=== PATIENT | male | born 1955 | race Caucasian/White ===

== ENCOUNTER → 2016-05-21 | Outpatient (CLI) | payer BC ==
[2016-05-21 12:53] LABS: ESTIMATED AVERAGE GLUCOSE 126 mg/dl; HA1C FLAG Normal (Normal)
[2016-05-21 13:10] LABS: ALT/SGPT 35 U/L (12-78); AST/SGOT 25 U/L (15-37); BLOOD UREA NITROGEN 14 mg/dl (7-18); CALCIUM 9.1 mg/dl (8.5-10.1); CARBON DIOXIDE 24 mmol/L (21-32); CHLORIDE 105 mmol/L (98-107); CREATININE 0.85 mg/dl (0.60-1.40); GLUCOSE 124 mg/dl (70-99); POTASSIUM 4.2 mmol/L (3.5-5.1); SODIUM 140 mmol/L (136-145)
[2016-05-21 13:15] LABS: ALB/GLOB RATIO 1.2 (0.9-2); ALKALINE PHOSPHATASE 74 U/L (45-117); CHOLESTEROL 164 mg/dl (0-200); CHOLESTEROL/HDL RATIO 2.3; HDL CHOLESTEROL 72 mg/dl; LDL CHOLESTEROL CALCULATED 77 mg/dl; TRIGLYCERIDES 76 mg/dl (0-150); VERY LOW DENSITY LIPOPROT CALC 15 mg/dl
== END | disposition home or self-care (01) ==
LOC: C.LABBFT 09:10
PROVIDERS: ATTEND Internal Medicine
DX: E11.9 Type 2 diabetes mellitus without complications (principal); R97.20 Elevated prostate specific antigen [PSA]; Z00.00 Encounter for general adult medical examination without abnormal findings; I10 Essential (primary) hypertension

== ENCOUNTER → 2016-10-23 | Outpatient (CLI) | payer BC ==
[2016-10-23 12:19] LABS: BASO % 0.2 %; BASO ABS # 0.01 K/uL (0-0.2); COMPLETE YES; EOS % 2.2 %; HEMATOCRIT 42.1 % (42-52); IG% 0.6 %; LYMPH % 11.3 %; LYMPH ABS # 0.61 K/uL (1.2-3.4); MEAN CORPUSCULAR HEMOGLOBIN 31.5 pg (25-34); MEAN CORPUSCULAR HGB CONC 33.5 g/dl (32-36); MEAN PLATELET VOLUME 11.5 fL (7.4-10.4); MONO % 9.8 %; NEUT % 75.9 %; PLATELET COUNT 130 K/uL (130-400); RED BLOOD COUNT 4.48 M/uL (4.7-6.1)
[2016-10-23 12:40] LABS: ALT/SGPT 37 U/L (12-78); AST/SGOT 26 U/L (15-37); BLOOD UREA NITROGEN 19 mg/dl (7-18); BUN/CREATININE RATIO 17.1 (10-20); CALCIUM 9.3 mg/dl (8.5-10.1); CARBON DIOXIDE 27 mmol/L (21-32); CHLORIDE 108 mmol/L (98-107); GLUCOSE 216 mg/dl (70-99); POTASSIUM 4.6 mmol/L (3.5-5.1); SODIUM 140 mmol/L (136-145)
[2016-10-23 12:51] LABS: ALB/GLOB RATIO 1.3 (0.9-2); ALKALINE PHOSPHATASE 73 U/L (45-117)
[2016-10-23 13:26] LABS: ESTIMATED AVERAGE GLUCOSE 146 mg/dl; HA1C FLAG Normal (Normal)
[2016-10-23 14:29] LABS: LYME DISEASE AB IGG NEG (NEG); LYME DISEASE AB IGM NEG (NEG)
== END | disposition home or self-care (01) ==
LOC: C.LABBFT 10:38
PROVIDERS: ATTEND Urology
DX: Z00.00 Encounter for general adult medical examination without abnormal findings (principal); R97.20 Elevated prostate specific antigen [PSA]; E11.9 Type 2 diabetes mellitus without complications; I10 Essential (primary) hypertension; R06.02 Shortness of breath; M25.50 Pain in unspecified joint

== ENCOUNTER → 2016-10-24 | Outpatient (CLI) | payer BC | END | disposition home or self-care (01) | LOC: C.LABBFT 10:40 | PROVIDERS: ATTEND Internal Medicine | DX: Z00.00 Encounter for general adult medical examination without abnormal findings (principal); E11.9 Type 2 diabetes mellitus without complications; I10 Essential (primary) hypertension; R97.20 Elevated prostate specific antigen [PSA] ==

== ENCOUNTER → 2016-11-08 | Outpatient (CLI) | payer BC ==
[~2016-11-08] MED LIST: PERFLUTREN LIPID MICROSPHERE (DEFINITY) IV ONE
--- NOTE | 2016-11-08 15:16 | ECHOCARDIOGRAM REPORT ---
*NOTICE TO RECEIVING REPUBLICAN AGENCY This information is strictly Confidential and protected under [place] law. [place] law prohibits you from making any further disclosure of this information unless further disclosure is expressly permitted by the written consent of the person to whom it pertains or is authorized by law. A general authorization for the release of medical or other information is not sufficient for this purpose. Hospital accepts no responsibility if the information is made available to any other person, INCLUDING THE PATIENT. Interpretation Summary * Name: SHANELL PARKER Study Date: 11/08/2016 01:19 PM BP: 145/80 mmHg * Patient Location: [facility] HR: 84 * : 1955 (M/d/yyyy) Gender: Male Height: 72 in * Age: 61 yrs Ethnicity: [place] Weight: 255 lb * Ordering Physician: Sarahy Young * Referring Physician: Sarahy Young * Performed By: Haley Hou RDCS * * Reason For Study: SWELLING, SOB * BSA: 2.4 m2 * -- Conclusions -- * 1. Moderately dilated LV with normal LV wall thickness. * 2. Severe global LV dysfunction. LVEF 20-25%. Grade II diastolic dysfunction. * 3. Normal RV size with borderline RV function. * 4. No significant valvular pathology. * 5. Severe left atrial dilation. * 6. No prior studies for comparison. Procedure Details * A contrast injection of Definity was performed to improve assessment of LV function. * Contrast was injected into an intravenous site in the right arm. * One vial of Definity ultrasound contrast was diluted in normal saline to a total volume of 10 ml. A total of '2' ml of solution was administered during imaging. * Lot # [id number] of Definity utilized for procedure. * Expiration date NOV 22. * The attending nurse who injected the contrast agent was ELIZABETH BARNETT RN. Left Ventricle * The left ventricle is moderately dilated. * There is normal left ventricular wall thickness. * Ejection Fraction = 20-25%. * There is severe global hypokinesis of the left ventricle. Right Ventricle * The right ventricle is grossly normal size. * The right ventricular systolic function is normal as assessed by tricuspid annular plane systolic excursion (TAPSE) (normal >1.5 cm). Atria * The left atrium is severely dilated. * Right atrial size is normal. * No ASD detected; PFO is not assessed. Mitral Valve * The mitral valve is grossly normal. * There is no mitral valve stenosis. * There is trace mitral regurgitation. Tricuspid Valve * There is no tricuspid stenosis. * Significant tricuspid regurgitation is absent. Aortic Valve * The aortic valve opens well. * The aortic valve is trileaflet. * No hemodynamically significant valvular aortic stenosis. * There is no significant aortic regurgitation. Pulmonic Valve * The pulmonary valve is inadequately visualized, but the Doppler data is adequate for interpretation. * Pulmonic stenosis is absent. * There is no significant pulmonary regurgitation. Great Vessels * The aortic root and proximal ascending aorta are normal sized. Pericardium/Pleural * There is no pericardial effusion. Left Ventricular Diastolic Function * Diastolic dysfunction, Grade II (pseudonormalization pattern). MMode 2D Measurements and Calculations IVSd 1.1 cm IVSs 1.4 cm LVIDd 5.4 cm LVIDs 4.8 cm LVPWd 0.80 cm LVPWs 1.6 cm IVS/LVPW 1.4 FS 10.4 % EDV(Teich) 139.9 ml ESV(Teich) 108.5 ml EF(Teich) 22.5 % EDV(cubed) 155.5 ml ESV(cubed) 111.9 ml EF(cubed) 28.0 % % IVS thick 31.2 % % LVPW thick 96.3 % LV mass(C)d 190.5 grams LV mass(C)dI 80.7 grams/m\S\2 LV mass(C)s 305.3 grams LV mass(C)sI 129.2 grams/m\S\2 SV(Teich) 31.4 ml SI(Teich) 13.3 ml/m\S\2 SV(cubed) 43.6 ml SI(cubed) 18.4 ml/m\S\2 Ao root diam 3.1 cm Ao root area 7.6 cm\S\2 LA dimension 5.2 cm LA/Ao 1.7 LVAd ap4 53.9 cm\S\2 LVLd ap4 10.4 cm EDV(MOD-sp4) 231.0 ml EDV(sp4-el) 237.9 ml LVAs ap4 46.8 cm\S\2 LVLs ap4 10.2 cm ESV(MOD-sp4) 179.4 ml ESV(sp4-el) 181.9 ml EF(MOD-sp4) 22.3 % EF(sp4-el) 23.6 % LVAd ap2 43.0 cm\S\2 LVLd ap2 9.9 cm EDV(MOD-sp2) 154.2 ml EDV(sp2-el) 159.0 ml LVAs ap2 36.2 cm\S\2 LVLs ap2 9.2 cm ESV(MOD-sp2) 115.9 ml ESV(sp2-el) 120.9 ml EF(MOD-sp2) 24.8 % EF(sp2-el) 24.0 % LVLd %diff -5.28 % EDV(MOD-bp) 194.0 ml LVLs %diff -11.24 % ESV(MOD-bp) 151.6 ml EF(MOD-bp) 21.9 % SV(MOD-sp4) 51.6 ml SI(MOD-sp4) 21.8 ml/m\S\2 SV(MOD-sp2) 38.3 ml SI(MOD-sp2) 16.2 ml/m\S\2 SV(MOD-bp) 42.4 ml SI(MOD-bp) 17.9 ml/m\S\2 SV(sp4-el) 56.1 ml SI(sp4-el) 23.7 ml/m\S\2 SV(sp2-el) 38.2 ml SI(sp2-el) 16.2 ml/m\S\2 Doppler Measurements and Calculations MV E max kayleen 69.8 cm/sec MV A max kayleen 36.9 cm/sec MV E/A 1.9 MV dec time 0.17 sec Ao V2 max 100.4 cm/sec Ao max PG 4.0 mmHg Ao max PG (full) 2.5 mmHg LV V1 max PG 1.5 mmHg LV V1 max 61.6 cm/sec
== END | disposition home or self-care (01) ==
LOC: C.CPL 13:14
PROVIDERS: ATTEND Internal Medicine
DX: R60.9 Edema, unspecified (principal); R06.02 Shortness of breath; I51.7 Cardiomegaly

== ENCOUNTER → 2016-11-27 | Outpatient (CLI) | payer BC ==
[~2016-11-27] MED LIST changes: -PERFLUTREN LIPID MICROSPHERE (DEFINITY) IV ONE; +REGADENOSON 0.4 MG/5 ML SYR ONE
--- NOTE | 2016-11-28 09:56 | MYOCARDIAL PERFUSION SCAN ---
ONE-DAY NUCLEAR MEDICINE TECHNETIUM-99M CARDIOLITE MYOCARDIAL PERFUSION SCAN CLINICAL HISTORY: The patient has recently diagnosed systolic congestive heart failure and has been complaining of lower extremity edema. COMPARISON: None. TECHNIQUE: For the stress portion of the study, 32.3 mCi of Technetium 99 m Cardiolite IV was injected at 11:30 a.m. on 11/27/2016. Thirty minutes following the injection, imaging of the heart was performed in multiple projection. For the rest portion of the study, 10.7 mCi of Technetium 99 m Cardiolite was injected IV at 9:30 a.m. One hour following the injection, imaging of the heart was performed in the same projections. For the stress portion of the study, 0.4 mg of Lexiscan was injected intravenously as per protocol. The patient did note chest discomfort. There were no acute EKG changes. Baseline EKG noted sinus rhythm with left axis deviation, poor R-wave progression across the anterior precordium, and diffuse T-wave abnormality. Following the study, the patient was hemodynamically stable without complaints. FINDINGS: For the short axis, vertical long axis, horizontal long axis images were reviewed in detail. Tracer uptake is normal at both the stress and resting images. However, the proximal inferior wall notes decreased uptake at both stress and rest. This is either from a myopathic process, or a proximal inferior infarction. There is no myocardial ischemia. The left ventricle is hypokinetic and demonstrates reduced ejection fraction of 30%. The proximal inferior wall notes more severe hypokinesis. IMPRESSION: 1. No definite scintigraphic evidence of myocardial ischemia. 2. Proximal inferior wall defect consistent with either prior infarction or myopathic process. 3. Lexiscan induced chest discomfort. 4. No Lexiscan induced EKG changes over the baseline abnormality. 5. Globally hypokinetic left ventricle with an ejection fraction of 30%. More severe hypokinesis noted in the proximal inferior wall.
== END | disposition home or self-care (01) ==
LOC: C.NUCL 08:59
PROVIDERS: ATTEND Physician Assistant
DX: I42.9 Cardiomyopathy, unspecified (principal); I50.20 Unspecified systolic (congestive) heart failure

== ENCOUNTER → 2017-08-04 | Outpatient (CLI) | payer BC ==
[2017-08-04 17:05] LABS: ALBUMIN 3.9 gm/dl (3.4-5.0); ALT/SGPT 43 U/L (12-78); AST/SGOT 24 U/L (15-37); BLOOD UREA NITROGEN 28 mg/dl (7-18); CALCIUM 8.8 mg/dl (8.5-10.1); CARBON DIOXIDE 24 mmol/L (21-32); CREATININE 1.21 mg/dl (0.60-1.40); GLUCOSE 173 mg/dl (70-99); POTASSIUM 4.3 mmol/L (3.5-5.1); SODIUM 136 mmol/L (136-145); URIC ACID 7.6 mg/dl (2.6-7.2)
[2017-08-04 17:08] LABS: ALKALINE PHOSPHATASE 78 U/L (45-117); TOTAL PROTEIN 7.6 gm/dl (6.4-8.2)
[2017-08-05 07:19] LABS: HEMOGLOBIN A1C 7.4 % (4.5-5.6)
== END | disposition home or self-care (01) ==
LOC: C.LABBFT 13:38
PROVIDERS: ATTEND Internal Medicine
DX: Z00.00 Encounter for general adult medical examination without abnormal findings (principal); Z11.59 Encounter for screening for other viral diseases; E11.9 Type 2 diabetes mellitus without complications; H43.399 Other vitreous opacities, unspecified eye; R80.9 Proteinuria, unspecified; I10 Essential (primary) hypertension; M10.9 Gout, unspecified

== ENCOUNTER 2023-07-08 15:03 | Inpatient (IN) ==
--- NOTE | 2023-07-08 15:29 | Emergency Department Note ---
Impression & Plan Acute renal failure (ARF), Systolic congestive heart failure, Acute uremia, Encephalopathy, Hyperkalemia ED Provider Note Provider: Parminder Dior MD DATE OF SERVICE: 07/08/2023 CHIEF COMPLAINT: Weakness, shaking HISTORY OF PRESENT ILLNESS: Patient is a 68-year-old gentleman history of heart failure, hypertension, diabetes, and GERD by report presenting here today via ambulance from his home with no issue. Patient's brother called 911 as there was concerned about the patient. Several days ago for Easter. Patient noted to be quite shaky by EMS and seem to have and speech/confusion. Brought here for further evaluation. Was noted to be possibly hypoxic and bradycardic by EMS. Upon arrival here patient quite tremulous. Answering questions and following commands. Denies any trauma or pain. Is in a poorly kept bath robe with a bit of stool and/or blood on it as well. There is little bit of dried blood in the patient's appears well but he denies vomiting. Denies any recollection of this. Denies abdominal pain or nausea or vomiting. Denies chest pain or shortness of breath. States he been feeling much more weak recently. 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 Again denies falls. States he been trying to put off going to the doctor. EMS gave the patient a liter normal saline prior to arrival. PAST MEDICAL HISTORY: As noted above MEDICATIONS: Reviewed medication list presenting with the patient but he is unable to clearly tell me if you have been taking them or not. SOCIAL HISTORY: Lives by himself, history of alcohol use but states has been sober for 7 weeks PHYSICAL EXAM: GENERAL: alert and oriented in no acute distress on stretcher however very tremulous and appears fatigued. Not really able to give me a lot of clear details or history. Head: normocephalic and atraumatic EYES: No injection, discharge or icterus. PERRL, EOMI. NECK: Trachea midline. Supple. ENT: Mucous membranes pink and moist. There is little bit of what appears to be dried blood in the right mustache. LUNGS: Airway patent. No retractions. Breath sounds clear with good air entry bilaterally. HEART: Regular rate and rhythm. No chest wall tenderness ABDOMEN: Soft and non-tender, without guarding or rebound. SKIN: Acyanotic, warm, dry, without rashes EXTREMITIES: Without swelling, tenderness or deformity NEUROLOGICAL: No focal deficits but tremulous at rest. No aphasia. No facial droop or slurred speech. EK bpm sinus rhythm with a bit of baseline artifact but no acute ST segment elevation or depression with a left axis and nonspecific interventricular conduction delay. QTc 441. No PVC noted. CONTINUOUS CARDIAC MONITORING: was ordered and showed a heart rate of bpm in Patient's laboratory studies and imaging reviewed. Differential includes Infection, dehydration, metabolic abnormality, hypo/hyperglycemia, electrolyte disturbance, anemia, hypoxia, cardiac sources, intracerebral event, toxicologic, neurologic, as well as other pathologies. IMPRESSION/MEDICAL DECISION MAKING: Patient fatigued and appears a little bit drowsy and/or confused. No trauma noted. Possible little bit of blood around his mouth and his fitch as well as possibly in his bathroom. States he has been sober from alcohol for medical echo was checked. Will obtain a head CT. Denies any pain. No focal neurological deficits at this time lower suspicion for CVA. No fever here. Possible oxygen requirement but a bit hard with his tremulousness to be for sure waveform is accurate on pulse ox. Chest x-ray ordered and basic labs. CT of the head per radiology reassuring and chest x-ray without acute pathology noted by them. Blood work obtained here without leukocytosis. Mild anemia of 9.8. Again there is question if he did have a little bit of bloody vomit or stool but again it is hard to get a good history from him. Given a dose of PPI. Alcohol level not elevated. Normal INR. Chemistries finally returned after delay borderline hyponatremia but some hyperkalemia 5.9. Significant BUN elevation 175 with a creatinine of almost 8. Reviewed records and follows with cardiology there and has a history of an EF in April of this year of 25% (will need cautious rehydration). Received a liter of fluid prior to arrival and will cautiously start a bicarb drip as well as given IV bicarb, insulin, glucose, and some calcium for the hyperkalemia. Begin believe more dehydration related but will complete a CT of the abdomen pelvis to exclude obstruction component. He will need to be hospitalized and the patient was agreeable. Likely somewhat encephalopathic from his uremia. Discussed with the hospitalist. DIAGNOSIS: AMS/encephalopathy (uremic), weakness, acute renal failure, hyperkalemia DISPOSITION: Hospitalist will evaluate Patient was agreeable with this plan. Critical Care I have personally spent 32 minutes of critical care time in the direct management of this patient. This includes bedside care, interpretation of diagnostic studies, and testing, discussion with consultants, patient, and other required patient management activities. These 32 minutes is in excess of all separately billable procedures. Past Med/Surg History Medical History Elevated PSA GERD without esophagitis Gout Hypertension Nonischemic cardiomyopathy Rosacea Systolic congestive heart failure Surgical History No significant past surgical history Family History Mother Diabetes Myocardial infarction Brother Pacemaker Sister Pacemaker Denies family history of Ovarian cancer Prostate cancer Alzheimer disease Breast cancer Lung cancer Colorectal cancer Lung disease Colonic polyp Social History Smoking Status: Never smoker Age Started Using Tobacco: 8; Age Quit Using Tobacco: 45; packs per day: 1; Cigarettes Per Day: pt. 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 Safe at Home: Yes Childhood Exposure to Second-Hand Smoke: No Diet: regular caffeine: Yes Dental Care, Regularly: Yes Physical Activity Frequency: 3-4 Times per Week Seatbelt Use: always Sunscreen Use: Yes Allergies Allergies Allergy/AdvReac Type Severity Reaction Status Date / Time Penicillins Allergy Severe AIRWAY Verified 07/08/23 15:41 EDEMA pollen extracts Allergy Intermediate ITCHY Verified 07/08/23 15:41 EYES, SNEEZING, CONGESTION Home Meds Home Medications Medication Instructions Recorded Confirmed metoprolol succinate 50 mg 50 mg PO BID #30 tabs 11/24/18 07/08/23 tablet,extended release 24 hr aspirin 81 mg tablet,delayed 81 mg PO QPM 05/10/20 07/08/23 release melatonin 10 mg capsule 10 mg PO HS PRN Sleep 05/10/20 07/08/23 allopurinol 100 mg tablet 100 mg PO QAM 05/17/20 07/08/23 olmesartan 20 mg tablet 20 mg PO QAM 05/17/20 07/08/23 empagliflozin 10 mg tablet 10 mg PO QAM 07/08/23 07/08/23 (Jardiance) fexofenadine 180 mg tablet 180 mg PO QAM 07/08/23 07/08/23 hydroxyzine HCl 25 mg tablet 25 mg PO DAILY PRN Itching 07/08/23 07/08/23 metformin 500 mg tablet 500 mg PO BIDM 07/08/23 07/08/23 rosuvastatin 10 mg tablet 10 mg PO QAM 07/08/23 07/08/23 Results & Data (ED) Vital Signs Vital Signs - 24 hr 07/08/23 15:12 07/08/23 15:12 07/08/23 15:57 Temperature 36.4 C L Temperature Source Oral Pulse Rate 94 H 79 Pulse Rate [Apical] Respiratory Rate 18 Respiratory Effort / Characteristics Non-Labored Spontaneous Respiratory Depth Normal Blood Pressure 129/87 Blood Pressure [Right Arm] Blood Pressure Mean 101 Blood Pressure Mean [Right Arm] Blood Pressure Position Sitting Pulse Oximetry 97 94 Oxygen Delivery Method Nasal Cannula Room Air Oxygen Flow Rate 3 84 Sepsis Recent Fever Within 48 Hours No Sepsis New/Unexplained Change in Mental Status N/A Sepsis Action Taken by Nursing No Action Required Oxygen Flow Rate - Titration 3 07/08/23 18:00 07/08/23 18:30 07/08/23 18:32 Temperature Temperature Source Pulse Rate Pulse Rate [Apical] 82 88 Respiratory Rate 16 18 Respiratory Effort / Characteristics Respiratory Depth Blood Pressure Blood Pressure [Right Arm] 122/83 131/83 Blood Pressure Mean Blood Pressure Mean [Right Arm] 96 99 Blood Pressure Position Pulse Oximetry 95 95 95 Oxygen Delivery Method Room Air Room Air Room Air Oxygen Flow Rate Sepsis Recent Fever Within 48 Hours Sepsis New/Unexplained Change in Mental Status Sepsis Action Taken by Nursing Oxygen Flow Rate - Titration 07/08/23 19:00 Temperature Temperature Source Pulse Rate Pulse Rate [Apical] 88 Respiratory Rate 22 Respiratory Effort / Characteristics Respiratory Depth Blood Pressure Blood Pressure [Right Arm] 115/89 Blood Pressure Mean Blood Pressure Mean [Right Arm] 97 Blood Pressure Position Pulse Oximetry 99 Oxygen Delivery Method Oxygen Flow Rate Sepsis Recent Fever Within 48 Hours Sepsis New/Unexplained Change in Mental Status Sepsis Action Taken by Nursing Oxygen Flow Rate - Titration Laboratory Data 07/08/23 16:54 07/08/23 16:54 Lab Results 07/08/23 Range/Units 16:54 WBC 7.29 (4.8-10.8) K/ul RBC 3.15 L (4.70-6.10) M/uL Hgb 9.8 L (14.0-18.0) g/dl Hct 28.7 L (42.0-52.0) % MCV 91.1 (80.0-100.0) fL MCH 31.1 (25.0-34.0) pg MCHC 34.1 (32.0-36.0) g/dL RDW Std Deviation 49.5 H (36.4-46.3) fL RDW Coeff of Vu 14.8 H (11.5-14.5) % Plt Count 115 L (130-400) K/uL MPV 11.8 (9.4-12.4) fL Immature Gran % (Auto) 2.2 % Neut % (Auto) 75.1 % Lymph % (Auto) 9.2 % Chaves % (Auto) 12.5 % Eos % (Auto) 0.7 % Baso % (Auto) 0.3 % Neut # (Auto) 5.48 (1.40-6.50) K/uL Lymph # (Auto) 0.67 L (1.20-3.40) K/uL Chaves # (Auto) 0.91 H (0.11-0.59) K/uL Eos # (Auto) 0.05 (0.00-0.50) K/uL Baso # (Auto) 0.02 (0.00-0.20) K/uL Immature Gran # (Auto) 0.16 (0.01-0.20) K/uL Absolute Nucleated RBC 0.03 (0.00-0.12) K/uL Nucleated RBC % (auto) 0.4 % PT 12.2 H (9.0-12.0) Seconds INR 1.1 (0.9-1.1) Sodium 135 L (136-145) mmol/L Potassium 5.9 H (3.5-5.1) mmol/L Chloride 106 (98-107) mmol/L Carbon Dioxide 12 L (21-32) mmol/L Anion Gap 17 H (3-11) BUN 175 H (6-23) mg/dl Creatinine 7.93 H* (0.6-1.4) mg/dl Est Cr Clr Drug Dosing 10.9 ml/min Est GFR ( Amer) 7.2 ml/min Est GFR (Non-Af Amer) 6.2 ml/min BUN/Creatinine Ratio 22.1 H (10-20) Glucose 145 H (70-99(Fasting)) mg/dl Calcium 9.8 (8.6-10.3) mg/dl Magnesium 2.0 (1.7-2.4) mg/dl Total Bilirubin 0.9 (0.2-1.0) mg/dl AST 16 (13-39) U/L ALT 13 (7-52) U/L Alkaline Phosphatase 76 (34-104) U/L Total Creatine Kinase 86 (30-223) U/L Troponin I High Sens 37.5 H (0-20) pg/ml Total Protein 7.3 (6.0-8.3) gm/dl Albumin 3.9 (3.4-5.0) gm/dl Globulin 3.4 (2.5-4.0) gm/dl Albumin/Globulin Ratio 1.1 (0.9-2) TSH 1.339 (0.300-4.500) uIu/ml Ethyl Alcohol mg/dL < 10.0 (<10.0) mg/dl Administered Medications Discontinued Medications Dextrose (Dextrose 50% 50 Ml Syringe) 50 ml IV NOW STA Stop: 07/08/23 18:37 Last Admin: 07/08/23 18:53 Dose: 50 ml Documented By: JACINTA Pantoprazole Sodium 80 mg/ (Dextrose) 120 mls @ 480 mls/hr IV ONE STA Stop: 07/08/23 17:46 Last Admin: 07/08/23 19:02 Dose: 480 mls/hr Documented By: JACINTA Insulin Human Regular 10 units (/ Syringe) 9.9 mls @ 3 mls/sec IV ONE STA Stop: 07/08/23 18:37 Last Admin: 07/08/23 18:53 Dose: 3 mls/sec Documented By: JACINTA Co-signed By: SELENE Sodium Chloride (Nss) 1,000 mls @ 999 mls/hr IV .Q1H1M ONE Stop: 07/08/23 19:36 Last Admin: 07/08/23 19:02 Dose: 999 mls/hr Documented By: JACINTA Calcium Gluconate () 1,000 mg in 60 mls @ 240 mls/hr IV NOW STA Stop: 07/08/23 18:50 Last Infusion: 07/08/23 19:24 Dose: Infused Documented By: Admin: 07/08/23 18:53 Dose: 240 mls/hr Documented By: JACINTA Sodium Bicarbonate (Sodium Bicarb 8.4% Inj 50 Meq/50 Ml Syr) 50 meq IV NOW STA Stop: 07/08/23 18:37 Last Admin: 07/08/23 18:53 Dose: 50 meq Documented By: JACINTA Imaging Data Radiologist's Impression: Chest X-Ray 07/08/23 15:23 XR chest 1V portable CLINICAL HISTORY: weakness, ams, O2 req TECHNIQUE: Single frontal radiograph of the chest was obtained. Comparison: None available at the time of this dictation. FINDINGS: No lines and tubes are seen. The cardiomediastinal silhouette is normal. Lungs are underinflated but clear. No evidence of pleural effusion or pneumothorax. IMPRESSION: No acute chest disease. ACT 112: Negative or not required by law. Electronically signed by: Marbin Cervantes M.D. 07/08/2023 3:[address] 07/08/23 15:23 CT head/brain wo con CLINICAL HISTORY: 68 years-old Male with weak, shaky, ams. Acutely altered mental status with weakness TECHNIQUE: Multiple axial CT images of the head were obtained without contrast. A dose lowering technique was utilized adhering to the principles of ALARA. CT DOSE: 703.85 mGy.cm COMPARISON: None. FINDINGS: No acute intracranial hemorrhage, midline shift, intracranial mass, hydrocephalus, territorial ischemia or abnormal extra-axial collection. Involutional changes with probable chronic microvascular ischemic disease. The calvarium is intact. The paranasal sinuses, mastoid air cells, and middle ear cavities are clear. IMPRESSION: No acute intracranial abnormality. ACT 112: Negative or not required by law. The above report was generated using voice recognition software. It may contain grammatical, syntax or spelling errors. Electronically signed by: Ivan Modi M.D. 07/08/2023 4:31 PM Discharge Plan Visit Data Chief Complaint: Altered Mental Status ED Provider: Parminder Dior Discharge Problem: Acute renal failure (ARF), Systolic congestive heart failure, Acute uremia, Encephalopathy, Hyperkalemia Patient Disposition: Being Evaluated by Hospitalist Forms Stand Alone Forms: [facility] Prescriptions Prescriptions: No Action metoprolol succinate 50 mg tablet extended release 24 hr 50 mg PO BID Qty: 30 aspirin 81 mg tablet,delayed release (DR/EC) 81 mg PO QPM melatonin 10 mg capsule 10 mg PO HS PRN (Reason: Sleep) allopurinol 100 mg tablet 100 mg PO QAM olmesartan 20 mg tablet 20 mg PO QAM fexofenadine [Liv] 180 mg Tablet 180 mg PO QAM hydroxyzine HCl 25 mg tablet 25 mg PO DAILY PRN (Reason: Itching) Jardiance 10 mg tablet 10 mg PO QAM metformin 500 mg tablet 500 mg PO BIDM rosuvastatin 10 mg tablet 10 mg PO QAM Referrals Referrals: PCP,NO [Physician] -
--- NOTE | 2023-07-08 15:54 | XRay Report ---
XR chest 1V portable CLINICAL HISTORY: weakness, ams, O2 req TECHNIQUE: Single frontal radiograph of the chest was obtained. Comparison: None available at the time of this dictation. FINDINGS: No lines and tubes are seen. The cardiomediastinal silhouette is normal. Lungs are underinflated but clear. No evidence of pleural effusion or pneumothorax. IMPRESSION: No acute chest disease. ACT 112: Negative or not required by law. Electronically signed by: Marbin Cervantes M.D. 07/08/2023 3:52 PM
--- NOTE | 2023-07-08 16:32 | CT Scan Report ---
CT head/brain wo con CLINICAL HISTORY: 68 years-old Male with weak, shaky, ams. Acutely altered mental status with weakne ss TECHNIQUE: Multiple axial CT images of the head were obtained without contrast. A dose lowering tech nique was utilized adhering to the principles of ALARA. CT DOSE: 703.85 mGy.cm COMPARISON: None. FINDINGS: No acute intracranial hemorrhage, midline shift, intracranial mass, hydrocephalus, territorial ischem ia or abnormal extra-axial collection. Involutional changes with probable chronic microvascular ische alexandru disease. The calvarium is intact. The paranasal sinuses, mastoid air cells, and middle ear cavities are clear . IMPRESSION: No acute intracranial abnormality. ACT 112: Negative or not required by law. The above report was generated using voice recognition software. It may contain grammatical, syntax o r spelling errors. Electronically signed by: Ivan Modi M.D. 07/08/2023 4:31 PM
[2023-07-08 17:25] LABS: Basophils # (auto) 0.02 K/uL (0.00-0.20); Basophils % (auto) 0.3 %; Eosinophils # (auto) 0.05 K/uL (0.00-0.50); Eosinophils % (auto) 0.7 %; Hematocrit (blood only) 28.7 % (42.0-52.0); Hemoglobin 9.8 g/dl (14.0-18.0); Immature Granulocytes # (auto) 0.16 K/uL (0.01-0.20); Immature Granulocytes % (auto) 2.2 %; Lymphocytes # (auto) 0.67 K/uL (1.20-3.40); Lymphocytes % (auto) 9.2 %; Mean Corpuscular Hemoglobin 31.1 pg (25.0-34.0); Mean Corpuscular Hgb Conc 34.1 g/dL (32.0-36.0); Mean Corpuscular Volume 91.1 fL (80.0-100.0); Mean Platelet Volume 11.8 fL (9.4-12.4); Monocytes # (auto) 0.91 K/uL (0.11-0.59); Monocytes % (auto) 12.5 %; Neutrophils # (auto) 5.48 K/uL (1.40-6.50); Neutrophils % (auto) 75.1 %; Nucleated RBC # (auto) 0.03 K/uL (0.00-0.12); Nucleated RBC % (auto) 0.4 %; Platelet Count 115 K/uL (130-400); RDW Coefficient of Variation 14.8 % (11.5-14.5); RDW Standard Deviation 49.5 fL (36.4-46.3); Red Blood Count 3.15 M/uL (4.70-6.10); White Blood Count 7.29 K/ul (4.8-10.8)
[2023-07-08 17:33] LABS: INR 1.1 (0.9-1.1); Prothrombin Time 12.2 Seconds (9.0-12.0)
[2023-07-08 18:34] LABS: Albumin Globulin Ratio 1.1 (0.9-2); Albumin Level 3.9 gm/dl (3.4-5.0); BUN Creatinine Ratio 22.1 (10-20); Bilirubin,Total 0.9 mg/dl (0.2-1.0); Calcium 9.8 mg/dl (8.6-10.3); Creatinine Clr Calc Pharmacy 10.9 ml/min; Est GFR (African American) 7.2 ml/min; Est GFR (Non-African American) 6.2 ml/min; Globulin 3.4 gm/dl (2.5-4.0); Potassium 5.9 mmol/L (3.5-5.1); Thyroid Stimulating Hormone 1.339 uIu/ml (0.300-4.500); Total Protein 7.3 gm/dl (6.0-8.3); Troponin I High Sensitivity 37.5 pg/ml (0-20)
[2023-07-08] MEDS: SODIUM BICARB 8.4% INJ 50 MEQ/50 ML SYR IV STA (18:53)
[2023-07-08] MEDS: CALCIUM GLUCONATE 1,000 MG/60 ML BAG IV STA (18:53)
[2023-07-08] MEDS: INSULIN HUMAN REGULAR PER UNIT 10 UNITS in SYRINGE 9.9 ML IV STA (18:53)
[2023-07-08] MEDS: DEXTROSE 50% 50 ML SYRINGE IV STA (18:53)
[2023-07-08] MEDS: PANTOprazole 80 MG in DEXTROSE 5% 100 ML IV STA (19:02)
[2023-07-08] MEDS: SODIUM CHLORIDE 0.9% 1,000 ML IV ONE (19:02)
[2023-07-08 20:08] LABS: Appearance Urine Clear (Clear); Bacteria Urine Automated Negative (Negative); Bilirubin Urine Negative (Negative); Blood Urine 1+ (Negative); Color Urine Yellow; Glucose Urine UA 1+ (Negative); Ketones Urine Negative (Negative); Leukocyte Esterase Urine Negative (Negative); Nitrite Urine Negative (Negative); Protein Urine 1+ (Negative); Specific Gravity Urine 1.018 (1.000-1.030); Urobilinogen Urine Negative (Negative)
[2023-07-08 20:36] LABS: Amphetamines+Metham, Urine Neg (Neg); Barbiturates, Urine Neg (Neg); Benzodiazepine, Urine Neg (Neg); Cocaine, Urine Neg (Neg); MDMA (Ecstacy), Urine Neg (Neg); Marijuana, Urine Neg (Neg); Methadone, Urine Neg (Neg); Opiate, Urine Neg (Neg); Phencyclidine, Urine Neg (Neg)
[2023-07-08] MEDS: SODIUM BICARBONATE 8.4% 75 MEQ in SODIUM CHLORIDE 0.45 % 1,000 ML IV SCH (20:41)
[2023-07-08 22:24] LABS: Base Excess VBG -13.3 mEq/L; HCO3 VBG 14 mmol/L; Oxygen Saturation VBG < 60.0 %; PCO2 VBG 37 mmHg (38-50); PO2 VBG 28 mmHg; pH VBG 7.19 (7.36-7.41)
[2023-07-08] MEDS ORDERED: DEXTROSE 50% 50 ML SYRINGE IV PRN (22:41)
[2023-07-08] MEDS ORDERED: PANTOPRAZOLE BOLUS/DRIP IV STA (22:41)
[2023-07-08] MEDS ORDERED: NITROGLYCERIN SL 0.4 MG/TAB TAB SL PRN (22:41)
[2023-07-08] MEDS ORDERED: GLUCAGON FOR INJ 1 MG VIAL SQ PRN (22:41)
[2023-07-08] MEDS ORDERED: GLUCOSE 10 TAB/TUBE PO PRN (22:41)
[2023-07-08] MEDS ORDERED: GLUCOSE 40% GEL 15 GM TUBE PO PRN (22:41)
[2023-07-08] MEDS ORDERED: Ativan IV Alcohol Withdrawal--Active Protocol IV PRN (22:41)
[2023-07-08] MEDS ORDERED: CARBOHYDRATES FOR HYPOGLYCEMIA PO PRN (22:41)
[2023-07-08] MEDS: FOLIC ACID 1 MG in SYRINGE 9.8 ML IV STA (22:43)
[2023-07-08] MEDS: THIAMINE HCL 200 MG in SODIUM CHLORIDE 0.9% 50 ML IV STA (22:43)
[2023-07-08] MEDS: INSULIN ASPART PER UNIT CHARGE SC SCH (23:26)
--- NOTE | 2023-07-08 23:26 | CT Scan Report ---
Exam(s): CT ABDOMEN + PELVIS Without Contrast EXAM: CT Abdomen and Pelvis Without Intravenous Contrast CLINICAL HISTORY: Reason for exam: PETER Cr >7. TECHNIQUE: Axial computed tomography images of the abdomen and pelvis without intravenous contrast. CTDI is 28.1 mGy and DLP is 1575.28 mGy-cm. Automated exposure control was utilized for the study. A dose lowering technique was utilized adhering to the principles of ALARA. COMPARISON: No relevant prior studies available. FINDINGS: Lung bases: Unremarkable. No mass. No consolidation. ABDOMEN: Liver: Unremarkable. Gallbladder and bile ducts: Cholelithiasis. No ductal dilation. Pancreas: Unremarkable. No ductal dilation. Spleen: Unremarkable. No splenomegaly. Adrenals: Unremarkable. No mass. Kidneys and ureters: Unremarkable. No hydronephrosis or nephrolithiasis. Stomach and bowel: Diverticulosis, without acute diverticulitis. No small bowel obstruction. No free intraperitoneal air. PELVIS: Appendix: No findings to suggest acute appendicitis. Bladder: Bernal catheter terminates in the urinary bladder. No stones. Reproductive: Unremarkable as visualized. ABDOMEN and PELVIS: Intraperitoneal space: Unremarkable. No free air. No significant fluid collection. Bones/joints: Degenerative changes of the spine. No acute fracture. No dislocation. Soft tissues: Small fat-containing bilateral inguinal hernias. Fat- containing umbilical hernia measures 3.6 x 3.3 cm. Vasculature: Atherosclerotic changes of the aorta. No abdominal aortic aneurysm. Lymph nodes: Unremarkable. No enlarged lymph nodes. IMPRESSION: 1. Cholelithiasis. 2. Bernal catheter terminates in the urinary bladder. 3. Small fat-containing bilateral inguinal hernias. 4. Fat-containing umbilical hernia measures 3.6 x 3.3 cm. 5. Diverticulosis, without acute diverticulitis. No small bowel obstruction. No free intraperitoneal air. Electronically signed by: Branden Hay MD 07/08/23 23:25 PM
[2023-07-09] MEDS: PANTOprazole 80 MG in DEXTROSE 5% 100 ML IV ONE (01:26)
[2023-07-09 01:28] LABS: Hematocrit (blood only) 28.2 % (42.0-52.0); Hemoglobin 9.5 g/dl (14.0-18.0)
[2023-07-09] MEDS: STAT IV/IM STA (01:38)
[2023-07-09 01:43] LABS: Magnesium 1.9 mg/dl (1.7-2.4); Phosphorus 5.8 mg/dl (2.5-4.9)
[2023-07-09 01:50] LABS: Troponin I High Sensitivity 38.5 pg/ml (0-20)
[2023-07-09 01:59] LABS: Partial Thromboplastin Ratio 1.1; Partial Thromboplastin Time 31 Seconds (21-31)
[2023-07-09 02:02] LABS: Calcium 9.7 mg/dl (8.6-10.3); Creatinine Clr Calc Pharmacy 11.8 ml/min; Est GFR (Non-African American) 6.9 ml/min; Potassium 5.5 mmol/L (3.5-5.1)
[2023-07-09] MEDS: CLINDAMYCIN/D5W 600 MG/50 ML BAG IV SCH (03:21)
[2023-07-09] MEDS: LORazepam 2 MG in SYRINGE 1 ML IV PRN (03:31)
[2023-07-09] MEDS: PANTOprazole 40 MG in DEXTROSE 5% MINI-B 100 ML IV SCH (04:15)
[2023-07-09] MEDS: AZTREONAM 2,000 MG in DEXTROSE 5% MINI-B 100 ML IV SCH (04:51)
--- OUTSIDE RECORDS SUMMARY | 2023-07-09 04:51 | External Medical Summary | Summary of Care ---
Author Name Unknown Organization [facility] [address] [address] Phone [phone] Care Team Providers Care Peoplesoft Programmer Name Role Phone Tanner Johnson MD Primary Care Provider [phone] Reason for Visit * Reason Onset Date Comments Advice 05/09/2023 Dr Johnson Encounter Details Date Type Department Care Team (Late st Contact Info) Description 05/09/2023 Telephone Cardiology, [facility] [address] [place] [address] Omar Lundy O, [address] [place] [address] Advice (Dr Johnson) Allergies Active Allergy Reactions Criticality Noted Date Comments Pollen 10/25/2020 Penicillins Edema airway High 08/28/2015 Happened as a kid, age 10 documented as of this encounter (statuses as of 05/30/2023) Medications Medication Sig Dispensed Refills Start Date End Date Status Fexofenadine HCl 180 MG Oral Tablet Take 1 Tablet by mouth in the morning. 0 Active Melatonin 10 MG Tablet Take 1 Tablet by mouth as needed. 0 Active Acyclovir 5 % External Ointment (Zovirax) Apply to genital lesion 5 times per day for 4 days 15 g 3 10/26/2020 Active Additional Information Patient not taking.Reported on 12/31/2022 Tadalafil 5 MG Oral Tablet (Cialis) Take by mouth 1 Tablet in the morning. 30 Tablet 6 06/20/2021 Active Additional Information Patient not taking.Reported on 07/19/2022 Albuterol Sulfate 108 (90 Base) MCG/ACT Inhalation Aerosol Powder Breath ActivatedIndications: Bronchitis, complicated 2 puffs every 4 hrs as needed for wheeze 1 Each 3 06/12/2022 Active Additional Information Patient not taking.Reported on 12/31/2022 Olmesartan Medoxomil 20 MG Oral Tablet (Benicar)Indications: HTN, goal below 130/80 Take 1 Tablet by mouth in the morning. 90 Tablet 3 03/11/2023 Active Metoprolol Succinate ER 50 MG Oral Tablet Extended Release 24 Hour (toPROL XL)Indications:PVC (premature ventricular contraction) TAKE ONE TABLET BY MOUTH EVERY DAY IN THE MORNING AND ONE TABLET BEFORE BEDTIME 200 Tablet 0 03/11/2023 Active hydrOXYzine HCl 25 MG Oral TabletIndications:Pru ritic condition Take 1 Tablet by mouth daily as needed for Itching. 90 Tablet 3 05/07/2023 Active Aspirin 81 MG Oral Tablet Delayed ReleaseIndications:Ta emmy 2 times per week Take 1 Tablet by mouth every evening. 90 Tablet 3 05/09/2023 Active Empagliflozin 10 MG Oral Tablet (Jardiance)Indication s:Type 2 diabetes mellitus with hyperosmolarity without coma, without long-term current use of insulin (HCC),Type 2 diabetes mellitus with hemoglobin A1c goal of less than 7.0% (HCC) Take 1 Tablet by mouth in the morning. 90 Tablet 3 05/09/2023 Active Rosuvastatin Calcium 10 MG Oral Tablet (Crestor)Indications: Hyperlipidemia with target LDL less than 100 TAKE ONE TABLET BY MOUTH IN THE MORNING 100 Tablet 3 05/09/2023 Active documented as of this encounter (statuses as of 05/30/2023) Active Problems Problem Noted Date Diagnosed Date Dyslipidemia, goal LDL below 100 07/23/2022 Alcohol dependence with unsp ecified alcohol-induced disorder 01/01/2022 Closed fracture of distal en d of left fibula with routine healing 01/01/2022 Thrombocytopenia 01/01/2022 Hypertensive heart failure 01/01/2022 Elevated prostate specific antigen (PSA) 020 ED (erectile dysfunction) of organic origin 09/2019 PVC (premature ventricular contraction) 09/30/19 19 Type 2 diabetes mellitus, wi thout long-term current use of insulin 09/29/2018 Chronic systolic CHF (conges tive heart failure), NYHA class 2 09/29/2018 1st degree AV block 09/29/2018 IVCD (intraventricular conduction defect) 2018 Nonischemic cardiomyopathy 01/26/2018 HTN, goal below 130/80 11/10/2017 documented as of this encounter (statuses as of 05/30/2023) Resolved Problems Problem Noted Date Diagnosed Date Resolved Date Screening for prostate cancer 08/28/2015 01/26/2018 Uncontrolled type 2 diabetes mellitus with hyperglycemia 08/28/2015 01/01/2022 Overview: ICD-10 update of inactive term documented as of this encounter (statuses as of 05/30/2023) Immunizations Name Administration Dates Next Due COVID-19 mRNA, LNP-s, No Pre serve, 2-Dose Series (Moderna) 08/01/2020,06/30/2020 Pneumococcal Conjugate Vacc, 13 Valent (Prevnar) 01/26/2018 Pneumococcal Conjugate Vaccine, 20-valent (Prevn ar20) 09/27/2022 Pneumococcal Polysaccharide PPV23 (Pneumovax) ,12/04/2020 Seasonal Influenza, Quadrivalent Hd (Fluzone Hd) 12/31/2022 Seasonal Influenza, Quadrivalent Hd, 65+ Yrs 08/2019 Seasonal Influenza, Quadrivalent, No Preserve, I M 12/14/2021 Seasonal Influenza, Trivalen t, High Dose, No Preserve, IM 12/06/2020,02/03/2019 TDAP (age 10 and older)(Boostrix) 08/09/2016 documented as of this encounter Social History Tobacco Use Types Packs/Day Years Used Date Smoking Tobacco: Never Smokeless Tobacco: Former Quit: 01/27/2009 Alcohol Use Standard Drinks/Week Comments Yes 15 (1 standard drink = 0.6 oz pu re alcohol) drinks 3 beers a night PHQ-2 Answer Date Recorded PHQ-2 Score -1 02/11/2018 Sex and Gender Information Value Date Recorded Sex Assigned at Male 06/12/2022 12:04 PM EST Gender Identity Male 06/12/2022 12:04 PM EST Sexual Orientation Choose not to disclose 2022 12:04 PM EST Job Start Date Occupation Industry Not on file Not on file Not on file documented as of this encounter Miscellaneous Notes * Telephone Encounter - Michael Thornton RN - 05/30/2023 1:35 PM EST Xray results mailed to patient * Telephone Encounter - Kelli Dailey OSA - 05/29/2023 10:30 AM EST Patient is asking for a copy of his XRAY results be mailed out to him. He never really got the results. .Thank you, Kelli Loredo. Ashlie-Scheduling Services Specialist [facility] Cardio/Cardiothoracic/Thoracic Surgery services lines PH# [phone] * Telephone Encounter - Valentina Kebede RPh - 05/27/2023 11:17 AM EST Reviewed with patient Valentina Kebede Pharm D Clinical [facility] Pharmacist Cardiology 05/27/2023,11:18 AM * Telephone Encounter - Omar Lundy DO - 05/16/2023 4:31 PM EST See result note dated 05/08/2023. Most recent ECG stable and unchanged compared to previous study. * Telephone Encounter - Kelli Dailey OSA - 05/09/2023 2:44 PM EST Person calling: Nimesh Relationship to patient: self Number to return call: [phone] Reason for call: patient is asking for his chest xray results from 1.31.24 xray. Concerned about asbestos. Also would like his EKG results. Patient also has some concerns about possible medication changes. Please return patient's call Pharmacy: Provider Name:Elizabeth documented in this encounter Plan of Treatment Upcoming Encounters Date Type Department Care Team (Late st Contact Info) Description 06/06/2023 11:00 AM EST Office Visit [facility] [place] [address] [facility] [place] [phone] Tanner Johnson MD [address] [facility] [place] [address] 06/10/2023 10:00 AM EST Telemedicine Cardiology [place] [address] [place] [address] [place], [facility] Cardiology [address] [place] [address] 07/02/2023 10:40 AM EDT [facility] [address] [facility] [place] [address] Tanner Johnson MD [address] [facility] [place] [address] Health Maintenance Due Date Last Done Comments B-12 1971 Diabetic Eye Exam 1971 Cologuard 1998 Colonoscopy 1998 Colorectal Cancer Screening 1998 Fecal Occult Blood Test 1998 Sigmoidoscopy 1998 Zoster Vaccines (1 of 2) 2003 Depression Screening 11/10/2018 11/10/2017 COVID-19 Vaccine ( season) 2022 08/01/2020, 06/30/2020 HbA1c 03/29/2023 09/27/2022, 010 09/2021, 12/04/2020, Additional history exists Albumin/Creatinine Ratio 09/28/2023 09/27/2022, 07/ GFR 09/28/2023 09/27/2022, 01/0 09/2021, 08/02/2020, Additional history exists Diabetic Foot Exam 03/07/2024 03/07/2023, 0 12/04/2020, 01/26/2018 DTaP,Tdap,and Td Vaccines (2 - Td or Tdap) 08/09/2026 08/09/2016 Lipid Panel 09/28/2027 09/27/2022, 09/2021, 07/10/2018, Additional history exists Pneumococcal Vaccine: 65+ Years Completed 09/27/2022, 04/12/2021, 12/04/2020, Additional history exists Influenza Vaccine (FLU shot) Completed , 12/14/2021, 12/06/2020, Additional history exists GARDASIL-HPV IMMUNIZATION SERIES Aged Out No longer eligible based on patient's age to complete this topic Hepatitis B Aged Out No longer eligi ble based on patient's age to complete this topic MENINGOCOCCAL (MENACTRA/MENVEO) Aged Out No longer eligible based on patient's age to complete this topic documented as of this encounter Medical Devices Not on filedocumented as of this encounter Care Teams Peoplesoft Programmer Relationship Specialty Start Date End Date August, Tanner Malcolm MD [address] [place] [address] PCP - General Family Medicine 01/09/23 documented as of this encounter
--- OUTSIDE RECORDS SUMMARY | 2023-07-09 04:51 | External Medical Summary | Summary of Care ---
Author Name Unknown Organization [facility] Address [address] [address] Phone [phone] Care Team Providers Care Target Developer Name Role Phone Tanner Johnson MD Primary Care Provider Reason for Visit * Reason Onset Date Comments Advice 05/09/2023 Dr Johnson Encounter Details Date Type Department Care Team (Late st Contact Info) Description 05/09/2023 Telephone Cardiology, [facility] [address] [place] [address] Omar Lundy O, [address] [place] [address] Advice (Dr Johnson) Allergies Active Allergy Reactions Criticality Noted Date Comments Pollen 10/25/2020 Penicillins Edema airway High 08/28/2015 Happened as a kid, age 10 documented as of this encounter (statuses as of 05/29/2023) Medications Medication Sig Dispensed Refills Start Date [...] as of this encounter (statuses as of 05/29/2023) Active Problems Problem Noted Date Diagnosed Date [...] as of this encounter (statuses as of 05/29/2023) Resolved Problems Problem Noted Date Diagnosed Date Resolved Date Screening for prostate cancer 08/28/2015 01/26/2018 Uncontrolled type 2 diabetes mellitus with hyperglycemia 08/28/2015 01/01/2022 Overview: ICD-10 update of inactive term documented as of this encounter (statuses as of 05/29/2023) Immunizations Name Administration Dates Next Due COVID-19 [...] encounter Miscellaneous Notes * Telephone Encounter - Gum, Kelli D, MIKAYLA - 05/29/2023 10:30 AM EST Patient is asking for a copy of his XRAY results be mailed out to him. He never really got the results. .Thank you, Kelli Loredo. Ashlie-Scheduling Services Specialist [facility] Cardio/Cardiothoracic/Thoracic Surgery services lines # [phone] * Telephone Encounter - Valentina Kebede RPh - 05/27/2023 11:17 AM EST Reviewed with patient Valentina Kebede Pharm D Clinical [facility] Pharmacist Cardiology 05/27/2023,11:18 AM * Telephone Encounter - Omar Lundy DO - 05/16/2023 4:31 PM EST See result note dated 05/08/2023. Most recent ECG stable and unchanged compared to previous study. * Telephone Encounter - Kelli Dailey OSA - 05/09/2023 2:44 PM EST Person calling: Nimesh Relationship to patient: self Number to return call: [phone] Reason for call: patient is asking for [...] Description 06/06/2023 11:00 AM EST Office Visit [address] [place] [address] [facility] [address] [facility] [facility] [address] 06/10/2023 10:00 AM EST Telemedicine [place]iology [place] [address] [place] [address] [facility] Cardiology [address] [place] [address] 07/02/2023 10:40 AM EDT Office Visit [facility] [address] [facility] [place] [phone] Tnaner Johnson MD [address] [facility] [facility] [address] Health Maintenance Due Date Last Done Comments B-12 1971 Diabetic Eye Exam 1971 Cologuard 1998 Colonoscopy 1998 Colorectal Cancer Screening 1998 Fecal Occult Blood Test 1998 Sigmoidoscopy 1998 Zoster Vaccines (1 of 2) 2003 Depression Screening 11/10/2018 11/10/2017 COVID-19 Vaccine (3 - 2022- season) 2022 08/01/2020, 06/30/2020 HbA1c 03/29/2023 09/27/2022, 01/0 09/2021, 12/04/2020, Additional history exists Albumin/Creatinine Ratio 09/28/2023 09/27/2022, 07/2 GFR 09/28/2023 09/27/2022, 01/0 09/2021, 08/02/2020, Additional history exists Diabetic Foot Exam 03/07/2024 03/07/2023, 0 12/04/2020, 01/26/2018 DTaP,Tdap,and Td Vaccines (2 - Td or Tdap) 08/09/2026 08/09/2016 Lipid Panel 09/28/2027 09/27/2022, 01/0 09/2021, 07/10/2018, Additional history exists Pneumococcal Vaccine: [...] filedocumented as of this encounter Care Teams Target Developer Relationship Specialty Start Date End Date August, Tanner Malcolm MD [address] [place] [address] PCP - General Family Medicine 01/09/23 documented as of this encounter
--- OUTSIDE RECORDS SUMMARY | 2023-07-09 04:51 | External Medical Summary | Summary of Care ---
Author Name Unknown Organization [facility] Address [address] [place] [address] Phone [phone] Care Team Providers Care Manager Material Name Role Phone AugustTanner MD Primary Care Provider Reason for Visit * Reason Onset Date Comments Advice 06/06/2023 RED FLAG- POSSIB LE BROKEN LEG Encounter Details Date Type Department Care Team (Late st Contact Info) Description 06/06/2023 Telephone [facility] [address] [place] [address] Tanner Johnson MD [address] [place] [address] Advice (RED FLAG- POSSIBLE BROKEN LEG) Allergies Active Allergy Reactions Criticality Noted Date Comments Pollen 10/25/2020 Penicillins Edema airway High 08/28/2015 Happened as a kid, age 10 documented as of this encounter (statuses as of 06/06/2023) Medications Medication Sig Dispensed Refills Start Date [...] THE MORNING 100 Tablet 3 05/09/2023 Active Allopurinol 100 MG Oral Tablet (Zyloprim)Indications :Gouty arthropathy TAKE ONE TABLET BY MOUTH IN THE MORNING 100 Tablet 1 05/12/2023 Active metFORMIN HCl ER 500 MG Oral Tablet Extended Release 24 Hour (Glucophage XR)Indications:Type 2 diabetes mellitus with hemoglobin A1c goal of less than 7.0% (HCC) TAKE TWO TABLETS BY MOUTH TWO TIMES A DAY WITH MORNING AND EVENING MEALS 400 Tablet 1 05/12/2023 Active documented as of this encounter (statuses as of 06/06/2023) Active Problems Problem Noted Date Diagnosed Date [...] as of this encounter (statuses as of 06/06/2023) Resolved Problems Problem Noted Date Diagnosed Date Resolved Date Screening for prostate cancer 08/28/2015 01/26/2018 Uncontrolled type 2 diabetes mellitus with hyperglycemia 08/28/2015 01/01/2022 Overview: ICD-10 update of inactive term documented as of this encounter (statuses as of 06/06/2023) Immunizations Name Administration Dates Next Due COVID-19 [...] encounter Miscellaneous Notes * Telephone Encounter - Amelie Joyner, MIKAYLA - 06/06/2023 11:21 AM EST Call was transferred to me to speak to patient. He states that he still wants to be seen today (it was almost 11 o'clock when the phone call came to me). I said we have a 15 minute late policy and hesaid it will be 11:45 utnil I get there. I said we need to reschedule. He said that is unacceptableas he has his brother in the driveway waiting for him to take him to this appointment and he needs to be seen it's for his diabetes and he has a broken leg. I put the patient on hold and let him knowI would talk to Dr. Johnson. Per Dr. Johnson we are to reschedule his appointment as he will be more than 15 mins. Late. As for his broken leg, he need to go to [facility] for a walk in appointment orhe can go to ER. 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 I said I understand sir, but we have a 15 min. Late policy. He got angry and said YOU WANT ME TO GO TO THE ER OR [facility] THAT'S [address]. I said yes sir,I understand that but we need to get your appointment regarding your diabetes rescheduled. He saidWHAT ABOUT MY LEG. I said sir, you are to go to the ER or [facility] they have a walk in forth. I am talking about your appointment with Dr. Johnson for your Diabetes. He said it is okay if youwait until August 16. We have a 4 PM or a 4:20 that day. He chose 4:00 PM on August 16. He then started yelling about his leg. I advised him that Dr. Johnson states he is to go to [facility] or ER. He said "OK' and hung up on me. 06/06/2023 * Telephone Encounter - Camille Ulloa RN - 06/06/2023 11:07 AM EST This is a nurse triage encounter. If additional action is needed, do not route to nurse triage. Please route encounter to the applicable clinic pool. I noticed that pt had appt at this time in the office I called and spoke with Amelie. Amelie said that she spoke with the pt. He Called 10 minutes before his scheduled appt and requested to be seen late for his possible broken leg/ James spoke with Dr Johnson who advised pt to go to the ED or orthopedic clinic. Camille Ulloa RN * Telephone Encounter - Heather Varela OSA - 06/06/2023 10:57 AM EST Reason for patient's call: asked for someone at clinic Caller was transferred to Amelie at the clinic. * Telephone Encounter - Denilson Sheikh OSA - 06/06/2023 10:48 AM EST What is the reason for call? POSSIBLE BROKEN LEG What Clinic is the patient trying to reach? [facility]: [place] - Call Type: Red Flag- route the telephone encounter as routine to bale breaker operator p [phone] Call was routed "routine" to the [facility] nurse triage basket (p [phone]). documented in this encounter Plan of Treatment Upcoming Encounters Date Type Department Care Team (Late st Contact Info) Description 06/10/2023 10:00 AM EST Telemedicine Cardiology [facility] [address] [place] [address] [facility] Cardiology [address] [place] [address] 06/17/2023 4:00 PM EDT Office Visit [facility] [address] [facility] [facility] [address] AugustTanner MD [address] [facility] [place] [phone] 07/02/2023 10:40 AM EDT Office Visit [facility] [place] [address] [facility] [address] AugustTanner MD [address] [place] [facility] [place] [address] Health Maintenance Due Date Last Done Comments [...] filedocumented as of this encounter Care Teams Manager Material Relationship Specialty Start Date End Date August, Tanner Malcolm MD [address] [place] [address] PCP - General Family Medicine 01/09/23 documented as of this encounter
--- OUTSIDE RECORDS SUMMARY | 2023-07-09 04:51 | External Medical Summary | Summary of Care ---
Author Name Unknown Organization [facility] Address [address] [place] [address] Phone [phone] Care Team Providers Care Edge Banding Off Bearer Name Role Phone AugustYuliana MD Primary Care Provider [phone] Reason for Visit * Reason Comments Medication Refill Encounter Details Date Type Department Care Team (Late st Contact Info) Description 07/05/2023 Refill [facility] [address] [place] [address] AugustYuliana MD [address] [place] [address] PVC (premature ventricular contraction) Allergies Active Allergy Reactions Criticality Noted Date Comments Pollen 10/25/2020 Penicillins Edema airway High 08/28/2015 Happened as a kid, age 10 documented as of this encounter (statuses as of 07/07/2023) Medications Medication Sig Dispensed Refills Start Date [...] (90 Base) MCG/ACT Inhalation Aerosol Powder Breath ActivatedIndications :Bronchitis, complicated 2 puffs every 4 hrs as needed for wheeze 1 Each 3 06/12/2022 Active Additional Information Patient not taking.Reported on 12/31/2022 Olmesartan Medoxomil 20 MG Oral Tablet (Benicar)Indications :HTN, goal below 130/80 Take 1 Tablet by mouth in the morning. 90 Tablet 3 03/11/2023 Active hydrOXYzine HCl 25 MG Oral TabletIndications:Pr uritic condition Take 1 Tablet by mouth daily as needed for Itching. 90 Tablet 3 05/07/2023 Active Aspirin 81 MG Oral Tablet Delayed ReleaseIndications:T aking 2 times per week Take 1 Tablet by mouth every evening. 90 Tablet 3 05/09/2023 Active Empagliflozin 10 MG Oral Tablet (Jardiance)Indicatio ns:Type 2 diabetes mellitus with hyperosmolarity without coma, without long-term current use of insulin (HCC),Type 2 diabetes mellitus with hemoglobin A1c goal of less than 7.0% (HCC) Take 1 Tablet by mouth in the morning. 90 Tablet 3 05/09/2023 Active Rosuvastatin Calcium 10 MG Oral Tablet (Crestor)Indications :Hyperlipidemia with target LDL less than 100 TAKE ONE TABLET BY MOUTH IN THE MORNING 100 Tablet 3 05/09/2023 Active Allopurinol 100 MG Oral Tablet (Zyloprim)Indication s:Gouty arthropathy TAKE ONE TABLET BY MOUTH IN THE MORNING 100 Tablet 1 05/12/2023 Active metFORMIN HCl ER 500 MG Oral Tablet Extended Release 24 Hour (Glucophage XR)Indications:Type 2 diabetes mellitus with hemoglobin A1c goal of less than 7.0% (HCC) TAKE TWO TABLETS BY MOUTH TWO TIMES A DAY WITH MORNING AND EVENING MEALS 400 Tablet 1 05/12/2023 Active Metoprolol Succinate ER 50 MG Oral Tablet Extended Release 24 Hour (toPROL XL)Indications:PVC (premature ventricular contraction) TAKE ONE TABLET BY MOUTH EVERY DAY IN THE MORNING AND ONE TABLET BEFORE BEDTIME 180 Tablet 3 07/07/2023 Active Metoprolol Succinate ER 50 MG Oral Tablet Extended Release 24 Hour (toPROL XL)Indications:PVC (premature ventricular contraction) TAKE ONE TABLET BY MOUTH EVERY DAY IN THE MORNING AND ONE TABLET BEFORE BEDTIME 200 Tablet 0 03/11/2023 07/05/19 24 Discontinu ed(Refill) documented as of this encounter (statuses as of 07/07/2023) Active Problems Problem Noted Date Diagnosed Date Dyslipidemia, goal LDL below 100 07/23/2022 Alcohol dependence with unsp ecified alcohol-induced disorder 01/01/2022 Closed fracture of distal en d of left fibula with routine healing 01/01/2022 Thrombocytopenia 01/01/2022 Hypertensive heart disease w ith chronic systolic congestive heart failure 01/01/2022 Elevated prostate specific antigen [...] as of this encounter (statuses as of 07/07/2023) Resolved Problems Problem Noted Date Diagnosed Date Resolved Date Screening for prostate cancer 08/28/2015 01/26/2018 Uncontrolled type 2 diabetes mellitus with hyperglycemia 08/28/2015 01/01/2022 Overview: ICD-10 update of inactive term documented as of this encounter (statuses as of 07/07/2023) Immunizations Name Administration Dates Next Due COVID-19 [...] encounter Miscellaneous Notes * Telephone Encounter - Yuliana Vail MD - 07/07/2023 7:34 AM EDTSigned Prescriptions: Disp Refills Metoprolol Succinate ER 50 MG Oral Tablet *180 Ta*3 Sig: TAKE ONE TABLET BY MOUTH EVERY DAY IN THE MORNING AND ONE TABLET BEFORE BEDTIMEAuthorizing Provider: YULIANA VAIL * Telephone Encounter - Cheryl Bailey [facility] - 07/05/2023 7:57 PM EDT Pending Prescriptions: Disp Refills Metoprolol Succinate ER 50 MG Oral Tablet *200 Ta*0 Sig: TAKE ONE TABLET BY MOUTH EVERY DAY IN THE MORNING AND ONE TABLET BEFORE BEDTIME * Telephone Encounter - Cheryl Bailey [facility] - 07/05/2023 7:57 PM EDT Did you pend patient's preferred pharmacy and medication before forwarding?yes Pharmacy: [facility] Pending Prescriptions: Disp Refills Metoprolol Succinate ER 50 MG Oral Tablet*200 Ta*0 Sig: TAKE ONE TABLET BY MOUTH EVERY DAY IN THE MORNING AND ONE TABLET BEFORE BEDTIME Last Visit: 03/07/2023 (in office), Visit date not found (telemedicine) Next Visit: Visit date not found If no future appointments scheduled, and last appointment is greater than a year ago, please schedule patient for a follow-up appointment Last date the medication was ordered: 03/11/23 Is this request for a controlled substance?No Urine Drug Screen:No results found for this or any previous visit. Patient Phone Numbers Labs: Lab Results Component Value Date/Time CREAT 1.37 09/27/2022 12:00 AM CREAT 1.2 10/15/2018 04:23 PM POTASSIUM 4.8 09/27/2022 12:00 AM POTASSIUM 5.1 10/15/2018 04:23 PM TSH 1.510 09/27/2022 12:00 AM TSH 1.54 07/20/2018 12:18 PM LDLCALC 57 09/27/2022 12:00 AM LDLCALC 124 09/25/2015 11:23 AM ALT 26 04/12/2021 01:16 PM ALT 24 07/20/2018 12:18 PM HGBA1C 8.4 (A) 09/27/2022 12:00 AM HGBA1C 6.0 09/25/2015 11:23 AM documented in this encounter Plan of Treatment Health Maintenance Due Date Last Done Comments B-12 1971 Diabetic Eye Exam 1971 Cologuard 1998 Colonoscopy 1998 Colorectal Cancer Screening 1998 Fecal Occult Blood Test 1998 Sigmoidoscopy 1998 Zoster Vaccines (1 of 2) 2003 Depression Screening 11/10/2018 11/10/2017 COVID-19 Vaccine ( season) 2022 08/01/2020, 06/30/2020 HbA1c 03/29/2023 09/27/2022, 0 09/2021, 12/04/2020, Additional history exists Albumin/Creatinine Ratio 09/28/2023 09/27/2022, 07/ GFR 09/28/2023 09/27/2022, 0 09/2021, 08/02/2020, Additional history exists Diabetic Foot [...] Not on filedocumented as of this encounter Visit Diagnoses Diagnosis PVC (premature ventricular contraction) Other premature beats documented in this encounter Care Teams Edge Banding Off Bearer Relationship Specialty Start Date End Date August, Yuliana Malcolm MD [address] [place] [address] PCP - General Family Medicine 01/09/23 documented as of this encounter
--- OUTSIDE RECORDS SUMMARY | 2023-07-09 04:51 | External Medical Summary | Summary of Care ---
Author Name Unknown Organization [facility] Address [address] [place] [address] Phone [phone] Care Team Providers Care Chief Accountant Name Role Phone AugustTanner MD Primary Care Provider [phone] Reason for Visit * Reason Onset Date Comments Advice 06/06/2023 RED FLAG- POSSIB LE BROKEN LEG Encounter Details Date Type Department Care Team (Late st Contact Info) Description 06/06/2023 Telephone [facility] [address] [place] [address] Tanner Johnson MD [address] [place] [address] Advice (RED FLAG- POSSIBLE BROKEN [...] broken leg, he need to go to [facility] for a walk in appointment orhe can go to ER. 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 I said I understand sir, but we have a 15 min. Late policy. He got angry and said YOU WANT ME TO GO TO THE ER OR [facility] THAT'S [address] TR[address]. I said yes sir,I understand that but we need to get your appointment regarding your diabetes rescheduled. He said WHAT ABOUT MY LEG. I said sir, you are to go to the ER or [facility] they have a walk in for that. I am talking about your appointment with Dr. Johnson for your Diabetes. He said it is okay if you wait until August 16. We have a 4 PM or a 4:20 that day. He chose 4:00 PM on August 16. He then started yelling about his leg. I advised him that Dr. Johnson states he is to go to [facility] or ER. He said "OK' and [...] Clinic is the patient trying to reach? [facility] Clinic: [place] - Call Type: Red Flag- route the telephone encounter as routine to electrical systems drafter p [phone] Call was routed "routine" to the [facility] nurse triage basket (p [phone]). documented in this encounter Plan of Treatment Upcoming Encounters Date Type Department Care Team (Late st Contact Info) Description 06/10/2023 10:00 AM EST Telemedicine Cardiology [address] [place] [address] [facility] [address] [place] [address] 06/17/2023 4:00 PM EDT Office [facility] [place] [address] [address] AugustTanner MD [address] [facility] [place] [id number] 07/02/2023 10:40 AM EDT Office Visit [facility] [place] [address] [facility] [address] Tanner Johnson MD [address] [facility] [place] [id number] Health Maintenance Due Date Last Done Comments [...] filedocumented as of this encounter Care Teams Chief Accountant Relationship Specialty Start Date End Date August, Tanner Malcolm MD [address] [place] [address] PCP - General Family Medicine 01/09/23 documented as of this encounter
--- OUTSIDE RECORDS SUMMARY | 2023-07-09 04:51 | External Medical Summary | Summary of Care ---
Author Name Unknown Organization [facility] Address [address] [facility] [address] Phone [phone] Care Team Providers Care Mechanic Assistant Name Role Phone Tanner Johnson MD Primary Care Provider Reason for Visit * Reason Onset Date Comments Advice 05/09/2023 Dr Johnson Encounter Details Date Type Department Care Team (Late st Contact Info) Description 05/09/2023 Telephone Cardiology, [facility] [address] [place] [address] Omar Lundy O, [address] [place] [address] Advice (Dr Johnson) Allergies Active Allergy Reactions [...] .Thank you, Kelli Loredo. Ashlie-Scheduling Services Specialist [facility] Cardio/Cardiothoracic/Thoracic Surgery services lines # [phone] * Telephone Encounter - Valentina Kebede RPh - 05/27/2023 11:17 AM EST Reviewed with patient Valentina Kebede Pharm D Clinical [facility] Pharmacist Cardiology 05/27/2023,11:18 AM * Telephone Encounter - Omar Lundy DO - 05/16/2023 4:31 PM EST See result note dated 05/08/2023. Most recent ECG stable and unchanged compared to previous study. * Telephone Encounter - Kelli Dailey OSA - 05/09/2023 2:44 PM EST Person calling: Nimesh Relationship to patient: self Number to return call: [phone] Reason for call: patient is asking for [...] Description 06/06/2023 11:00 AM EST Office Visit [address] [place] [address] [facility]anner [facility] [address] [facility] [address] 06/10/2023 10:00 AM EST Telemedicine Cardiology [place] [facility] [address] [place] [address] Luis Manuel [facility] Cardiology [address] [place] [address] 07/02/2023 10:40 AM EDT Office Visit [facility] [address] [facility] [place] [id number] Tanner Johnson MD [address] [facility] [address] Health Maintenance Due Date Last Done Comments [...] filedocumented as of this encounter Care Teams Mechanic Assistant Relationship Specialty Start Date End Date August, Tanner Malcolm MD [address] [place] [address] PCP - General Family Medicine 01/09/23 documented as of this encounter
--- OUTSIDE RECORDS SUMMARY | 2023-07-09 04:51 | External Medical Summary | Summary of Care ---
Author Name Unknown Organization [facility] Address [address] [place] [address] Phone [phone] Care Team Providers Care Supervisor Welding Equipment Repairer Name Role Phone Tanner Johnson MD Primary Care Provider [phone] Encounter Details Date Type Department Care Team (Late st Contact Info) Description 06/17/2023 Telephone Cardiology [place] [address] [facility] [place] [id number] [facility] [address] [facility] [place] [address] Allergies Active Allergy Reactions Criticality Noted Date Comments Pollen 10/25/2020 Penicillins Edema airway High 08/28/2015 Happened as a kid, age 10 documented as of this encounter (statuses as of 06/17/2023) Medications Medication Sig Dispensed Refills Start Date [...] as of this encounter (statuses as of 06/17/2023) Active Problems Problem Noted Date Diagnosed Date [...] as of this encounter (statuses as of 06/17/2023) Resolved Problems Problem Noted Date Diagnosed Date Resolved Date Screening for prostate cancer 08/28/2015 01/26/2018 Uncontrolled type 2 diabetes mellitus with hyperglycemia 08/28/2015 01/01/2022 Overview: ICD-10 update of inactive term documented as of this encounter (statuses as of 06/17/2023) Immunizations Name Administration Dates Next Due COVID-19 [...] encounter Miscellaneous Notes * Telephone Encounter - Valentina Kebede RPh - 06/17/2023 1:33 PM EDT Called pt for MTM appt today. Patient again very agitated on the phone. Doesn't understand why he keeps getting phone calls for [facility], reports we keep waking him up. Reviewed he had scheduled appt at 1:30 pm and he is overdue for labs (started Jardiance 05/09 and hasn't had BMP since). Pt states he will get labs at PCP visit on 06/19 Patient then hung up on me. MTM will sign off as pt does not wish to have phone calls from ks Valentina Kebede Pharm D Clinical [facility] Pharmacist Cardiology 06/17/2023,1:34 PM documented in this encounter Plan of Treatment Upcoming Encounters Date Type Department Care Team (Late st Contact Info) Description 06/20/2023 10:40 AM EDT Office Visit [place] [address] [place] [address] Lauren Jackman MD [address] [address] 07/02/2023 10:40 AM EDT Office Visit [facility] [address] [facility] [place] [address] Tanner Johnson MD [address] [facility] [place] [id number] Health Maintenance Due Date Last Done Comments B-12 1971 Diabetic Eye Exam 1971 Cologuard 1998 Colonoscopy 1998 Colorectal Cancer Screening 1998 Fecal Occult Blood Test 1998 Sigmoidoscopy 1998 Zoster Vaccines (1 of 2) 2003 Depression Screening 11/10/2018 11/10/2017 COVID-19 Vaccine (3 - season) 2022 08/01/2020, 06/30/2020 HbA1c 03/29/2023 09/27/2022, [...] filedocumented as of this encounter Care Teams Supervisor Welding Equipment Repairer Relationship Specialty Start Date End Date August, Tanner Malcolm MD [address] [place] [address] PCP - General Family Medicine 01/09/23 documented as of this encounter
--- OUTSIDE RECORDS SUMMARY | 2023-07-09 04:52 | External Medical Summary | Summary of Care ---
Author Name Unknown Organization [facility] Address [address] [facility] [address] Phone [phone] Care Team Providers Care Materials Management Supervisor Name Role Phone Tanner Johnson MD Primary Care Provider [phone] Reason for Visit * Reason Onset Date Comments Appointment 05/07/2023 Encounter Details Date Type Department Care Team (Late st Contact Info) Description 05/07/2023 Telephone Cardiology, [facility] [address] [place] [address] Omar Lundy, [address] [place] [address] Appointment Allergies Active Allergy Reactions Criticality Noted Date Comments Pollen 10/25/2020 Penicillins Edema airway High 08/28/2015 Happened as a kid, age 10 documented as of this encounter (statuses as of 05/08/2023) Medications Medication Sig Dispensed Refills Start Date End Date Status aspirin enteric coated 81 MG TBECIndications:Taki ng 2 times per week Take 1 Tablet by mouth every evening. 0 Active Fexofenadine HCl 180 MG Oral Tablet Take [...] Additional Information Patient not taking.Reported on 12/31/2022 metFORMIN HCl ER 500 MG Oral Tablet Extended Release 24 Hour (Glucophage XR)Indications:Type 2 diabetes mellitus with hemoglobin A1c goal of less than 7.0% (HCC) TAKE TWO TABLETS BY MOUTH TWO TIMES A DAY WITH MORNING AND EVENING MEALS 400 Tablet 0 12/18/2022 Active Allopurinol 100 MG Oral Tablet (Zyloprim)Indication s:Gouty arthropathy TAKE ONE TABLET BY MOUTH IN THE MORNING 100 Tablet 0 12/18/2022 Active Empagliflozin 10 MG Oral Tablet (Jardiance)Indicatio ns:Type 2 diabetes mellitus with hyperosmolarity without coma, without long-term current use of insulin (HCC),Type 2 diabetes mellitus with hemoglobin A1c goal of less than 7.0% (HCC) Take 1 Tablet by mouth in the morning. 90 Tablet 3 03/07/2023 Active Additional Information Patient not taking.Reported on 05/07/2023 Olmesartan Medoxomil 20 MG Oral Tablet (Benicar)Indications :HTN, goal below 130/80 Take 1 Tablet by mouth in the morning. 90 Tablet 3 03/11/2023 Active Metoprolol Succinate ER 50 MG Oral Tablet Extended Release 24 Hour (toPROL XL)Indications:PVC (premature ventricular contraction) TAKE ONE TABLET BY MOUTH EVERY DAY IN THE MORNING AND ONE TABLET BEFORE BEDTIME 200 Tablet 0 03/11/2023 Active Rosuvastatin Calcium 10 MG Oral Tablet (Crestor)Indications :Hyperlipidemia with target LDL less than 100 TAKE ONE TABLET BY MOUTH IN THE MORNING 100 Tablet 0 05/07/2023 Active hydrOXYzine HCl 25 MG Oral TabletIndications:Pr uritic condition Take 1 Tablet by mouth daily as needed for Itching. 90 Tablet 3 12/31/2022 05/07/19 24 Discontinu ed(Refill) documented as of this encounter (statuses as of 05/08/2023) Active Problems Problem Noted Date Diagnosed Date [...] as of this encounter (statuses as of 05/08/2023) Resolved Problems Problem Noted Date Diagnosed Date Resolved Date Screening for prostate cancer 08/28/2015 01/26/2018 Uncontrolled type 2 diabetes mellitus with hyperglycemia 08/28/2015 01/01/2022 Overview: ICD-10 update of inactive term documented as of this encounter (statuses as of 05/08/2023) Immunizations Name Administration Dates Next Due COVID-19 [...] encounter Miscellaneous Notes * Telephone Encounter - Padmini Braun OSA - 05/08/2023 10:21 AM EST Spoke with Pt, telephone appointment scheduled for 05/09. Pt does not have a smart phone or any way to do a video visit. * Telephone Encounter - Valentina Kebede RPh - 05/07/2023 11:31 AM EST Video, preferred but phone also shiela Kebede Pharm D Clinical [facility] Pharmacist Cardiology 05/07/2023,11:32 AM * Telephone Encounter - Padmini Braun OSA - 05/07/2023 11:05 AM EST Referral placed for cardiology pharmacist. Pt declined to schedule at check out asking if this can be by telephone only. He does not want to drive back to [place] from [place]. Please advise. documented in this encounter Plan of Treatment Upcoming Encounters Date Type Department Care Team (Late st Contact Info) Description 05/09/2023 10:00 AM EST Telemedicine Cardiology, [facility] [address] [facility] [place] [address] [facility] Cardiology [facility] [address] [facility] [place] [address] 06/06/2023 11:00 AM EST Office Visit [facility] [address] [place] [facility] [place] [address] Tanner Johnson MD [address] [place] [address] 07/02/2023 10:40 AM EDT Office Visit [facility] [address] [place] [facility] [place] [address] Tanner Johnson MD [address] [place] [facility] [place] [address] Health Maintenance Due Date Last Done Comments B-12 1971 Diabetic Eye Exam 1971 Cologuard 1998 Colonoscopy 1998 Colorectal Cancer Screening 1998 Fecal Occult Blood Test 1998 Sigmoidoscopy 1998 Zoster Vaccines (1 of 2) 2003 Hepatitis B (1 of 3 - Risk 3-dose series) 2013 Depression Screening 11/10/2018 11/10/2017 COVID-19 Vaccine ( [...] filedocumented as of this encounter Care Teams Materials Management Supervisor Relationship Specialty Start Date End Date August, Tanner Malcolm MD [address] [place] [address] PCP - General Family Medicine 01/09/23 documented as of this encounter
--- OUTSIDE RECORDS SUMMARY | 2023-07-09 04:52 | External Medical Summary | Summary of Care ---
Author Name Unknown Organization [facility] Address [address] [place] [address] Phone [phone] Care Team Providers Care Charge Preparation Technician Name Role Phone AugustTanner MD Primary Care Provider [phone] Reason for Visit * Reason Onset Date Comments Advice 05/23/2023 Upcoming appts Encounter Details Date Type Department Care Team (Late st Contact Info) Description 05/23/2023 Telephone [facility] [address] [place] [address] Tanner Johnson MD [address] [place] [address] Advice (Upcoming appts) Allergies Active Allergy Reactions Criticality Noted Date Comments Pollen 10/25/2020 Penicillins Edema airway High 08/28/2015 Happened as a kid, age 10 documented as of this encounter (statuses as of 05/23/2023) Medications Medication Sig Dispensed Refills Start Date [...] as of this encounter (statuses as of 05/23/2023) Active Problems Problem Noted Date Diagnosed Date [...] 09/30/19 19 Type 2 diabetes mellitus[facility] current use of insulin 09/29/2018 Chronic systolic CHF (conges tive heart failure), NYHA class 2 09/29/2018 1st degree AV block 09/29/2018 IVCD (intraventricular conduction defect) 2018 Nonischemic cardiomyopathy 01/26/2018 HTN, goal below 130/80 11/10/2017 documented as of this encounter (statuses as of 05/23/2023) Resolved Problems Problem Noted Date Diagnosed Date Resolved Date Screening for prostate cancer 08/28/2015 01/26/2018 Uncontrolled type 2 diabetes mellitus with hyperglycemia 08/28/2015 01/01/2022 Overview: ICD-10 update of inactive term documented as of this encounter (statuses as of 05/23/2023) Immunizations Name Administration Dates Next Due COVID-19 [...] Miscellaneous Notes * Telephone Encounter - Amelie Joyner OSA - 05/23/2023 9:54 AM EST Patient did NOT want to cancel the and wants to keep it. He seemed confused when I told him about the blood work. He said I have that on the . I said you need the bloodwork prior to June 05 appointment. He said he will arrange that on his own time. 05/23/2023 * Telephone Encounter - Tanner Johnson MD - 05/23/2023 9:33 AM EST Okay to cancel 07/02/2023 appointment with me. He should get lab work completed prior to the 06/06/2023 appointment. This is ordered. Tanner Johnson MD * Telephone Encounter - Gretel Mancera OSA - 05/23/2023 7:23 AM EST Pt called to confirm upcoming appts, but was very confused when his 3 upcoming appointments were read back to him, repeatedly referencing a past appointment date (05/07/23) that was already completed and mixing up the appointment times that were confirmed to him. Pt is scheduled for 06/06/23 and 07/01 with PCP and declined to cancel one of those appointments without getting approval from Dr Johnson. Please return call to pt to advise if an appointment should be canceled, and mail a copy of appointments to pt once reviewed. documented in this encounter Plan of Treatment Upcoming Encounters Date Type Department Care Team (Late st Contact Info) Description 05/27/2023 11:00 AM EST Telemedicine Cardiology [address] [place] [address] [facility] Card[facility] [address] [place] [address] 06/06/2023 11:00 AM EST Office Visit [facility] [address] [facility] [id number] AugustTanner MD [address] [place] [facility] [place] [address] 07/02/2023 10:40 AM EDT Office Visit [facility] [address] [facility] [address] AugustTanner MD [address] [place] [address] Health Maintenance Due Date Last Done Comments [...] filedocumented as of this encounter Care Teams Charge Preparation Technician Relationship Specialty Start Date End Date August, Tanner Malcolm MD [address] [place] [address] PCP - General Family Medicine 01/09/23 documented as of this encounter
--- OUTSIDE RECORDS SUMMARY | 2023-07-09 04:52 | External Medical Summary | Summary of Care ---
Author Name Unknown Organization [facility] Address [address] [facility] [address] Phone [phone] Care Team Providers Care Assistant Professor Of Physics Name Role Phone Tanner Johnson MD Primary Care Provider [phone] Reason for Visit * Reason Onset Date Comments Appointment 05/07/2023 Encounter Details Date Type Department Care Team (Late st Contact Info) Description 05/07/2023 Telephone Cardiology, [facility] [address] [place] [address] Omar Lundy, [address] [place] [address] Appointment Allergies Active Allergy Reactions Criticality Noted Date Comments Pollen 10/25/2020 Penicillins Edema airway High 08/28/2015 Happened as a kid, age 10 documented as of this encounter (statuses as of 05/07/2023) Medications Medication Sig Dispensed Refills Start Date End Date Status aspirin enteric coated 81 MG TBECIndications:Takin g 2 times per week Take 1 Tablet [...] 12/18/2022 Active Allopurinol 100 MG Oral Tablet (Zyloprim)Indications :Gouty arthropathy TAKE ONE TABLET BY MOUTH IN THE MORNING 100 Tablet 0 12/18/2022 Active hydrOXYzine HCl 25 MG Oral TabletIndications:Pru ritic condition Take 1 Tablet by mouth daily as needed for Itching. 90 Tablet 3 12/31/2022 Active Empagliflozin 10 MG Oral Tablet (Jardiance)Indication s:Type 2 diabetes mellitus with hyperosmolarity without coma, without long-term current use of insulin (HCC),Type 2 diabetes mellitus with hemoglobin A1c goal of less than 7.0% (HCC) Take 1 Tablet by mouth in the morning. 90 Tablet 3 03/07/2023 Active Additional Information Patient not taking.Reported on 05/07/2023 Olmesartan Medoxomil 20 MG Oral Tablet (Benicar)Indications: [...] THE MORNING 100 Tablet 0 05/07/2023 Active documented as of this encounter (statuses as of 05/07/2023) Active Problems Problem Noted Date Diagnosed Date Dyslipidemia, goal LDL below 100 07/23/2022 Alcohol dependence with unsp ecified alcohol-induced disorder 01/01/2022 Closed fracture of distal en d of left fibula with routine healing 01/01/2022 Thrombocytopenia 01/01/2022 Hypertensive heart failure 01/01/2022 Elevated prostate specific antigen (PSA) 020 ED (erectile dysfunction) of organic origin 09/2019 PVC (premature ventricular contraction) 09/30/19 19 Type 2 diabetes mellitus, [facility] long-term current use of insulin 09/29/2018 Chronic systolic CHF (conges tive heart failure), NYHA class 2 09/29/2018 1st degree AV block 09/29/2018 IVCD (intraventricular conduction defect) 2018 Nonischemic cardiomyopathy 01/26/2018 HTN, goal below 130/80 11/10/2017 documented as of this encounter (statuses as of 05/07/2023) Resolved Problems Problem Noted Date Diagnosed Date Resolved Date Screening for prostate cancer 08/28/2015 01/26/2018 Uncontrolled type 2 diabetes mellitus with hyperglycemia 08/28/2015 01/01/2022 Overview: ICD-10 update of inactive term documented as of this encounter (statuses as of 05/07/2023) Immunizations Name Administration Dates Next Due COVID-19 [...] AM EST Video, preferred but phone also okay Valentina Kebede Pharm D Clinical [facility] Pharmacist Cardiology 05/07/2023,11:32 AM * Telephone Encounter - Padmini Braun OSA - 05/07/2023 11:05 AM EST Referral placed for cardiology pharmacist. Pt declined to schedule at check out asking if this can be by telephone only. He does not want to drive back to [place] from [place]. Please advise. documented in this encounter Plan of Treatment Upcoming Encounters Date Type Department Care Team (Late st Contact Info) Description 06/06/2023 11:00 AM EST Office Visit [place] [address] [facility] [place] [phone] Tanner Johnson MD [address] [facility] [address] 07/02/2023 10:40 AM EDT Office [facility] [place] [address] [facility] [phone] Tanner Johnson MD [address] [facility] [address] Health Maintenance Due Date Last Done Comments B-12 1971 Diabetic Eye Exam 1971 Cologuard 1998 Colonoscopy 1998 Colorectal Cancer Screening 1998 Fecal Occult Blood Test 1998 Sigmoidoscopy 1998 Zoster Vaccines (1 of 2) 2003 Hepatitis B (1 of 3 - Risk 3-dose series) 2013 Depression Screening 11/10/2018 11/10/2017 COVID-19 Vaccine (3 - season) 2022 08/01/2020, 06/30/2020 HbA1c 03/29/2023 09/27/2022, 01/0 09/2021, 12/04/2020, Additional history exists Albumin/Creatinine Ratio 09/28/2023 09/27/2022, 10/06 GFR 09/28/2023 09/27/2022, 01/0 09/2021, 08/02/2020, Additional [...] filedocumented as of this encounter Care Teams Assistant Professor Of Physics Relationship Specialty Start Date End Date August, Tanner Malcolm MD [address] [place] [address] PCP - General Family Medicine 01/09/23 documented as of this encounter
--- OUTSIDE RECORDS SUMMARY | 2023-07-09 04:52 | External Medical Summary | Summary of Care ---
Author Name Unknown Organization [facility] Address [address] [facility] [address] Phone [phone] Care Team Providers Care Brokerage Office Manager Name Role Phone Tanner Johnson MD Primary Care Provider [phone] Reason for Visit * Reason Onset Date Comments Test Results 05/23/2023 Encounter Details Date Type Department Care Team (Late st Contact Info) Description 05/23/2023 Telephone Cardiology, [facility] [address] [place] [address] Omar Lundy, [address] [place] [address] Test Results Allergies Active Allergy Reactions Criticality Noted Date Comments Pollen 10/25/2020 Penicillins Edema airway High 08/28/2015 Happened as a kid, age 10 documented as of this encounter (statuses as of 05/27/2023) Medications Medication Sig Dispensed Refills Start Date [...] as of this encounter (statuses as of 05/27/2023) Active Problems Problem Noted Date Diagnosed Date [...] as of this encounter (statuses as of 05/27/2023) Resolved Problems Problem Noted Date Diagnosed Date Resolved Date Screening for prostate cancer 08/28/2015 01/26/2018 Uncontrolled type 2 diabetes mellitus with hyperglycemia 08/28/2015 01/01/2022 Overview: ICD-10 update of inactive term documented as of this encounter (statuses as of 05/27/2023) Immunizations Name Administration Dates Next Due COVID-19 [...] Encounter - Valentina Kebede RPh - 05/27/2023 11:15 AM EST Reviewed echo results from 04/11/23 with patient Also reviewed normal Chest xray per Dr Lundy with patient Valentina Kebede Pharm D Clinical [facility] Pharmacist Cardiology 05/27/2023,11:15 AM * Telephone Encounter - Michael Thornton RN - 05/23/2023 2:23 PM EST Attempted to reach the patient at home and no answer. Will attempt later. * Telephone Encounter - Destiny Webster OSA - 05/23/2023 10:27 AM EST Person calling: Nimesh Relationship to patient: self Number to return call: [phone] Reason for call: pt calling in stating he never got echo results from 04/11/23. He did have an appt with Kamron on 05/07/23. Pt asking if someone can call to go over those results with him. He did also mention having a ct scan done. He may be confusing the 2 tests. Pharmacy: na Provider Name:Kamron documented in this encounter Plan of Treatment Upcoming Encounters Date Type Department Care Team (Late st Contact Info) Description 06/06/2023 11:00 AM EST Office Visit [address] [place] [address] AugustTanner MD [address] [place], [place] [phone] 07/02/2023 10:40 AM EDT Office Visit [facility] [address] [place] [facility] [place] [address] AugustTanner MD [address] [place], [place] [phone] Health Maintenance Due Date Last Done Comments [...] filedocumented as of this encounter Care Teams Brokerage Office Manager Relationship Specialty Start Date End Date August, Tanner Malcolm MD [address] [place] [address] PCP - General Family Medicine 01/09/23 documented as of this encounter
--- OUTSIDE RECORDS SUMMARY | 2023-07-09 04:52 | External Medical Summary | Summary of Care ---
Author Name Unknown Organization [facility] Address [address] [place] [address] Phone [phone] Care Team Providers Care Bull Wheel Worker Name Role Phone AugustTanner MD Primary Care Provider [phone] Reason for Visit * Reason Onset Date Comments Health Maintenance 05/22/2023 Encounter Details Date Type Department Care Team (Late st Contact Info) Description 05/22/2023 Telephone [facility] [address] [place] [address] AugustTanner MD [address] [place] [address] Health Maintenance Allergies Active Allergy Reactions Criticality Noted Date Comments Pollen 10/25/2020 Penicillins Edema airway High 08/28/2015 Happened as a kid, age 10 documented as of this encounter (statuses as of 05/22/2023) Medications Medication Sig Dispensed Refills Start Date [...] as of this encounter (statuses as of 05/22/2023) Active Problems Problem Noted Date Diagnosed Date [...] as of this encounter (statuses as of 05/22/2023) Resolved Problems Problem Noted Date Diagnosed Date Resolved Date Screening for prostate cancer 08/28/2015 01/26/2018 Uncontrolled type 2 diabetes mellitus with hyperglycemia 08/28/2015 01/01/2022 Overview: ICD-10 update of inactive term documented as of this encounter (statuses as of 05/22/2023) Immunizations Name Administration Dates Next Due COVID-19 [...] encounter Miscellaneous Notes * Telephone Encounter - Ruth Cassidy LPN - 05/22/2023 1:03 PM EST Care Gaps Comprehensive Care Outreach Last Office/Telemedicine Visit: 03/07/2023 (in office), Visit date not found (telemedicine) Next Office Visit: 06/06/2023 Hemoglobin AIC Results: Lab Results Component Value Date/Time HEMOGLOBIN A1C - [facility] 6.8 (H) 04/12/2021 01:16 PM HEMOGLOBIN A1C - [facility] 6.9 (H) 12/04/2020 03:26 PM HEMOGLOBIN A1C - [facility] 7.2 (H) 08/02/2020 09:51 AM HEMOGLOBIN A1C - [facility] 6.0 09/25/2015 11:23 AM BP Readings from Last 1 Encounters: 05/07/23 100/68 Reviewed Health Maintenance below: Health Maintenance Topic Date Due Diabetic Eye Exam Never done B-12 Never done Colorectal Cancer Screening Never done Zoster Vaccines (1 of 2) Never done Hepatitis B (1 of 3 - Risk 3-dose series) Never done Depression Screening 11/10/2018 COVID-19 Vaccine ( season) 2022 HbA1c 03/29/2023 Labs already ordered Cologuard follow He did not want it and he's not doing it Care Gap Outreach Action Taken: spoke to patient. documented in this encounter Plan of Treatment Upcoming Encounters Date Type Department Care Team (Late st Contact Info) Description 05/27/2023 11:00 AM EST Telemedicine Cardiology [facility] [address] [place] [address] [facility] [address] [place] [address] 06/06/2023 11:00 AM EST Office Visit [facility] [address] [place] [facility] [place] [address] Tanner Johnson MD [address] [place] [facility] [place] [address] 07/02/2023 10:40 AM EDT Office Visit [facility] [address] [place] [facility] [place] [address] AugustTanner MD [address] [place] [address] Health Maintenance Due Date Last Done [...] filedocumented as of this encounter Care Teams Bull Wheel Worker Relationship Specialty Start Date End Date August, Tanner Malcolm MD [address] [place] [address] PCP - General Family Medicine 01/09/23 documented as of this encounter
--- OUTSIDE RECORDS SUMMARY | 2023-07-09 04:52 | External Medical Summary | Summary of Care ---
Author Name Unknown Organization [facility] Address [address] [facility] [address] Phone [phone] Care Team Providers Care Director Corporate Compliance Name Role Phone Tanner Johnson MD Primary Care Provider [phone] Reason for Visit * Reason Onset Date Comments Test Results 05/23/2023 Encounter Details Date Type Department Care Team (Late st Contact Info) Description 05/23/2023 Telephone Cardiology, [facility] [address] [place] [address] Omar Lundy, [address] [place] [address] Test Results Allergies Active Allergy Reactions Criticality [...] to patient: self Number to return call: [phone] Reason for call: pt calling in stating [...] EST Telemedicine Cardiology Luis [facility] [address] [place] [address] Luis Manuel [facility] Cardiology [address] [place] [address] 06/06/2023 11:00 AM EST Office Visit [facility] [address] [phone] Tanner Johnson MD [address] [facility] [phone] 07/02/2023 10:40 AM EDT Office Visit [facility] [address] [place] [address] Tanner Johnson MD [address] [place] [address] Health Maintenance Due Date Last Done Comments [...] filedocumented as of this encounter Care Teams Director Corporate Compliance Relationship Specialty Start Date End Date August, Tanner Malcolm MD [address] [facility] [place] [address] PCP - General Family Medicine 01/09/23 documented as of this encounter
--- OUTSIDE RECORDS SUMMARY | 2023-07-09 04:52 | External Medical Summary | Summary of Care ---
Author Name Unknown Organization [facility] Address [address] [place] [address] Phone [phone] Care Team Providers Care Fiber Locking Supervisor Name Role Phone AugustTanner MD Primary Care Provider [phone] Reason for Visit * Reason Onset Date Comments Advice 05/23/2023 Upcoming appts Encounter Details Date Type Department Care Team (Late st Contact Info) Description 05/23/2023 Telephone [facility] [address] [place] [address] Tanner Johnson MD [address] [place] [address] Advice (Upcoming appts) Allergies Active [...] 09/30/19 19 [facility] current use of [facility] 09/29/2018 Chronic [...] encounter Miscellaneous Notes * Telephone Encounter - Destiny Webster OSA - 05/23/2023 10:24 AM EST Pt called in again to go over appts. He was advised of upcoming appts and was advised again that heneeded to get labs done and he said if a nurse calls and tells him he will get it done. He was still very confused about appts and was referencing 05/07/23 again that was already completed. Please advise. * Telephone Encounter - Amelie Joyner OSA [...] Description 05/27/2023 11:00 AM EST Telemedicine Cardiology [facility] [address] [place] [address] Luis Manuel [facility] Cardiology [address] [place] [address] 06/06/2023 11:00 AM EST Office Visit [facility] [address] [place] [facility] [place] [phone] Tanner Johnson MD [address] [place] [address] 07/02/2023 10:40 AM EDT Office Visit [facility] [address] [place] [facility] [place] [phone] Tanner Johnson MD [address] [place] [address] Health Maintenance Due Date Last Done Comments B-12 1971 Diabetic Eye Exam 1971 Cologuard 1998 Colonoscopy 1998 Colorectal Cancer Screening 1998 Fecal Occult Blood Test 1998 Sigmoidoscopy 1998 Zoster Vaccines (1 of 2) 2003 Depression Screening 11/10/2018 11/10/2017 COVID-19 Vaccine (2022-24 season) 2022 08/01/2020, 06/30/2020 HbA1c 03/29/2023 09/27/2022, 0 09/2021, 12/04/2020, Additional history exists Albumin/Creatinine Ratio 09/28/2023 09/27/2022, 07/2 GFR 09/28/2023 09/27/2022, 0 09/2021, 08/02/2020, Additional history exists Diabetic Foot Exam 03/07/2024 03/07/2023, 0 12/04/2020, 01/26/2018 DTaP,Tdap,and Td Vaccines (2 - Td or Tdap) 08/09/2026 08/09/2016 Lipid Panel 09/28/2027 09/27/2022, 0 09/2021, 07/10/2018, Additional history exists Pneumococcal Vaccine: [...] filedocumented as of this encounter Care Teams Fiber Locking Supervisor Relationship Specialty Start Date End Date August, Tanner Malcolm MD [address] [place] [facility] [place] [address] PCP - General Family Medicine 01/09/23 documented as of this encounter
--- OUTSIDE RECORDS SUMMARY | 2023-07-09 04:52 | External Medical Summary | Summary of Care ---
Author Name Unknown Organization [facility] Address [address] [address] Phone [phone] Care Team Providers Care Systems Analyst Name Role Phone Tanner Johnson MD Primary Care Provider [phone] Reason for Visit * Reason Comments Dosage Adjustment In Person (Anticoag Cl inic) Congestive Heart Failure * Evaluate & Treat - Unlimited Visits (Within 10 days (routine)) - Authorized Specialty Diagnoses / Procedures Referred By Contac t Referred To Contact Pharmacist / Pharmacy Diagnoses Chronic systolic CHF (congestive heart failure), NYHA class 2 (HCC) Nonischemic cardiomyopathy (HCC) Omar Lundy O, DO [address] [place] [address] Referral ID Status Reason Start Date Expiration Date Visits Requested Visits Authorized [id number] Authorized Specialty Services Required 05/07/2023 99 99 Encounter Details Date Type Department Care Team (Late st Contact Info) Description 05/09/2023 10:00 AM EST Telemedicine Cardiology, [facility] [address] [place] [address] [facility] Cardiology [facility] [address] [place] [address] Chronic systolic CHF (congestive heart failure), NYHA class 2 (HCC)*; Hyperlipidemia with target LDL less than 100; Type 2 diabetes mellitus with hyperosmolarity without coma, without long-term current use of insulin (HCC) Allergies Active Allergy Reactions Criticality Noted Date Comments Pollen 10/25/2020 Penicillins Edema airway High 08/28/2015 Happened as a kid, age 10 documented as of this encounter (statuses as of 05/09/2023) Medications Medication Sig Dispensed Refills Start Date [...] THE MORNING 100 Tablet 0 12/18/2022 Active Olmesartan Medoxomil 20 MG Oral Tablet (Benicar)Indications [...] THE MORNING 100 Tablet 3 05/09/2023 Active Rosuvastatin Calcium 10 MG Oral Tablet (Crestor)Indications :Hyperlipidemia with target LDL less than 100 TAKE ONE TABLET BY MOUTH IN THE MORNING 100 Tablet 0 05/07/2023 05/09/19 24 Discontinu ed(Refill) documented as of this encounter (statuses as of 05/09/2023) Active Problems Problem Noted Date Diagnosed Date [...] as of this encounter (statuses as of 05/09/2023) Resolved Problems Problem Noted Date Diagnosed Date Resolved Date Screening for prostate cancer 08/28/2015 01/26/2018 Uncontrolled type 2 diabetes mellitus with hyperglycemia 08/28/2015 01/01/2022 Overview: ICD-10 update of inactive term documented as of this encounter (statuses as of 05/09/2023) Immunizations Name Administration Dates Next Due COVID-19 [...] on file documented as of this encounter Patient Instructions * Patient Instructions* Valentina Kebede RPh - 05/09/2023 3:10 PM EST START Jardiance 10 mg daily Lab work in 2 weeks RESTART Rosuvastatin 10 mg daily documented in this encounter Progress Notes * Valentina Kebede RPh - 05/09/2023 9:55 AM EST PHARMACY CHRONIC DISEASE MANAGEMENT - HEART FAILURE After connecting to the patient via telephone, the patient was identified by name and date of . Patient was then informed that this was a telephone call only visit. The patient agreed to participate. Visit Disposition: Routine follow-up Total call duration was 25 minutes. Nimesh Sarkar is an 68 year old patient referred to the Heart Failure MTM clinic by Dr Lundy for the following: General heart failure medication optimization PCP: Tanner Johnson MD Cardiology Provider: Dr Lundy HPI: Patient has heart failure assessment: Heart failure with REDUCED ejection fraction (SYStolic heart failure) without ischemic heart disease Patient has evidence of RV dysfunction: No Most recent LVEF: 25-29 % Date: 04/11/23 Modality: Echo Previous LVEF: 30 % Date: 10/10/20 Modality: Echo 28 % Date: 02/22/20 Modality: Echo Home vitals: Does patient monitor BP at home? no Any dizziness or lightheadedness: Denies Home BP log results: N/a Does patient monitor HR at home? no Home HR log results: N/a Does patient monitor weight at home? no Any increased edema or shortness of breath: not reviewed Home weight log results: Not reviewed Diet Review: not discussed Objective: BP Readings from Last 3 Encounters: 05/07/23 100/68 03/07/23 90/58 12/31/22 122/70 Pulse Readings from Last 3 Encounters: 05/07/23 68 03/07/23 72 12/31/22 72 Wt Readings from Last 3 Encounters: 05/07/23 122.5 kg (270 lb) 03/07/23 120.2 kg (265 lb) 12/31/22 118.4 kg (261 lb) Lab Results Component Value Date/Time CREATININE - [facility] 1.1 04/12/2021 01:16 PM CREATININE - [facility] 1.2 08/02/2020 09:51 AM CREATININE - [facility] 1.2 10/15/2018 04:23 PM CREATININE - [facility] 1.2 08/24/2018 10:37 AM CREATININE - [facility] 0.9 07/20/2018 12:18 PM CREATININE-[facility] 1.37 09/27/2022 12:00 AM CREATININE[facility] 1.03 07/10/2018 12:00 AM CREATININE[facility] 1.21 08/04/2017 12:00 AM Lab Results Component Value Date/Time SODIUM - [facility] 138 04/12/2021 01:16 PM SODIUM - [facility] 136 08/02/2020 09:51 AM SODIUM - [facility] 138 10/15/2018 04:23 PM SODIUM - [facility] 140 08/24/2018 10:37 AM SODIUM - [facility] 140 07/20/2018 12:18 PM Lab Results Component Value Date/Time POTASSIUM - [facility] 5.1 04/12/2021 01:16 PM POTASSIUM - [facility] 4.8 08/02/2020 09:51 AM POTASSIUM - [facility] 5.1 10/15/2018 04:23 PM POTASSIUM - [facility] 4.8 08/24/2018 10:37 AM POTASSIUM - [facility] 5.0 07/20/2018 12:18 PM POTASSIUM-[facility] 4.8 09/27/2022 12:00 AM POTASSIUM-[facility] 4.2 07/10/2018 12:00 AM POTASSIUM-[facility] LAB 4.3 08/04/2017 12:00 AM Anemia assessment: Lab Results Component Value Date/Time HGB - [facility] 11.9 (L) 04/12/2021 01:16 PM Anemia management recommendations: Hemoglobin greater than 10.5 - No intervention needed Current Cardiac Medication(s): Metoprolol Er 50 mg BID Olmesartan 20 mg daily----running low Jardiance 10 mg daily----not taking ASA 81 mg daily---not taking Rosuvastatin 10 mg daily---HAS BEEN OUT OF 2 months Current DM Medications: Metformin Er 500 mg--take 1000 mg twice daily Eligible for [employer] Mail Order pharmacy? Agree or Declined? Using mail order but not getting medications per patient cardiomyopathy toyin; 04/09/2023-04/08/2024. Card# [id number] [facility] [id number] [facility] PXXPDMI Group [id number] Assessment & Plan: HFrEF -non ischemic cardiomyopathy -Decline ICD -Start Jardiance 10 mg daily; BMP 2 weeks Reviewed MTM cardiology role with patient and that I will be helping to optimize his medications. Patient reports he has been struggling to get his medications. He is currently using [facility] mail order. Pt is taking Metoprolol and Olmesartan. Is not on Jardiance, pt not sure why but I'm guessing cost. I called the mail order pharmacy and got patient signed up for auto refills. I also was able to getpatient signed up for the toyin to pay for jardiance. Will start jardiance and get BMP in 2 weeks. Plan to discuss Entresto next visit, this would also be covered under the toyin. 2. Frequent PVCs 3. Controlled Hyperlipidemia -Will help patient get crestor refilled; has been out of for 2 months 4. Uncontrolled Type 2 Diabetes -Target HbA1c <7% -Needs updated HbA1c Medication changes: Metoprolol Er 50 mg BID Olmesartan 20 mg daily START: Jardiance 10 mg daily ( toyin) RESTART: ASA 81 mg daily RESTART: Rosuvastatin 10 mg daily Metformin Er 500 mg--take 1000 mg twice daily Labs Due: BMP 2 weeks (ordered) HbA1c (ordered) Lipid panel 09/28/23 Vaccine Due: not reviewed Follow up: 2.5 weeks Valentina Kebede RP Clinical Pharmacist Medication Therapy Disease Management 05/09/2023,10:01 AM documented in this encounter Plan of Treatment Upcoming Encounters Date Type Department Care Team (Late st Contact Info) Description 05/27/2023 11:00 AM EST Telemedicine Cardiology [facility] [address] [facility] [address] [address] [place], [facility] Cardiology [address] [facility] [address] [place] [address] 06/06/2023 11:00 AM EST Office Visit [place] [address] [facility] [phone] Tanner Johnson MD [address] [facility] [address] 07/02/2023 10:40 AM EDT [facility] [address] [facility] [phone] Tanner Johnson MD [address] [facility] [address] Scheduled Orders Name Type Priority Associated Diagnoses Orde r Schedule BASIC METABOLIC PANEL Lab Routine Chronic systolic CHF (congestive heart failure), NYHA class 2 (HCC) Expected: 05/23/2023, Expires: 05/09/2024 HEMOGLOBIN A1C Lab Routine Type 2 diabetes mellitus with hyperosmolarity without coma, without long-term current use of insulin (HCC) Expected: 05/23/2023, Expires: 05/09/2024 Health Maintenance Due Date Last Done Comments [...] as of this encounter Visit Diagnoses Diagnosis Chronic systolic CHF (congestive heart failure), NYHA class 2 (HCC)- Primary Chronic systolic heart failure Hyperlipidemia with target LDL less than 100 Other and unspecified hyperlipidemia Type 2 diabetes mellitus with hyperosmolarity without coma, without long-term current use of insulin (HCC) documented in this encounter Care Teams Systems Analyst Relationship Specialty Start Date End Date August, Tanner Malcolm MD [address] [place] [facility] [place] [address] PCP - General Family Medicine 01/09/23 documented as of this encounter
--- OUTSIDE RECORDS SUMMARY | 2023-07-09 04:52 | External Medical Summary | Summary of Care ---
Author Name Unknown Organization [facility] Address [address] [place] [address] Phone [phone] Care Team Providers Care Paper Winder Name Role Phone AugustYuliana MD Primary Care Provider [phone] Reason for Visit * Reason Comments Medication Refill Encounter Details Date Type Department Care Team (Late st Contact Info) Description 05/10/2023 Refill [facility] [address] [place] [address] AugustYuliana MD [address] [place] [address] Gouty arthropathy; Type 2 diabetes mellitus with hemoglobin A1c goal of less than 7.0% ([facility]) Allergies Active Allergy Reactions Criticality Noted Date Comments Pollen 10/25/2020 Penicillins Edema airway High 08/28/2015 Happened as a kid, age 10 documented as of this encounter (statuses as of 05/12/2023) Medications Medication Sig Dispensed Refills Start Date [...] EVENING MEALS 400 Tablet 1 05/12/2023 Active metFORMIN HCl ER 500 MG Oral Tablet Extended Release 24 Hour (Glucophage XR)Indications:Type 2 diabetes mellitus with hemoglobin A1c goal of less than 7.0% (HCC) TAKE TWO TABLETS BY MOUTH TWO TIMES A DAY WITH MORNING AND EVENING MEALS 400 Tablet 0 12/18/2022 05/10/19 24 Discontinu ed(Refill) Allopurinol 100 MG Oral Tablet (Zyloprim)Indication s:Gouty arthropathy TAKE ONE TABLET BY MOUTH IN THE MORNING 100 Tablet 0 12/18/2022 05/10/19 24 Discontinu ed(Refill) documented as of this encounter (statuses as of 05/12/2023) Active Problems Problem Noted Date Diagnosed Date [...] 09/30/19 19 Type 2 diabetes mellitus, [facility] long-term current use of insulin 09/29/2018 Chronic systolic CHF (conges tive heart failure), NYHA class 2 09/29/2018 1st degree AV block 09/29/2018 IVCD (intraventricular conduction defect) 2018 Nonischemic cardiomyopathy 01/26/2018 HTN, goal below 130/80 11/10/2017 documented as of this encounter (statuses as of 05/12/2023) Resolved Problems Problem Noted Date Diagnosed Date Resolved Date Screening for prostate cancer 08/28/2015 01/26/2018 Uncontrolled type 2 diabetes mellitus with hyperglycemia 08/28/2015 01/01/2022 Overview: ICD-10 update of inactive term documented as of this encounter (statuses as of 05/12/2023) Immunizations Name Administration Dates Next Due COVID-19 [...] encounter Miscellaneous Notes * Telephone Encounter - Willard Murrell [facility] - 05/12/2023 5:03 AM ESTSigned Prescriptions: Disp Refills Allopurinol 100 MG Oral Tablet (Zyloprim) 100 Ta*1 Sig: TAKE ONE TABLET BY MOUTH IN THE MORNING Authorizing Provider: YULIANA VAIL Ordering User: WILLARD MURRELL metFORMIN HCl ER 500 MG Oral Tablet Extend*400 Ta*1 Sig: TAKE TWO TABLETS BY MOUTH TWO TIMES A DAY WITH MORNING AND EVENING MEALS Authorizing Provider: YULIANA VAIL Ordering User: WILLARD MURRELL * Telephone Encounter - 05/10/2023 12:14 AM ESTPending Prescriptions: Disp Refills Allopurinol 100 MG Oral Tablet (Zyloprim) 100 Ta*0 Sig: TAKE ONE TABLET BY MOUTH IN THE MORNING metFORMIN HCl ER 500 MG Oral Tablet Extend*400 Ta*0 Sig: TAKE TWO TABLETS BY MOUTH TWO TIMES A DAY WITH MORNING AND EVENING MEALS documented in this encounter Plan of Treatment Upcoming Encounters Date Type Department Care Team (Late st Contact Info) Description 05/27/2023 11:00 AM EST Telemedicine Cardiology [place] [address] [facility] [place] [address] [address] [facility] Cardiology [address] [facility] [place] [address] 06/06/2023 11:00 AM EST Office Visit [place] [address] [place] [phone] AugustYuliana MD [address] [place] [address] 07/02/2023 10:40 AM EDT Office Visit [facility] [address] [place] [phone] AugustYuliana MD [address] [place], [place] [phone] Health Maintenance Due Date Last Done Comments [...] Ratio 09/28/2023 09/27/2022, 10/06 GFR 09/28/2023 09/27/2022, 0 09/2021, 08/02/2020, Additional [...] as of this encounter Visit Diagnoses Diagnosis Gouty arthropathy Gouty arthropathy, unspecified Type 2 diabetes mellitus with hemoglobin A1c goal of less than 7.0% (HCC) documented in this encounter Care Teams Paper Winder Relationship Specialty Start Date End Date August, Yuliana Malcolm MD [address] [place] [address] PCP - General Family Medicine 01/09/23 documented as of this encounter
--- OUTSIDE RECORDS SUMMARY | 2023-07-09 04:52 | External Medical Summary | Summary of Care ---
Author Name Unknown Organization [facility] Address [address] [facility] [address] Phone [phone] Care Team Providers Care Branch Store Manager Name Role Phone Tanner Johnson MD Primary Care Provider [phone] Encounter Details Date Type Department Care Team (Late st Contact Info) Description 05/09/2023 Telephone Cardiology, [facility] [address] [facility] [place] [address] [facility] [address] [facility] [place] [address] Allergies Active Allergy Reactions Criticality Noted Date [...] coma, without long-term current use of insulin ([facility]),Type 2 diabetes mellitus with hemoglobin A1c goal of less than 7.0% (HCC) Take 1 Tablet by mouth in the morning. 90 Tablet 3 05/09/2023 Active aspirin enteric coated 81 MG TBECIndications:Taki ng 2 times per week Take 1 Tablet by mouth every evening. 0 05/09/19 24 Discontinu ed(Refill) Empagliflozin 10 MG Oral Tablet (Jardiance)Indicatio ns:Type 2 diabetes mellitus with hyperosmolarity without coma, without long-term current use of insulin ([facility]),Type 2 diabetes mellitus with hemoglobin A1c goal of less than 7.0% (HCC) Take 1 Tablet by mouth in the morning. 90 Tablet 3 03/07/2023 05/09/19 24 Discontinu ed(Refill) documented as of [...] Telephone Encounter - Valentina Kebede RPh - 05/09/2023 2:10 PM EST Patient has been approved through [employer] up to $10,000 to cover co-pay cost of Jardiance (and future Entresto) from 04/09/2023-04/08/2024. Card# [id number] [facility] [id number] N PXXPDMI Group [id number] Updated Rx for jardiance sent to mail order pharmacy with toyin verna Loredo Clinical [facility] Pharmacist Cardiology 05/09/2023,2:11 PM * Telephone Encounter - Valentina Kebede RPh - 05/09/2023 11:14 AM EST Physical address: [address] [place] [address] Also provided nicho ramirez with SS number Valentina Loredo Clinical [facility] Pharmacist Cardiology 05/09/2023,11:16 AM * Telephone Encounter - Valentina Kebede RPh - 05/09/2023 10:18 AM EST Patient cannot afford Jardiance/not taking. Would also like to put him on Entresto in the future Please sign patient up for cardiomyopathy toyin if he qualifies. Would recommend any communications come through me, patient gets very confused. If there is any info you need from the patient, please let me know Valentina Kebede Pharm D Clinical [facility] Pharmacist Cardiology 05/09/2023,10:19 AM documented in this encounter Plan of Treatment Upcoming Encounters Date Type Department Care Team (Late st Contact Info) Description 06/06/2023 11:00 AM EST Office Visit [place] [address] [facility] [place] [phone] AugustTanner MD [address] [facility] [place] [address] 07/02/2023 10:40 AM EDT Office [place] [address] [facility] [phone] Tanner Johnson MD [address] [facility] [place] [phone] Health Maintenance Due Date Last Done Comments [...] as of this encounter Visit Diagnoses Diagnosis Type 2 diabetes mellitus with hyperosmolarity without coma, without long-term current use of insulin (HCC) Type 2 diabetes mellitus with hemoglobin A1c goal of less than 7.0% (HCC) documented in this encounter Care Teams Branch Store Manager Relationship Specialty Start Date End Date August, Tanner Malcolm MD [address] [place] [address] PCP - General Family Medicine 01/09/23 documented as of this encounter
--- OUTSIDE RECORDS SUMMARY | 2023-07-09 04:52 | External Medical Summary | Summary of Care ---
Author Name Unknown Organization [facility] Address [address] [facility] [address] Phone [phone] Care Team Providers Care Water Conservationist Name Role Phone AugustYuliana MD Primary Care Provider [phone] Reason for Visit * Reason Onset Date Comments Medication Refill 05/07/2023 Encounter Details Date Type Department Care Team (Late st Contact Info) Description 05/07/2023 Refill [facility] [address] [place] [address] Yuliana [place] MD [address] [place] [address] Pruritic condition Allergies Active Allergy Reactions Criticality Noted Date [...] for Itching. 90 Tablet 3 05/07/2023 Active hydrOXYzine HCl 25 MG Oral [...] 09/30/19 19 Type 2 diabetes mellitus, [place] [facility] long-term current use of insulin 09/29/2018 [...] Telephone Encounter - Yuliana Vail MD - 05/07/2023 1:11 PM ESTSigned Prescriptions: Disp Refills hydrOXYzine HCl 25 MG Oral Tablet 90 Tab*3 Sig: Take 1 Tablet by mouth daily as needed for Itching. Authorizing Provider: YULIANA VAIL * Telephone Encounter - Cynthia Tubbs LPN - 05/07/2023 12:40 PM EST Did you pend patient's preferred pharmacy and medication before forwarding?yes Pharmacy: [facility] Pending Prescriptions: Disp Refills hydrOXYzine HCl 25 MG Oral Tablet 90 Tab*3 Sig: Take 1 Tablet by mouth daily as needed for Itching. Last Visit: 03/07/2023 (in office), Visit date not found (telemedicine) Next Visit: 06/06/2023 If no future appointments scheduled, and last appointment is greater than a year ago, please schedule patient for a follow-up appointment Last date the medication was ordered: 12/2022 Is this request for a controlled substance? NO Urine Drug Screen:No results found for this [...] Description 06/06/2023 11:00 AM EST Office Visit [place] [address] [place] [phone] AugustYuliana MD [address] [place] [address] 07/02/2023 10:40 AM EDT Office Visit [facility] [address] [place] [facility] [place] [phone] AugustYuliana MD [address] [place] [address] Health Maintenance Due Date Last Done Comments [...] Ratio 09/28/2023 09/27/2022, 07/ GFR 09/28/2023 09/27/2022, 010 09/2021, 08/02/2020, Additional history exists Diabetic Foot [...] as of this encounter Visit Diagnoses Diagnosis Pruritic condition Unspecified pruritic disorder documented in this encounter Care Teams Water Conservationist Relationship Specialty Start Date End Date August, Yuliana Malcolm MD [address] [place] [address] PCP - General Family Medicine 01/09/23 documented as of this encounter
--- OUTSIDE RECORDS SUMMARY | 2023-07-09 04:52 | External Medical Summary | Summary of Care ---
Author Name Unknown Organization [facility] Address [address] [facility] [address] Phone [phone] Care Team Providers Care Police Officer Name Role Phone Tanner Johnson MD Primary Care Provider [phone] Reason for Visit * Reason Onset Date Comments Advice 05/09/2023 Dr Johnson Encounter Details Date Type Department Care Team (Late st Contact Info) Description 05/09/2023 Telephone Cardiology, [facility] [address] [place] [address] Omar Lundy O, [address] [place] [address] Advice (Dr Johnson) Allergies Active Allergy Reactions [...] encounter Miscellaneous Notes * Telephone Encounter - Kebede, Valentina Barby, RP - 05/27/2023 11:17 AM EST Reviewed with patient Valentina Yandy Pharm D Clinical [facility] Pharmacist Cardiology 05/27/2023,11:18 AM * Telephone Encounter - Omar Lundy DO - 05/16/2023 4:31 PM EST See result note dated 05/08/2023. Most recent ECG stable and unchanged compared to previous study. * Telephone Encounter - Kelli Dailey OSA - 05/09/2023 2:44 PM EST Person calling: Nimesh Relationship to patient: self Number to return call: [phone] Reason for call: patient is asking for his chest xray results from 05.07.23 xray. Concerned about asbestos. Also would like his EKG results. Patient also has some concerns about possible medication changes. Please return patient's call Pharmacy: Provider Name:Elizabeth documented in this encounter Plan of Treatment Upcoming Encounters Date Type Department Care Team (Late st Contact Info) Description 06/06/2023 11:00 AM EST [facility] [address] [facility] [phone] AugustTanner MD [address] [facility] [place] [address] 06/10/2023 10:00 AM EST Telemedicine Cardiology [place] [address] [place] [address] Luis Manuel [facility] Cardiology [address] [place] [address] 07/02/2023 10:40 AM EDT Office Visit [facility] [address] [place] [address] AugustTanner MD [address] [place], [place] [phone] Health Maintenance Due Date Last Done Comments [...] filedocumented as of this encounter Care Teams Police Officer Relationship Specialty Start Date End Date August, Tanner Malcolm MD [address] [place] [address] PCP - General Family Medicine 01/09/23 documented as of this encounter
--- OUTSIDE RECORDS SUMMARY | 2023-07-09 04:52 | External Medical Summary | Summary of Care ---
Author Name Unknown Organization [facility] Address [address] [facility] [place] [address] Phone [phone] Care Team Providers Care Nurse Office Name Role Phone Tanner Johnson MD Primary Care Provider [phone] Reason for Visit * Reason Comments Dosage Adjustment Via Phone (anticoag Cl inic) Congestive Heart Failure Encounter Details Date Type Department Care Team (Late st Contact Info) Description 05/27/2023 11:00 AM [facility] Telemedicine Cardiology [place] [address] [facility] [place] [address] [facility] [address] [facility] [place] [address] Nonischemic cardiomyopathy (HCC)* Allergies Active Allergy Reactions Criticality Noted Date [...] * Patient Instructions* Valentina Kebede RPh - 05/27/2023 11:29 AM EST Obtain lab work DOMINICK documented in this encounter Progress Notes * Valentina Kebede RPh - 05/27/2023 10:58 AM EST PHARMACY CHRONIC DISEASE MANAGEMENT - HEART FAILURE After connecting to the patient via telephone, the patient was identified by name and date of . Patient was then informed that this was a telephone call only visit. The patient agreed to participate. Visit Disposition: Routine follow-up Total call duration was 28 minutes. Nimesh Sarkar is an 68 year old patient referred to the Heart Failure [place] clinic by Dr Lundy for the following: [...] or lightheadedness: Denies Home BP log results: Lost blood pressure machine Does patient monitor HR at home? no Home HR log results: N/a Does patient monitor weight at home? no Any increased edema or shortness of breath: not reviewed Home weight log results: Not reviewed Objective: BP Readings from Last 3 Encounters: [...] AM POTASSIUM-OUTSIDE LAB 4.3 08/04/2017 12:00 AM No results found for: "DIG" Lab Results Component Value Date/Time HGB - [facility] 11.9 (L) 04/12/2021 01:16 PM No results found for: "FERRITIN" No results found for: "IRON" No results found for: "IRON BIND" No results found for: "TRANSFERRIN" Current Cardiac Medication(s): Metoprolol Er 50 mg BID Olmesartan 20 mg daily Jardiance 10 mg daily--started 05/09/23 ASA 81 mg daily---not taking Rosuvastatin 10 mg daily Current DM Medications: Metformin Er 500 mg--take 1000 mg twice daily Eligible for [facility] Mail Order pharmacy? Agree or Declined? Using mail order but not getting medications per patient HW cardiomyopathy toyin; 04/09/2023-04/08/2024. (Jardiance) Card# [id number] [facility] [id number] [id number] [id number] Assessment & Plan: HFrEF -non ischemic cardiomyopathy -Decline ICD -Obtain BMP Patient very agitated on phone when I called. Frustrated by cancellations of appointments. Using vulgar language on phone with me. I did my best to alleviate the conversation. Did report he started Jardiance 10 mg daily. Asked he obtain BMP, he became upset and said there istoo much snow to drive to lab. He will get it when he can. Reports he has been on entresto in the past and it made him tired, willing to try again. Will wait until he obtains BMP to make switch. No changes today. Completed med rec, pt taking medications as prescribed. 2. Frequent PVCs 3. Controlled Hyperlipidemia -pt notes he restarted crestor 4. Uncontrolled Type 2 Diabetes -Target HbA1c <7% -Needs updated HbA1c Medication changes: None; needs labs Labs Due: BMP due now (ordered) HbA1c (ordered) Lipid panel 09/28/23 Vaccine Due: not reviewed Follow up: 2 weeks Valentina Kebede [facility] Clinical Pharmacist Medication Therapy Disease Management 05/27/2023,11:04 AM documented in this encounter Plan of Treatment Upcoming Encounters Date Type Department Care Team (Late st Contact Info) Description 06/06/2023 11:00 AM EST [facility] [place] [address] [facility] [address] Tanner Johnson [facility] [address] [facility] [address] 06/10/2023 10:00 AM EST Telemedicine Cardiology [place] [address] [place] [address] Luis Manuel [facility] Cardiology [address] [place] [address] 07/02/2023 10:40 AM EDT Office Visit [facility] [address] [facility] [place] [address] AugustTanner MD [address] [facility] [address] Health Maintenance Due Date Last Done Comments [...] as of this encounter Visit Diagnoses Diagnosis Nonischemic cardiomyopathy (HCC)- Primary Other primary cardiomyopathies documented in this encounter Care Teams Nurse Office Relationship Specialty Start Date End Date August, Tanner Malcolm MD [address] [place] [address] PCP - General Family Medicine 01/09/23 documented as of this encounter
--- OUTSIDE RECORDS SUMMARY | 2023-07-09 04:52 | External Medical Summary | Summary of Care ---
Author Name Unknown Organization [facility] Address [address] [place] [address] Phone [phone] Care Team Providers Care Silk Worker Name Role Phone Tanner Johnson MD Primary Care Provider [phone] Reason for Referral * Evaluate & Treat - Unlimited Visits (Within 10 days (routine)) - Authorized Specialty Diagnoses / Procedures Referred By Contac t Referred To Contact Pharmacist / Pharmacy Diagnoses Chronic systolic CHF (congestive heart failure), NYHA class 2 (HCC) Nonischemic cardiomyopathy (HCC) Omar Lundy O, DO [address] [place] [address] Referral ID Status Reason Start Date Expiration Date Visits Requested Visits Authorized [id number] Authorized Specialty Services Required 05/07/2023 99 99 Question Answer Referral Priority Within 10 days (routine) Where should this appointment be scheduled? [facility] Referring Provider Role: Specialist Specialty: Cardio Reason for Referral: HF - Transition to Entresto, optimize therapy Comments Pharmacist Medication Therapy Management: Minimum frequency patient should be seen in person for medication management: as appropriate per clinical condition and patient status By my signature, I understand that my patient Nimesh Sarkar will have his medication therapy managed by the [facility] Medication Therapy Disease Management [facility] ([facility]) per established policies, procedures, and protocols. I also certify that this referral may serve as an initiation of service for the management of drug therapy in the above noted patient. [facility] providers will be responsible for scheduling patient visits, obtaining appropriate laboratory studies, and adjusting medication management therapy per patient's need, in addition to those roles spelled out in the clinic policy, procedures, and drug management protocols. I understand that the service provided by the [facility] Clinic is voluntary and have informed patient that they can refuse the service at their discretion. I am aware that the [facility] Clinic will provide me with a copy of the patient encounter via [facility]. I authorize the [facility] Clinic to carry out these activities on my behalf. I consider this program to be a necessary part of the patient's medical care. Omar Lundy DO Reason for Visit * Reason Comments Follow Up Encounter Details Date Type Department Care Team (Latest Contact Info) Description 05/07/2023 10:30 AM EST Office Visit Cardiology, [facility] [address] [place] [address] Omar Lundy DO [address] [place] [address] Chronic systolic CHF (congestive heart failure), NYHA class 2 (HCC)*; Hyperlipidemia with target LDL less than 100; Nonischemic cardiomyopathy (HCC); PVC (premature ventricular contraction); HTN, goal below 130/80; Alcohol abuse, continuous; Dyslipidemia, goal LDL below 100 Allergies Active Allergy Reactions Criticality Noted Date [...] THE MORNING 100 Tablet 0 05/07/2023 Active Rosuvastatin Calcium 10 MG Oral Tablet (Crestor)Indications :Hyperlipidemia with target LDL less than 100 TAKE ONE TABLET BY MOUTH IN THE MORNING 100 Tablet 0 12/18/2022 05/07/19 24 Discontinu ed(Refill) hydrOXYzine HCl 25 MG Oral TabletIndications:Pr uritic [...] on file documented as of this encounter Last Filed Vital Signs Vital Sign Reading Time Taken Comments Blood Pressure 100/68 05/07/2023 10:31 AM EST Pulse 68 05/07/2023 10:31 AM EST Temperature - - Respiratory Rate 14 05/07/2023 10:31 AM EST Oxygen Saturation - - Inhaled Oxygen Concentration - - Weight 122.5 kg (270 lb) 05/07/2023 10:31 AM EST Height - - Body Mass Index 35.62 03/07/2023 11:23 AM EST documented in this encounter Progress Notes * Omar Lundy, DO - 05/07/2023 10:31 AM EST SUBJECTIVE: Patient returns today for follow up of nonischemic cardiomyopathy, chronic systolic heart failure, frequent PVCs, and dyslipidemia. Recent echocardiogram demonstrating mild increase of left ventricular cavity size and mild reduction of LV systolic function. Feeling well from a cardiovascular perspective. Denies chest pain or unusual shortness of breath. Functional capacity is stable. Chronic fatigue unchanged. Denies orthopnea or PND. Chronic, mild bilateral lower extremity edema stable. No palpitations, lightheadedness, dizziness, syncope, or near syncope. Admits to continued, moderate alcohol intake. Typically consuming 3 beers per day. No interimhospitalizations. Tolerating medications listed below. Voices concern regarding possible asbestos exposure while working in [facility] [facility]. ECG: Sinus rhythm with first-degree AV block, LBBB. PVC. 2D echocardiogram report April 11, 2023: The qualitative LV ejection fraction is 25-29% (severely reduced). The left ventricular cavity is severely dilated (LVED volume >100 ml/m^2). There is severe diffuse left ventricular hypokinesis. The left atrium is moderately enlarged (42-48 ml/m^2). Mild mitral regurgitation is present. Compared to last available study changes are noted as follows: Left ventricular cavity size has mildly increased, and left ventricular systolic dysfunction has mildly declined. 2D echo report 10/10/2020: The qualitative LV ejection fraction is 30-34% (moderately reduced). The left ventricular cavity is moderately dilated (LVED volume 90-100 ml/m^2). The septal motion is abnormal consistent with intrventricular conduction delay. The remaining left ventricular wall segments are moderately hypokinetic. No significant valvular disease is present. The left ventricular diastolic function is mildly abnormal (grade I). Compared to last available study changes are noted as follows: Left ventricular systolic function has mildly improved. 2D echocardiogram report summary 02/2019: The qualitative LV ejection fraction is 20-24% (severely reduced). The left ventricular cavity size is severely enlarged. The left atrium is severely enlarged (>48 ml/m^2,). Mild mitral regurgitation is present. Mild tricuspid regurgitation is present. There is no evidence of pulmonary hypertension. 2D echocardiogram report 07/2018: The LV wall thickness is normal. The left ventricular cavity size is severely enlarged. Qualitative LV ejection Fraction = 20-25%. The left atrium is severely enlarged (>48 ml/m^2,). The left ventricular diastolic function is moderately abnormal (grade II). Mild mitral regurgitation is present. Mild tricuspid regurgitation is present. 24 hr Holter report 08/2018: 1. Duration - 24 hours 2. Quality - Diagnostic 3. Dominant rhythm - sinus rhythm with an average heart rate of 90 beats per minute. 4. PACs - Rare isolated complexes 5. PVCs - Frequent isolated complexes([address]), and couplets(1546). Seventy three 3 to 5 beat salvos of nonsustained ventricular tachycardia recorded. 6. Symptoms - Correlated with sinus rhythm and isolated premature ventricular complexes. ROS: All others negative other than those noted in the HPI. Patient Active Problem List Diagnosis Code HTN, goal below 130/80 I10 Nonischemic cardiomyopathy (HCC) I42.8 PVC (premature ventricular contraction) I49.3 Type 2 diabetes mellitus, without long-term current use of insulin (HCC) E11.9 Chronic systolic CHF (congestive heart failure), NYHA class 2 (HCC) I50.22 1st degree AV block I44.0 IVCD (intraventricular conduction defect) I45.4 Elevated prostate specific antigen (PSA) R97.20 ED (erectile dysfunction) of organic origin N52.9 Alcohol dependence with unspecified alcohol-induced disorder ([facility]) F10.29 Closed fracture of distal end of left fibula with routine healing S82.832D Thrombocytopenia ([facility]) D69.6 Hypertensive heart failure ([facility]) I11.0 Dyslipidemia, goal LDL below 100 E78.5 Social History Tobacco Use Smoking status: Former Smoker Packs/day: 1.00 Years: 15.00 Pack years: 15.00 Types: Cigarettes Smokeless tobacco: Former User Quit date: 08/27/2009 Substance Use Topics Alcohol use: Yes Alcohol/week: 21.0 standard drinks Types: 21 12 oz of beer per week Drug use: No Family History Problem Relation Age of Onset Heart attack Mother 62 Heart failure Brother 72 ICD; cardiomyopathy No Known Problems Brother Review of patient's allergies indicates: Allergen Reactions Penicillins Edema airway Happened as a kid, age 10 Environmental [Pollen] Current Outpatient Medications Medication Sig Dispense Refill aspirin enteric coated 81 MG TBEC Take 1 Tablet by mouth every evening. Fexofenadine HCl 180 MG Oral Tablet Take 1 Tablet by mouth in the morning. Melatonin 10 MG Tablet Take 1 Tablet by mouth as needed. Acyclovir 5 % External Ointment (Zovirax) Apply to genital lesion 5 times per day for 4 days (Patient not taking: Reported on 12/31/2022) 15 g 3 Tadalafil 5 MG Oral Tablet (Cialis) Take by mouth 1 Tablet in the morning. (Patient not taking: Reported on 07/19/2022) 30 Tablet 6 Albuterol Sulfate 108 (90 Base) MCG/ACT Inhalation Aerosol Powder Breath Activated 2 puffs every 4 hrs as needed for wheeze (Patient not taking: Reported on 12/31/2022) 1 Each 3 metFORMIN HCl ER 500 MG Oral Tablet Extended Release 24 Hour (Glucophage XR) TAKE TWO TABLETS BY MOUTH TWO TIMES A DAY WITH MORNING AND EVENING MEALS 400 Tablet 0 Rosuvastatin Calcium 10 MG Oral Tablet (Crestor) TAKE ONE TABLET BY MOUTH IN THE MORNING 100 Tablet0 Allopurinol 100 MG Oral Tablet (Zyloprim) TAKE ONE TABLET BY MOUTH IN THE MORNING 100 Tablet 0 hydrOXYzine HCl 25 MG Oral Tablet Take 1 Tablet by mouth daily as needed for Itching. 90 Tablet 3 Empagliflozin 10 MG Oral Tablet (Jardiance) Take 1 Tablet by mouth in the morning. 90 Tablet 3 Olmesartan Medoxomil 20 MG Oral Tablet (Benicar) Take 1 Tablet by mouth in the morning. 90 Tablet 3 Metoprolol Succinate ER 50 MG Oral Tablet Extended Release 24 Hour (toPROL XL) TAKE ONE TABLET BY MOUTH EVERY DAY IN THE MORNING AND ONE TABLET BEFORE BEDTIME 200 Tablet 0 No current facility-administered medications for this visit. OBJECTIVE/PHYSICAL EXAMINATION: BP 100/68 | Pulse 68 | Resp 14 | Wt 122.5 kg (270 lb) | BMI 35.62 kg/m | BSA 2.51 m General: NAD, AAO x3, well nourished. HEENT: Normocephalic. Atraumatic. Conjunctiva pink, no scleral icterus. No carotid bruits, the carotid upstrokes are brisk. No JVD. No HJR Heart: Regular normal S-1 and S-2 no S-3 or S-4 gallop. No murmurs or rubs appreciated. PMI is not displaced. No RV heave.Lungs: Clear bilateral without rales , rhonchi, or wheeze. Abdomen: Normal bowel sounds. Soft. Nontender. No masses or organomegaly. No abdominal bruits. Extremities: Trace bilateral pretibial edema above the sock line. No clubbing or cyanosis. Pulses: radial=2/4, Dorsalis pedis =2/4, posterior tibial=2/4. Neuro: No focal deficits. ASSESSMENT: 1. Nonischemic cardiomyopathy with chronic compensated systolic heart failure. Class 2. -mild left ventricular dilation with LVEF 25-29% (mild declined from previous) per most recent echocardiogram 2. Frequent PVCs with frequent short salvos of nonsustained ventricular tachycardia per 24 hr Holter monitor 3. Chronic moderate alcohol use (3-4 beers per day) 4. Dyslipidemia - controlled, tolerating rosuvastatin 5. DM-2: controlled, most recent HbA1C 6.8% 6. Chronic fatigue - unchanged PLAN: Xr chest 2 views Pharmacist meds therapy mgmt referral op Ekg Rosuvastatin calcium 10 mg or tabs Sig:Take one tablet by mouth in the morning I had a long discussion with the patient regarding the natural history and pathophysiology of his nonischemic cardiomyopathy. Indications for current evidence based heart failure therapy reviewed. Previously unable to afford Entresto. Recommend referral to [facility] clinic to discuss coverage/payment options for Entresto. Continue metoprolol succinate, Jardiance, rosuvastatin, and olmesartan. Relative contraindication to Aldactone given borderline hyperkalemia and intermittent hypotension. Patient declines ICD. Recommend avoidance of NSAIDs and reduction of alcohol consumption. All questions answered to patient's satisfaction. Follow-up: Return in about 6 months (around 11/05/2023). | Check-out note: CXR today Omar Lundy DO, [facility] Associate Cardiology - [facility] documented in this encounter Procedure Notes * Gagan Burks MD - 05/07/2023 10:47 AM ESTAssociated Order(s): EKG REASON FOR STUDY: routine CONCLUSIONS: Sinus rhythm with 1st degree AV block with occasional Premature ventricular complexes Left ventricular hypertrophy with secondary QRS widening Nonspecific T wave abnormality Abnormal ECG When compared with ECG of 17-JAN-2022 14:28, Premature ventricular complexes are now present Ventricular Rate: 74 Atrial Rate: 74 HI Interval: 222 QRS Duration: 128 QT/QTc: 396/439 ms P-R-T [place]: 26 : -16 : 26 degrees documented in this encounter Nursing Notes * Cynthia Tubbs LPN - 05/07/2023 10:28 AM EST Examination Room: 11 Name: Nimesh Sarkar Date of : 1955 Reason for Visit: Follow up Problems/Concerns: Feeing some weakness upon standing Interim Hosp(s): denies Chest Pain/SOB: denies MyChart Discussed: DECLINES Patient was instructed to not get up on the exam table until directed and assisted by their provider; patient is to remain seated in the chair/ wheelchair/ exam table for fall prevention and safety reasons. Patient is aware staff will assist stepping down off exam table with personnel. documented in this encounter Miscellaneous Notes * Result Encounter Note - Omar Lundy DO - 05/08/2023 1:37 PM EST Normal chest x-ray. documented in this encounter Plan of Treatment Upcoming Encounters Date Type Department Care Team (Late st Contact Info) Description 05/09/2023 10:00 AM EST Telemedicine Cardiology, [facility] [address] [facility] [place] [address] [facility] Cardiology [facility] [address] [facility] [place] [address] 06/06/2023 11:00 AM EST Office Visit [place] [address] [place] [address] AugustTanner MD [address], [place] [id number] 07/02/2023 10:40 AM EDT Office Visit [place] [address] [place] [phone] Tanner Johnson MD [address] [place] [address] Scheduled Referrals Name Type Priority Associated Diagnoses Orde r Schedule PHARMACIST MEDS THERAPY MGMT REFERRAL OP Referral Within 10 days (routine) Chronic systolic CHF (congestive heart failure), NYHA class 2 (HCC) Nonischemic cardiomyopathy (HCC) Ordered: 05/07/2023 Health Maintenance Due Date Last Done Comments [...] Not on filedocumented as of this encounter Procedures Procedure Name Priority Date/Time Associated Diagnosis Comments XR CHEST 2 VIEWS Routine 05/07/2023 11:1 6 AM EST Chronic systolic CHF (congestive heart failure), NYHA class 2 (HCC) HI ECG ROUTINE ECG W/LEAST 12 LDS W/I&R Routine 05/07/2023 10:47 AM EST Hyperlipidemia with target LDL less than 100 documented in this encounter Results * XR CHEST 2 VIEWS (05/07/2023 11:16 AM EST) Anatomical Region Laterality Modality Chest Computed Radiogr aphy 05/07/2023 8:51 PM EST Impressions 05/07/2023 8:49 PM EST IMPRESSION No active disease. Narrative 05/07/2023 8:49 PM EST EXAM XR CHEST 2 VIEWS - 05/07/2023 11:16 am HISTORY "asbestos exposure, chronic HF" TECHNIQUE Frontal and lateral views of the chest were obtained. COMPARISON None FINDINGS The lungs are clear. There is no pleural effusion or pneumothorax. The cardiomediastinal silhouette is within normal limits. Procedure Note Dante Kaur MD - 05/07/2023 EXAM XR CHEST 2 VIEWS - 05/07/2023 11:16 am HISTORY "asbestos exposure, chronic HF" TECHNIQUE Frontal and lateral views of the chest were obtained. COMPARISON None FINDINGS The lungs are clear. There is no pleural effusion or pneumothorax. Thecardiomediastinal silhouette is within normal limits. IMPRESSION IMPRESSION No active disease. Omar Lundy DO RADIOLOGY ([facility]) * EKG (05/07/2023 10:47 AM EST) 05/07/2023 10:4 7 AM EST Narrative Procedure Note Gagan Burks MD - 05/07/2023 10:47 AM EST REASON FOR STUDY: routine CONCLUSIONS: Sinus rhythm with 1st degree AV block with occasional Prematureventricular complexes Left ventricular hypertrophy with secondary QRS widening Nonspecific T wave abnormality Abnormal ECG When compared with ECG of 17-JAN-2022 14:28, Premature ventricular complexes are now present Ventricular Rate: 74 Atrial Rate: 74 HI Interval: 222 QRS Duration: 128 QT/QTc: 396/439 ms P-R-T [place]: 26 : -16 : 26 degrees Omar Lundy DO EKG [facility] CARDIOLOGY documented in this encounter Visit Diagnoses Diagnosis Chronic systolic CHF (congestive heart failure), NYHA class 2 (HCC)- Primary Chronic systolic heart failure Hyperlipidemia with target LDL less than 100 Other and unspecified hyperlipidemia Nonischemic cardiomyopathy (HCC) Other primary cardiomyopathies PVC (premature ventricular contraction) Other premature beats HTN, goal below 130/80 Unspecified essential hypertension Alcohol abuse, continuous Nondependent alcohol abuse, continuous drinking behavior Dyslipidemia, goal LDL below 100 Other and unspecified hyperlipidemia documented in this encounter Care Teams Silk Worker Relationship Specialty Start Date End Date August, Tanner Malcolm MD [address] [place] [address] PCP - General Family Medicine 01/09/23 documented as of this encounter
--- OUTSIDE RECORDS SUMMARY | 2023-07-09 04:52 | External Medical Summary | Summary of Care ---
Author Name Unknown Organization [facility] Address [address] [place] [address] Phone [phone] Care Team Providers Care Pharmacy Operations Coordinator Name Role Phone AugustTanner MD Primary Care Provider [phone] Reason for Visit * Reason Onset Date Comments Advice 05/23/2023 Upcoming appts Encounter Details Date Type Department Care Team (Late st Contact Info) Description 05/23/2023 Telephone [facility] [address] [place] [address] Tanner Johnson MD [address] [place] [address] Advice (Upcoming appts) Allergies Active [...] 09/30/19 19 Type 2 [facility] current use of insulin 09/29/2018 [...] Description 05/27/2023 11:00 AM EST Telemedicine Cardiology [facility] [address] [place] [address] Luis Manuel [facility] Cardiology [address] [place] [address] 06/06/2023 11:00 AM EST Office Visit [facility] [address] [place] [facility] [place] [phone] Tanner Johnson MD [address] [place] [address] 07/02/2023 10:40 AM EDT Office Visit [facility] [address] [facility] [place] [phone] Tanner Johnson MD [address] [place] [address] Health Maintenance Due Date Last Done Comments [...] filedocumented as of this encounter Care Teams Pharmacy Operations Coordinator Relationship Specialty Start Date End Date August, Tanner Malcolm MD [address] [place] [facility] [place] [address] PCP - General Family Medicine 01/09/23 documented as of this encounter
--- OUTSIDE RECORDS SUMMARY | 2023-07-09 04:53 | External Medical Summary | Summary of Care ---
Author Name Unknown Organization [facility] Address [address] [place] [address] Phone [phone] Care Team Providers Care Whiskey Regauger Name Role Phone Tanner Johnson MD Primary Care Provider [phone] Reason for Referral * Evaluate & Treat - Unlimited Visits (Within 10 days (routine)) - Authorized Specialty Diagnoses / Procedures Referred By Contac t Referred To Contact Pharmacist / Pharmacy Diagnoses Chronic systolic CHF (congestive heart failure), NYHA class 2 (HCC) Nonischemic cardiomyopathy (HCC) Omar Lundy O, DO [address] [place] [address] Referral ID Status Reason Start Date Expiration Date Visits Requested Visits Authorized [id number] Authorized Specialty Services Required 05/07/2023 99 99 Question Answer Referral Priority Within 10 days (routine) Where should this appointment be scheduled? [facility] Referring Provider Role: Specialist Specialty: Cardio Reason for Referral: HF - Transition to Entresto, optimize therapy Comments Pharmacist Medication Therapy Management: Minimum frequency patient should be seen in person for medication management: as appropriate per clinical condition and patient status By my signature, I understand that my patient Nimesh Sarkar will have his medication therapy managed by the [facility] Medication Therapy Disease Management [facility] ([facility]) per established policies, procedures, and protocols. I also certify that this referral may serve as an initiation of service for the management of drug therapy in the above noted patient. [facility] providers will be responsible for scheduling patient visits, obtaining appropriate laboratory studies, and adjusting medication management therapy per patient's need, in addition to those roles spelled out in the clinic policy, procedures, and drug management protocols. I understand that the service provided by the [facility] Clinic is voluntary and have informed patient that they can refuse the service at their discretion. I am aware that the [facility] Clinic will provide me with a copy of the patient encounter via my [employer] [facility]. I authorize the [facility] Clinic to carry out these activities on my behalf. I consider this program to be a necessary part of the patient's medical care. Omar Lundy DO Reason for Visit * Reason Comments Follow Up Encounter Details Date Type Department Care Team (Latest Contact Info) Description 05/07/2023 10:30 AM EST Office Visit Cardiology, [facility] [address] [place] [address] Omar Lundy DO [address] [place] [id number] Chronic systolic CHF (congestive heart failure), NYHA [...] 12/18/2022 Active hydrOXYzine HCl 25 MG Oral TabletIndications:Pr uritic condition Take 1 Tablet by mouth daily as needed for Itching. 90 Tablet 3 12/31/2022 Active Empagliflozin 10 MG Oral Tablet (Jardiance)Indicatio [...] Tablet 0 12/18/2022 05/07/19 24 Discontinu ed(Refill) documented as of [...] in this encounter Progress Notes * Omar Lundy DO - 05/07/2023 10:31 AM EST SUBJECTIVE: [...] regarding possible asbestos exposure while working in [employer]. ECG: Sinus rhythm with first-degree AV block, [...] isolated complexes 5. PVCs - Frequent isolated complexes(36342), and couplets(1546). Seventy three 3 to 5 [...] N52.9 Alcohol dependence with unspecified alcohol-induced disorder (HCC) F10.29 Closed fracture of distal end of left fibula with routine healing S82.832D Thrombocytopenia (HCC) D69.6 Hypertensive heart failure (HCC) I11.0 Dyslipidemia, goal LDL below 100 E78.5 [...] unable to afford Entresto. Recommend referral to [facility] to discuss coverage/payment options for Entresto. Continue metoprolol succinate, Jardiance, rosuvastatin, and olmesartan. Relative contraindication to Aldactone given borderline hyperkalemia and intermittent hypotension. Patient declines ICD. Recommend avoidance of NSAIDs and reduction of alcohol consumption. All questions answered to patient's satisfaction. Follow-up: Return in about 6 months (around 11/05/2023). | Check-out note: CXR today Omar Lundy DO, [facility] Associate Cardiology - [facility] documented in this encounter Nursing Notes * [...] table with personnel. documented in this encounter Plan of Treatment Upcoming Encounters Date Type Department Care Team (Late st Contact Info) Description 06/06/2023 11:00 AM EST [facility] [place] [address] [facility] [phone] Tanner Johnson MD [address] [facility] [place], [place] [phone] 07/02/2023 10:40 AM EDT Office Visit [facility] [place] [address] [facility] [place] [place] [phone] Tanner Johnson [facility] [address] [facility] [address] Pending Results Name Type Priority Associated Diagnoses Date /Time XR CHEST 2 VIEWS Medical Imaging Routine Chronic systolic CHF (congestive heart failure), NYHA class 2 (HCC) 05/07/2023 11:16 AM EST Scheduled Orders Name Type Priority Associated Diagnoses Orde r Schedule EKG EKG Routine Hyperlipidemia with target LDL less than 100 Ordered: 05/07/2023 Scheduled Referrals Name Type Priority Associated Diagnoses [...] hyperlipidemia documented in this encounter Care Teams Whiskey Regauger Relationship Specialty Start Date End Date August, Tanner Malcolm MD [address] [place] [address] PCP - General Family Medicine 01/09/23 documented as of this encounter"
--- OUTSIDE RECORDS SUMMARY | 2023-07-09 04:53 | External Medical Summary | Summary of Care ---
Author Name Unknown Organization [facility] Address [address] [place] [address] Phone [phone] Care Team Providers Care Wood Patternmaker Name Role Phone AugustTanner MD Primary Care Provider Reason for Visit * Reason Comments Physical-Exam Some days feels more tired than others after working out Encounter Details Date Type Department Care Team (Latest Contact Info) Description 03/07/2023 11:20 AM EST Office Visit [facility] [place] [address] [place] [address] Tanner Johnson MD [address] [place] [address] Chronic systolic CHF (congestive heart failure), NYHA class 2 ([facility])*; HTN, goal below 130/80; Type 2 diabetes mellitus with hyperosmolarity without coma, without long-term current use of insulin ([facility]); Type 2 diabetes mellitus with hemoglobin A1c goal of less than 7.0% ([facility]); Fatigue, unspecified type; Dyslipidemia, goal LDL below 100; Colon cancer screening; Alcohol dependence with unspecified alcohol-induced disorder ([facility]) Allergies Active Allergy Reactions Criticality Noted Date Comments Pollen 10/25/2020 Penicillins Edema airway High 08/28/2015 Happened as a kid, age 10 documented as of this encounter (statuses as of 03/07/2023) Medications Medication Sig Dispensed Refills Start Date [...] EVENING MEALS 400 Tablet 0 12/18/2022 Active Metoprolol Succinate ER 50 MG Oral Tablet Extended Release 24 Hour (toPROL XL)Indications:PVC (premature ventricular contraction) TAKE ONE TABLET BY MOUTH EVERY DAY IN THE MORNING AND ONE TABLET BEFORE BEDTIME 200 Tablet 0 12/18/2022 Active Rosuvastatin Calcium 10 MG Oral Tablet (Crestor)Indications :Hyperlipidemia with target LDL less than 100 TAKE ONE TABLET BY MOUTH IN THE MORNING 100 Tablet 0 12/18/2022 Active Allopurinol 100 MG Oral Tablet (Zyloprim)Indication s:Gouty arthropathy TAKE ONE TABLET BY MOUTH IN THE MORNING 100 Tablet 0 12/18/2022 Active hydrOXYzine HCl 25 MG Oral TabletIndications:Pr uritic condition Take 1 Tablet by mouth daily as needed for Itching. 90 Tablet 3 12/31/2022 Active Olmesartan Medoxomil 20 MG Oral Tablet (Benicar)Indications :HTN, goal below 130/80 Take 1 Tablet by mouth in the morning. 90 Tablet 3 03/07/2023 Active Empagliflozin 10 MG Oral Tablet (Jardiance)Indicatio ns:Type 2 diabetes mellitus with hyperosmolarity without coma, without long-term current use of insulin (HCC),Type 2 diabetes mellitus with hemoglobin A1c goal of less than 7.0% (HCC) Take 1 Tablet by mouth in the morning. 90 Tablet 3 03/07/2023 Active hydrOXYzine HCl 25 MG Oral TabletIndications:Pr uritus TAKE ONE TABLET BY MOUTH TWICE A DAY NEEDED FOR ITCHING 160 Tablet 0 12/27/2021 03/07/20 23 Discontinu ed(Medicat ion List Clean Up) Olmesartan Medoxomil 20 MG Oral Tablet (Benicar)Indications :HTN, goal below 130/80 Take 2 Tablets by mouth in the morning. 180 Tablet 3 12/31/2022 03/07/20 23 Discontinu ed(Refill) documented as of this encounter (statuses as of 03/07/2023) Active Problems Problem Noted Date Diagnosed Date [...] 09/30/19 19 Type 2 diabetes mellitus, [facility] long-term current use of insulin 09/29/2018 Chronic systolic CHF (conges tive heart failure), NYHA class 2 09/29/2018 1st degree AV block 09/29/2018 IVCD (intraventricular conduction defect) 2018 Nonischemic cardiomyopathy 01/26/2018 HTN, goal below 130/80 11/10/2017 documented as of this encounter (statuses as of 03/07/2023) Resolved Problems Problem Noted Date Diagnosed Date Resolved Date Screening for prostate cancer 08/28/2015 01/26/2018 Uncontrolled type 2 diabetes mellitus with hyperglycemia 08/28/2015 01/01/2022 Overview: ICD-10 update of inactive term documented as of this encounter (statuses as of 03/07/2023) Immunizations Name Administration Dates Next Due COVID-19 [...] Sign Reading Time Taken Comments Blood Pressure 90/58 03/07/2023 11:23 AM EST Pulse 72 03/07/2023 11:23 AM EST Temperature 36.7 C (98 F) 03/07/2023 11:23 AM EST Respiratory Rate 18 03/07/2023 11:23 AM EST Oxygen Saturation - - Inhaled Oxygen Concentration - - Weight 120.2 kg (265 lb) 03/07/2023 11:23 AM EST Height 185.4 cm (6' 1") 03/07/2023 11:23 AM EST Body Mass Index 34.96 03/07/2023 11:23 AM EST documented in this encounter Progress Notes * Tanner Johnson MD - 03/07/2023 11:22 AM EST Images from the original note were not included. Assessment and Plan 1. Chronic systolic CHF (congestive heart failure), NYHA class 2 (HCC) EF of 30% in 2020. Follows with cardiology. Appropriately on beta-dorcas, statin, Akil/Arb. Echocardiogram ordered by Cardiology we will be rescheduled for date prior to cardiology follow up in May. Add Jardiance for diabetes control and cardio protection. 2. HTN, goal below 130/80 Blood pressure 90/58 today. Possibly contributing to patient's fatigue. Reduced olmesartan dose to 20 mg daily. - Olmesartan Medoxomil 20 MG Oral Tablet (Benicar); Take 1 Tablet by mouth in the morning. Dispense: 90 Tablet; Refill: 3 3. Type 2 diabetes mellitus with hyperosmolarity without coma, without long-term current use of insulin ([facility]) Suboptimal control with A1c 8.4 in September 2022. Add Jardiance 10 mg daily. - Empagliflozin 10 MG Oral Tablet (Jardiance); Take 1 Tablet by mouth in the morning. Dispense: 90 Tablet; Refill: 3 - HEMOGLOBIN A1C; Future 4. Type 2 diabetes mellitus with hemoglobin A1c goal of less than 7.0% ([facility]) - Empagliflozin 10 MG Oral Tablet (Jardiance); Take 1 Tablet by mouth in the morning. Dispense: 90 Tablet; Refill: 3 - DIABETES FOOT EXAM 5. Fatigue, unspecified type 6. Dyslipidemia, goal LDL below 100 Continue statin. 7. Colon cancer screening Agreeable to colon cancer screening with Cologuard. - COLOGUARD 8. Alcohol dependence with unspecified alcohol-induced disorder (HCC) Significantly reduced alcohol consumption down to a few beers 2 to 3 times a week. Wrap-Up Follow up in 3 months. History of Present Illness The patient is a 68-year-old male with past medical history of type 2 diabetes, dyslipidemia, NYHA class 2 systolic heart failure, hypertension who presents for follow up. Patient presents for follow up of chronic conditions. His main complaint today is fatigue. He states he has a generalized fatigue that has been ongoing for a number of months. He was concerned about low testosterone. We discussed risks benefit of testosterone replacement. We would like to look at acouple of the things that could be causing his fatigue prior to pursuing testosterone workup. Patient has a history of heart failure with reduced ejection fraction with EF 30% in 2020. Does follow up with Dr. Lundy of Cardiology for management. He currently takes olmesartan, metoprolol, rosuvastatin. He was not take Entresto due to cost and spironolactone due to history of hypotension and hyperkalemia. He was due for repeat echocardiogram which we will attempt to schedule prior to his cardiology follow up on 05/09/2023. Worsening heart failure could be causing the fatigue though he does appear euvolemic on exam today. Patient also has a history of hypertension for which he is on olmesartan and metoprolol. His blood pressure in office today is 90/58. He reports intermittent dizziness but not specifically associatedwith going from lying to sitting or sitting to standing. Agreeable to dose reduction to 20 mg dailysee if this changes his symptoms. Diabetes is under suboptimal control. His last A1c was 8.4 in September 2022. He currently takes metformin 1000 mg twice daily. He previously was taking Jardiance, however, this was discontinued due to cost. He now has [facility] gold and I suspect cost should be less of an issue. This would benefit both his A1c and his heart failure with reduced ejection fraction. He was agreeable to starting the medication. Again reduce olmesartan to 20 mg daily due to potential diuretic effect of the Jardiance. From a health maintenance perspective he was agreeable to colon cancer screening with a Cologuard. He was agreeable to diabetic foot diabetic eye exam being completed in the office today. Physical Exam Vitals: 03/07/23 1123 Temp: 36.7 C (98 F) Pulse: 72 Resp: 18 BP: 90/58 BMI: 34.97 Physical Exam Physical Exam Vitals reviewed. Constitutional: General: He is not in acute distress. Cardiovascular: Rate and Rhythm: Normal rate and regular rhythm. Heart sounds: No murmur heard. Pulmonary: Effort: Pulmonary effort is normal. No respiratory distress. Breath sounds: Normal breath sounds. Musculoskeletal: Cervical back: Neck supple. Lymphadenopathy: Cervical: No cervical adenopathy. Skin: General: Skin is warm and dry. Neurological: General: No focal deficit present. Mental Status: He is alert. Time: I spent a total of 40-54 minutes (exact time 42 mins) on the date of service in preparation, delivery, and documentation of the care provided to the patient excluding any time spent in the performance of separately billed services. documented in this encounter Plan of Treatment Upcoming Encounters Date Type Department Care Team (Late st Contact Info) Description 03/10/2023 9:15 AM EST Appointment Cardiac Studies, [facility] [address] [place] [address] 05/09/2023 1:30 PM EST Office Visit Cardiology, [facility] [address] [place] [address] Omar Lundy DO [address] [place] [address] 06/06/2023 11:00 AM EST Office Visit [facility] [place] [address] [facility] [phone] AugustTanner MD [address] [place] [facility] [place] [place] [address] 07/02/2023 10:40 AM EDT Office Visit [facility] [place] [address] [facility] [phone] AugustTanner MD [address] [place] [address] Scheduled Orders Name Type Priority Associated Diagnoses Orde r Schedule COLOGUARD Lab Unrestricted Lab Colon cancer screening Ordered: 03/07/2023 HEMOGLOBIN A1C Lab Routine Type 2 diabetes mellitus with hyperosmolarity without coma, without long-term current use of insulin (HCC) Expected: 03/07/2023 (Approximate), Expires: 03/06/2024 Health Maintenance Due Date Last Done Comments [...] 2 (HCC)- Primary Chronic systolic heart failure HTN, goal below 130/80 Unspecified essential hypertension Type 2 diabetes mellitus with hyperosmolarity without coma, without long-term current use of insulin (HCC) Type 2 diabetes mellitus with hemoglobin A1c goal of less than 7.0% (HCC) Fatigue, unspecified type Dyslipidemia, goal LDL below 100 Other and unspecified hyperlipidemia Colon cancer screening Special screening for malignant neoplasms, colon Alcohol dependence with unspecified alcohol-induced disorder (HCC) documented in this encounter Care Teams Wood Patternmaker Relationship Specialty Start Date End Date August, Tanner Malcolm MD [address] [place] [address] PCP - General Family Medicine 01/09/23 documented as of this encounter
--- OUTSIDE RECORDS SUMMARY | 2023-07-09 04:53 | External Medical Summary | Summary of Care ---
Author Name Unknown Organization [facility] Address [address] [place] [address] Phone [phone] Care Team Providers Care Film Washer Name Role Phone AugustYuliana MD Primary Care Provider [phone] Encounter Details Date Type Department Care Team (Late st Contact Info) Description 03/10/2023 Refill [facility] [address] [place] [address] AugustYuliana MD [address] [place] [address] HTN, goal below 130/80; PVC (premature ventricular contraction) Allergies Active Allergy Reactions Criticality Noted Date Comments Pollen 10/25/2020 Penicillins Edema airway High 08/28/2015 Happened as a kid, age 10 documented as of this encounter (statuses as of 03/11/2023) Medications Medication Sig Dispensed Refills Start Date [...] EVENING MEALS 400 Tablet 0 12/18/2022 Active Rosuvastatin Calcium 10 [...] the morning. 90 Tablet 3 03/07/2023 Active Olmesartan Medoxomil 20 MG Oral Tablet (Benicar)Indications :HTN, goal below 130/80 Take 1 Tablet by mouth in the morning. 90 Tablet 3 03/11/2023 Active Metoprolol Succinate ER 50 MG Oral Tablet Extended Release 24 Hour (toPROL XL)Indications:PVC (premature ventricular contraction) TAKE ONE TABLET BY MOUTH EVERY DAY IN THE MORNING AND ONE TABLET BEFORE BEDTIME 200 Tablet 0 03/11/2023 Active Metoprolol Succinate ER 50 MG Oral Tablet Extended Release 24 Hour (toPROL XL)Indications:PVC (premature ventricular contraction) TAKE ONE TABLET BY MOUTH EVERY DAY IN THE MORNING AND ONE TABLET BEFORE BEDTIME 200 Tablet 0 12/18/2022 03/11/20 23 Discontinu ed(Refill) Olmesartan Medoxomil 20 MG Oral Tablet (Benicar)Indications :HTN, goal below 130/80 Take 1 Tablet by mouth in the morning. 90 Tablet 3 03/07/2023 03/11/20 23 Discontinu ed(Refill) documented as of this encounter (statuses as of 03/11/2023) Active Problems Problem Noted Date Diagnosed Date [...] as of this encounter (statuses as of 03/11/2023) Resolved Problems Problem Noted Date Diagnosed Date Resolved Date Screening for prostate cancer 08/28/2015 01/26/2018 Uncontrolled type 2 diabetes mellitus with hyperglycemia 08/28/2015 01/01/2022 Overview: ICD-10 update of inactive term documented as of this encounter (statuses as of 03/11/2023) Immunizations Name Administration Dates Next Due COVID-19 [...] as of this encounter Miscellaneous Notes * Addendum Note - Yuliana Vail MD - 03/11/2023 5:04 PM ESTAddended by: YULIANA VAIL on: 03/11/2023 05:04 PM Modules accepted: Orders * Telephone Encounter - Yuliana Vail MD - 03/11/2023 5:04 PM EST Noted. Refills sent. Yuliana Vail MD * Addendum Note - Tito Santiago LPN - 03/11/2023 4:06 PM ESTAddended by: TITO SANTIAGO on: 03/11/2023 04:06 PM Modules accepted: Orders * Telephone Encounter - Tito Santiago LPN - 03/11/2023 3:57 PM EST Spoke to patient he is upset states that he is not aware of the cardiac study that is currently scheduled for 04/11/2023. Patient is aware of the Cardiology appt scheduled for Omar Lundy on 05/09/2023. Patient seems to repeat about being upset. Patient is talking about medications. Tried to explain to patient that Dr. Lundy was in agreement with Dr. Vail. Patient does not seem to want to hear about the med changes. States that just because it was low one time. Advised patient that if he prefers to wait to talk to [facility] [employer] Services due the past and not having any heart issues with BP being low he would rather wait to talk to the [facility] [employer] [facility]. Patient is asking for refills to continue regular medications and will discuss the med changes at [facility] apt in May. Patient is aware of the echo scheduled 04/11/2023. * Telephone Encounter - Yuliana Vail MD - 03/10/2023 6:16 PM EST Plan as discussed at office visit is safe and appropriate. It appears cardiology agrees. No other changes from my end. Repeat echo ideally prior to cardiology appointment in May but if not able to be scheduled this is okay. Can be obtained after cards appointment in the spring when less chanceof weather related issues. Yuliana Vail MD * Telephone Encounter - Omar Lundy DO - 03/10/2023 2:29 PM EST Agree with addition of Jardiance and concomitant reduction of olmesartan as recommended by Dr. Vail. * Telephone Encounter - Amelie Joyner OSA - 03/10/2023 9:58 AM EST During checkout, patient stated he needed an EchoCardiogram. I offered [place] or [place] and the patient said it has to be before his Cardio appointment (Which is May 09). There was only in [place] available that was before his Cardio appointment. I also offered in [place] and this was before his Cardio appointment that day. He got very upset with me and told me that Dr. Vail told him the Echocardiogram needs done before his appointment in May. I stated we have April [address] [facility]. He got VERY upset with me because he lives in [facility] and if it snows he's not driving that far in the snow. I said ok how about May 09 he again got mad at me because Dr. Vail says it needs to be before his Echocardiogram. I offered April 29 in [facility] or May 09 in [place]. He then asked if there was anywhere else he could go like [place] because he used to have a doctor in [place] and he would go there so we scheduled in [place] for March 10. This man was very mad and the patients in the waiting room heard so much so that a patient after him said "I won't be as difficult as that man before me, I promise". I called patient to schedule and he said "schedule me wherever I need this done". Patient is scheduled for April 11 in [facility]. 03/10/2023 * Telephone Encounter - Tito Santiago LPN - 03/10/2023 9:38 AM EST Received escalated email regarding patient having concerns about his heart medication because Dr. Vail changed his heart medication and he does not want to take it without consulting or seeing if his resident program specialist was consulted. He is paranoid because heart issues run in the family. He is also irate because he was scheduled for Cardiogram appointment at the [facility] and it is a [address] for him. The cardiogram appointment was cancelled and pt wanted us to let the provider know he will not be taking the new medication that he was prescribed. He does not feel safe doing so and wanted to make us aware. Will send to Dr. Lundy (cardiology) to see what thoughts are for the changes made to meds and for him to weigh in so when we call patient back we can tell the patient that [facility] [employer] is aware. Please rescheduled for Cardiogram locally, involving patient. any other information you would like to add or have us call the patient. documented in this encounter Plan of Treatment Upcoming Encounters Date Type Department Care Team (Late st Contact Info) Description 04/11/2023 10:35 AM EST Cardiac Studies [facility] [address] [facility] [facility] [address] 05/09/2023 1:30 PM EST Office Visit Cardiology, [facility] [address] [facility] [place] [address] Omar Lundy, [address] [facility] [place] [address] 06/06/2023 11:00 AM EST Office Visit [place] [address] [place] [address] AugustYuliana MD [address] [place] [address] 07/02/2023 10:40 AM EDT Office Visit [place] [address] [place] [phone] Yuliana Vail MD [address] [place] [address] Health Maintenance Due Date Last Done Comments [...] Additional history exists Albumin/Creatinine Ratio 09/28/2023 09/27/2022, / GFR 09/28/2023 09/27/2022, 0 09/2021, 08/02/2020, Additional [...] as of this encounter Visit Diagnoses Diagnosis HTN, goal below 130/80 Unspecified essential hypertension PVC (premature ventricular contraction) Other premature beats documented in this encounter Care Teams Film Washer Relationship Specialty Start Date End Date August, Yuliana Malcolm MD [address] [place] [address] PCP - General Family Medicine 01/09/23 documented as of this encounter
--- OUTSIDE RECORDS SUMMARY | 2023-07-09 04:53 | External Medical Summary | Summary of Care ---
Author Name Unknown Organization [facility] Address [address] [facility] [address] Phone [phone] Care Team Providers Care Manager Enrollment Name Role Phone Tanner Johnson MD Primary Care Provider [phone] Reason for Visit * Reason Onset Date Comments Appointment 05/07/2023 Encounter Details Date Type Department Care Team (Late st Contact Info) Description 05/07/2023 Telephone Cardiology, [facility] [address] [place] [address] Omar Lundy, [address] [place] [address] Appointment Allergies Active Allergy Reactions Criticality Noted [...] contraction) 09/30/19 19 Type 2 diabetes mellitus, [facility] long-term current use of insulin 09/29/2018 [...] does not want to drive back to [place] from [place]. Please advise. documented in this encounter Plan of Treatment Upcoming Encounters Date Type Department Care Team (Late st Contact Info) Description 06/06/2023 11:00 AM EST Office Visit [place] [address] [place] [phone] AugustTanner MD [address] [place], [place] [phone] 07/02/2023 10:40 AM EDT Office Visit [facility] [address] [place] [phone] AugustTanner MD [address] [place], [place] [phone] Health Maintenance Due Date Last Done Comments [...] as of this encounter Care Teams Manager Enrollment Relationship Specialty Start Date End Date August, Tanner Malcolm MD [address] [place] [address] PCP - General Family Medicine 01/09/23 documented as of this encounter
--- OUTSIDE RECORDS SUMMARY | 2023-07-09 04:53 | External Medical Summary | Summary of Care ---
Author Name Unknown Organization [facility] Address [address] [place] [address] Phone [phone] Care Team Providers Care Supervisor Nutritional Yeast Name Role Phone AugustTanner MD Primary Care Provider [phone] Encounter Details Date Type Department Care Team (Late st Contact Info) Description 03/10/2023 Refill [facility] [address] [place] [address] AugustTanner MD [address] [place] [address] HTN, goal below 130/80; PVC [...] Active Olmesartan Medoxomil 20 MG Oral Tablet (Benicar)Indications: HTN, goal below 130/80 Take 1 Tablet by mouth in the morning. 90 Tablet 3 03/07/2023 Active Empagliflozin 10 MG Oral Tablet (Jardiance)Indication s:Type 2 diabetes mellitus with hyperosmolarity without coma, without long-term current use of insulin (HCC),Type 2 diabetes mellitus with hemoglobin A1c goal of less than 7.0% (HCC) Take 1 Tablet by mouth in the morning. 90 Tablet 3 03/07/2023 Active documented as of this encounter (statuses [...] encounter Miscellaneous Notes * Addendum Note - Tito Santiago LPN [...] Dr. Lundy was in agreement with Dr. Johnson. Patient does not seem to want to hear about the med changes. States that just because it was low one time. Advised patient that if he prefers to wait to talk to [facility] due the past and not having any heart issues with BP being low he would rather wait to talk to the [facility]. Patient is asking for refills to continue regular medications and will discuss the med changes at [facility] apt in May. Patient is aware of the echo scheduled 04/11/2023. * Telephone Encounter - Tanner Johnson MD - 03/10/2023 6:16 PM EST Plan as discussed at office visit is safe and appropriate. It appears cardiology agrees. No other changes from my end. Repeat echo ideally prior to cardiology appointment in May but if not able to be scheduled this is okay. Can be obtained after cards appointment in the spring when less chanceof weather related issues. Tanner Johnson MD * Telephone Encounter - Omar Lundy DO - 03/10/2023 2:29 PM EST Agree with addition of Jardiance and concomitant reduction of olmesartan as recommended by Dr. Johnson. * Telephone Encounter - Amelie Joyner OSA - 03/10/2023 9:58 AM EST During checkout, patient stated he needed an EchoCardiogram. [facility] [place] [facility] and the patient said it has to be before his Cardio appointment (Which is May 09). There was only in [facility] available that was before his Cardio appointment. I also offered in [place] and this was before his Cardio appointment that day. He got very upset with me and told me that Dr. Johnson told him the Echocardiogram needs done before his appointment in May. I stated we have April 29 in [facility]. He got VERY upset with me because he lives in [facility] and if it snows he's not driving that far in the snow. I said ok how about May 09 he again got mad at me because Dr. Johnson says it needs to be before his Echocardiogram. I offered April 29 in [facility] or May 09 in [place]. He then asked if there was anywhere else he could go like [place] because he used to have a doctor in [place] and he would go there so we scheduled in [place] for March 10. This man was very mad and the patients in the waiting room heard so much so that a patient after him said "I won't be as difficult as that man before me, I promise". I called patient to schedule and he said "schedule me wherever I need this done". [facility] 03/10/2023 * Telephone Encounter - Tito Santiago LPN - 03/10/2023 9:38 AM EST Received escalated email regarding patient having concerns about his heart medication because Dr. Johnson changed his heart medication and he does not want to take it without consulting or seeing if his tour operator was consulted. He is paranoid because heart issues run in the family. He is also irate because he was scheduled for Cardiogram appointment at the [facility] and it is a 2.[address] [...] back we can tell the patient that [facility] is aware. Please rescheduled for Cardiogram locally, involving patient. May any other information you would like to add or have us call the patient. documented in this encounter Plan of Treatment Upcoming Encounters Date Type Department Care Team (Late st Contact Info) Description 04/11/2023 10:35 AM EST Cardiac Studies Cardiac Studies, [facility] [address] [facility] [place] [address] 05/09/2023 1:30 PM EST Office Visit Cardiology, [facility] [address] [place] [address] Omar Lundy DO [address] [facility] [place] [address] 06/06/2023 11:00 AM EST Office Visit [facility] [address] [facility] [place] [phone] Tanner Johnson MD [address] [facility] [place] [address] 07/02/2023 10:40 AM EDT Office Visit [facility] [address] [place] [facility] [place] [address] Tanner Johnson MD [address] [facility] [place] [id number] Health Maintenance Due Date Last Done Comments [...] beats documented in this encounter Care Teams Supervisor Nutritional Yeast Relationship Specialty Start Date End Date August, Tanner Malcolm MD [address] [place] [address] PCP - General Family Medicine 01/09/23 documented as of this encounter
--- OUTSIDE RECORDS SUMMARY | 2023-07-09 04:53 | External Medical Summary | Summary of Care ---
Author Name Unknown Organization [facility] Address [address] [place] [address] Phone [phone] Care Team Providers Care Entry Engineer Name Role Phone Tanner Johnson MD Primary Care Provider [phone] Reason for Visit * Reason Comments Test Results * Precert (Within 10 days (routine)) - Authorized Specialty Diagnoses / Procedures Referred By Contac t Referred To Contact Cardiac Studies Diagnoses Nonischemic cardiomyopathy (HCC) NSVT (nonsustained ventricular tachycardia) (HCC) Chronic systolic CHF (congestive heart failure), NYHA class 2 (HCC) Procedures ECHO, COMPLETE (2D), TRANS-THORACIC Omar Lundy DO [address] [place] [address] Referral ID Status Reason Start Date Expiration Date V isits Requested Visits Authorized [id number] Authorized Precert 07/19/2022 999 [id number] Encounter Details Date Type Department Care Team (Latest Contact Info) Description 04/11/2023 10:35 AM EST Cardiac Studies Cardiac Studies, [facility] [address] [place] [address] Nonischemic cardiomyopathy (HCC)*; NSVT (nonsustained ventricular tachycardia) (HCC); Chronic systolic CHF (congestive heart failure), NYHA class 2 (HCC) Allergies Active Allergy Reactions Criticality Noted Date Comments Pollen 10/25/2020 Penicillins Edema airway High 08/28/2015 Happened as a kid, age 10 documented as of this encounter (statuses as of 04/16/2023) Medications Medication Sig Dispensed Refills Start Date [...] BEFORE BEDTIME 200 Tablet 0 03/11/2023 Active Hospital, Clinic, or Other Facility Administered Medication Ordered Dose Route Frequency Start Date End Date Status perflutren lipid microsphere inj SUSP 1.956 mgIndications:Nonischemic cardiomyopathy (HCC),NSVT (nonsustained ventricular tachycardia) (HCC),Chronic systolic CHF (congestive heart failure), NYHA class 2 (HCC) 1.956 mg IV ONCE PRN 04/11/2023 04/11/2023 Ended documented as of this encounter (statuses as of 04/16/2023) Active Problems Problem Noted Date Diagnosed Date Dyslipidemia, goal LDL below 100 07/23/2022 Alcohol dependence with unsp ecified alcohol-induced disorder 01/01/2022 Closed fracture of distal en d of left fibula with routine healing 01/01/2022 Thrombocytopenia 01/01/2022 Hypertensive heart failure 01/01/2022 Elevated prostate specific antigen (PSA) 020 ED (erectile dysfunction) of organic origin 09/2019 PVC (premature ventricular contraction) 09/30/19 19 Type 2 diabetes mellitus, [facility] long-term current use of insulin 09/29/2018 Chronic systolic CHF (conges tive heart failure), NYHA class 2 09/29/2018 1st degree AV block 09/29/2018 IVCD (intraventricular conduction defect) 2018 Nonischemic cardiomyopathy 01/26/2018 HTN, goal below 130/80 11/10/2017 documented as of this encounter (statuses as of 04/16/2023) Resolved Problems Problem Noted Date Diagnosed Date Resolved Date Screening for prostate cancer 08/28/2015 01/26/2018 Uncontrolled type 2 diabetes mellitus with hyperglycemia 08/28/2015 01/01/2022 Overview: ICD-10 update of inactive term documented as of this encounter (statuses as of 04/16/2023) Immunizations Name Administration Dates Next Due COVID-19 [...] as of this encounter Miscellaneous Notes * Result Encounter Note - Omar Lundy DO - 04/15/2023 5:18 PM EST Left ventricular ejection fraction has declined slightly and his left ventricular volume index has increased slightly. Overall, LV systolic function has not significantly changed when compared to studies dating back to 2019. Will discuss further during office visit at the end of April. documented in this encounter Plan of Treatment Upcoming Encounters Date Type Department Care Team (Late st Contact Info) Description 05/07/2023 10:30 AM EST Office Visit [facility], [facility] [address] [facility] [place] [address] Omar Lundy DO [address] [place] [address] 06/06/2023 11:00 AM EST [facility] [place] [address] [facility] [phone] Tanner Johnson MD [address] [facility] [address] 07/02/2023 10:40 AM EDT Office Visit [facility] [address] [facility] [phone] AugustTanner MD [address] [facility] [address] Health Maintenance Due Date Last Done Comments [...] Procedure Name Priority Date/Time Associated Diagnosis Comments ECHO, COMPLETE (2D), TRANS-THORACIC Routine 04/11/2023 11:11 AM EST Nonischemic cardiomyopathy (HCC) NSVT (nonsustained ventricular tachycardia) (HCC) Chronic systolic CHF (congestive heart failure), NYHA class 2 (HCC) documented in this encounter Results * ECHO, COMPLETE (2D), TRANS-THORACIC (04/11/2023 11:11 AM EST) LEFT VENTRICULAR EJECTION FRACTION 25 % [facility] 04/11/2023 10:2 5 AM EST Omar Lundy DO ECHOCARDIOLOGY [facility]ARD[facility]OLOG[facility] documented in this encounter Visit Diagnoses Diagnosis Nonischemic cardiomyopathy (HCC)- Primary Other primary cardiomyopathies NSVT (nonsustained ventricular tachycardia) (HCC) Paroxysmal ventricular tachycardia Chronic systolic CHF (congestive heart failure), NYHA class 2 (HCC) Chronic systolic heart failure documented in this encounter Administered Medications Inactive Administered Medications - up to 3 most recent administrations Medication Order MAR Action Action Date Dose Rate Site perflutren lipid microsphere inj SUSP 1.956 mg 1.956 mg, Intravenous, ONCE PRN Other, For Echo Only - Suboptimal Echo Images, Starting on Fri04/11/23 at 1110, Until Fri04/11/23 at 1309, For 2 hours, Administer IVP over 45 seconds Given 04/11/2023 11:10 AM EST 1.956 mg documented in this encounter Care Teams Entry Engineer Relationship Specialty Start Date End Date August, Tanner Malcolm MD [address] [facility] [place] [facility] [place] [address] PCP - General Family Medicine 01/09/23 documented as of this encounter
--- OUTSIDE RECORDS SUMMARY | 2023-07-09 04:53 | External Medical Summary | Summary of Care ---
Author Name Unknown Organization [facility] Address [address] [place] [address] Phone [phone] Care Team Providers Care Java Integration Developer Name Role Phone AugustTanner MD Primary Care Provider [phone] Encounter Details Date Type Department Care Team (Late st Contact Info) Description 03/10/2023 Telephone [facility] [address] [place] [address] AugustTanner MD [address] [place] [address] Allergies Active Allergy Reactions Criticality Noted Date Comments Pollen 10/25/2020 Penicillins Edema airway High 08/28/2015 Happened as a kid, age 10 documented as of this encounter (statuses as of 03/10/2023) Medications Medication Sig Dispensed Refills Start Date [...] as of this encounter (statuses as of 03/10/2023) Active Problems Problem Noted Date Diagnosed Date [...] as of this encounter (statuses as of 03/10/2023) Resolved Problems Problem Noted Date Diagnosed Date Resolved Date Screening for prostate cancer 08/28/2015 01/26/2018 Uncontrolled type 2 diabetes mellitus with hyperglycemia 08/28/2015 01/01/2022 Overview: ICD-10 update of inactive term documented as of this encounter (statuses as of 03/10/2023) Immunizations Name Administration Dates Next Due COVID-19 [...] encounter Miscellaneous Notes * Telephone Encounter - Tanner Johnson MD [...] stated he needed an EchoCardiogram. I offered Oxtox or Clickable and the patient said it has to be before his Cardio appointment (Which is May 09). There was only in Clickable available that was before his Cardio appointment. I also offered in Oxtox and this was before his Cardio appointment that day. He got very upset with me and told me that Dr. Johnson told him the Echocardiogram needs done before his appointment in May. I stated we have April 29 in [place]. He got VERY upset with me because he lives in [facility] and if it snows he's not driving that far in the snow. I said ok how about May 09 he again got mad at me because Dr. Johnson says it needs to be before his Echocardiogram. I offered April 29 in [employer] or May 09 in [place]. He then asked if there was anywhere else he could go like [place] because he used to have a doctor in [place] and he would go there so we scheduled in [place] for March 10. This man was very mad and the patients in the waiting room heard so much so that a patient after him said "I won't be as difficult as that man before me, I promise". I called patient to schedule and he said "schedule me wherever I need this done". Patient is scheduled for April 11 in [facility]. 03/10/2023 * Telephone Encounter - Sarahy Rodríguez LPN - 03/10/2023 9:38 AM EST Received escalated email regarding patient having concerns about his heart medication because Dr. Johnson changed his heart medication and he does not want to take it without consulting or seeing if his track grinder was consulted. He is paranoid because heart issues run in the family. He is also irate because he was scheduled for Cardiogram appointment at the [facility] and it is a 2.[address] [...] back we can tell the patient that Software Test Engineer is aware. Please rescheduled for Cardiogram locally, involving patient. May any other information you would like to add or have us call the patient. documented in this encounter Plan of Treatment Upcoming Encounters Date Type Department Care Team (Late st Contact Info) Description 04/11/2023 10:35 AM EST Cardiac Studies Cardiac Studies, [facility] [address] [facility] [place] [address] 05/09/2023 1:30 PM EST Office Visit Cardiology, [facility] [address] [place] [address] Omar Lundy O, [address] [place] [address] 06/06/2023 11:00 AM EST Office Visit [place] [address] [place] [facility] [place] [place] [phone] AugustTanner MD [address] [place] [address] 07/02/2023 10:40 AM EDT Office Visit [facility] [address] [place] [facility] [place] [place] [phone] AugustTanner MD [address] [place], [place] [phone] Health Maintenance Due Date Last Done Comments [...] filedocumented as of this encounter Care Teams Java Integration Developer Relationship Specialty Start Date End Date August, Tanner Malcolm MD [address] [place] [address] PCP - General Family Medicine 01/09/23 documented as of this encounter
--- OUTSIDE RECORDS SUMMARY | 2023-07-09 04:54 | External Medical Summary | Summary of Care ---
Author Name Unknown Organization [facility] Address [address] [place] [address] Phone [phone] Care Team Providers Care Stave Saw Operator Name Role Phone AugustTanner MD Primary Care Provider [phone] Encounter Details Date Type Department Care Team Description 01/15/[address] [facility] [address] [place] [address] AugustTanner MD [address] [place] [address] Allergies Active Allergy Reactions Severity Noted Date Comments Pollen 10/25/2020 Penicillins Edema airway High 08/28/2015 Happened as a kid, age 10 documented as of this encounter (statuses as of 01/15/2023) Medications Medication Sig Dispensed Refills Start Date End Date Status aspirin enteric coated 81 MG TBECIndications:Gavino ing 2 times per week Take 1 Tablet [...] (90 Base) MCG/ACT Inhalation Aerosol Powder Breath ActivatedIndication s:Bronchitis, complicated 2 puffs every 4 hrs as [...] Active Rosuvastatin Calcium 10 MG Oral Tablet (Crestor)Indication s:Hyperlipidemia with target LDL less than 100 TAKE ONE TABLET BY MOUTH IN THE MORNING 100 Tablet 0 12/18/2022 Active Allopurinol 100 MG Oral Tablet (Zyloprim)Indicatio ns:Gouty arthropathy TAKE ONE TABLET BY MOUTH IN THE MORNING 100 Tablet 0 12/18/2022 Active hydrOXYzine HCl 25 MG Oral TabletIndications:P ruritic condition Take 1 Tablet by mouth daily as needed for Itching. 90 Tablet 3 12/31/2022 Active Olmesartan Medoxomil 20 MG Oral Tablet (Benicar)Indication s:HTN, goal below 130/80 Take 2 Tablets by mouth in the morning. 180 Tablet 3 12/31/2022 Active documented as of this encounter (statuses as of 01/15/2023) Active Problems Problem Noted Date Dyslipidemia, goal LDL below 100 023 Alcohol dependence with unspecified alco hol-induced disorder 01/01/2022 Closed fracture of distal end of left fi bula with routine healing 01/01/2022 Thrombocytopenia 01/01/2022 Hypertensive heart failure 01/01/2022 Elevated prostate specific antigen (PSA) 07/12/2019 ED (erectile dysfunction) of organic franki gin 07/12/2019 PVC (premature ventricular contraction) 09/29/2018 Type 2 diabetes mellitus, without long-t erm current use of insulin 09/29/2018 Chronic systolic CHF (congestive heart f ailure), NYHA class 2 09/29/2018 1st degree AV block 09/29/2018 IVCD (intraventricular conduction defect ) 09/29/2018 Nonischemic cardiomyopathy 01/26/2018 HTN, goal below 130/80 11/10/2017 documented as of this encounter (statuses as of 01/15/2023) Resolved Problems Problem Noted Date Resolved Date Screening for prostate cancer 08/28/2015 Uncontrolled type 2 diabetes mellitus with hyper glycemia 08/28/2015 01/01/2022 Overview: ICD-10 update of inactive term documented as of this encounter (statuses as of 01/15/2023) Immunizations Name Administration Dates Next Due COVID-19 mRNA, LNP-s, No Pre serve, 2-Dose Series (Moderna) 08/01/2020,06/30/2020 Pneumococcal Conjugate Vacc, 13 Valent (Prevnar) 01/26/2018 Pneumococcal Polysaccharide PPV23 (Pneumovax) ,12/04/2020 Seasonal Influenza, Quadrivalent Hd (Fluzone Hd) 12/31/2022 Seasonal Influenza, Quadrivalent Hd, 65+ Yrs 08/2019 Seasonal Influenza, Quadrivalent, No Preserve, I M 12/14/2021 TDAP (age 10 and older)(Boostrix) 08/09/2016 documented as of this encounter Social History Tobacco Use Types Packs/Day Years Used Date Smoking Tobacco: Never Smokeless Tobacco: Former Quit: 01/27/2009 Alcohol Use Standard Drinks/Week Comments Yes 15 (1 standard drink = 0.6 oz pu re alcohol) drinks 3 beers a night Sex Assigned at Date Recorded Male 06/12/2022 12:04 PM EST Job Start Date Occupation Industry Not on file Not on file Not on file documented as of this encounter Plan of Treatment Upcoming Encounters Date Type Specialty Care Team Description 05/09/2023 Office Visit Cardiology Omar Lunyd, DO [address] [place] [address] 07/02/2023 Office Visit Family Medicine Tanner Johnson MD [address] [facility] [place] [phone] Health Maintenance Due Date Last Done Comments B-12 1971 DIABETES-EYE EXAM 1971 Cologuard 1998 Colonoscopy 1998 Colorectal Cancer Screening 1998 Fecal Occult Blood Test 1998 Sigmoidoscopy 1998 Zoster Vaccines (1 of 2) 2003 Depression Screening 11/10/2018 11/10/2017 Diabetic Foot Exam 12/04/2021 12/04/2020, 01/26/2018 COVID-19 Vaccine ( season) 2022 08/01/2020, 06/30/2020 HbA1c 03/29/2023 09/27/2022, 01/0 09/2021, 12/04/2020, Additional history exists Albumin/Creatinine Ratio 09/28/2023 09/27/2022, 07/2 GFR 09/28/2023 09/27/2022, 01/0 09/2021, 08/02/2020, Additional history exists DTaP,Tdap,and Td Vaccines (2 - Td or Tdap) 08/09/2026 08/09/2016 Lipid Panel 09/28/2027 09/27/2022, 01/0 09/2021, 07/10/2018, Additional history exists Pneumococcal Vaccine: 65+ Years Completed 04/12/2021, 12/04/2020, 01/26/2018 Influenza Vaccine (FLU shot) Completed , 12/14/2021, [...] Procedure Name Priority Date/Time Associated Diagnosis Comments CHEMISTRY-OUTSIDE Routine 09/27/2022 TSH Routine 09/27/2022 documented in this encounter Results * TSH (09/27/2022) TSH - OUTSIDE LAB 1.510 0.300 - 4.500 UIU/ML OUTSIDE LAB (SEE SCANNED REPORT) Blood Venous blood specimen / Unknown 09/27/2022 History Per Patient LAB BLOOD ORDERABLES OUTSIDE LAB (SEE SCANNED REPORT) * (ABNORMAL) CHEMISTRY-OUTSIDE (09/27/2022) Not all results display below - see scan for full detail OUTSIDE LAB (SEE SCANNED REPORT) Comment:SEE SCAN - MICROALB, CBC,CHEM,A1C,URIC,LIPID,TSH CREATININE-OUTSID E LAB 1.37 0.6 - 1.4 MG/DL OUTSIDE LAB (SEE SCANNED REPORT) EGFR-OUTSIDE LAB 52.3 ML/MIN OUT SIDE LAB (SEE SCANNED REPORT) POTASSIUM-OUTSIDE LAB 4.8 3.5 - 5.1 MMOL/L OUTSIDE LAB (SEE SCANNED REPORT) GLUCOSE-OUTSIDE LAB 218(A) 70 - 99 MG/DL OUTSIDE LAB (SEE SCANNED REPORT) HOURS FASTING OUTSID E LAB (SEE SCANNED REPORT) TRIGLYCERIDES-OUT SIDE LAB 236(A) 0 - 150 MG/DL OUTSIDE LAB (SEE SCANNED REPORT) CHOLESTEROL-OUTSI DE LAB 151 0 - 200 MG/DL OUTSIDE LAB (SEE SCANNED REPORT) HDL-OUTSIDE LAB 47 40 - 60 MG/DL OUTSIDE LAB (SEE SCANNED REPORT) CHOL/HDL RATIO-OUTSIDE LAB 3.2 0 - 5 OUTSIDE LA B (SEE SCANNED REPORT) LDL (CALCULATED)-OUTS [facility] LAB 57 <100 MG/DL OUTSIDE LAB (SEE SCANNED REPORT) LDL (DIRECT MEASURE)-OUTSIDE LAB OUTSIDE LAB (SEE SCANNED REPORT) HEMOGLOBIN, M7V-DMKMMME LAB 8.4(A) 4.5 - 5.6 % OUTSIDE LAB (SEE SCANNED REPORT) PHOSPHORUS-OUTSID E LAB OUTSIDE LAB (SEE SCANNED REPORT) PTH-OUTSIDE LAB OUTS [facility] (SEE SCANNED REPORT) MICROALBUMIN RATIO-OUTSIDE LAB 89.4(A) 0 - 30 MCG/MG OUTSIDE LAB (SEE SCANNED REPORT) PROTEIN, UA-OUTSIDE LAB OUTSIDE LAB (SEE SCANNED REPORT) HEMOGLOBIN-OUTSID E LAB 11.1(A) 14.0 - 18.0 MG/DL OUTSIDE LAB (SEE SCANNED REPORT) 09/27/2022 History Per Patient LABORATORY OUTSIDE LAB (SEE SCANNED REPORT) documented in this encounter Care Teams Stave Saw Operator Relationship Specialty Start Date End Date August, Tanner Malcolm MD [address] [place] [address] PCP - General Family Medicine 01/09/23 documented as of this encounter
--- OUTSIDE RECORDS SUMMARY | 2023-07-09 04:54 | External Medical Summary | Summary of Care ---
Author Name Unknown Organization [facility] Address [address] [place] [address] Phone [phone] Care Team Providers Care Lead Project Manager Name Role Phone Tanner Johnson MD Primary Care Provider [phone] Encounter Details Date Type Department Care Team (Late st Contact Info) Description 02/26/2023 Population Health External Data Unspecified Department Allergies Active Allergy Reactions Criticality Noted Date Comments Pollen 10/25/2020 Penicillins Edema airway High 08/28/2015 Happened as a kid, age 10 documented as of this encounter (statuses as of 02/26/2023) Medications Medication Sig Dispensed Refills Start Date [...] as of this encounter (statuses as of 02/26/2023) Active Problems Problem Noted Date Diagnosed Date Dyslipidemia, goal LDL below 100 07/23/2022 Alcohol dependence with unsp ecified alcohol-induced disorder 01/01/2022 Closed fracture of distal en d of left fibula with routine healing 01/01/2022 Thrombocytopenia 01/01/2022 Hypertensive heart failure 01/01/2022 Elevated prostate specific antigen (PSA) 020 ED (erectile dysfunction) of organic origin 09/2019 PVC (premature ventricular contraction) 09/30/19 19 Type 2 diabetes mellitus, [facility] long-term current use of insulin 09/29/2018 Chronic systolic CHF (conges tive heart failure), NYHA class 2 09/29/2018 1st degree AV block 09/29/2018 IVCD (intraventricular conduction defect) 2018 Nonischemic cardiomyopathy 01/26/2018 HTN, goal below 130/80 11/10/2017 documented as of this encounter (statuses as of 02/26/2023) Resolved Problems Problem Noted Date Diagnosed Date Resolved Date Screening for prostate cancer 08/28/2015 01/26/2018 Uncontrolled type 2 diabetes mellitus with hyperglycemia 08/28/2015 01/01/2022 Overview: ICD-10 update of inactive term documented as of this encounter (statuses as of 02/26/2023) Immunizations Name Administration Dates Next Due COVID-19 [...] Care Team (Late st Contact Info) Description 03/07/2023 11:20 AM EST [facility] [address] [facility] [place] [phone] AugustTanner MD [address] [facility] [place] [address] 05/09/2023 1:30 PM EST Office Visit Cardiology, [address] [place] [address] Omar Lundy O, [address] [place] [address] 07/02/2023 10:40 AM EDT Office Visit [facility] [address] [place] [address] August, Tanner Malcolm MD [address] [place] [address] Health Maintenance Due Date Last Done Comments B-12 1971 Diabetic Eye Exam 1971 Cologuard 1998 Colonoscopy 1998 Colorectal Cancer Screening 1998 Fecal Occult Blood Test 1998 Sigmoidoscopy 1998 Zoster Vaccines (1 of 2) 2003 Hepatitis B (1 of 3 - Risk 3-dose series) 2013 Depression Screening 11/10/2018 11/10/2017 Diabetic Foot Exam 12/04/2021 12/04/2020, 01/26/2018 COVID-19 Vaccine ( season) 2022 08/01/2020, 06/30/2020 HbA1c 03/29/2023 09/27/2022, 0 09/2021, 12/04/2020, Additional history exists Albumin/Creatinine Ratio 09/28/2023 09/27/2022, 07/2 GFR 09/28/2023 09/27/2022, 0 09/2021, 08/02/2020, Additional history exists DTaP,Tdap,and Td [...] filedocumented as of this encounter Care Teams Lead Project Manager Relationship Specialty Start Date End Date August, Tanner Malcolm MD [address] [place] [address] PCP - General Family Medicine 01/09/23 documented as of this encounter
--- NOTE | 2023-07-09 05:20 | History & Physical Report ---
Date of Service July 08, 2023 Assessment & Plan (1) Encephalopathy: Plan: 68-year-old male with past med significant for type 2 diabetes, hyperlipidemia, nonischemic cardiomyopathy, chronic systolic CHF recent echo in Apr 2023 for EF of 25%, hypertension, PVCs, first-degree block, intraventricular conduction defect, history of thrombocytopenia, history of alcoholism, was brought in because of confusion and found to have PETER and hyperkalemia. Brother went to his house yesterday and patient was found confused and he tried to bring him to the hospital but seems he argued with his brother and did not want to come to the hospital. Today brother called the EMS and when he went to see him he was very weak and not even able to walk and was also refused to come to the hospital but were able to bring him to the hospital. Patient having some tremors and is confused. Oriented to name. Thinks he is in [facility]. Denies any headache. Denies chest pain. But could not able to answer any other questions. Sometimes seems confused and sometimes not able to understand him. Seems later he was more alert and he told nursing staff the last drink was before [place]. As per day epic he drinks 3 beers daily.Per brother he drinks wine and vodka and sometimes beer . Per brother he did not seem to eat anything for last few days and he tried to give him some fries yesterday. He lives alone. In ER his CT head is okay. CT abdomen pelvis no acute findings. Chest x-ray no acute findings. His labs shows hemoglobin 9.8. Platelets 115. Potassium 5.9. BUN 175. Creatinine is 7.9. Troponin 38. Procalcitonin came back as 1. TSH 1.3 urinalysis is okay. Urine drug screen is okay. Ethyl alcohol level less than 10. Holding his blood pressure. Heart rates are okay. Saturating okay. Also small amount of blood seen on his chin. Also there seems to be some blood in the stool as per the ER. Patient is somewhat shaky. Encephalopathy Possibly uremic encephalopathy Possible alcohol withdrawal Currently getting 75meq bicarb and half-normal saline at 75 mill per hour Notified nephrology and nephrology is okay with current bicarb drip Monitor labs closely Peter presented with cr 7.9 and repeat is 7.[address] abd/pelvis ok nephrology consulted clsoe monitor Hyperkalemia Potassium 5.9 Received IV dextrose and insulin in the ER Currently on bicarb drip Repeat potassium 5.5 Will monitor labs closely Possible GI bleed Some blood around his mouth and also some some blood in the stools Hemoglobin is 9.8 and repeat is 9.5 H&H every 4 hours On Protonix drip GI consult Phone blood consent obtained from his brother Close monitor Chronic systolic CHF EF 25% Intraventricular conduction defect Holding olmesartan Seems not on any diuretics Getting fluids Monitor for volume overload. Possible infection Procalcitonin 1 Empiric clindamycin and azactum with renal dose for 48 hours until cultures available Possible seizure In the early hours nursing staff noticed patient was shaking and his eyes was rolling up and was given a dose of Ativan Systolic blood pressure in 80s After Ativan patient became calmer and systolic blood pressure improved to 100s Possibly alcohol withdrawal seizures Will get EEG and neuroconsult Seizure precautions Mild elevation of troponin Troponins flat 37-38 Abnormal EKG Will get echo Hypertension Currently holding his losartan and metoprolol succinate We will place an IV Lopressor as needed Close monitor Diabetes Hold metformin and Jardiance Monitor for any euglycemic DKA Sliding scale for now Restart aspirin when able to We will monitor Gout Holding p.o. medications Restart allopurinol when able to Hyperlipidemia Restart Crestor when able to Thrombocytopenia Platelets 115 Will monitor DVT prophylaxis SCDs History of Present Illness Chief Complaint: Confusion and PETER Primary Care Provider: Tanner Johnson MD 68-year-old male with past med history significant for type 2 diabetes, hyperlipidemia, nonischemic cardiomyopathy, chronic systolic CHF recent echo in Apr 2023 EF of 25%, hypertension, PVCs, first-degree block, intraventricular conduction defect, history of thrombocytopenia, history of alcoholism, was brought in because of confusion and found to have PETER and hyperkalemia. Brother went to his house yesterday and patient was found confused and he tried to bring him to the hospital but seems he argued with his brother and did not want to come to the hospital. Today brother called the EMS and when he went to see him he was very weak and not even able to walk and was also refused to come to the hospital but were able to bring him to the hospital. Patient having some tremors and is confused. Oriented to name. Thinks he is in [facility]. Denies any headache. Denies chest pain. But could not able to answer any other questions. Sometimes seems confused and sometimes not able to understand him. Seems later he was more alert and he told nursing staff the last drink was before . As per day epic he drinks 3 beers daily.Per brother he drinks wine and vodka and sometimes beer . Per brother he did not seem to eat anything for last few days and he tried to give him some fries yesterday. He lives alone. In ER his CT head is okay. CT abdomen pelvis no ac andrea findings. Chest x-ray no acute findings. His labs shows hemoglobin 9.8. Platelets 115. Potassium 5.9. BUN 175. Creatinine is 7.9. Troponin 38. Procalcitonin came back as 1. TSH 1.3 urinalysis is okay. Urine drug screen is okay. Ethyl alcohol level less than 10. Holding his blood pressure. Heart rates are okay. Saturating okay. Also small amount of blood seen on his chin. Also there seems to be some blood in the stool as per the ER. Patient is somewhat shaky. Past medical history. As mentioned above Past surgical history. Prostate biopsy Social history. No smoking. Drinks 3 beers a night as per epic. No drug use. Family history. Mother had a heart attack age of 62. Brother had heart failure at age of 72. Status of ICD. Allergies Allergy/AdvReac Type Severity Reaction Status Date / Time Penicillins Allergy Severe AIRWAY Verified 07/08/23 15:41 EDEMA pollen extracts Allergy Intermediate ITCHY Verified 07/08/23 15:41 EYES, SNEEZING, CONGESTION Home Medications Medication Instructions Recorded Confirmed Type metoprolol succinate 50 mg 50 mg PO BID #30 tabs 11/24/18 07/08/23 History tablet,extended release 24 hr aspirin 81 mg tablet,delayed 81 mg PO QPM 05/10/20 07/08/23 History release melatonin 10 mg capsule 10 mg PO HS PRN Sleep 05/10/20 07/08/23 History allopurinol 100 mg tablet 100 mg PO QAM 05/17/20 07/08/23 History olmesartan 20 mg tablet 20 mg PO QAM 05/17/20 07/08/23 History empagliflozin 10 mg tablet 10 mg PO QAM 07/08/23 07/08/23 History (Jardiance) fexofenadine 180 mg tablet 180 mg PO QAM 07/08/23 07/08/23 History hydroxyzine HCl 25 mg tablet 25 mg PO DAILY PRN Itching 07/08/23 07/08/23 History metformin 500 mg tablet 500 mg PO BIDM 07/08/23 07/08/23 History rosuvastatin 10 mg tablet 10 mg PO QAM 07/08/23 07/08/23 History Past Med/Surg History Medical History Elevated PSA GERD without esophagitis Gout Hypertension Nonischemic cardiomyopathy Rosacea Systolic congestive heart failure Surgical History No significant past surgical history Family History Mother Diabetes Myocardial infarction Brother Pacemaker Sister Pacemaker Denies family history of Ovarian cancer Prostate cancer Alzheimer disease Breast cancer Lung cancer Colorectal cancer Lung disease Colonic polyp Social History Smoking Status: Unknown if ever smoked Age Started Using Tobacco: 8; Age Quit Using Tobacco: 45; packs per day: 1; Cigarettes Per Day: pt. 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 Head- atraumatic Eyes- PERRL. ENT- oropharynx clear Neck- supple, no JVD. Lungs- clear to auscultation no wheezing or crackles. Heart- regular rhythm; no murmur, no gallop. Abdomen- normal bowel sounds, soft, nontender, no distension Extremities- no pretibial edema, no erythema seen Neuro- alert, oriented x 1. Shaky; PERRL, no facial palsy; no dysarthria; moves extremities. Results & Data Results & Data Vital Signs (Past 12 Hours) Vital Signs Temp Pulse Pulse Resp BP BP Pulse Ox 07/08/23 21:01 77 22 99/68 L 100 07/08/23 20:30 86 20 109/62 98 07/08/23 20:00 82 22 99/74 L 99 07/08/23 19:57 88 07/08/23 19:30 89 22 99 07/08/23 19:00 88 22 115/89 99 07/08/23 18:32 95 07/08/23 18:30 88 18 131/83 95 07/08/23 18:00 82 16 122/83 95 07/08/23 15:57 79 07/08/23 15:12 94 07/08/23 15:12 36.4 C L 94 H 18 129/87 97 O2 Del Method O2 Flow Rate 07/08/23 21:01 07/08/23 20:30 07/08/23 20:00 07/08/23 19:57 07/08/23 19:30 07/08/23 19:00 07/08/23 18:32 Room Air 07/08/23 18:30 Room Air 07/08/23 18:00 Room Air 07/08/23 15:57 07/08/23 15:12 Room Air 84 07/08/23 15:12 Nasal Cannula 3 Diagnostic Findings Laboratory Results WBC 7.29 K/ul (4.8-10.8) 07/08/23 16:54 RBC 3.15 M/uL (4.70-6.10) L 07/08/23 16:54 Hgb 9.5 g/dl (14.0-18.0) L 07/09/23 01:14 Hct 28.2 % (42.0-52.0) L 07/09/23 01:14 MCV 91.1 fL (80.0-100.0) 07/08/23 16:54 MCH 31.1 pg (25.0-34.0) 07/08/23 16:54 MCHC 34.1 g/dL (32.0-36.0) 07/08/23 16:54 RDW Std Deviation 49.5 fL (36.4-46.3) H 07/08/23 16:54 RDW Coeff of Vu 14.8 % (11.5-14.5) H 07/08/23 16:54 Plt Count 115 K/uL (130-400) L 07/08/23 16:54 MPV 11.8 fL (9.4-12.4) 07/08/23 16:54 Immature Gran % (Auto) 2.2 % 07/08/23 16:54 Neut % (Auto) 75.1 % 07/08/23 16:54 Lymph % (Auto) 9.2 % 07/08/23 16:54 [place] % (Auto) 12.5 % 07/08/23 16:54 Eos % (Auto) 0.7 % 07/08/23 16:54 Baso % (Auto) 0.3 % 07/08/23 16:54 Neut # (Auto) 5.48 K/uL (1.40-6.50) 07/08/23 16:54 Lymph # (Auto) 0.67 K/uL (1.20-3.40) L 07/08/23 16:54 [place] # (Auto) 0.91 K/uL (0.11-0.59) H 07/08/23 16:54 Eos # (Auto) 0.05 K/uL (0.00-0.50) 07/08/23 16:54 Baso # (Auto) 0.02 K/uL (0.00-0.20) 07/08/23 16:54 Immature Gran # (Auto) 0.16 K/uL (0.01-0.20) 07/08/23 16:54 Absolute Nucleated RBC 0.03 K/uL (0.00-0.12) 07/08/23 16:54 Nucleated RBC % (auto) 0.4 % 07/08/23 16:54 PT 12.2 Seconds (9.0-12.0) H 07/08/23 16:54 INR 1.1 (0.9-1.1) 07/08/23 16:54 APTT 31 Seconds (21-31) 07/09/23 01:14 PTT Ratio 1.1 07/09/23 01:14 VBG pH 7.19 (7.36-7.41) L 07/08/23 21:39 VBG pCO2 37 mmHg (38-50) L 07/08/23 21:39 VBG pO2 28 mmHg 07/08/23 21:39 VBG HCO3 14 mmol/L 07/08/23 21:39 VBG O2 Saturation < 60.0 % 07/08/23 21:39 VBG Base Excess -13.3 mEq/L 07/08/23 21:39 Sodium 137 mmol/L (136-145) 07/09/23 01:14 Potassium 5.5 mmol/L (3.5-5.1) H 07/09/23 01:14 Chloride 107 mmol/L (98-107) 07/09/23 01:14 Carbon Dioxide 13 mmol/L (21-32) L 07/09/23 01:14 Anion Gap 17 (3-11) H 07/09/23 01:14 BUN 168 mg/dl (6-23) H 07/09/23 01:14 Creatinine 7.29 mg/dl (0.6-1.4) H* D 07/09/23 01:14 Est Cr Clr Drug Dosing 11.8 ml/min 07/09/23 01:14 Est GFR ( Amer) 8.0 ml/min 07/09/23 01:14 Est GFR (Non-Af Amer) 6.9 ml/min 07/09/23 01:14 BUN/Creatinine Ratio 23.0 (10-20) H 07/09/23 01:14 Glucose 123 mg/dl (70-99(Fasting)) H 07/09/23 01:14 POC Glucose 161 mg/dl (70-99) H 07/09/23 04:22 Lactate 1.2 mmol/L (0.4-2.0) 07/08/23 21:39 Calcium 9.7 mg/dl (8.6-10.3) 07/09/23 01:14 Phosphorus 5.8 mg/dl (2.5-4.9) H 07/09/23 01:14 Magnesium 1.9 mg/dl (1.7-2.4) 07/09/23 01:14 Total Bilirubin 0.9 mg/dl (0.2-1.0) 07/08/23 16:54 AST 16 U/L (13-39) 07/08/23 16:54 ALT 13 U/L (7-52) 07/08/23 16:54 Alkaline Phosphatase 76 U/L (34-104) 07/08/23 16:54 Ammonia 21.0 umol/L (18-72) 07/08/23 21:39 Total Creatine Kinase 86 U/L (30-223) 07/08/23 16:54 Troponin I High Sens 38.5 pg/ml (0-20) H 07/09/23 01:14 Total Protein 7.3 gm/dl (6.0-8.3) 07/08/23 16:54 Albumin 3.9 gm/dl (3.4-5.0) 07/08/23 16:54 Globulin 3.4 gm/dl (2.5-4.0) 07/08/23 16:54 Albumin/Globulin Ratio 1.1 (0.9-2) 07/08/23 16:54 Vitamin B12 711 pg/ml (180-914) 07/09/23 01:14 Procalcitonin 1.00 ng/ml (0-0.5) H 07/08/23 19:40 TSH 1.339 uIu/ml (0.300-4.500) 07/08/23 16:54 Urine Color Yellow 07/08/23 Unknown Urine Appearance Clear (Clear) 07/08/23 Unknown Urine pH 5.0 (4.5-7.5) 07/08/23 Unknown Ur Specific Evangeline 1.018 (1.000-1.030) 07/08/23 Unknown Urine Protein 1+ (Negative) H 07/08/23 Unknown Urine Glucose (UA) 1+ (Negative) H 07/08/23 Unknown Urine Ketones Negative (Negative) 07/08/23 Unknown Urine Blood 1+ (Negative) H 07/08/23 Unknown Urine Nitrite Negative (Negative) 07/08/23 Unknown Urine Bilirubin Negative (Negative) 07/08/23 Unknown Urine Urobilinogen Negative (Negative) 07/08/23 Unknown Ur Leukocyte Esterase Negative (Negative) 07/08/23 Unknown Urine WBC (Auto) 1-5 /hpf (0-5) 07/08/23 Unknown Urine RBC (Auto) 5-10 /hpf (0-4) H 07/08/23 Unknown U Hyaline Cast (Auto) 1-5 /lpf (0-5) 07/08/23 Unknown U Epithel Cells (Auto) 10-20 /lpf (0-5) H 07/08/23 Unknown Urine Bacteria (Auto) Negative (Negative) 07/08/23 Unknown Urine Yeast Not Reportable 07/08/23 Unknown Urine Opiates Screen Neg (Neg) 07/08/23 Unknown Ur Methadone, Qual Neg (Neg) 07/08/23 Unknown Urine Barbiturates Neg (Neg) 07/08/23 Unknown Ur Phencyclidine (PCP) Neg (Neg) 07/08/23 Unknown U Amphetamin/Meth Scrn Neg (Neg) 07/08/23 Unknown MDMA (Ecstasy) Screen Neg (Neg) 07/08/23 Unknown U Benzodiazepines Scrn Neg (Neg) 07/08/23 Unknown Ur Cocaine Metabolite Neg (Neg) 07/08/23 Unknown U Marijuana (THC) Screen Neg (Neg) 07/08/23 Unknown Ethyl Alcohol mg/dL < 10.0 mg/dl (<10.0) 07/08/23 16:54 Impressions Chest X-Ray 07/08/23 15:23 XR chest 1V portable CLINICAL HISTORY: weakness, ams, O2 req TECHNIQUE: Single frontal radiograph of the chest was obtained. Comparison: None available at the time of this dictation. FINDINGS: No lines and tubes are seen. The cardiomediastinal silhouette is normal. Lungs are underinflated but clear. No evidence of pleural effusion or pneumothorax. IMPRESSION: No acute chest disease. ACT 112: Negative or not required by law. Electronically signed by: Marbin Cervantes M.D. 07/08/2023 3:[address] 07/08/23 15:23 CT head/brain wo con CLINICAL HISTORY: 68 years-old Male with weak, shaky, ams. Acutely altered mental status with weakness TECHNIQUE: Multiple axial CT images of the head were obtained without contrast. A dose lowering technique was utilized adhering to the principles of ALARA. CT DOSE: 703.85 mGy.cm COMPARISON: None. FINDINGS: No acute intracranial hemorrhage, midline shift, intracranial mass, hydrocephalus, territorial ischemia or abnormal extra-axial collection. Involutional changes with probable chronic microvascular ischemic disease. The calvarium is intact. The paranasal sinuses, mastoid air cells, and middle ear cavities are clear. IMPRESSION: No acute intracranial abnormality. ACT 112: Negative or not required by law. The above report was generated using voice recognition software. It may contain grammatical, syntax or spelling errors. Electronically signed by: Ivan Modi M.D. 07/08/2023 4:31 PM Abdomen/Pelvis CT 07/08/23 18:34 Exam(s): CT ABDOMEN + PELVIS Without Contrast EXAM: CT Abdomen and Pelvis Without Intravenous Contrast CLINICAL HISTORY: Reason for exam: PETER Cr >7. TECHNIQUE: Axial computed tomography images of the abdomen and pelvis without intravenous contrast. CTDI is 28.1 mGy and DLP is 1575.28 mGy-cm. Automated exposure control was utilized for the study. A dose lowering technique was utilized adhering to the principles of ALARA. COMPARISON: No relevant prior studies available. FINDINGS: Lung bases: Unremarkable. No mass. No consolidation. ABDOMEN: Liver: Unremarkable. Gallbladder and bile ducts: Cholelithiasis. No ductal dilation. Pancreas: Unremarkable. No ductal dilation. Spleen: Unremarkable. No splenomegaly. Adrenals: Unremarkable. No mass. Kidneys and ureters: Unremarkable. No hydronephrosis or nephrolithiasis. Stomach and bowel: Diverticulosis, without acute diverticulitis. No small bowel obstruction. No free intraperitoneal air. PELVIS: Appendix: No findings to suggest acute appendicitis. Bladder: Bernal catheter terminates in the urinary bladder. No stones. Reproductive: Unremarkable as visualized. ABDOMEN and PELVIS: Intraperitoneal space: Unremarkable. No free air. No significant fluid collection. Bones/joints: Degenerative changes of the spine. No acute fracture. No dislocation. Soft tissues: Small fat-containing bilateral inguinal hernias. Fat- containing umbilical hernia measures 3.6 x 3.3 cm. Vasculature: Atherosclerotic changes of the aorta. No abdominal aortic aneurysm. Lymph nodes: Unremarkable. No enlarged lymph nodes. IMPRESSION: 1. Cholelithiasis. 2. Bernal catheter terminates in the urinary bladder. 3. Small fat-containing bilateral inguinal hernias. 4. Fat-containing umbilical hernia measures 3.6 x 3.3 cm. 5. Diverticulosis, without acute diverticulitis. No small bowel obstruction. No free intraperitoneal air. Electronically signed by: Branden Hay MD 07/08/23 23:25 PM ECG Additional Comments: ECG. Sinus rhythm with PVCs rate of 83. Left axis deviation. Nonspecific intraventricular conduction block. Code Status & VTE Plan VTE Prophylaxis Plan VTE Prophylaxis will be ordered: Yes
[2023-07-09] MEDS: LORazepam 1 MG in SYRINGE 0.5 ML IV PRN (05:22)
[2023-07-09] MEDS: LORazepam 1 MG/1 ML SYR ED Inj Use IV STA (05:41)
[2023-07-09] MEDS ORDERED: Nursing to Pharmacy Communication SCH (06:15)
[2023-07-09 06:57] LABS: Basophils # (auto) 0.02 K/uL (0.00-0.20); Basophils % (auto) 0.4 %; Echinocytes 1+; Eosinophils # (auto) 0.06 K/uL (0.00-0.50); Eosinophils % (auto) 1.1 %; Hematocrit (blood only) 25.9 % (42.0-52.0); Hemoglobin 8.8 g/dl (14.0-18.0); Immature Granulocytes # (auto) 0.09 K/uL (0.01-0.20); Immature Granulocytes % (auto) 1.7 %; Lymphocytes # (auto) 0.65 K/uL (1.20-3.40); Mean Corpuscular Hemoglobin 31.4 pg (25.0-34.0); Mean Corpuscular Volume 92.5 fL (80.0-100.0); Mean Platelet Volume 11.8 fL (9.4-12.4); Monocytes # (auto) 0.83 K/uL (0.11-0.59); Monocytes % (auto) 15.4 %; Neutrophils # (auto) 3.75 K/uL (1.40-6.50); Neutrophils % (auto) 69.4 %; Platelet Count 87 K/uL (130-400); Platelet Estimate Decreased (Normal); RDW Coefficient of Variation 14.6 % (11.5-14.5); Tear Drop Cells 1+
[2023-07-09 07:31] LABS: Estimated Average Glucose 206 mg/dl; Hemoglobin A1C 8.8 % (4.5-5.6)
[2023-07-09] MEDS: THIAMINE HCL 100 MG in SYRINGE 9 ML IV SCH ×2 (08:15→21:01)
[2023-07-09] MEDS: FOLIC ACID 1 MG in SYRINGE 9.8 ML IV SCH (08:32)
[2023-07-09] MEDS ORDERED: AZTREONAM 1,000 MG in DEXTROSE 5% MINI-B 100 ML IV SCH (09:00)
[2023-07-09 09:03] LABS: Hematocrit (blood only) 25.8 % (42.0-52.0); Hemoglobin 8.6 g/dl (14.0-18.0)
[2023-07-09 09:25] LABS: Calcium 9.3 mg/dl (8.6-10.3); Creatinine Clr Calc Pharmacy 12.1 ml/min; Est GFR (African American) 8.2 ml/min; Est GFR (Non-African American) 7.1 ml/min; Magnesium 1.9 mg/dl (1.7-2.4); Phosphorus 5.6 mg/dl (2.5-4.9); Potassium 5.8 mmol/L (3.5-5.1)
[2023-07-09 09:40] LABS: BUN Creatinine Ratio 23.6 (10-20)
--- NOTE | 2023-07-09 09:54 | Nephrology Consultation ---
Date of Consultation July 09, 2023 Assessment & Plan (1) Acute renal failure (ARF): PETER severe type---etiology likely severe pre renal but definitely some Component of ATN. Given his poor baseline health PETER wont resolve quick. would change to full bicarb drip--should help to lower the K better. run at 100 ml /hr. On CXR, exam and CT --no e/o fluid overload at all but have to be mindful of his LVEF 25%. He was on Jardiance and if he really was not eating drinking much he can get severely dehydrated with ongoing Osmotic diuresis. Also give Lokelma 10 tid if possible. Give 50 ml of Bicarb bolus also. Monitor I and O. Hold metformin, NSAIDS, Jardiance, YANNA/ARB. CMP twice daily. Check mag and Phos also (2) Hyperkalemia: Add Lokelma 10 gm tid if possible/Able to. also Change to full bicarb drip--should help to lower the K better. Also give dextrose and Insulin. (3) Acute uremia: History of Present Illness Reason for Consultation: PETER Attending Physician: Carlin Garrido MD History of Present Illness 68/M with type 2 diabetes, hyperlipidemia, nonischemic cardiomyopathy, chronic systolic CHF recent echo in Apr 2023 for EF of 25%, hypertension, PVCs, first- degree block, intraventricular conduction defect, history of thrombocytopenia, history of alcoholism, was brought in because of confusion and found to have PETER creat 7.9 BUN 175 and hyperkalemia of 5.9. getting 1/2ns with 75 bicarb. Creat down a bit to 7.1 and k still 5.8. BP is still somewhat soft. baseline creat near normal at 1.3 had Alcohol withdrawal with seizure and got Iv ativan also. Has bishop and 650 ml urine so far. CXR and CT abdomen shows no evidence of fluid overload. No Hydronephrosis ROS----Unable to obtain given Confusion/Agitation. eyes closed. reviewed H and P. Physical Exam Physical Exam: General- confused.restless. very flushed face Head- atraumatic. Normocephalic MM--dry Neck- supple, no JVD. Lungs- clear to auscultation no wheezing or crackles. Heart- regular rhythm; no murmur, no gallop. Abdomen- normal bowel sounds, soft, nontender, no distension Extremities- no pretibial edema, no rash seen Neuro- alert, oriented x 1. Confused and agitated. Allergies Allergy/AdvReac Type Severity Reaction Status Date / Time Penicillins Allergy Severe AIRWAY Verified 07/08/23 15:41 EDEMA pollen extracts Allergy Intermediate ITCHY Verified 07/08/23 15:41 EYES, SNEEZING, CONGESTION Home Medications Medication Instructions Recorded Confirmed Type metoprolol succinate 50 mg 50 mg PO BID #30 tabs 11/24/18 07/08/23 History tablet,extended release 24 hr aspirin 81 mg tablet,delayed 81 mg PO QPM 05/10/20 07/08/23 History release melatonin 10 mg capsule 10 mg PO HS PRN Sleep 05/10/20 07/08/23 History allopurinol 100 mg tablet 100 mg PO QAM 05/17/20 07/08/23 History olmesartan 20 mg tablet 20 mg PO QAM 05/17/20 07/08/23 History empagliflozin 10 mg tablet 10 mg PO QAM 07/08/23 07/08/23 History (Jardiance) fexofenadine 180 mg tablet 180 mg PO QAM 07/08/23 07/08/23 History hydroxyzine HCl 25 mg tablet 25 mg PO DAILY PRN Itching 07/08/23 07/08/23 History metformin 500 mg tablet 500 mg PO BIDM 07/08/23 07/08/23 History rosuvastatin 10 mg tablet 10 mg PO QAM 07/08/23 07/08/23 History Patient History Medical History Nonischemic cardiomyopathy Elevated PSA GERD without esophagitis Gout Hypertension Rosacea Systolic congestive heart failure Surgical History No significant past surgical history Family History Mother Diabetes Myocardial infarction Brother Pacemaker Sister Pacemaker Denies family history of Ovarian cancer Prostate cancer Alzheimer disease Breast cancer Lung cancer Colorectal cancer Lung disease Colonic polyp Social History Smoking Status: Unknown if ever smoked Age Started Using Tobacco: 8; Age Quit Using Tobacco: 45; packs per day: 1; Cigarettes Per Day: pt. 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 Safe at Home: Yes Childhood Exposure to Second-Hand Smoke: No Diet: regular caffeine: Yes Dental Care, Regularly: Yes Physical Activity Frequency: 3-4 Times per Week Seatbelt Use: always Sunscreen Use: Yes Results & Data Vital Signs (Past 12 Hours) Vital Signs Pulse Pulse Resp BP BP Pulse Ox O2 Del Method 07/09/23 07:05 79 07/09/23 07:01 79 13 97 07/09/23 07:01 105/83 07/09/23 07:00 93 H 18 98 07/09/23 05:23 91 H 22 100/53 L 99 07/09/23 05:00 82 18 81/52 L 98 07/09/23 04:00 87 16 106/88 98 07/09/23 02:00 91 H 16 97/54 L 91 07/09/23 00:00 87 22 100/58 L 95 Room Air 07/08/23 23:43 82 07/08/23 22:00 81 20 102/53 L Laboratory Results Reviewed. Diagnostic Findings CXr and CT reviewed.
--- NOTE | 2023-07-09 10:35 | Gastrointestinal Consultation ---
Date of Consultation July 09, 2023 Assessment & Plan (1) Anemia: Plan GI consulted for possible GI bleeding based on some blood on the patient's mouth/fitch on admission. No GI bleeding being reported at this time per nursing, and per nursing Hemoccult have not been checked at this point. Patient currently being worked up for possible seizures, PETER, and encephalopathy. - monitor hgb/hct. transfuse as needed. - continue with protonix drip for now. - conservative management from a GI standpoint given current non GI issues at this time. Supervising Physician Co-Signing Physician Notes Agree with ANIL Bianchi as above Abd: Soft, NT, ND, Umbilical hernia which is reducible Reviewed patient chart and no history of Chronic liver disease Continue current therapy and supportive care No overt GI blood loss No plans for invasive testing at this time. History of Present Illness Reason for Consultation: GIB Requesting Physician: Jake Castaneda MD Attending Physician: Carlin Garrido MD History of Present Illness Patient is a 68 year old male with past med significant for type 2 diabetes, hyperlipidemia, nonischemic cardiomyopathy, chronic systolic CHF recent echo in Apr 2023 for EF of 25%, hypertension, PVCs, first-degree block, intraventricular conduction defect, history of thrombocytopenia, history of alcoholism, who was brought in via EMS after his brother called them due to concerns of confusion and weakness. He was found to have PETER and hyperkalemia. I am unable to wake the patient to discuss case. History obtained from chart and nursing. GI consult placed due to concerns for possible GI bleeding as when he came in there was some blood in his fitch/near his mouth. I spoke with nursing and at this time there are not any signs of GI bleeding. per nursing, stools have not been Hemoccult checked as of yet. no known GI concerns at this time. Patient had possible seizure last evening and is currently being worked up for this. Currently being worked up for PETER and encephalopathy. Abdominal CT 07/08/23 unremarkable. 07/08/23 hgb 9.8. NH3 21. 07/09/23 hgb 9.5 which trended to 8.8 and then 8.6. Allergies Allergy/AdvReac Type Severity Reaction Status Date / Time Penicillins Allergy Severe AIRWAY Verified 07/08/23 15:41 EDEMA pollen extracts Allergy Intermediate ITCHY Verified 07/08/23 15:41 EYES, SNEEZING, CONGESTION Home Medications Medication Instructions Recorded Confirmed Type metoprolol succinate 50 mg 50 mg PO BID #30 tabs 11/24/18 07/08/23 History tablet,extended release 24 hr aspirin 81 mg tablet,delayed 81 mg PO QPM 05/10/20 07/08/23 History release melatonin 10 mg capsule 10 mg PO HS PRN Sleep 05/10/20 07/08/23 History allopurinol 100 mg tablet 100 mg PO QAM 05/17/20 07/08/23 History olmesartan 20 mg tablet 20 mg PO QAM 05/17/20 07/08/23 History empagliflozin 10 mg tablet 10 mg PO QAM 07/08/23 07/08/23 History (Jardiance) fexofenadine 180 mg tablet 180 mg PO QAM 07/08/23 07/08/23 History hydroxyzine HCl 25 mg tablet 25 mg PO DAILY PRN Itching 07/08/23 07/08/23 History metformin 500 mg tablet 500 mg PO BIDM 07/08/23 07/08/23 History rosuvastatin 10 mg tablet 10 mg PO QAM 07/08/23 07/08/23 History Patient History Medical History Nonischemic cardiomyopathy Elevated PSA GERD without esophagitis Gout Hypertension Rosacea Systolic congestive heart failure Surgical History No significant past surgical history Family History Mother Diabetes Myocardial infarction Brother Pacemaker Sister Pacemaker Denies family history of Ovarian cancer Prostate cancer Alzheimer disease Breast cancer Lung cancer Colorectal cancer Lung disease Colonic polyp Social History Smoking Status: Unknown if ever smoked Age Started Using Tobacco: 8; Age Quit Using Tobacco: 45; packs per day: 1; Cigarettes Per Day: pt. 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 Cardiovascular: RRR Gastrointestinal (Abdomen): soft. normal bowel sounds. Psychiatric: patient sleeping, unable to awaken. Results & Data Vital Signs (Past 12 Hours) Vital Signs Pulse Resp BP Pulse Ox O2 Del Method 07/09/23 07:05 79 07/09/23 07:01 79 13 97 07/09/23 07:01 105/83 07/09/23 07:00 93 H 18 98 07/09/23 05:23 91 H 22 100/53 L 99 07/09/23 05:00 82 18 81/52 L 98 07/09/23 04:00 87 16 106/88 98 07/09/23 02:00 91 H 16 97/54 L 91 07/09/23 00:00 87 22 100/58 L 95 Room Air 07/08/23 23:43 82 Coding Level of Care Code 38078 ER DEPT VISIT MOD LVL 4 Diagnoses Anemia D64.9
[2023-07-09] MEDS ORDERED: STAT IV/IM STA (10:54)
--- NOTE | 2023-07-09 11:01 | Electroencephalogram ---
EEG Procedure Note Date of Service July 09, 2023 Start / End Times Start Time: 10:07 End Time: 10:27 Referring Physician Jake Castaneda History A 68 year old male fond by EMS weak and confused. EEG performed for evaluation of epileptiform activtiy. Home Medication List Medication Instructions Recorded Confirmed Type metoprolol succinate 50 mg 50 mg PO BID #30 tabs 11/24/18 07/08/23 History tablet,extended release 24 hr aspirin 81 mg tablet,delayed 81 mg PO QPM 05/10/20 07/08/23 History release melatonin 10 mg capsule 10 mg PO HS PRN Sleep 05/10/20 07/08/23 History allopurinol 100 mg tablet 100 mg PO QAM 05/17/20 07/08/23 History olmesartan 20 mg tablet 20 mg PO QAM 05/17/20 07/08/23 History empagliflozin 10 mg tablet 10 mg PO QAM 07/08/23 07/08/23 History (Jardiance) fexofenadine 180 mg tablet 180 mg PO QAM 07/08/23 07/08/23 History hydroxyzine HCl 25 mg tablet 25 mg PO DAILY PRN Itching 07/08/23 07/08/23 History metformin 500 mg tablet 500 mg PO BIDM 07/08/23 07/08/23 History rosuvastatin 10 mg tablet 10 mg PO QAM 07/08/23 07/08/23 History Inpatient Medication List Folic Acid 1 mg/ Syringe 10 mls @ 5 mls[facility] [place] Stop: 08/08/23 08:59 Last Admin: 07/09/23 08:32 Dose: 5 mls/min Documented By: ISELA Thiamine HCl 100 mg/ Syringe 10 mls @ 2 mls/min IV QAM [facility] Stop: 08/08/23 08:59 Last Admin: 07/09/23 08:15 Dose: 2 mls/min Documented By: ISELA Lorazepam 1 mg/ Syringe 1 mls @ 2 mls/min IV UD PRN; Protocol PRN Reason: EtOH Withdrawal AWSS Score 6,7 Stop: 08/07/23 22:40 Last Admin: 07/09/23 05:22 Dose: 2 mls/min Documented By: DANETTE Lorazepam 2 mg/ Syringe 2 mls @ 2 mls/min IV UD PRN; Protocol PRN Reason: EtOH Withdrawal AWSS Score 8,9 Stop: 08/07/23 22:40 Last Admin: 07/09/23 03:31 Dose: 2 mls/min Documented By: DANETTE Pantoprazole Sodium 40 mg/ (Dextrose) 100 mls @ 20 mls/hr IV Q5H [facility] Stop: 08/07/23 23:14 Last Admin: 07/09/23 09:52 Dose: 8 mg/hr, 20 mls/hr Documented By: Infusion: 07/09/23 09:15 Dose: Infused Documented By: Admin: 07/09/23 04:15 Dose: 8 mg/hr, 20 mls/hr Documented By: DANETTE Clindamycin Phosphate (Cleocin/D5w) 600 mg in 50 mls @ 100 mls/hr IV Q8H [facility] Stop: 07/11/23 01:59 Last Admin: 07/09/23 10:46 Dose: 100 mls/hr Documented By: Infusion: 07/09/23 04:16 Dose: Infused Documented By: Admin: 07/09/23 03:21 Dose: 100 mls/hr Documented By: DANETTE Aztreonam 2,000 mg/ Dextrose 100 mls @ 100 mls/hr IV Q12H [facility] Stop: 07/11/23 03:59 Last Infusion: 07/09/23 06:15 Dose: Infused Documented By: Admin: 07/09/23 04:51 Dose: 100 mls/hr Documented By: DANETTE Insulin Aspart (Insulin Aspart Per Unit Charge) 0 units SC Q4 JUSTUS Stop: 08/07/23 22:59 Last Admin: 07/09/23 09:34 Dose: Not Given Documented By: Admin: 07/09/23 04:30 Dose: Not Given Documented By: Admin: 07/08/23 23:26 Dose: Not Given Documented By: JACINTA Discontinued Medications Dextrose (Dextrose 50% 50 Ml Syringe) 50 ml IV NOW STA Stop: 07/08/23 18:37 Last Admin: 07/08/23 18:53 Dose: 50 ml Documented By: JACINTA Pantoprazole Sodium 80 mg/ (Dextrose) 120 mls @ 480 mls/hr IV ONE STA Stop: 07/08/23 17:46 Last Infusion: 07/08/23 20:00 Dose: Infused Documented By: Admin: 07/08/23 19:02 Dose: 480 mls/hr Documented By: JACINTA Insulin Human Regular 10 units (/ Syringe) 9.9 mls @ 3 mls/sec IV ONE STA Stop: 07/08/23 18:37 Last Admin: 07/08/23 18:53 Dose: 3 mls/sec Documented By: JACINTA Co-signed By: SELENE Sodium Chloride (Nss) 1,000 mls @ 999 mls/hr IV .Q1H1M ONE Stop: 07/08/23 19:36 Last Infusion: 07/08/23 20:29 Dose: Infused Documented By: Admin: 07/08/23 19:02 Dose: 999 mls/hr Documented By: JACINTA Calcium Gluconate () 1,000 mg in 60 mls @ 240 mls/hr IV NOW STA Stop: 07/08/23 18:50 Last Infusion: 07/08/23 19:24 Dose: Infused Documented By: Admin: 07/08/23 18:53 Dose: 240 mls/hr Documented By: JACINTA Sodium Bicarbonate 75 meq/ (Sodium Chloride) 1,075 mls @ 75 mls/hr IV .[id number] JUSTUS Stop: 08/07/23 18:59 Last Admin: 07/08/23 20:41 Dose: 75 mls/hr Documented By: JACINTA Thiamine HCl 200 mg/ Sodium (Chloride) 52 mls @ 210 mls/hr IV NOW STA Stop: 07/08/23 21:18 Last Infusion: 07/09/23 01:44 Dose: Infused Documented By: Admin: 07/08/23 22:43 Dose: 210 mls/hr Documented By: JACINTA Folic Acid 1 mg/ Syringe 10 mls @ 5 mls/min IV NOW STA Stop: 07/08/23 21:06 Last Admin: 07/08/23 22:43 Dose: 5 mls/min Documented By: JACINTA Pantoprazole Sodium 80 mg/ (Dextrose) 120 mls @ 480 mls/hr IV NOW ONE Stop: 07/08/23 22:55 Last Infusion: 07/09/23 01:44 Dose: Infused Documented By: Admin: 07/09/23 01:26 Dose: 480 mls/hr Documented By: DANETTE Lorazepam (Lorazepam 1 Mg/1 Ml Syr Ed Inj Use) 0.5 mg IV ONE STA Stop: 07/09/23 05:32 Last Admin: 07/09/23 05:41 Dose: 0.5 mg Documented By: DANETTE Miscellaneous (Stat Iv/Im) 1 each N/A NOW STA Stop: 07/08/23 18:47 Last Admin: 07/09/23 01:38 Dose: Not Given Documented By: DANETTE Sodium Bicarbonate (Sodium Bicarb 8.4% Inj 50 Meq/50 Ml Syr) 50 meq IV NOW STA Stop: 07/08/23 18:37 Last Admin: 07/08/23 18:53 Dose: 50 meq Documented By: JACINTA Description This is a 21 electrode EEG with a single channel dedicated to limited EKG. The electrodes were placed in accordance with the International 10-20 system. REPORT: At the onet of the EEG the patient is in an altered mental state. The background is suppressed with a loss of the normal anterior to posterior gradient. The posterior dominant rhythm is not seen. There is frequent and abudant mygogenc / movement artifact. Photic does not induce any abnormalities. Interpretation IMPRESSION: This is an abnormal EEG in a patient with altered mentation due to severe background suppression suggestive of nonspecific encephalopathy.
[2023-07-09] MEDS: FUROSEMIDE 40 MG/4 ML VIAL IV ONE (11:18)
[2023-07-09] MEDS: DEXTROSE 50% 50 ML SYRINGE IV ONE (11:18)
[2023-07-09] MEDS: SODIUM BICARB 8.4% INJ 50 MEQ/50 ML SYR IV STA (11:18)
[2023-07-09] MEDS: INSULIN HUMAN REGULAR PER UNIT 10 UNITS in SYRINGE 9.9 ML IV STA (11:24)
[2023-07-09] MEDS: SODIUM BICARBONATE 8.4% 150 MEQ in DEXTROSE 5% 1,000 ML IV SCH (11:50)
[2023-07-09 13:45] LABS: Hematocrit (blood only) 24.5 % (42.0-52.0); Hemoglobin 8.3 g/dl (14.0-18.0)
--- NOTE | 2023-07-09 14:10 | Hospitalist Progress Note ---
Date of Service July 09, 2023 Assessment & Plan (1) Encephalopathy: Plan: 68 yo M w/ PMH of T2DM, HLD, nonischemic CM, chronic systolic CHF/April 2023 echo with EF of 25%, HTN, PVCs, first-degree block, intraventricular conduction defect, thrombocytopenia, alcoholism was brought in because of confusion and found to have PETER and hyperkalemia at ED. Patient noted to be confused at home for 2 days ago SKATESMAN, patient refused coming to the hospital the day prior to presentation as well as on the day of presentation. Patient was noted to having some tremors. On the day of presentation, patient was noted to be very weak and not even able to walk, EMS was called on him [by his brother] and he was brought to the hospital. At presentation patient noted oriented x 1, denied headache or chest pain. But not able to answer any other questions per H&P note. Per H&P note, appears last drink was before Easter. Per patient's brother, he drinks wine and vodka and sometimes beer. Blood was noted in the stool at ED. Patient was noted to be shaky. He is being managed for the following: Likely metabolic encephalopathy Possible uremic encephalopathy Possible alcohol withdrawal: Last drink was before Easter per H&P note. Once patient is more aware, need to confirm this. Patient was brought in due to increasing confusion noted at home, tremors and poor po intake ISO alcohol abuse history. Patient noted to be uremic, in PETER, hyperkalemia, possible alcohol withdrawal at presentation. Admitting CXR/CT head/CTAP with no acute finding. Continue with BELKIS S protocol, folic acid, thiamine, multivitamins as able. Continue with telemetry monitoring. Continue to correct underlying issues as below. Patient started on clindamycin and aztreonam for possible infection at admission, UA/CXR/CTAP not suggestive of infection. Follow admitting blood and urine culture. Concern for seizure: At presentation, patient noted to have shaking and eyes rolling up, was given a dose of Ativan. Could be alcohol withdrawal versus seizure. Follow-up EEG, await neurology consult. Seizure precaution. Acute kidney injury Hyperkalemia Uremia Severe PETER noted at presentation, creatinine 7.93. Baseline creatinine appears around 1.2. At presentation potassium of 5.9 and BUN of 175. CXR and CTAP with no evidence of fluid overload. Echo this admission with EF of 25 to 30%. Nephrology on board, patient on bicarb drip, Lokelma 3 times daily, status post potassium cocktail, labs twice daily. Hold metformin, NSS, Jardiance, YANNA/ARB and other nephrotoxic's. Follow-up labs at 4 PM and in AM. Possible GI bleed: Some blood noted around his mouth at presentation, also blood noted in the stool at ED. Hemoglobin at presentation 9.8, hemoglobin 8.3 today, closely monitor H&H. Baseline hemoglobin around 11. GI evaluated, continue with Protonix drip for now. Aspirin on hold. Phone blood consent obtained from his brother at admission. Chronic systolic CHF: EF 25%, echo results -see above. Seems not on any diuretics. Getting fluids. Monitor for volume overload. Likely demand ischemia: Likely secondary to acute issues, troponin flat trended in high 30s. Echo with severe global hypokinesis of left ventricle, EF 25 to 30%. Continue telemetry monitoring. Other chronic medical conditions: Continue with/resume home meds as and when able. Hypertension: Hold his losartan and metoprolol succinate. As needed IV Lopressor for BP management. Patient n.p.o./confused/obtunded/with PETER. T2DM: A1c of 8.8 on 07/09/23. 8.4 on 09/27/22. Hold metformin and Jardiance. Sliding scale insulin while in hospital. nutrition educator when more awake. Gout: Restart allopurinol when able. Hyperlipidemia: Restart Crestor when able. CPK at presentation 86. Thrombocytopenia: Continue to monitor. DVT prophylaxis: SCDs Full code Given phone call to Pt's brother Pasquale Sarkar [[phone]] for general update. Couldn't reach out, no option to leave voicemail. Will try again as able. Admission and Anticipated Discharge Date Admission Date: July 08, 2023 Subjective Patient was seen and examined at bedside. Patient was lying in bed, obtunded. RN at bedside, patient was agitated in the morning and is trying to pull his IV lines, received Ativan per BELKIS S protocol per RN. No further vomiting or stool while in hospital per RN. ROS not able from the patient/obtain due to status. Physical Exam Physical Exam: General- obtunded. Head- atraumatic Eyes- PERRL. ENT- oropharynx mucosa - dry. Neck- supple, no JVD. Lungs- clear to auscultation no wheezing or crackles. Heart- regular rhythm; no murmur, no gallop. Abdomen- normal bowel sounds, soft, nontender, no distension Extremities- no pretibial edema, no erythema seen Neuro- obtunded. PERRL, no facial palsy; moves extremities. Results & Data Results & Data Vital Signs (Past 12 Hours) Vital Signs Pulse Resp BP Pulse Ox 07/09/23 07:05 79 07/09/23 07:01 79 13 97 07/09/23 07:01 105/83 07/09/23 07:00 93 H 18 98 07/09/23 05:23 91 H 22 100/53 L 99 07/09/23 05:00 82 18 81/52 L 98 07/09/23 04:00 87 16 106/88 98
[2023-07-09] MEDS: SODIUM ZIRCONIUM CYCLOSILICATE 10 GM PACKET PO SCH (14:22)
--- NOTE | 2023-07-09 15:11 | Neurology Consultation ---
Date of Consultation July 09, 2023 Assessment & Plan (1) Encephalopathy: Plan 68 y/o male with history of DM, HLD, HTN, alcohol use, and heart failure that presented with two day history of encephalopathy, found to have acute renal failure, anemia, and thrombocytopenia. Pt tremulous at presentation and possible alcohol withdrawal had been suspected. Unclear if episode this am represented seizure but as it was a single episode and may have occurred in the setting of withdrawal, would defer initiation of medications at this time. Suspect toxic metabolic encephalopathy but would proceed with further imaging with MRI. 1. Seizure precautions 2. Blood and utine cultures pending 3. Ammonia, thiamine 4. On thiamine 100 mg bid 5. MRI brain (w/wo- if acceptable per nephrology, otherwise without) 6. neurochecks q2 7. Re-engage neurology for any additional events 8. No driving 9. Neurology will continue to follow Telehealth Consultation Telehealth Information Telehealth Information: I performed this visit using a real-time telehealth connection between my location and the patients location ([facility]). After connecting through interactive tele-video, patient was identified by name and date of and/or wristband check.Patient (or authorized healthcare clearance representative) was informed that this was a telemedicine visit and it was being conducted confidentially over secure lines. My office door was closed and no one else was present in the room with me.Patient (or authorized healthcare clearance representative) provided consent to proceed with the visit, expressed an understanding of privacy and security of the telemedicine visit, and gave permission to have a hospital clearance representative in the room in order to assist with the visit and to conduct portions of the visit, as needed. I informed the patient (or authorized healthcare clearance representative) that I reviewed their record and presented the opportunity for them to ask any questions regarding the visit today. The patient agreed to participate. History of Present Illness Reason for Consultation: ? seizures Requesting Physician: Jake Castaneda MD Attending Physician: Carlin Garrido MD History of Present Illness 68 y/o male that presented with altered mental status. Reportedly, his brother found him the day prior to admission confused but he had declined to come to ED. On the following day, his brother called EMS because he continued to be confused and was not walking. While in the emergency department this am, he was reportedly observed to have an episode of shaking with eyes rolling back, for which he received ativan. At the time of my examination, he does not contribute to the history. Allergies Allergy/AdvReac Type Severity Reaction Status Date / Time Penicillins Allergy Severe AIRWAY Verified 07/08/23 15:41 EDEMA pollen extracts Allergy Intermediate ITCHY Verified 07/08/23 15:41 EYES, SNEEZING, CONGESTION Home Medications Medication Instructions Recorded Confirmed Type metoprolol succinate 50 mg 50 mg PO BID #30 tabs 11/24/18 07/08/23 History tablet,extended release 24 hr aspirin 81 mg tablet,delayed 81 mg PO QPM 05/10/20 07/08/23 History release melatonin 10 mg capsule 10 mg PO HS PRN Sleep 05/10/20 07/08/23 History allopurinol 100 mg tablet 100 mg PO QAM 05/17/20 07/08/23 History olmesartan 20 mg tablet 20 mg PO QAM 05/17/20 07/08/23 History empagliflozin 10 mg tablet 10 mg PO QAM 07/08/23 07/08/23 History (Jardiance) fexofenadine 180 mg tablet 180 mg PO QAM 07/08/23 07/08/23 History hydroxyzine HCl 25 mg tablet 25 mg PO DAILY PRN Itching 07/08/23 07/08/23 History metformin 500 mg tablet 500 mg PO BIDM 07/08/23 07/08/23 History rosuvastatin 10 mg tablet 10 mg PO QAM 07/08/23 07/08/23 History Patient History Medical History Nonischemic cardiomyopathy Elevated PSA GERD without esophagitis Gout Hypertension Rosacea Systolic congestive heart failure Surgical History No significant past surgical history Family History Mother Diabetes Myocardial infarction Brother Pacemaker Sister Pacemaker Denies family history of Ovarian cancer Prostate cancer Alzheimer disease Breast cancer Lung cancer Colorectal cancer Lung disease Colonic polyp Social History Smoking Status: Unknown if ever smoked Age Started Using Tobacco: 8; Age Quit Using Tobacco: 45; packs per day: 1; Cigarettes Per Day: pt. 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 Safe at Home: Yes Childhood Exposure to Second-Hand Smoke: No Diet: regular caffeine: Yes Dental Care, Regularly: Yes Physical Activity Frequency: 3-4 Times per Week Seatbelt Use: always Sunscreen Use: Yes Assistive Devices: None Physical Exam Opens eyes briefly spontaneously No gaze deviation Oriented to self Follows simple commands intermittently No facial asymmetry Moves bilateral upper extremities antigravity spontaneously, moves bilateral lower extremities spontaneously within plane of bed High frequency low amplitude postural tremor bilateral upper extremities Does not full cooperate with FTN Results & Data Vital Signs (Past 12 Hours) Vital Signs Pulse Resp BP Pulse Ox 07/09/23 15:05 96 H 07/09/23 14:00 101 H 16 07/09/23 13:03 95 07/09/23 13:03 120/88 07/09/23 13:01 97 07/09/23 13:01 98 H 07/09/23 13:00 94 07/09/23 12:21 92 H 17 96 07/09/23 12:21 100/60 07/09/23 12:00 97 H 19 07/09/23 11:01 108/63 07/09/23 11:01 111 H 18 07/09/23 11:00 111 H 26 H 07/09/23 10:33 96 H 20 07/09/23 10:33 123/92 07/09/23 10:00 105 H 18 84 L 07/09/23 09:00 119/71 07/09/23 09:00 84 16 97 07/09/23 08:02 88 21 94 07/09/23 08:02 95/65 L 07/09/23 08:00 79 15 96 07/09/23 08:00 73/49 L 07/09/23 07:05 79 07/09/23 07:01 79 13 97 07/09/23 07:01 105/83 07/09/23 07:00 93 H 18 98 07/09/23 05:23 91 H 22 100/53 L 99 07/09/23 05:00 82 18 81/52 L 98 07/09/23 04:00 87 16 106/88 98 Laboratory Results WBC 5.40, HGB 8.3, HCT 24.5, Plts 87, INR 1.1, VBG PH 7.19, pO2 28, pCO2 37, NA 138, Potassium 5.8, Chloride 109, Carbon dioxide 16, BUN 168, Creatinine 7.12, Glucose 143, A1C 8.8, Lactate 1.2, Calcium 9.3, Phosphorous 5.6, magnesium 1.9, AST 16, ALT 13, CK 86, Troponin 41.2, albumin 3.9, B12 711, Procalcitonin 1.00, TSH 1.339, Urinalysis 1+ blood, leukocyte esterase negative, nitrite negative, urine wbc 5-10, UDS negative, ethly aclohol <10 Diagnostic Findings CXR:No acute chest disease. CTH:No acute intracranial abnormality. Chest abdomen/pelvis:1. Cholelithiasis. 2. Bernal catheter terminates in the urinary bladder. 3. Small fat-containing bilateral inguinal hernias. 4. Fat-containing umbilical hernia measures 3.6 x 3.3 cm. 5. Diverticulosis, without acute diverticulitis. No small bowel obstruction. No free intraperitoneal air. EEG:This is an abnormal EEG in a patient with altered mentation due to severe background suppression suggestive of nonspecific encephalopathy.
[2023-07-09 17:14] LABS: Calcium 9.2 mg/dl (8.6-10.3); Potassium 4.6 mmol/L (3.5-5.1)
[2023-07-09 17:17] LABS: Creatinine Clr Calc Pharmacy 12.3 ml/min; Est GFR (African American) 8.3 ml/min; Est GFR (Non-African American) 7.2 ml/min
[2023-07-09 17:46] LABS: BUN Creatinine Ratio 22.5 (10-20); Troponin I High Sensitivity 41.4 pg/ml (0-20)
[2023-07-09] MEDS ORDERED: AZTREONAM 2,000 MG in DEXTROSE 5% MINI-B 100 ML IV SCH (18:00)
[2023-07-09 20:38] LABS: Hematocrit (blood only) 22.7 % (42.0-52.0); Hemoglobin 7.9 g/dl (14.0-18.0)
[2023-07-09] MEDS: MICONAZOLE NITRATE POWDER 85 GM EXT PRN (23:19)
[2023-07-10 06:25] LABS: Hematocrit (blood only) 24.3 % (42.0-52.0); Hemoglobin 8.5 g/dl (14.0-18.0); Mean Corpuscular Hemoglobin 31.3 pg (25.0-34.0); Mean Corpuscular Volume 89.3 fL (80.0-100.0); Mean Platelet Volume 11.2 fL (9.4-12.4); Platelet Count 85 K/uL (130-400); RDW Coefficient of Variation 14.5 % (11.5-14.5); RDW Standard Deviation 46.7 fL (36.4-46.3); Red Blood Count 2.72 M/uL (4.70-6.10); White Blood Count 5.24 K/ul (4.8-10.8)
[2023-07-10 06:40] LABS: Calcium 9.1 mg/dl (8.6-10.3); Creatinine Clr Calc Pharmacy 13.8 ml/min; Est GFR (African American) 9.8 ml/min; Est GFR (Non-African American) 8.5 ml/min; Magnesium 1.6 mg/dl (1.7-2.4); Phosphorus 4.6 mg/dl (2.5-4.9)
[2023-07-10 07:10] LABS: BUN Creatinine Ratio 24.3 (10-20)
[2023-07-10] MEDS: LORazepam 3 MG in SYRINGE 1.5 ML IV PRN ×2 (09:28→13:37)
[2023-07-10] MEDS ORDERED: STAT IV/IM STA (10:12)
--- NOTE | 2023-07-10 10:15 | Nephrology Progress Note ---
Date of Service July 10, 2023 Assessment & Plan Admission and Anticipated Discharge Date Admission Date: July 08, 2023 Subjective Assessment & Plan (1) Acute renal failure (ARF): PETER severe type---etiology likely severe pre renal but definitely some Component of ATN. Given his poor baseline health PETER wont resolve quick. On CXR, exam and CT --no e/o fluid overload at all but have to be mindful of his LVEF 25%. He was on Jardiance and if he really was not eating drinking much he can get severely dehydrated with ongoing Osmotic diuresis. Slowly getting better. There was Sig ATN also and that is why we are seeing slow decline of Creat. urine 1750 ml. Stop Bicarb 150 meq drip and change to 1/2 ns 75 bicarb at 80 ml/hr Low mag--got 2 gm iv already. Check CMP, Phos and Mag and CBC daily. (2) Hyperkalemia: Now normal. D/c Gabriel Dickens---has severe agitation and alcohol withdrawal. Labs better slowly. Making lot of urine Physical Exam Physical Exam: General- confused.restless. very flushed face Head- atraumatic. Normocephalic MM--dry Neck- supple, no JVD. Lungs- clear to auscultation no wheezing or crackles. Heart- regular rhythm; no murmur, no gallop. Abdomen- normal bowel sounds, soft, nontender, no distension Extremities- no pretibial edema, no rash seen Neuro- Confused and agitated. Results & Data Vital Signs (Past 12 Hours) Vital Signs Temp Pulse Resp BP BP Pulse Ox Pulse Ox 07/10/23 09:51 123 H 24 137/68 94 07/10/23 09:30 36.7 C 121 H 23 104/52 L 95 07/10/23 07:20 36.8 C 118 H 19 116/61 95 07/10/23 05:54 36.5 C 114 H 18 104/65 96 07/10/23 03:30 36.4 C L 96 H 16 121/76 93 07/09/23 22:45 36.4 C L 103 H 16 106/69 95 07/09/23 22:41 95 O2 Del Method O2 Del Method 07/10/23 09:51 Room Air 07/10/23 09:30 Room Air 07/10/23 07:20 Room Air 07/10/23 05:54 Room Air 07/10/23 03:30 Room Air 07/09/23 22:45 Room Air 07/09/23 22:41 Room Air
[2023-07-10] MEDS: MAGNESIUM SULFATE / D5W 1 GM/100 ML BAG IV SCH (10:25)
[2023-07-10] MEDS: SODIUM BICARBONATE 8.4% 75 MEQ in SODIUM CHLORIDE 0.45 % 1,000 ML IV SCH (10:43)
[2023-07-10] MEDS ORDERED: LORazepam 2 MG/1 ML VIAL IV PRN (12:20)
[2023-07-10] MEDS ORDERED: LORazepam 2 MG/1 ML VIAL IV SCH (12:30)
[2023-07-10] MEDS ORDERED: LORazepam 1 MG in SYRINGE 0.5 ML IV SCH (12:45)
--- NOTE | 2023-07-10 14:53 | Hospitalist Progress Note ---
Date of Service July 10, 2023 Assessment & Plan (1) Encephalopathy: Plan: 68 yo M w/ PMH of T2DM, HLD, nonischemic CM, chronic systolic CHF/April 2023 echo with EF of 25%, HTN, PVCs, first-degree block, intraventricular conduction defect, thrombocytopenia, alcoholism was brought in because of confusion and found to have PETER and hyperkalemia at ED. 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 Patient was noted to having some tremors. On the day of presentation, patient was noted to be very weak and not even able to walk, EMS was called on him [by his brother] and he was brought to the hospital. At presentation patient noted oriented x 1, denied headache or chest pain. But not able to answer any other questions per H&P note. Per H&P note, appears last drink was before Easter. Per patient's brother, he drinks wine and vodka and sometimes beer. Blood was noted in the stool at ED. Patient was noted to be shaky. He is being managed for the following: Likely metabolic encephalopathy Possible uremic encephalopathy Possible alcohol withdrawal: Last drink was before Easter per H&P note. Once patient is more aware, need to confirm this. Patient was brought in due to increasing confusion noted at home, tremors and poor po intake ISO alcohol abuse history. Patient noted to be uremic, in PETER, hyperkalemia, possible alcohol withdrawal at presentation. Admitting CXR/CT head/CTAP with no acute finding. Continue with BELKIS S protocol, folic acid, thiamine, multivitamins as able. Having sever alc withdrawal, with add richy ativan on top of prn. if worsening, consider icu transfer for precedex. Continue with telemetry monitoring. Continue to correct underlying issues as below. Patient started on clindamycin and aztreonam for possible infection at admission, UA/CXR/CTAP not suggestive of infection. Follow admitting blood and urine culture. so far no growth. Concern for seizure: At presentation, patient noted to have shaking and eyes rol ling up, was given a dose of Ativan. Could be alcohol withdrawal versus seizure. EEG suggestive of nonspecific encephalopathy. Neurology evaluated, recommends MRI brain and seizure precaution. Recommend no driving. Seizure precaution. MRI brain sent. Acute kidney injury Hyperkalemia Uremia Severe PETER noted at presentation, creatinine 7.93. Baseline creatinine appears around 1.2. At presentation potassium of 5.9 and BUN of 175. CXR and CTAP with no evidence of fluid overload. Echo this admission with EF of 25 to 30%. Nephrology on board, patient on IVF, Lokelma 3 times daily, status post potassium cocktail, labs twice daily. Hold metformin, NSS, Jardiance, YANNA/ARB and other nephrotoxic's. Follow-up labs at 4 PM and in AM. Possible GI bleed: Some blood noted around his mouth at presentation, also blood noted in the stool at ED. Hemoglobin at presentation 9.8, hemoglobin 8.3 today, closely monitor H&H. Baseline hemoglobin around 11. GI evaluated, continue with Protonix drip for now. Aspirin on hold. Phone blood consent obtained from his brother at admission. Chronic systolic CHF: EF 25%, echo results -see above. Seems not on any diuretics. Getting fluids. Monitor for volume overload. Likely demand ischemia: Likely secondary to acute issues, troponin flat trended in high 30s. Echo with severe global hypokinesis of left ventricle, EF 25 to 30%. Continue telemetry monitoring. Other chronic medical conditions: Continue with/resume home meds as and when able. Hypertension: Hold his losartan and metoprolol succinate. As needed IV Lopressor for BP management. Patient n.p.o./confused/obtunded/with PETER. T2DM: A1c of 8.8 on 07/09/23. 8.4 on 09/27/22. Hold metformin and Jardiance. Sliding scale insulin while in hospital. telehealth nurse educator when more awake. Gout: Restart allopurinol when able. Hyperlipidemia: Restart Crestor when able. CPK at presentation 86. Thrombocytopenia: Continue to monitor. DVT prophylaxis: SCDs Full code Given phone call to Pt's brother Tish Sarkar [[phone]] - updated pt's brother tish, discussed about all of the above points and management undergoing. Answered all his questions. Admission and Anticipated Discharge Date Admission Date: July 08, 2023 Subjective Patient was seen and examined at bedside. Patient was lying in bed, mumbling, slightly restless, tachycardic, undergoing alc withdrawal. Per RN, pt attempting to remove med equip, on soft restraints. Will add richy ativan (po option not feasible, pt might not be able to take po meds). Also 3 mg iv ativan prn added. No further vomiting or stool w/ blood per rn. ROS not able from patient. ? Right knee pain on exam, pt not able to comment. Will get rt knee and hip xr. Rt knee votaren gel ordered, follow response. Physical Exam Physical Exam: General- restless, mumbling, can't cooperate, undergoing alc withdrawal. Head- atraumatic Eyes- PERRL. ENT- oropharynx mucosa - dry. Neck- supple, no JVD. Lungs- clear to auscultation no wheezing or crackles. Heart- regular rhythm; no murmur, no gallop. Abdomen- normal bowel sounds, soft, nontender, no distension Extremities- no pretibial edema, no erythema seen Neuro- obtunded. PERRL, no facial palsy; moves extremities. Results & Data Results & Data Vital Signs (Past 12 Hours) Vital Signs Temp Pulse Resp BP BP Pulse Ox O2 Del Method 07/10/23 13:30 37.2 C 127 H 25 H 110/69 93 Room Air 07/10/23 11:47 36.8 C 116 H 20 101/60 95 Room Air 07/10/23 09:51 123 H 24 137/68 94 Room Air 07/10/23 09:30 36.7 C 121 H 23 104/52 L 95 Room Air 07/10/23 07:20 36.8 C 118 H 19 116/61 95 Room Air 07/10/23 05:54 36.5 C 114 H 18 104/65 96 Room Air 07/10/23 03:30 36.4 C L 96 H 16 121/76 93 Room Air
[2023-07-10] MEDS: DICLOFENAC SOD 1% GEL 100 GM TUBE EXT SCH (16:32)
[2023-07-10] MEDS ORDERED: STAT IV Infusion **Titration per Protocol STA ×2 (17:37→19:07)
--- NOTE | 2023-07-10 17:48 | Critical Care Consultation ---
Date of Consultation July 10, 2023 Assessment & Plan (1) Delirium tremens: (2) Acute renal failure (ARF): (3) Nonischemic cardiomyopathy: (4) Type 2 diabetes mellitus with obesity: (5) Hyperkalemia: Plan 68-year-old male with a history of nonischemic cardiomyopathy, hypertension and diabetes mellitus who presents to the hospital due to severe delirium tremens and renal failure. Neurologic: Will discontinue Ativan at this time and start the patient on a phenobarbital protocol. Will dose every 12 hours given severely reduced creatinine clearance. Will also add Precedex to help with adrenergic symptoms. Will obtain MRI brain per neurology recommendations when the patient is more stable. Pulmonary: Patient without any significant pulmonary issues at this time. Continue to monitor neurostatus closely. Cardiovascular: Patient with severe nonischemic cardiomyopathy with EF 25% likely due to alcohol abuse. He has tachycardia secondary to alcohol withdrawal. Prior EKGs from earlier today with significant artifact. Will reobtain EKG once patient is more calm and sedated. High-sensitivity troponin minimally elevated. Gastrointestinal: Continue Protonix 40 mg twice daily due to concerns of GI bleed on admission. Hemoglobin stable. No active signs of bleeding at this time. GI consultation noted. Maintain n.p.o. status. Renal: Patient with severe PETER which appears to be improving. Follow urine output via Bernal. Continue IV hydration per nephrology recommendations. CK unremarkable day of admission. Will repeat CK now. Repeat BMP now. Infectious disease: Urine and blood cultures negative to date. Will discontinue antibiotics at this time as no clear signs of infectious etiology. Patient afebrile. Hematologic: Patient with anemia and thrombocytopenia likely from alcoholism. Holding chemical DVT prophylaxis at this time. Endocrine: Maintain euglycemia. Hold home diabetic medications. Musculoskeletal: Nursing noted patient withdraws from pain right knee and left hip palpated. Hip and knee x-rays ordered when patient more stable Lines and tubes: Peripheral IVs and Bernal catheter in place. VTE prophylaxis: SCDs CODE STATUS: Full Family at bedside: None available at bedside Disposition: ICU I have personally spent 44 minutes of critical care time in the direct management of this patient. This is a life/limb threatening event. This includes time spent evaluating patient, direct bedside care, chart review, placing orde rs, interpretation of diagnostic studies, discussion with consultants, patient, and family members, as well as other required patient management activities. This time is exclusive of all separately billable procedures, and teaching time and separate from and in addition to any other critical care service time. Thank you for allowing us to participate in the care of this patient. History of Present Illness Reason for Consultation: Severe alcohol withdrawal Attending Physician: Carlin Garrido MD History of Present Illness 68-year-old male with history of diabetes mellitus type 2, hypertension, alcohol abuse and nonischemic cardiomyopathy who presented to the hospital via ambulance as he was found by his brother to have slurred speech and confusion. History is unobtainable from the patient given severe delirium tremens. History obtained from chart review, discussion with bedside nurse and hospitalist service. Patient has been requiring escalating doses of as needed Ativan with worsening agitation and delirium. Neurology has been involved in patient's care. He had an EEG yesterday which revealed nonspecific severe encephalopathy. No seizure activity was noted. He also had evidence of significant renal failure which was thought to be prerenal in etiology. Nephrology is following the patient. Allergies Allergy/AdvReac Type Severity Reaction Status Date / Time Penicillins Allergy Severe AIRWAY Verified 07/08/23 15:41 EDEMA pollen extracts Allergy Intermediate ITCHY Verified 07/08/23 15:41 EYES, SNEEZING, CONGESTION Home Medications Medication Instructions Recorded Confirmed Type metoprolol succinate 50 mg 50 mg PO BID #30 tabs 11/24/18 07/08/23 History tablet,extended release 24 hr aspirin 81 mg tablet,delayed 81 mg PO QPM 05/10/20 07/08/23 History release melatonin 10 mg capsule 10 mg PO HS PRN Sleep 05/10/20 07/08/23 History allopurinol 100 mg tablet 100 mg PO QAM 05/17/20 07/08/23 History olmesartan 20 mg tablet 20 mg PO QAM 05/17/20 07/08/23 History empagliflozin 10 mg tablet 10 mg PO QAM 07/08/23 07/08/23 History (Jardiance) fexofenadine 180 mg tablet 180 mg PO QAM 07/08/23 07/08/23 History hydroxyzine HCl 25 mg tablet 25 mg PO DAILY PRN Itching 07/08/23 07/08/23 History metformin 500 mg tablet 500 mg PO BIDM 07/08/23 07/08/23 History rosuvastatin 10 mg tablet 10 mg PO QAM 07/08/23 07/08/23 History Patient History Medical History (Updated 07/10/23 @ 17:42 by Omar Blank MD) Delirium tremens Nonischemic cardiomyopathy Elevated PSA GERD without esophagitis Gout Hypertension Rosacea Systolic congestive heart failure Surgical History No significant past surgical history Family History Mother Diabetes Myocardial infarction Brother Pacemaker Sister Pacemaker Denies family history of Ovarian cancer Prostate cancer Alzheimer disease Breast cancer Lung cancer Colorectal cancer Lung disease Colonic polyp Social History Smoking Status: Unknown if ever smoked Age Started Using Tobacco: 8; Age Quit Using Tobacco: 45; packs per day: 1; Cigarettes Per Day: pt. 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 Currently in restraints. Eyes: Pupils are equal round and reactive to light. Conjunctivae are normal. Anicteric sclera. Ears nose, mouth and throat: Mallampati class 2. Normal posterior oropharynx. Uvula is midline. Neck: Trachea is midline. Visual inspection is normal. Respiratory: Clear to auscultation bilaterally. No use of accessory muscles. No significant clubbing noted. Cardiovascular: Regular rate and rhythm. No murmurs. No edema. Gastrointestinal: Normal bowel sounds, soft, nontender and nondistended. No hepatosplenomegaly noted. Musculoskeletal: No cyanosis. Patient is able to move all extremities. Strength is 5 out of 5 in the upper and lower extremities. Skin: No rashes, warm dry and intact. Neurologic: No obvious focal neurological deficits seen. Psychiatric: Severely agitated and unable to participate in exam. Results & Data Results & Data Vital Signs (Past 12 Hours) Vital Signs Temp Pulse Resp BP BP BP Pulse Ox 07/10/23 16:15 36.7 C 126 H 34 H 113/58 L 94 07/10/23 14:50 37.2 C 124 H 21 126/67 93 07/10/23 13:30 37.2 C 127 H 25 H 110/69 93 07/10/23 11:47 36.8 C 116 H 20 101/60 95 07/10/23 09:51 123 H 24 137/68 94 07/10/23 09:30 36.7 C 121 H 23 104/52 L 95 07/10/23 07:20 36.8 C 118 H 19 116/61 95 07/10/23 05:54 36.5 C 114 H 18 104/65 96 O2 Del Method 07/10/23 16:15 Room Air 07/10/23 14:50 Room Air 07/10/23 13:30 Room Air 07/10/23 11:47 Room Air 07/10/23 09:51 Room Air 07/10/23 09:30 Room Air 07/10/23 07:20 Room Air 07/10/23 05:54 Room Air Coding Level of Care Code 47614 CRITICAL CARE 1ST 30-74M Diagnoses Delirium tremens F10.931 Acute renal failure (ARF) N17.9 Nonischemic cardiomyopathy I42.8 Type 2 diabetes mellitus with obesity E11.69; E66.9 Hyperkalemia E87.5
[2023-07-10] MEDS: MAGNESIUM SULFATE / D5W 1 GM/100 ML BAG IV ONE (18:01)
[2023-07-10] MEDS: PHENobarbital sodium 130 MG/ML VIAL IM STA (18:02)
[2023-07-10] MEDS: dexMEDEtomidine 200 MCG/50 ML BAG IV SCH (18:29)
[2023-07-10] MEDS: NOREPINEPHRINE/D5W 4 MG/250 ML PLCT IV SCH (19:11)
[2023-07-10] MEDS: NOREPINEPHRINE/D5W 4 MG/250 ML IV ONE (19:26)
[2023-07-10 19:28] LABS: Calcium 9.1 mg/dl (8.6-10.3); Potassium 4.3 mmol/L (3.5-5.1)
[2023-07-10] MEDS ORDERED: PHENobarbital sodium 65 MG/ML VIAL IV PRN (19:33)
[2023-07-10 19:34] LABS: iSTAT Allen Test Pass; iSTAT Art Bld Gas pCO2 Correct 33 mmHg (35-46); iSTAT Art Bld Gas pH Corrected 7.429 (7.35-7.45); iSTAT Arterial Blood Gas HCO3 22 meg/L (19-24); iSTAT Arterial Blood Gas pCO2 34 mmHg (35-46); iSTAT Arterial Blood Gas pH 7.42 (7.35-7.45); iSTAT Arterial Blood Gas pO2 79 mmHg (80-95); iSTAT Arterial Blood Gas pO2 C 76; iSTAT Carbon Dioxide 23 mmol/L (24-31); iSTAT Hematocrit 23 % (42-52); iSTAT Hemoglobin 7.8 g/dl (14.0-18.0); iSTAT Potassium 4.3 mmol/L (3.3-5.0); iSTAT Site R Radial; iSTAT Sodium 139 mmol/L (135-144)
[2023-07-10 19:48] LABS: BUN Creatinine Ratio 25.4 (10-20); Creatinine Clr Calc Pharmacy 15.3 ml/min; Est GFR (African American) 11.1 ml/min; Est GFR (Non-African American) 9.5 ml/min
[2023-07-10] MEDS: SODIUM BICARB 8.4% INJ 50 MEQ/50 ML SYR IV ONE (20:35)
[2023-07-10] MEDS ORDERED: PHENobarbital sodium 65 MG/ML VIAL IM SCH (20:45)
[2023-07-10] MEDS: PHENobarbital sodium 65 MG/ML VIAL IM SCH (20:58)
[2023-07-10] MEDS ORDERED: Ativan IV Alcohol Withdrawal--Active Protocol IV PRN (23:13)
[2023-07-10] MEDS: LORazepam 3 MG in SYRINGE 1.5 ML IV STA (23:22)
[2023-07-11] MEDS: LORazepam 3 MG in SYRINGE 1.5 ML IV STA
[2023-07-11] MEDS: LORazepam 3 MG in SYRINGE 1.5 ML IV PRN (00:26)
[2023-07-11] MEDS: LORazepam 2 MG in SYRINGE 1 ML IV PRN (01:31)
--- NOTE | 2023-07-11 02:06 | Magnetic Resonance Report ---
Exam(s): MRI HEAD Without Contrast EXAM: MR Head Without Intravenous Contrast CLINICAL HISTORY: Reason for exam: encephalopathy, ro stroke other pathology. TECHNIQUE: Magnetic resonance images of the head/brain without intravenous contrast in multiple planes. COMPARISON: Comparison made to prior head CT from July 08, 2023. FINDINGS: This study is limited secondary to motion artifact. Brain: Mild nonspecific white matter changes. No mass. No hemorrhage. No acute infarct. Ventricles: Mild ventriculomegaly. Bones/joints: Unremarkable. No acute fracture. Sinuses: Unremarkable as visualized. No acute sinusitis. Mastoid air cells: Unremarkable as visualized. No mastoid effusion. Orbits: Unremarkable as visualized. IMPRESSION: No evidence of acute intracranial pathology in this limited study. Electronically signed by: Tatiana Martínez MD 07/11/23 02:05 AM
[2023-07-11 04:23] LABS: Hemoglobin 8.8 g/dl (14.0-18.0); Mean Corpuscular Hemoglobin 30.8 pg (25.0-34.0); Mean Corpuscular Hgb Conc 33.8 g/dL (32.0-36.0); Mean Corpuscular Volume 90.9 fL (80.0-100.0); Mean Platelet Volume 12.6 fL (9.4-12.4); Nucleated RBC # (auto) 0.02 K/uL (0.00-0.12); Nucleated RBC % (auto) 0.3 %; Platelet Count 89 K/uL (130-400); RDW Coefficient of Variation 14.5 % (11.5-14.5); RDW Standard Deviation 48.1 fL (36.4-46.3); Red Blood Count 2.86 M/uL (4.70-6.10); White Blood Count 5.72 K/ul (4.8-10.8)
[2023-07-11] MEDS: LORazepam 1 MG in SYRINGE 0.5 ML IV PRN (04:51)
[2023-07-11 04:54] LABS: Albumin Level 3.2 gm/dl (3.4-5.0); BUN Creatinine Ratio 23.9 (10-20); Bilirubin Direct 0.2 mg/dl (0-0.2); Bilirubin,Total 0.7 mg/dl (0.2-1.0); Est GFR (African American) 11.7 ml/min; Est GFR (Non-African American) 10.1 ml/min; Magnesium 2.2 mg/dl (1.7-2.4); Phosphorus 4.1 mg/dl (2.5-4.9); Total Protein 6.2 gm/dl (6.0-8.3)
--- NOTE | 2023-07-11 08:54 | Critical Care Progress Note ---
Date of Service July 11, 2023 Assessment & Plan (1) Delirium tremens: (2) Acute renal failure (ARF): (3) Nonischemic cardiomyopathy: (4) Type 2 diabetes mellitus with obesity: (5) Hyperkalemia: Plan 68-year-old male with a history of nonischemic cardiomyopathy, hypertension and diabetes mellitus who presents to the hospital due to severe delirium tremens and renal failure. Neurologic: Patient's alcohol withdrawal score is improved this morning, but he remains encephalopathic. Will hold phenobarbital dosing at this time and use symptom driven Ativan protocol for the time being. MRI brain was completed last night, but was a poor study. No obvious acute findings were seen. Neurology is on board. Will continue with thiamine. Pulmonary: Patient without any significant pulmonary issues at this time. Cardiovascular: Patient with severe nonischemic cardiomyopathy with EF 25% likely due to alcohol abuse. He has tachycardia secondary to alcohol withdrawal. Prior EKGs from earlier today with significant artifact. Patient was briefly hypotensive overnight and required vasopressors. Remains normotensive this morning. Gastrointestinal: Continue Protonix 40 mg twice daily due to concerns of GI bleed on admission. Hemoglobin stable. No active signs of bleeding at this time. GI consultation noted. Maintain n.p.o. status. Renal: Patient with severe PETER which appears to be improving. Follow urine output via Bernal. Will discontinue IV fluids at this time given cardiomyopathy. Bicarbonate has normalized. Repeat CK minimally elevated. Infectious disease: Urine and blood cultures negative to date. Will discontinue antibiotics at this time as no clear signs of infectious etiology. Patient afebrile. Hematologic: Patient with anemia and thrombocytopenia likely from alcoholism. Holding chemical DVT prophylaxis at this time. Endocrine: Maintain euglycemia. Hold home diabetic medications. Musculoskeletal: Nursing noted patient withdraws from pain right knee and left hip palpated. Hip and knee x-rays ordered when patient more stable. Lines and tubes: Peripheral IVs and Bernal catheter in place. VTE prophylaxis: SCDs CODE STATUS: Full Family at bedside: None available at bedside Disposition: ICU I have personally spent 36 minutes of critical care time in the direct management of this patient. This is a life/limb threatening event. This includes time spent evaluating patient, direct bedside care, chart review, placing orders, interpretation of diagnostic studies, discussion with consultants, patient, and family members, as well as other required patient management activities. This time is exclusive of all separately billable procedures, and teaching time and separate from and in addition to any other critical care service time. Thank you for allowing us to participate in the care of this patient. Admission and Anticipated Discharge Date Admission Date: July 08, 2023 Subjective Patient remains extremely confused with periods of agitated delirium. Currently in restraints. Briefly required Levophed overnight after initiation of Precedex. Precedex infusion is now off. Patient getting as needed Ativan at this time. Review of Systems Review of Systems: Unobtainable due to reduced consciousness Physical Exam Physical Exam: Constitutional: Disheveled and very agitated. Currently in restraints. Eyes: Pupils are equal round and reactive to light. Conjunctivae are normal. Anicteric sclera. Ears nose, mouth and throat: Mallampati class 2. Normal posterior oropharynx. Uvula is midline. Neck: Trachea is midline. Visual inspection is normal. Respiratory: Clear to auscultation bilaterally. No use of accessory muscles. No significant clubbing noted. Cardiovascular: Regular rate and rhythm. No murmurs. No edema. Gastrointestinal: Normal bowel sounds, soft, nontender and nondistended. No hepatosplenomegaly noted. Musculoskeletal: No cyanosis. Patient is able to move all extremities. Strength is 5 out of 5 in the upper and lower extremities. Skin: No rashes, warm dry and intact. Neurologic: No obvious focal neurological deficits seen. Psychiatric: Severely agitated and unable to participate in exam. Results & Data Results & Data Vital Signs (Past 12 Hours) Vital Signs Temp Pulse Pulse Resp BP BP Pulse Ox 07/11/23 07:00 36.8 C 120 H 23 171/82 H 97 07/11/23 04:01 110/61 07/11/23 04:01 117 H 28 H 92 07/11/23 04:00 115 H 29 H 90 07/11/23 03:46 129/79 07/11/23 03:46 117 H 22 98 07/11/23 03:31 112/57 L 07/11/23 03:31 117 H 28 H 95 07/11/23 03:16 147/68 H 07/11/23 03:16 130 H 21 99 07/11/23 03:00 109/72 07/11/23 03:00 123 H 26 H 100 07/11/23 02:45 99/77 L 07/11/23 02:45 119 H 22 98 07/11/23 02:31 117/72 07/11/23 02:31 123 H 28 H 97 07/11/23 02:15 128/75 07/11/23 02:15 126 H 27 H 95 07/11/23 02:01 112/72 07/11/23 02:01 118 H 23 95 07/11/23 02:00 117 H 25 H 93 07/11/23 01:45 132/78 07/11/23 01:45 121 H 25 H 99 07/11/23 01:30 141/81 H 07/11/23 01:30 151 H 29 H 97 07/11/23 01:16 131/73 07/11/23 01:16 120 H 24 94 07/11/23 01:01 124 H 21 97 07/11/23 01:01 104/72 07/11/23 01:00 121 H 23 97 07/11/23 00:45 121 H 23 97 07/11/23 00:45 145/71 H 07/11/23 00:30 116/77 07/11/23 00:30 118 H 24 93 07/11/23 00:15 136/87 07/11/23 00:15 136 H 25 H 98 07/11/23 00:00 117 H 07/11/23 00:00 161/67 H 07/11/23 00:00 126 H 31 H 97 07/10/23 23:58 126 H 26 H 98 07/10/23 23:58 155/96 H 07/10/23 23:56 140 H 26 H 99 07/10/23 22:45 93/62 L 07/10/23 22:45 104 H 21 100 07/10/23 22:30 111 H 27 H 88 L 07/10/23 22:30 106/77 07/10/23 22:15 112/69 07/10/23 22:15 111 H 20 93 07/10/23 22:00 90/57 L 07/10/23 22:00 109 H 39 H 94 07/10/23 21:45 108/78 07/10/23 21:45 116 H 35 H 95 07/10/23 21:30 88/58 L 07/10/23 21:30 110 H 22 98 07/10/23 21:15 103/71 07/10/23 21:15 111 H 32 H 92 07/10/23 21:01 113 H 25 H 100 07/10/23 21:01 109/58 L 07/10/23 21:00 113 H 22 77 L 07/10/23 20:58 115 H 24 117/76 07/10/23 20:55 117/76 07/10/23 20:54 121 H 27 H 95 O2 Del Method 07/11/23 07:00 Room Air 07/11/23 04:01 07/11/23 04:01 07/11/23 04:00 07/11/23 03:46 07/11/23 03:46 07/11/23 03:31 07/11/23 03:31 07/11/23 03:16 07/11/23 03:16 07/11/23 03:00 07/11/23 03:00 07/11/23 02:45 07/11/23 02:45 07/11/23 02:31 07/11/23 02:31 07/11/23 02:15 07/11/23 02:15 07/11/23 02:01 07/11/23 02:01 07/11/23 02:00 07/11/23 01:45 07/11/23 01:45 07/11/23 01:30 07/11/23 01:30 07/11/23 01:16 07/11/23 01:16 07/11/23 01:01 07/11/23 01:01 07/11/23 01:00 07/11/23 00:45 07/11/23 00:45 07/11/23 00:30 07/11/23 00:30 07/11/23 00:15 07/11/23 00:15 07/11/23 00:00 07/11/23 00:00 07/11/23 00:00 07/10/23 23:58 07/10/23 23:58 07/10/23 23:56 07/10/23 22:45 07/10/23 22:45 07/10/23 22:30 07/10/23 22:30 07/10/23 22:15 07/10/23 22:15 07/10/23 22:00 07/10/23 22:00 07/10/23 21:45 07/10/23 21:45 07/10/23 21:30 07/10/23 21:30 07/10/23 21:15 07/10/23 21:15 07/10/23 21:01 07/10/23 21:01 07/10/23 21:00 07/10/23 20:58 07/10/23 20:55 07/10/23 20:54 Coding Level of Care Code 96772 CRITICAL CARE 1ST 30-74M Diagnoses Delirium tremens F10.931 Acute renal failure (ARF) N17.9 Nonischemic cardiomyopathy I42.8 Type 2 diabetes mellitus with obesity E11.69; E66.9 Hyperkalemia E87.5
--- NOTE | 2023-07-11 09:15 | XRay Report ---
XR knee LT 1 or 2V routine CLINICAL HISTORY: Left knee pain. COMPARISON: None FINDINGS: Alignment of the left knee is anatomic. There is no acute fracture. There are no osseous l esions. Possible small left knee joint effusion. Joint spaces are preserved. There is mild left knee osteophytosis. IMPRESSION: 1. No fractures within the left knee. 2. Mild degenerative changes within the left knee. 3. Possible small left knee joint effusion. ACT 112: Negative or not required by law. Electronically signed by: Gunnar Young M.D. 07/11/2023 9:13 AM
--- NOTE | 2023-07-11 09:38 | XRay Report ---
XR hip LT 2V w pelvis CLINICAL HISTORY: Left hip pain. COMPARISON: CT of the abdomen and pelvis July 08, 2023. FINDINGS: Bernal catheter within the bladder is incidentally noted. Sacroiliac joints and symphysis p ubis are intact. No acute fracture within the pelvis or hips is identified. No suspicious osseous les ions are present. There is moderate joint space narrowing and osteophytosis of the left hip. There is mild to moderate right hip osteoarthritis. No evidence for avascular necrosis of the left femoral he ad. IMPRESSION: 1. No fractures within the pelvis or hips. 2. Moderate left hip osteoarthritis. ACT 112: Negative or not required by law. Electronically signed by: Gunnar Young M.D. 07/11/2023 9:37 AM
--- NOTE | 2023-07-11 11:23 | Nephrology Progress Note ---
Date of Service July 11, 2023 Assessment & Plan Admission and Anticipated Discharge Date Admission Date: July 08, 2023 Subjective Assessment & Plan (1) Acute renal failure (ARF): PETER severe type---etiology likely severe pre renal but definitely some Component of ATN. Given his poor baseline health PETER wont resolve quick. On CXR, exam and CT --no e/o fluid overload at all but have to be mindful of his LVEF 25%. He was on Jardiance and if he really was not eating drinking much he can get severely dehydrated with ongoing Osmotic diuresis. Slowly getting better. There was Sig ATN also and that is why we are seeing slow decline of Creat. Good urine. Agree with no Iv fluid Check CMP, Phos and Mag and CBC daily. mag ad phos normal. (2) Hyperkalemia: Now normal. D/c Gabriel Dickens---has severe agitation and alcohol withdrawal. Then moved to ICU. had Precedex and BP dropped then stopped. On protonix drip. Labs better slowly. Making lot of urine. Physical Exam Physical Exam: General- confused.restless. very flushed face Head- atraumatic. Normocephalic MM--dry Neck- supple, no JVD. Lungs- clear to auscultation no wheezing or crackles. Heart- regular rhythm; no murmur, no gallop. Abdomen- normal bowel sounds, soft, nontender, no distension Extremities- no pretibial edema, no rash seen Neuro- Confused and agitated. Results & Data Vital Signs (Past 12 Hours) Vital Signs Temp Pulse Pulse Resp BP BP Pulse Ox 07/11/23 10:00 108 H 19 102/80 98 07/11/23 09:30 112 H 19 121/84 94 07/11/23 09:06 111 H 29 H 115/72 93 07/11/23 09:01 110 H 26 H 96/65 L 100 07/11/23 08:58 109 H 27 H 99/64 L 100 07/11/23 08:30 116 H 30 H 121/75 95 07/11/23 08:00 112 H 18 106/66 100 07/11/23 07:37 111 H 18 109/65 98 07/11/23 07:31 111 H 19 155/130 H 100 07/11/23 07:00 36.8 C 120 H 23 171/82 H 97 07/11/23 04:01 110/61 07/11/23 04:01 117 H 28 H 92 07/11/23 04:00 115 H 29 H 90 07/11/23 03:46 129/79 07/11/23 03:46 117 H 22 98 07/11/23 03:31 112/57 L 07/11/23 03:31 117 H 28 H 95 07/11/23 03:16 147/68 H 07/11/23 03:16 130 H 21 99 07/11/23 03:00 109/72 07/11/23 03:00 123 H 26 H 100 07/11/23 02:45 99/77 L 07/11/23 02:45 119 H 22 98 07/11/23 02:31 117/72 07/11/23 02:31 123 H 28 H 97 07/11/23 02:15 128/75 07/11/23 02:15 126 H 27 H 95 07/11/23 02:01 112/72 07/11/23 02:01 118 H 23 95 07/11/23 02:00 117 H 25 H 93 07/11/23 01:45 132/78 07/11/23 01:45 121 H 25 H 99 07/11/23 01:30 141/81 H 07/11/23 01:30 151 H 29 H 97 07/11/23 01:16 131/73 07/11/23 01:16 120 H 24 94 07/11/23 01:01 124 H 21 97 07/11/23 01:01 104/72 07/11/23 01:00 121 H 23 97 07/11/23 00:45 121 H 23 97 07/11/23 00:45 145/71 H 07/11/23 00:30 116/77 07/11/23 00:30 118 H 24 93 07/11/23 00:15 136/87 07/11/23 00:15 136 H 25 H 98 07/11/23 00:00 117 H 07/11/23 00:00 161/67 H 07/11/23 00:00 126 H 31 H 97 07/10/23 23:58 126 H 26 H 98 07/10/23 23:58 155/96 H 07/10/23 23:56 140 H 26 H 99 O2 Del Method 07/11/23 10:00 Room Air 07/11/23 09:30 Room Air 07/11/23 09:06 Room Air 07/11/23 09:01 Room Air 07/11/23 08:58 Room Air 07/11/23 08:30 Room Air 07/11/23 08:00 Room Air 07/11/23 07:37 Room Air 07/11/23 07:31 Room Air 07/11/23 07:00 Room Air 07/11/23 04:01 07/11/23 04:01 07/11/23 04:00 07/11/23 03:46 07/11/23 03:46 07/11/23 03:31 07/11/23 03:31 07/11/23 03:16 07/11/23 03:16 07/11/23 03:00 07/11/23 03:00 07/11/23 02:45 07/11/23 02:45 07/11/23 02:31 07/11/23 02:31 07/11/23 02:15 07/11/23 02:15 07/11/23 02:01 07/11/23 02:01 07/11/23 02:00 07/11/23 01:45 07/11/23 01:45 07/11/23 01:30 07/11/23 01:30 07/11/23 01:16 07/11/23 01:16 07/11/23 01:01 07/11/23 01:01 07/11/23 01:00 07/11/23 00:45 07/11/23 00:45 07/11/23 00:30 07/11/23 00:30 07/11/23 00:15 07/11/23 00:15 07/11/23 00:00 07/11/23 00:00 07/11/23 00:00 07/10/23 23:58 07/10/23 23:58 07/10/23 23:56
[2023-07-11] MEDS: THIAMINE HCL 500 MG in SODIUM CHLORIDE 0.9% 50 ML IV SCH (12:37)
--- NOTE | 2023-07-11 14:49 | Hospitalist Progress Note ---
Date of Service July 11, 2023 Assessment & Plan (1) Encephalopathy: Plan: 68 yo M w/ PMH of T2DM, HLD, nonischemic CM, chronic systolic CHF/April 2023 echo with EF of 25%, HTN, PVCs, first-degree block, intraventricular conduction defect, thrombocytopenia, alcoholism was brought in because of confusion and found to have PETER and hyperkalemia at ED. Patient noted to be confused at home for 2 days ago AUT[employer], patient refused coming to the hospital the day prior to presentation as well as on the day of presentation. Patient was noted to having some tremors. On the day of presentation, patient was noted to be very weak and not even able to walk, EMS was called on him [by his brother] and he was brought to the hospital. At presentation patient noted oriented x 1, denied headache or chest pain. But not able to answer any other questions per H&P note. Per H&P note, appears last drink was before Easter. Per patient's brother, he drinks wine and vodka and sometimes beer. Blood was noted in the stool at ED. Patient was noted to be shaky. He is being managed for the following: Likely metabolic encephalopathy Possible uremic encephalopathy Possible alcohol withdrawal: Last drink was before Easter per H&P note. Once patient is more aware, need to confirm this. Patient was brought in due to increasing confusion noted at home, tremors and poor po intake ISO alcohol abuse history. Patient noted to be uremic, in PETER, hyperkalemia, possible alcohol withdrawal at presentation. Admitting CXR/CT head/CTAP with no acute finding. Continue with BELKIS S protocol, folic acid, thiamine, multivitamins as able. For severe alc withdrawal, pt being managed in ICU Continue with telemetry monitoring. Continue to correct underlying issues as below. Patient started on clindamycin and aztreonam for possible infection at admission, UA/CXR/CTAP not suggestive of infection. Follow admitting blood and urine culture. so far no growth. antibiotic discontinued. Concern for seizure: At presentation, patient noted to have shaking and eyes rolling up, was given a dose of Ativan. Could be alcohol withdrawal versus seizure. EEG suggestive of nonspecific encephalopathy. Neurology evaluated, recommends MRI brain (no acute finding) and seizure precaution. Recommend no driving, DMV form signed. Seizure precaution. Acute kidney injury Hyperkalemia Uremia Severe PETER noted at presentation, creatinine 7.93. Baseline creatinine appears around 1.2. At presentation potassium of 5.9 and BUN of 175. CXR and CTAP with no evidence of fluid overload. Echo this admission with EF of 25 to 30%. Nephrology on board, appreciate recs. Hold metformin, NSS, Jardiance, YANNA/ARB and other nephrotoxic's. Possible GI bleed: Some blood noted around his mouth at presentation, also blood noted in the stool at ED. Hemoglobin at presentation 9.8, hemoglobin 8.3 today, closely monitor H&H. Baseline hemoglobin around 11. GI evaluated, continue with Protonix drip for now. Aspirin on hold. Phone blood consent obtained from his brother at admission. Chronic systolic CHF: EF 25%, echo results -see above. Seems not on any diuretics. Getting fluids. Monitor for volume overload. Likely demand ischemia: Likely secondary to acute issues, troponin flat trended in high 30s. Echo with severe global hypokinesis of left ventricle, EF 25 to 30%. Continue telemetry monitoring. Other chronic medical conditions: Continue with/resume home meds as and when able. Hypertension: Hold his losartan and metoprolol succinate. As needed IV Lo pressor for BP management. Patient n.p.o./confused/obtunded/with PETER. T2DM: A1c of 8.8 on 07/09/23. 8.4 on 09/27/22. Hold metformin and Jardiance. Sliding scale insulin while in hospital. inclusion paraeducator when more awake. Gout: Restart allopurinol when able. Hyperlipidemia: Restart Crestor when able. CPK at presentation 86. Thrombocytopenia: Continue to monitor. DVT prophylaxis: SCDs Full code Given phone call to Pt's brother Tish Sarkar [[phone]] on 07/09- updated pt's brother tish, discussed about all of the above points and management undergoing. Answered all his questions. Admission and Anticipated Discharge Date Admission Date: July 08, 2023 Subjective Patient was seen and examined at bedside. Patient was lying in bed, obtunded, tachycardic, likely unde effect of ativan. Per RN, hypotensive last evening and needed pressors briefly. Pt still agitated when awake per rn. ROS not able from patient. Physical Exam Physical Exam: General- obtunded Head- atraumatic Eyes- PERRL. ENT- oropharynx mucosa - dry. Neck- supple, no JVD. Lungs- clear to auscultation no wheezing or crackles. Heart- regular rhythm; no murmur, no gallop. Abdomen- normal bowel sounds, soft, nontender, no distension Extremities- no pretibial edema, no erythema seen Neuro- obtunded. PERRL, no facial palsy; moves extremities. Results & Data Results & Data Vital Signs (Past 12 Hours) Vital Signs Temp Pulse Pulse Resp BP BP Pulse Ox 07/11/23 14:00 106 H 17 102/75 96 07/11/23 13:30 107 H 19 116/74 96 07/11/23 13:01 108 H 22 102/72 89 L 07/11/23 12:30 106 H 20 120/86 96 07/11/23 12:01 37.0 C 07/11/23 12:01 109 H 29 H 125/73 96 07/11/23 11:53 105 H 21 113/71 95 07/11/23 11:30 108 H 20 110/75 97 07/11/23 11:00 106 H 18 118/73 96 07/11/23 10:31 112 H 23 147/86 H 98 07/11/23 10:00 108 H 19 102/80 98 07/11/23 09:30 112 H 19 121/84 94 07/11/23 09:06 111 H 29 H 115/72 93 07/11/23 09:01 110 H 26 H 96/65 L 100 07/11/23 08:58 109 H 27 H 99/64 L 100 07/11/23 08:30 116 H 30 H 121/75 95 07/11/23 08:00 112 H 18 106/66 100 07/11/23 07:37 111 H 18 109/65 98 07/11/23 07:31 111 H 19 155/130 H 100 07/11/23 07:00 36.8 C 120 H 23 171/82 H 97 07/11/23 04:01 110/61 07/11/23 04:01 117 H 28 H 92 07/11/23 04:00 115 H 29 H 90 07/11/23 03:46 129/79 07/11/23 03:46 117 H 22 98 07/11/23 03:31 112/57 L 07/11/23 03:31 117 H 28 H 95 07/11/23 03:16 147/68 H 07/11/23 03:16 130 H 21 99 07/11/23 03:00 109/72 07/11/23 03:00 123 H 26 H 100 O2 Del Method 07/11/23 14:00 Room Air 07/11/23 13:30 Room Air 07/11/23 13:01 Room Air 07/11/23 12:30 Room Air 07/11/23 12:01 07/11/23 12:01 Room Air 07/11/23 11:53 Room Air 07/11/23 11:30 Room Air 07/11/23 11:00 Room Air 07/11/23 10:31 Room Air 07/11/23 10:00 Room Air 07/11/23 09:30 Room Air 07/11/23 09:06 Room Air 07/11/23 09:01 Room Air 07/11/23 08:58 Room Air 07/11/23 08:30 Room Air 07/11/23 08:00 Room Air 07/11/23 07:37 Room Air 07/11/23 07:31 Room Air 07/11/23 07:00 Room Air 07/11/23 04:01 07/11/23 04:01 07/11/23 04:00 07/11/23 03:46 07/11/23 03:46 07/11/23 03:31 07/11/23 03:31 07/11/23 03:16 07/11/23 03:16 07/11/23 03:00 07/11/23 03:00
[2023-07-11 16:32] LABS: Potassium 4.1 mmol/L (3.5-5.1)
[2023-07-11 16:42] LABS: BUN Creatinine Ratio 25.2 (10-20); Creatinine Clr Calc Pharmacy 17.5 ml/min; Est GFR (Non-African American) 11.3 ml/min
--- NOTE | 2023-07-11 19:07 | Electrocardiogram Report ---
Test Reason : Blood Pressure : / mmHG Vent. Rate : 083 BPM Atrial Rate : 083 BPM P-R Int : 198 ms QRS Dur : 142 ms QT Int : 376 ms P-R-T Axes : 055 -43 110 degrees QTc Int : 441 ms Poor data quality, interpretation may be adversely affected Sinus rhythm with Premature ventricular complexes or Fusion complexes Left axis deviation Non-specific intra-ventricular conduction block Minimal voltage criteria for LVH, may be normal variant ( [place] product ) T wave abnormality, consider lateral ischemia Abnormal ECG No previous ECGs available Confirmed by Juan Tuttle ([id number]) on 07/11/2023 7:07:26 PM Referred By: Confirmed By:Juan Tuttle
[2023-07-11] MEDS: [UNRECOGNIZED DRUG - REMARK] ONE (19:45)
[2023-07-11] MEDS: PANTOprazole 40 MG in SYRINGE BID IV SCH (20:27)
[2023-07-12 04:26] LABS: Hematocrit (blood only) 27.4 % (42.0-52.0); Mean Corpuscular Hemoglobin 30.7 pg (25.0-34.0); Mean Corpuscular Hgb Conc 32.8 g/dL (32.0-36.0); Mean Corpuscular Volume 93.5 fL (80.0-100.0); Mean Platelet Volume 12.1 fL (9.4-12.4); Platelet Count 83 K/uL (130-400); RDW Coefficient of Variation 14.7 % (11.5-14.5); RDW Standard Deviation 50.2 fL (36.4-46.3); Red Blood Count 2.93 M/uL (4.70-6.10); White Blood Count 6.19 K/ul (4.8-10.8)
[2023-07-12 04:42] LABS: Albumin Level 3.3 gm/dl (3.4-5.0); BUN Creatinine Ratio 24.9 (10-20); Bilirubin,Total 0.7 mg/dl (0.2-1.0); Calcium 9.3 mg/dl (8.6-10.3); Creatinine Clr Calc Pharmacy 17.6 ml/min; Est GFR (African American) 13.2 ml/min; Est GFR (Non-African American) 11.4 ml/min; Globulin 3.3 gm/dl (2.5-4.0); Magnesium 2.2 mg/dl (1.7-2.4); Phosphorus 4.8 mg/dl (2.5-4.9); Total Protein 6.6 gm/dl (6.0-8.3)
--- NOTE | 2023-07-12 06:36 | Electrocardiogram Report ---
Test Reason : Blood Pressure : / mmHG Vent. Rate : 096 BPM Atrial Rate : 096 BPM P-R Int : 206 ms QRS Dur : 146 ms QT Int : 368 ms P-R-T Axes : 075 -35 119 degrees QTc Int : 464 ms Normal sinus rhythm Left axis deviation Left bundle branch block Abnormal ECG When compared with ECG of 08-JUL-2023 15:12, (unconfirmed) Premature ventricular complexes are no longer Present Confirmed by Juan Tuttle ([id number]) on 07/12/2023 6:36:37 AM Referred By: REFERRED SELF Confirmed By:Juan Tuttle
--- NOTE | 2023-07-12 07:06 | Electrocardiogram Report ---
Test Reason : Blood Pressure : / mmHG Vent. Rate : 124 BPM Atrial Rate : 127 BPM P-R Int : 000 ms QRS Dur : 136 ms QT Int : 352 ms P-R-T Axes : 000 -47 112 degrees QTc Int : 505 ms Poor data quality, interpretation may be adversely affected Uncertain supraventricular rhythm with Premature ventricular complexes or Fusion complexes Left axis deviation Left bundle branch block Abnormal ECG When compared with ECG of 10-JUL-2023 03:34, (unconfirmed) Rapid rhythm has replaced Sinus rhythm Confirmed by Juan Tuttle ([id number]) on 07/12/2023 7:06:09 AM Referred By: REFERRED SELF Confirmed By:Juan Tuttle
--- NOTE | 2023-07-12 07:55 | Critical Care Progress Note ---
Date of Service July 12, 2023 Assessment & Plan (1) Delirium tremens: (2) Acute renal failure (ARF): (3) Nonischemic cardiomyopathy: (4) Type 2 diabetes mellitus with obesity: (5) Hyperkalemia: Plan Impression: 68-year-old male with a history of nonischemic cardiomyopathy, hypertension and diabetes mellitus who presents to the hospital due to severe delirium tremens and renal failure. 24-hour events: Patient received 2 mg of Ativan x 2 last night due to agitation. Has been hemodynamically stable. Recommendation Neurologic: Patient remains significantly encephalopathic at this point in time. Has been aggressively treated for alcohol withdrawal and I suspect that the majority of his issues right now are related to uremic encephalopathy as his BUN remains significantly elevated and is not significantly moved. At this point in time we will hold off on additional benzodiazepines. Will defer to neurology as to whether or not renal replacement may be indicated to improve the patient's significant uremia. Ammonia level has been normal. TSH was normal on presentation. EEG with nonspecific slowing secondary to metabolic encephalopathy and MRI of the brain unrevealing. No indication for lumbar puncture currently. Continue high-dose thiamine and folate Pulmonary: Patient without any significant pulmonary issues at this time. Cardiovascular: Patient with severe nonischemic cardiomyopathy with EF 25% likely due to alcohol abuse. He is now off pressors. Gastrointestinal: Continue Protonix 40 mg twice daily due to concerns of GI bleed on admission. Hemoglobin stable. No active signs of bleeding at this time. GI consultation noted. Maintain n.p.o. status. Renal: Patient with severe PETER per nephrology. Again suspect his significant uremia may be contributing to his encephalopathy. Infectious disease: Urine and blood cultures negative to date. Off antibiotics. Patient afebrile. Hematologic: Patient with anemia and thrombocytopenia likely from alcoholism. Holding chemic al DVT prophylaxis at this time. Endocrine: Maintain euglycemia. Hold home diabetic medications. Lines and tubes: Peripheral IVs and Bernal catheter in place. VTE prophylaxis: SCDs CODE STATUS: Full Family at bedside: None available at bedside Disposition: Patient is not requiring vasoactive medications or significant IV sedative medications. Will discuss with nursing and hospitalist to see whether or not he is appropriate to transition out of the intensive care unit at this point in time. Admission and Anticipated Discharge Date Admission Date: July 08, 2023 Subjective Patient seen and examined. EMR reviewed. Discussed with off going meeting specialist and with bedside critical care nurse as well as on multidisciplinary rounds. Patient remains significantly encephalopathic. He did receive Ativan twice overnight for agitation. His sensorium is not really cleared in the last several days. He has been hemodynamically stable and off pressors. Review of Systems Review of Systems: Unobtainable due to reduced consciousness Physical Exam Constitutional: WD/WN, vitals as above Neck: trachea midline, no thyromegaly Respiratory: normal respiratory effort, lungs clear to auscultation Cardiovascular: RRR, no murmur, no edema Gastrointestinal (Abdomen): normal bowel sounds, soft, nontender, no hepatosplenomegaly Musculoskeletal: Extremities: extremities normal to inspection Skin: no rashes, warm and dry Neurologic: Encephalopathic Lymphatic: no cervical lymphadenopathy Results & Data Results & Data Vital Signs (Past 12 Hours) Vital Signs Temp Pulse Resp BP Pulse Ox O2 Del Method O2 Flow Rate 07/12/23 07:00 112 H 23 104/70 99 Nasal Cannula 2 07/12/23 07:00 36.8 C 07/12/23 06:31 127 H 20 120/99 99 Nasal Cannula 2 07/12/23 06:00 121 H 16 93 07/12/23 05:00 116 H 53 H 100 07/12/23 05:00 113/85 07/12/23 04:30 112/86 07/12/23 04:30 112 H 24 99 07/12/23 04:01 136/81 07/12/23 04:01 23 98 07/12/23 04:00 21 99 07/12/23 03:32 119 H 23 96 07/12/23 03:32 138/78 07/12/23 03:00 106/81 07/12/23 03:00 124 H 31 H 95 07/12/23 02:43 22 93 07/12/23 02:43 119/88 07/12/23 02:30 107/75 07/12/23 02:30 107 H 17 97 07/12/23 02:00 130/67 07/12/23 02:00 110 H 19 97 07/12/23 01:31 109 H 19 96 07/12/23 01:31 123/75 07/12/23 01:00 109/62 07/12/23 01:00 108 H 19 97 04/06/24 00:31 111 H 20 95 04/06/24 00:31 106/67 07/12/23 00:01 117 H 22 97 07/12/23 00:01 145/71 H 07/12/23 00:00 19 97 07/12/23 00:00 111 H 07/11/23 23:30 114 H 23 97 07/11/23 23:30 103/61 07/11/23 23:00 113 H 20 95 07/11/23 23:00 116/70 07/11/23 22:30 106/77 07/11/23 22:30 116 H 19 96 07/11/23 22:00 86/71 L 07/11/23 22:00 113 H 20 95 07/11/23 21:01 126 H 27 H 98 07/11/23 21:01 139/52 L 07/11/23 21:00 141 H 22 97 07/11/23 20:54 Nasal Cannula 3 07/11/23 20:42 124 H 23 95 07/11/23 20:42 142/78 H 07/11/23 20:01 106/75 07/11/23 20:01 122 H 23 96 07/11/23 20:00 36.7 C 07/11/23 20:00 131 H 30 H 98 Critical Care Results & Data Vital Signs (Past 12 Hours) Vital Signs Temp Pulse Resp BP Pulse Ox O2 Del Method O2 Flow Rate 07/12/23 07:00 112 H 23 104/70 99 Nasal Cannula 2 07/12/23 07:00 36.8 C 07/12/23 06:31 127 H 20 120/99 99 Nasal Cannula 2 07/12/23 06:00 121 H 16 93 07/12/23 05:00 116 H 53 H 100 07/12/23 05:00 113/85 07/12/23 04:30 112/86 07/12/23 04:30 112 H 24 99 07/12/23 04:01 136/81 07/12/23 04:01 23 98 07/12/23 04:00 21 99 07/12/23 03:32 119 H 23 96 07/12/23 03:32 138/78 07/12/23 03:00 106/81 07/12/23 03:00 124 H 31 H 95 07/12/23 02:43 22 93 07/12/23 02:43 119/88 04/06/24 02:30 107/75 07/12/23 02:30 107 H 17 97 07/12/23 02:00 130/67 07/12/23 02:00 110 H 19 97 07/12/23 01:31 109 H 19 96 07/12/23 01:31 123/75 07/12/23 01:00 109/62 07/12/23 01:00 108 H 19 97 07/12/23 00:31 111 H 20 95 07/12/23 00:31 106/67 07/12/23 00:01 117 H 22 97 07/12/23 00:01 145/71 H 07/12/23 00:00 19 97 07/12/23 00:00 111 H 07/11/23 23:30 114 H 23 97 07/11/23 23:30 103/61 07/11/23 23:00 113 H 20 95 07/11/23 23:00 116/70 07/11/23 22:30 106/77 07/11/23 22:30 116 H 19 96 07/11/23 22:00 86/71 L 07/11/23 22:00 113 H 20 95 07/11/23 21:01 126 H 27 H 98 07/11/23 21:01 139/52 L 07/11/23 21:00 141 H 22 97 07/11/23 20:54 Nasal Cannula 3 07/11/23 20:42 124 H 23 95 07/11/23 20:42 142/78 H 07/11/23 20:01 106/75 07/11/23 20:01 122 H 23 96 07/11/23 20:00 36.7 C 07/11/23 20:00 131 H 30 H 98 Lab & Micro Results (Past 24 Hours) RBC 2.93 M/uL (4.70-6.10) L 07/12/23 WBC 6.19 K/ul (4.8-10.8) 07/12/23 Hgb 9.0 g/dl (14.0-18.0) L 07/12/23 Hct 27.4 % (42.0-52.0) L 07/12/23 MCV 93.5 fL (80.0-100.0) 07/12/23 MCH 30.7 pg (25.0-34.0) 07/12/23 MCHC 32.8 g/dL (32.0-36.0) 07/12/23 RDW Standard Deviation 50.2 fL (36.4-46.3) H 07/12/23 RDW Coefficient of Variation 14.7 % (11.5-14.5) H 07/12/23 Plt Count 83 K/uL (130-400) L 07/12/23 MPV 12.1 fL (9.4-12.4) 07/12/23 Na 143 mmol/L (136-145) 07/12/23 K 4.0 mmol/L (3.5-5.1) 07/12/23 Cl 105 mmol/L (98-107) 07/12/23 CO2 25 mmol/L (21-32) 07/12/23 Anion Gap 13 (3-11) H 07/12/23 BUN 120 mg/dl (6-23) H 07/12/23 Creatinine 4.81 mg/dl (0.6-1.4) H* 07/12/23 Estimated GFR ( Amer) 13.2 ml/min 07/12/23 Estimated GFR (Non-Af Amer) 11.4 ml/min 07/12/23 BUN/Creatinine Ratio 24.9 (10-20) H 07/12/23 Glu 154 mg/dl (70-99(Fasting)) H 07/12/23 Ca 9.3 mg/dl (8.6-10.3) 07/12/23 Phosphorus Level 4.8 mg/dl (2.5-4.9) 07/12/23 Total Bilirubin 0.7 mg/dl (0.2-1.0) 07/12/23 AST 34 U/L (13-39) 07/12/23 ALT 17 U/L (7-52) 07/12/23 Alkaline Phosphatase 79 U/L (34-104) 07/12/23 TP 6.6 gm/dl (6.0-8.3) 07/12/23 Albumin 3.3 gm/dl (3.4-5.0) L 07/12/23 Globulin 3.3 gm/dl (2.5-4.0) 07/12/23 Albumin/Globulin Ratio 1.0 (0.9-2) 07/12/23 Mg 2.2 mg/dl (1.7-2.4) 07/12/23 03:31 Calcium Level 9.3 mg/dl (8.6-10.3) 07/12/23 03:31 Diagnostic Findings (Past 24 Hours) Hip/Pelvis X-Ray 07/10/23 12:25 XR hip LT 2V w pelvis CLINICAL HISTORY: Left hip pain. COMPARISON: CT of the abdomen and pelvis July 08, 2023. FINDINGS: Bernal catheter within the bladder is incidentally noted. Sacroiliac joints and symphysis pubis are intact. No acute fracture within the pelvis or hips is identified. No suspicious osseous lesions are present. There is moderate joint space narrowing and osteophytosis of the left hip. There is mild to moderate right hip osteoarthritis. No evidence for avascular necrosis of the left femoral head. IMPRESSION: 1. No fractures within the pelvis or hips. 2. Moderate left hip osteoarthritis. ACT 112: Negative or not required by law. Electronically signed by: Gunnar Young M.D. 07/11/2023 9:37 AM Knee X-Ray 07/10/23 12:25 XR knee LT 1 or 2V routine CLINICAL HISTORY: Left knee pain. COMPARISON: None FINDINGS: Alignment of the left knee is anatomic. There is no acute fracture. There are no osseous lesions. Possible small left knee joint effusion. Joint spaces are preserved. There is mild left knee osteophytosis. IMPRESSION: 1. No fractures within the left knee. 2. Mild degenerative changes within the left knee. 3. Possible small left knee joint effusion. ACT 112: Negative or not required by law. Electronically signed by: Gunnar Young M.D. 07/11/2023 9:13 AM I & O Totals 24 Hours 07/11/23 07/12/23 07/13/23 06:59 06:59 06:59 Intake Total 3119.990 / 3119.990 1106.333 / 1106.333 55 / 55 Output Total 1040 / 1040 845 / 845 Balance 2079.990 / 2079.990 261.333 / 261.333 55 / 55 Cumulative 07/08/23 14:43 thru 07/12/23 07:03 Intake Total 8847.990 Output Total 4285 Balance 4562.990 RT Ventilator Mngmt (Last Documented) Ventilator Ordered Settings Respiratory Rate 23 07/12/23 07:00 Ventilator - PT Measurements Respiratory Rate 23 Coding Level of Care Code 25234 SUB INP/OBS CARE 3/50MIN Diagnoses Delirium tremens F10.931 Acute renal failure (ARF) N17.9 Nonischemic cardiomyopathy I42.8 Type 2 diabetes mellitus with obesity E11.69; E66.9 Hyperkalemia E87.5
[2023-07-12] MEDS: THIAMINE HCL 200 MG in SODIUM CHLORIDE 0.9% 50 ML IV SCH (09:45)
--- NOTE | 2023-07-12 12:14 | Nephrology Progress Note ---
Date of Service July 12, 2023 Assessment & Plan Admission and Anticipated Discharge Date Admission Date: July 08, 2023 Subjective Assessment & Plan (1) Acute renal failure (ARF): PETER severe type---etiology likely severe pre renal but definitely some Component of ATN. Given his poor baseline health PETER wont resolve quick. On CXR, exam and CT --no e/o fluid overload at all but have to be mindful of his LVEF 25%. He was on Jardiance and if he really was not eating drinking much he can get severely dehydrated with ongoing Osmotic diuresis. Slowly getting better. There was Sig ATN also and that is why we are seeing slow decline of Creat. Good urine. Still agitated and confused--Alcohol withdrawal + uremic encephalopathy. He will be much higher risk than usual for dysequilibrium syndrome if we do dialysis. Agree with no Iv fluid Check CMP, Phos and Mag and CBC daily. mag ad phos normal. (2) Hyperkalemia: Now normal. D/c Gabriel Dickens---has severe agitation and alcohol withdrawal. Still in ICU. Still agitated and Encephalopathic. Labs better slowly. Making lot of urine. Physical Exam Physical Exam: General- confused.restless. very flushed face Head- atraumatic. Normocephalic MM--dry Neck- supple, no JVD. Lungs- clear to auscultation no wheezing or crackles. Heart- regular rhythm; no murmur, no gallop. Abdomen- normal bowel sounds, soft, nontender, no distension Extremities- no pretibial edema, no rash seen Neuro- Confused and agitated. Results & Data Vital Signs (Past 12 Hours) Vital Signs Temp Pulse Resp BP Pulse Ox O2 Del Method O2 Flow Rate 07/12/23 11:01 124 H 19 127/89 100 Nasal Cannula 2 07/12/23 10:40 112 H 07/12/23 10:36 115 H 22 100/77 98 Nasal Cannula 2 07/12/23 10:00 121 H 22 99 07/12/23 10:00 135/98 07/12/23 09:31 119 H 25 H 92 07/12/23 09:31 126/80 07/12/23 09:01 121 H 24 98 07/12/23 09:01 114/78 07/12/23 09:00 120 H 28 H 98 07/12/23 08:34 123 H 25 H 97 07/12/23 08:34 112/76 07/12/23 08:29 129 H 21 98 07/12/23 08:01 88/62 L 07/12/23 08:01 108 H 25 H 98 07/12/23 08:00 77/61 L 07/12/23 08:00 109 H 20 98 07/12/23 07:38 93/64 L 07/12/23 07:38 112 H 16 98 07/12/23 07:00 112 H 23 104/70 99 Nasal Cannula 2 07/12/23 07:00 36.8 C 07/12/23 06:31 127 H 20 120/99 99 Nasal Cannula 2 07/12/23 06:00 121 H 16 93 07/12/23 05:00 116 H 53 H 100 07/12/23 05:00 113/85 07/12/23 04:30 112/86 07/12/23 04:30 112 H 24 99 07/12/23 04:01 136/81 07/12/23 04:01 23 98 07/12/23 04:00 21 99 07/12/23 03:32 119 H 23 96 07/12/23 03:32 138/78 07/12/23 03:00 106/81 07/12/23 03:00 124 H 31 H 95 07/12/23 02:43 22 93 07/12/23 02:43 119/88 07/12/23 02:30 107/75 07/12/23 02:30 107 H 17 97 07/12/23 02:00 130/67 07/12/23 02:00 110 H 19 97 07/12/23 01:31 109 H 19 96 07/12/23 01:31 123/75 07/12/23 01:00 109/62 07/12/23 01:00 108 H 19 97 07/12/23 00:31 111 H 20 95 07/12/23 00:31 106/67
[2023-07-12] MEDS: NEOMYCIN/POLYMYXIN/HYDROCORT OPH SUSP 7.5 ML BTL OP SCH (14:07)
[2023-07-12] MEDS: LORazepam 0.5 MG in SYRINGE 0.25 ML IV PRN (14:13)
--- NOTE | 2023-07-12 14:18 | Hospitalist Progress Note ---
Date of Service July 12, 2023 Assessment & Plan (1) Encephalopathy: Plan: 68 yo M w/ PMH of T2DM, HLD, nonischemic CM, chronic systolic CHF/April 2023 echo with EF of 25%, HTN, PVCs, first-degree block, intraventricular conduction defect, thrombocytopenia, alcoholism was brought in because of confusion and found to have PETER and hyperkalemia at ED. 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 Patient was noted to having some tremors. On the day of presentation, patient was noted to be very weak and not even able to walk, EMS was called on him [by his brother] and he was brought to the hospital. At presentation patient noted oriented x 1, denied headache or chest pain. But not able to answer any other questions per H&P note. Per H&P note, appears last drink was before Easter. Per patient's brother, he drinks wine and vodka and sometimes beer. Blood was noted in the stool at ED. Patient was noted to be shaky. He is being managed for the following: Acute metabolic encephalopathy Delirium tremens secondary to alcohol withdrawal Complicated by uremia Patient was brought in due to increasing confusion noted at home, tremors and poor po intake ISO alcohol abuse history. Patient noted to be uremic, in PETER, hyperkalemia, possible alcohol withdrawal at presentation with significant dehydration Continue with BELKIS S protocol, folic acid, thiamine, multivitamins as able. Condition got worse and she was transferred to ICU Condition has not improved much and he remains acutely confused with occasional agitation Appreciate dukey rider input and recommendation Has been on intravenous Ativan to control withdrawal symptoms Acute kidney injury Hyperkalemia Uremia Severe PETER noted at presentation, creatinine 7.93. Baseline creatinine appears around 1.2. At presentation potassium of 5.9 and BUN of 175. Appreciate nephrology input and recommendation Not a candidate for dialysis to avoid any disequilibrium syndrome Uremia has been improving and so is creatinine Expected to improve gradually Hypotension Noted prior to transfer to ICU Has been requiring intravenous norepinephrine to maintain blood pressure Appreciate dukey rider input and recommendation Patient started on clindamycin and aztreonam for possible infection at admission, UA/CXR/CTAP not suggestive of infection. Subsequent cultures came back to be negative and antibiotics were stopped Concern for seizure: At presentation, patient noted to have shaking and eyes rolling up, was given a dose of Ativan. Could be alcohol withdrawal versus seizure. EEG suggestive of nonspecific encephalopathy. Neurology evaluated, recommends MRI brain (no acute finding) and seizure precaution. Recommend no driving, DMV form signed. Seizure precaution. CXR and CTAP with no evidence of fluid overload. Echo this admission with EF of 25 to 30%. Nephrology on board, appreciate recs. Hold metformin, NSS, Jardiance, YANNA/ARB and other nephrotoxic's. Possible GI bleed: Some blood noted around his mouth at presentation, also blood noted in the stool at ED. Hemoglobin at presentation 9.8, hemoglobin 8.3 today, closely monitor H&H. Baseline hemoglobin around 11. GI evaluated-no evidence of GI bleeding., continue with Protonix drip for now. Aspirin on hold. Phone blood consent obtained from his brother at admission. Chronic systolic CHF: EF 25%, echo results -see above. Seems not on any diuretics. Getting fluids. Monitor for volume overload. Will not give any intravenous fluid to avoid any fluid overload Likely demand ischemia: Likely secondary to acute issues, troponin flat trended in high 30s. Echo with severe global hypokinesis of left ventricle, EF 25 to 30%. Continue telemetry monitoring. Other chronic medical conditions: Continue with/resume home meds as and when able. Hypertension: Hold his losartan and metoprolol succinate. As needed IV Lopressor for BP management. Patient n.p.o./confused/obtunded/with PETER. T2DM: A1c of 8.8 on 07/09/23. 8.4 on 09/27/22. Hold metformin and Jardiance. Sliding scale insulin while in hospital. visual educator when more awake. Gout: Restart allopurinol when able. Hyperlipidemia: Restart Crestor when able. CPK at presentation 86. Thrombocytopenia: Continue to monitor. DVT prophylaxis: SCDs Full code Given phone call to Pt's brother Tish Sarkar [[phone]] on 07/09- updated pt's brother tish, discussed about all of the above points and management undergoing. Answered all his questions. Admission and Anticipated Discharge Date Admission Date: July 08, 2023 Subjective 07/12/2023 The patient was seen and examined in ICU He remains unconscious with frequent nonspecific movements of the extremities an d head Remains hemodynamically stable with tachycardia Review of Systems Review of Systems: Unobtainable due to cognitive status Physical Exam Physical Exam: Lying in bed with acute distress. Nonspecific movements of the extremities and head with eyes closed Constitutional: well developed, well nourished, + ill appearing and + obese Eyes: Eyes are closed Neck: trachea midline, no thyromegaly Respiratory: no respiratory distress Auscultation: + diminished lung sounds; no crackles Cardiovascular: Rate/Rhythm: regular rate, regular rhythm and + tachycardic Heart Sounds: normal S1 and normal S2; no murmur Extremities: no edema Gastrointestinal (Abdomen): Inspection/Auscultation: normal bowel sounds; abdomen not distended Percussion/Palpation: abdomen soft; abdomen nontender Musculoskeletal: No acute arthritis involving any of the joint Neurologic: Alert and awake. Abnormal movements involving the extremities and head. Noncommunicative. Lymphatic: no cervical or axillary lymphadenopathy Results & Data Results & Data Vital Signs (Past 12 Hours) Vital Signs Temp Pulse Resp BP Pulse Ox O2 Del Method O2 Flow Rate 07/12/23 13:30 108 H 20 103/71 98 Nasal Cannula 2 07/12/23 13:01 123 H 26 H 125/82 99 Nasal Cannula 2 07/12/23 13:00 135 H 26 H 98 07/12/23 12:32 120 H 21 99 07/12/23 12:32 123/87 07/12/23 12:00 36.8 C 07/12/23 12:00 121 H 20 98 07/12/23 12:00 128/80 07/12/23 11:31 121 H 20 99 07/12/23 11:31 115/82 07/12/23 11:01 124 H 19 127/89 100 Nasal Cannula 2 07/12/23 10:40 112 H 07/12/23 10:36 115 H 22 100/77 98 Nasal Cannula 2 07/12/23 10:00 121 H 22 99 07/12/23 10:00 135/98 07/12/23 09:31 119 H 25 H 92 07/12/23 09:31 126/80 07/12/23 09:01 121 H 24 98 07/12/23 09:01 114/78 07/12/23 09:00 120 H 28 H 98 07/12/23 08:34 123 H 25 H 97 07/12/23 08:34 112/76 07/12/23 08:29 129 H 21 98 07/12/23 08:01 88/62 L 07/12/23 08:01 108 H 25 H 98 07/12/23 08:00 77/61 L 07/12/23 08:00 109 H 20 98 07/12/23 07:38 93/64 L 07/12/23 07:38 112 H 16 98 07/12/23 07:00 Room Air 07/12/23 07:00 112 H 23 104/70 99 Nasal Cannula 2 07/12/23 07:00 36.8 C 07/12/23 06:31 127 H 20 120/99 99 Nasal Cannula 2 07/12/23 06:00 121 H 16 93 07/12/23 05:00 116 H 53 H 100 07/12/23 05:00 113/85 07/12/23 04:30 112/86 07/12/23 04:30 112 H 24 99 07/12/23 04:01 136/81 07/12/23 04:01 23 98 07/12/23 04:00 21 99 07/12/23 03:32 119 H 23 96 07/12/23 03:32 138/78 07/12/23 03:00 106/81 07/12/23 03:00 124 H 31 H 95 07/12/23 02:43 22 93 07/12/23 02:43 119/88 07/12/23 02:30 107/75 07/12/23 02:30 107 H 17 97 Laboratory Results Short CBC 07/12/23 Range/Units 03:31 WBC 6.19 (4.8-10.8) K/ul Hgb 9.0 L (14.0-18.0) g/dl Hct 27.4 L (42.0-52.0) % Plt Count 83 L (130-400) K/uL BMP 07/11/23 07/12/23 15:59 03:31 Sodium 140 143 Potassium 4.1 4.0 Chloride 104 105 Carbon Dioxide 25 25 BUN 122 H 120 H Creatinine 4.85 H* D 4.81 H* Glucose 155 H 154 H Calcium 9.0 9.3 Liver Function 07/12/23 Range/Units 03:31 Total Bilirubin 0.7 (0.2-1.0) mg/dl AST 34 (13-39) U/L ALT 17 (7-52) U/L Alkaline Phosphatase 79 (34-104) U/L Albumin 3.3 L (3.4-5.0) gm/dl Medications Administered Current Inpatient Medications Dextrose (Dextrose 50% 50 Ml Syringe) 25 - 50 ml IV UD PRN; Protocol PRN Reason: Hypoglycemia Protocol Stop: 08/07/23 22:40 Glucagon (Glucagon For Inj 1 Mg Vial) 1 mg SQ UD PRN; Protocol PRN Reason: Hypoglycemia Protocol Stop: 08/07/23 22:40 Glucose (Glucose 10 Tab/Tube) 4 - 8 tab PO UD PRN; Protocol PRN Reason: Hypoglycemia Treatment Stop: 08/07/23 22:40 Glucose (Glucose 40% Gel 15 Gm Tube) 15 - 30 gm PO UD PRN; Protocol PRN Reason: Hypoglycemia Protocol Stop: 08/07/23 22:40 Folic Acid 1 mg/ Syringe 10 mls @ 5 mls/min IV QAM [facility] Stop: 08/08/23 08:59 Last Admin: 07/12/23 09:06 Dose: 5 mls/min Norepinephrine Bitartrate (Levophed/D5w) 4 mg in 250 mls @ 0 mls/hr IV .Q0M [facility]; Protocol Stop: 08/09/23 19:14 Last Titration: 07/12/23 10:37 Dose: Infused Pantoprazole Sodium 40 mg/ (Syringe) 10 mls @ 5 mls/min IV Q12H [facility] Stop: 08/10/23 20:59 Last Admin: 07/12/23 09:06 Dose: 5 mls/min Thiamine HCl 200 mg/ Sodium (Chloride) 52 mls @ 210 mls/hr IV BID [facility] Stop: 08/11/23 08:59 Last Infusion: 07/12/23 10:37 Dose: Infused Lorazepam 0.5 mg/ Syringe 0.5 mls @ 2 mls/min IV Q4H PRN PRN Reason: Agitation Stop: 08/11/23 09:38 Insulin Aspart (Insulin Aspart Per Unit Charge) 0 units SC Q4 [facility] Stop: 08/07/23 22:59 Last Admin: 07/12/23 11:18 Dose: Not Given Miconazole Nitrate (Miconazole Nitrate Powder 85 Gm) 1 appln EXT PRN PRN PRN Reason: Affected Skin Folds Stop: 08/08/23 22:55 Last Admin: 07/09/23 23:19 Dose: 1 appln Miscellaneous (Carbohydrates For Hypoglycemia ) 15 - 30 gm PO UD PRN PRN Reason: Hypoglycemia Protocol Stop: 08/07/23 22:40 Neomycin/Polymyxin/Hydrocortisone (Neomycin/Polymyxin/Hydrocort Oph Susp 7.5 Ml Btl) 1 drops OP Q8H [facility] Stop: 08/11/23 13:59 Nitroglycerin (Nitroglycerin Sl 0.4 Mg/Tab Tab) 0.4 mg SL Q5M PRN PRN Reason: Chest Pain Stop: 08/07/23 22:40
--- NOTE | 2023-07-12 18:19 | Neurology Progress Note ---
Date of Service July 12, 2023 Assessment & Plan (1) Encephalopathy: Plan 68 y/o male with history of DM, HLD, HTN, alcohol use, and heart failure that presented with two day history of encephalopathy, found to have acute renal failure, anemia, and thrombocytopenia. Pt tremulous at presentation and possible alcohol withdrawal has been suspected. Episode in ED of shaking with eyes rolled back, for which ativan was given due to concern for seizure. No additional events reported. EEG suggestive of encephalopathy. MRI brain with motion artifact but no evidence of acute intracranial findings. Possible alcohol withdrawal and uremic encephalopathy likely largely contributing to mentation. Creatinine and BUN slowly downtrending. Nephrology is concerned that he would be at high risk for dysequilibrium syndrome with dialysis. Clinically, his neurological exam does not appear to yet be improving. 1. If any concern for infection, low threshold for LP 2. Seizure precautions 3. On thiamine 200 mg bid 4. Re-engage neurology and obtain CTH for any decline in neurological exam or additional events 5. Neurology will continue to follow Subjective Telehealth Information I performed this visit using a real-time telehealth connection between my location and the patients location ([facility]). After connecting through interactive tele-video, patient was identified by name and date of and/or wristband check.Patient (or authorized healthcare marketing representative) was informed that this was a telemedicine visit and it was being conducted confidentially over secure lines. My office door was closed and no one else was present in the room with me.Patient (or authorized healthcare marketing representative) provided consent to proceed with the visit, expressed an understanding of privacy and security of the telemedicine visit, and gave permission to have a hospital marketing representative in the room in order to assist with the visit and to conduct portions of the visit, as needed. I informed the patient (or authorized healthcare marketing representative) that I reviewed their record and presented the opportunity for them to ask any questions regarding the visit today. The patient agreed to participate. Pt does not contribute to history. His nurse states that due to agitation with the patient pulling at items, he was given ativan 0.5 mg 30 minutes prior to my examination. Physical Exam Opens eyes briefly spontaneously No gaze deviation Oriented to self, able to respond that his name is Baldo on questioning Follows simple commands intermittently No facial asymmetry Moves bilateral upper extremities antigravity spontaneously, moves bilateral lower extremities spontaneously within plane of bed Mild high frequency low amplitude tremor intermittently Results & Data Vital Signs (Past 12 Hours) Vital Signs Temp Pulse Resp BP Pulse Ox O2 Del Method O2 Flow Rate 07/12/23 17:00 117 H 22 115/87 99 Nasal Cannula 2 07/12/23 16:44 121 H 07/12/23 16:00 109 H 30 H 99 Room Air 07/12/23 16:00 98/82 L 07/12/23 15:01 124 H 30 H 97 07/12/23 15:01 118/67 07/12/23 15:00 124 H 20 99 07/12/23 14:00 124/84 07/12/23 14:00 153 H 28 H 100 07/12/23 13:30 108 H 20 103/71 98 Nasal Cannula 2 07/12/23 13:01 123 H 26 H 125/82 99 Nasal Cannula 2 07/12/23 13:00 135 H 26 H 98 07/12/23 12:32 120 H 21 99 07/12/23 12:32 123/87 07/12/23 12:00 36.8 C 07/12/23 12:00 121 H 20 98 07/12/23 12:00 128/80 07/12/23 11:31 121 H 20 99 07/12/23 11:31 115/82 07/12/23 11:01 124 H 19 127/89 100 Nasal Cannula 2 07/12/23 10:40 112 H 07/12/23 10:36 115 H 22 100/77 98 Nasal Cannula 2 07/12/23 10:00 121 H 22 99 07/12/23 10:00 135/98 07/12/23 09:31 119 H 25 H 92 07/12/23 09:31 126/80 07/12/23 09:01 121 H 24 98 07/12/23 09:01 114/78 07/12/23 09:00 120 H 28 H 98 07/12/23 08:34 123 H 25 H 97 07/12/23 08:34 112/76 07/12/23 08:29 129 H 21 98 07/12/23 08:01 88/62 L 07/12/23 08:01 108 H 25 H 98 07/12/23 08:00 77/61 L 07/12/23 08:00 109 H 20 98 07/12/23 07:38 93/64 L 07/12/23 07:38 112 H 16 98 07/12/23 07:00 Room Air 07/12/23 07:00 112 H 23 104/70 99 Nasal Cannula 2 07/12/23 07:00 36.8 C 07/12/23 06:31 127 H 20 120/99 99 Nasal Cannula 2 Laboratory Results WBC 6.19, HGB 9.0, HCT 27.4, Plts 83, Sodium 143, Potassium 4.0, Chloride 105, Carbon Dioxide 25, BUN 120, Creatinine 4.81, Glucose 154, Magnesium 2.2, Phosphorous 4.8, AST 34, ALT 17, alkaline phosphatase 79, albumin 3.3, blood cultures with no growth, urine culture no growth Diagnostic Findings EEG: IMPRESSION: This is an abnormal EEG in a patient with altered mentation due to severe background suppression suggestive of nonspecific encephalopathy. MRI Brain: No evidence of acute intracranial pathology in this limited study.
[2023-07-13 03:43] LABS: Basophils # (auto) 0.02 K/uL (0.00-0.20); Basophils % (auto) 0.5 %; Eosinophils # (auto) 0.17 K/uL (0.00-0.50); Eosinophils % (auto) 3.9 %; Hematocrit (blood only) 27.3 % (42.0-52.0); Hemoglobin 9.2 g/dl (14.0-18.0); Immature Granulocytes % (auto) 2.3 %; Lymphocytes # (auto) 0.37 K/uL (1.20-3.40); Lymphocytes % (auto) 8.4 %; Mean Corpuscular Hemoglobin 31.2 pg (25.0-34.0); Mean Corpuscular Hgb Conc 33.7 g/dL (32.0-36.0); Mean Corpuscular Volume 92.5 fL (80.0-100.0); Mean Platelet Volume 12.5 fL (9.4-12.4); Monocytes # (auto) 0.99 K/uL (0.11-0.59); Monocytes % (auto) 22.6 %; Neutrophils # (auto) 2.73 K/uL (1.40-6.50); Neutrophils % (auto) 62.3 %; Platelet Count 87 K/uL (130-400); RDW Coefficient of Variation 14.9 % (11.5-14.5); RDW Standard Deviation 50.3 fL (36.4-46.3); Red Blood Count 2.95 M/uL (4.70-6.10); White Blood Count 4.38 K/ul (4.8-10.8)
[2023-07-13 03:53] LABS: Albumin Level 3.3 gm/dl (3.4-5.0); BUN Creatinine Ratio 27.1 (10-20); Bilirubin,Total 0.7 mg/dl (0.2-1.0); Calcium 9.6 mg/dl (8.6-10.3); Creatinine Clr Calc Pharmacy 20.5 ml/min; Est GFR (African American) 15.8 ml/min; Est GFR (Non-African American) 13.6 ml/min; Globulin 3.4 gm/dl (2.5-4.0); Magnesium 2.1 mg/dl (1.7-2.4); Phosphorus 4.2 mg/dl (2.5-4.9); Potassium 3.9 mmol/L (3.5-5.1); Total Protein 6.7 gm/dl (6.0-8.3)
--- NOTE | 2023-07-13 08:20 | Critical Care Progress Note ---
Date of Service July 13, 2023 Assessment & Plan (1) Delirium tremens: (2) Acute renal failure (ARF): (3) Nonischemic cardiomyopathy: (4) Type 2 diabetes mellitus with obesity: (5) Hyperkalemia: Plan Impression: 68-year-old male with a history of nonischemic cardiomyopathy, hypertension and diabetes mellitus who presents to the hospital due to severe delirium tremens and renal failure. 24-hour events: Minimal Ativan requirement over the last 24 hours. Occasionally agitated but remains essentially obtunded Recommendation Neurologic: Patient remains encephalopathic at this point in time. Has been aggressively treated for alcohol withdrawal and I suspect that the majority of his issues right now are related to uremic encephalopathy as his BUN remains significantly elevated and is not significantly moved. Agree with nephrology that the patient is at high risk for disequilibrium syndrome. At this point in time we will hold off on additional benzodiazepines. Will defer to neurology as to whether or not renal replacement may be indicated to improve the patient's significant uremia. Ammonia level has been normal. TSH was normal on presentation. EEG with nonspecific slowing secondary to metabolic encephalopathy and MRI of the brain unrevealing. No indication for lumbar puncture currently. Continue high-dose thiamine and folate Pulmonary: Patient without any significant pulmonary issues at this time. Cardiovascular: Patient with severe nonischemic cardiomyopathy with EF 25% likely due to alcohol abuse. He is now off pressors. Gastrointestinal: Continue Protonix 40 mg twice daily due to concerns of GI bleed on admission. Hemoglobin stable. No active signs of bleeding at this time. GI consultation noted. Maintain n.p.o. status. Renal: Patient with severe PETER per nephrology. Again suspect his significant uremia may be contributing to his encephalopathy. Mildly hyponatremic today so we will start half-normal infusion to provide some free water Infectious disease: Urine and blood cultures negative to date. Off antibiotics. Patient afebrile. Hematologic: Patient with anemia and thrombocytopenia likely from alcoholism. Holding chemical DVT prophylaxis at this time. Endocrine: Maintain euglycemia. Hold home diabetic medications. Lines and tubes: Peripheral IVs and Bernal catheter in place. VTE prophylaxis: SCDs CODE STATUS: Full Family at bedside: None available at bedside Disposition: Patient is not requiring vasoactive medications or significant IV sedative medications. He does not have a critical care issue at this point in time and is appropriate to transfer to the floor. Critical care services will sign off. Feel free to contact us if additional critical care issues arise. Admission and Anticipated Discharge Date Admission Date: July 08, 2023 Subjective Patient seen and examined. EMR reviewed. Discussed with bedside critical care nurse and on multidisciplinary rounds as well as with overnight critical care NAKIA. Patient remains encephalopathic. He required minimal Ativan overnight. He occasionally is slightly impulsive but for the most part just remains slightly obtunded. Continued to be seen by neurology. Review of Systems Review of Systems: Unobtainable due to reduced consciousness Physical Exam Constitutional: WD/WN, vitals as above Neck: trachea midline, no thyromegaly Respiratory: normal respiratory effort, lungs clear to auscultation Cardiovascular: RRR, no murmur, no edema Gastrointestinal (Abdomen): normal bowel sounds, soft, nontender, no hepatosplenomegaly Musculoskeletal: Extremities: extremities normal to inspection Skin: no rashes, warm and dry Lymphatic: no cervical lymphadenopathy Results & Data Results & Data Vital Signs (Past 12 Hours) Vital Signs Temp Pulse Resp BP Pulse Ox 07/13/23 06:00 116 H 17 95 07/13/23 06:00 115/72 07/13/23 05:00 127 H 22 97 07/13/23 04:00 119/78 07/13/23 04:00 119 H 20 97 07/13/23 03:00 136/72 07/13/23 03:00 118 H 23 98 07/13/23 02:00 131 H 20 96 07/13/23 02:00 125/68 07/13/23 01:01 119 H 22 97 07/13/23 01:01 110/76 07/13/23 01:00 120 H 24 100 07/13/23 00:00 108 H 15 96 07/13/23 00:00 121/84 07/13/23 00:00 99 H 07/12/23 23:00 114/64 07/12/23 23:00 106 H 17 97 07/12/23 22:00 107 H 29 H 98 07/12/23 22:00 89/74 L 07/12/23 21:02 122 H 16 100 07/12/23 21:02 140/87 07/12/23 21:00 118 H 18 99 07/12/23 21:00 37.1 C Critical Care Results & Data Vital Signs (Past 12 Hours) Vital Signs Temp Pulse Resp BP Pulse Ox 07/13/23 06:00 116 H 17 95 07/13/23 06:00 115/72 07/13/23 05:00 127 H 22 97 07/13/23 04:00 119/78 07/13/23 04:00 119 H 20 97 07/13/23 03:00 136/72 07/13/23 03:00 118 H 23 98 07/13/23 02:00 131 H 20 96 07/13/23 02:00 125/68 07/13/23 01:01 119 H 22 97 07/13/23 01:01 110/76 07/13/23 01:00 120 H 24 100 07/13/23 00:00 108 H 15 96 07/13/23 00:00 121/84 07/13/23 00:00 99 H 07/12/23 23:00 114/64 07/12/23 23:00 106 H 17 97 07/12/23 22:00 107 H 29 H 98 07/12/23 22:00 89/74 L 07/12/23 21:02 122 H 16 100 07/12/23 21:02 140/87 07/12/23 21:00 118 H 18 99 07/12/23 21:00 37.1 C Lab & Micro Results (Past 24 Hours) RBC 2.95 M/uL (4.70-6.10) L 07/13/23 WBC 4.38 K/ul (4.8-10.8) L 07/13/23 Hgb 9.2 g/dl (14.0-18.0) L 07/13/23 Hct 27.3 % (42.0-52.0) L 07/13/23 MCV 92.5 fL (80.0-100.0) 07/13/23 MCH 31.2 pg (25.0-34.0) 07/13/23 MCHC 33.7 g/dL (32.0-36.0) 07/13/23 RDW Standard Deviation 50.3 fL (36.4-46.3) H 07/13/23 RDW Coefficient of Variation 14.9 % (11.5-14.5) H 07/13/23 Plt Count 87 K/uL (130-400) L 07/13/23 MPV 12.5 fL (9.4-12.4) H 07/13/23 Neutrophils (%) (Auto) 62.3 % 07/13/23 Lymphocytes (%) (Auto) 8.4 % 07/13/23 Monocytes # (Auto) 0.99 K/uL (0.11-0.59) H 07/13/23 Eosinophils # (Auto) 0.17 K/uL (0.00-0.50) 07/13/23 Immature Granulocyte % (Auto) 2.3 % 07/13/23 Neutrophils # (Auto) 2.73 K/uL (1.40-6.50) 07/13/23 Lymphocytes # (Auto) 0.37 K/uL (1.20-3.40) L 07/13/23 Monocytes # (Auto) 0.99 K/uL (0.11-0.59) H 07/13/23 Eosinophils # (Auto) 0.17 K/uL (0.00-0.50) 07/13/23 Basophils # (Auto) 0.02 K/uL (0.00-0.20) 07/13/23 Immature Granulocyte # (Auto) 0.10 K/uL (0.01-0.20) 4 Na 148 mmol/L (136-145) H 07/13/23 K 3.9 mmol/L (3.5-5.1) 07/13/23 Cl 110 mmol/L (98-107) H 07/13/23 CO2 24 mmol/L (21-32) 07/13/23 Anion Gap 14 (3-11) H 07/13/23 BUN 112 mg/dl (6-23) H 07/13/23 Creatinine 4.14 mg/dl (0.6-1.4) H 07/13/23 Estimated GFR ( Amer) 15.8 ml/min 07/13/23 Estimated GFR (Non-Af Amer) 13.6 ml/min 07/13/23 BUN/Creatinine Ratio 27.1 (10-20) H 07/13/23 Glu 148 mg/dl (70-99(Fasting)) H 07/13/23 Ca 9.6 mg/dl (8.6-10.3) 07/13/23 Phosphorus Level 4.2 mg/dl (2.5-4.9) 07/13/23 Total Bilirubin 0.7 mg/dl (0.2-1.0) 07/13/23 AST 39 U/L (13-39) 07/13/23 ALT 20 U/L (7-52) 07/13/23 Alkaline Phosphatase 78 U/L (34-104) 07/13/23 TP 6.7 gm/dl (6.0-8.3) 07/13/23 Albumin 3.3 gm/dl (3.4-5.0) L 07/13/23 Globulin 3.4 gm/dl (2.5-4.0) 07/13/23 Albumin/Globulin Ratio 1.0 (0.9-2) 07/13/23 Mg 2.1 mg/dl (1.7-2.4) 07/13/23 03:21 Calcium Level 9.6 mg/dl (8.6-10.3) 07/13/23 03:21 I & O Totals 24 Hours 07/12/23 07/13/23 07/14/23 06:59 06:59 06:59 Intake Total 1106.333 / 1106.333 159 / 159 Output Total 845 / 845 1984 Balance 261.333 / 261.333 -1826 / -1826 Cumulative 07/08/23 14:43 thru 07/13/23 06:00 Intake Total 8951.990 Output Total 6270 Balance 2681.990 RT Ventilator Mngmt (Last Documented) Ventilator Ordered Settings Respiratory Rate 17 07/13/23 06:00 Ventilator - PT Measurements Respiratory Rate 17 Coding Level of Care Code 81606 SUB INP/OBS CARE 2/35MIN Diagnoses Delirium tremens F10.931 Acute renal failure (ARF) N17.9 Nonischemic cardiomyopathy I42.8 Type 2 diabetes mellitus with obesity E11.69; E66.9 Hyperkalemia E87.5
[2023-07-13] MEDS ORDERED: THIAMINE HCL 200 MG in SODIUM CHLORIDE 0.9% 50 ML IV SCH (09:00)
[2023-07-13] MEDS: DEXTROSE 5% 1,000 ML IV SCH ×2 (11:22→12:01)
[2023-07-13] MEDS: SODIUM CHLORIDE 0.45 % 1,000 ML IV SCH (11:43)
--- NOTE | 2023-07-13 12:40 | Nephrology Progress Note ---
Date of Service July 13, 2023 Assessment & Plan Admission and Anticipated Discharge Date Admission Date: July 08, 2023 Subjective Assessment & Plan (1) Acute renal failure (ARF): PETER severe type---etiology likely severe pre renal but definitely some Component of ATN. Given his poor baseline health PETER wont resolve quick. On CXR, exam and CT --no e/o fluid overload at all but have to be mindful of his LVEF 25%. He was on Jardiance and if he really was not eating drinking much he can get severely dehydrated with ongoing Osmotic diuresis. Slowly getting better. There was Sig ATN also and that is why we are seeing slow decline of BUn and Creat. BUn is now 112 from 175. Good urine. Still agitated and confused--Alcohol withdrawal + uremic encephalopathy. worth noting that his Mental status was actually much better on admission when his BUN was 175 and Creat was 7 and then got worse. that is not consistent with uremia. He will be much higher risk than usual for dysequilibrium syndrome if we do dialysis. No dialysis. Nothing to eat and drink for days so will give 1000 ml of d5w Check CMP, Phos and Mag and CBC daily. mag ad phos normal. (2) Hyperkalemia: Now normal. D/c Gabriel Dickens---has severe agitation and alcohol withdrawal/encephalopathy,. Still in ICU. Still agitated and Encephalopathic. Labs better slowly. Making lot of urine. Physical Exam Physical Exam: General- confused.restless. very flushed face Head- atraumatic. Normocephalic MM--dry Neck- supple, no JVD. Lungs- clear to auscultation no wheezing or crackles. Heart- regular rhythm; no murmur, no gallop. Abdomen- normal bowel sounds, soft, nontender, no distension Extremities- no pretibial edema, no rash seen Neuro- Confused and agitated. Results & Data Vital Signs (Past 12 Hours) Vital Signs Temp Pulse Resp BP Pulse Ox O2 Del Method 07/13/23 12:12 113 H 17 91/68 L 96 Room Air 07/13/23 12:02 115 H 17 85/43 L 98 Room Air 07/13/23 11:00 116 H 21 125/72 96 Room Air 07/13/23 10:00 119 H 19 123/74 97 Room Air 07/13/23 09:00 117 H 22 121/63 95 07/13/23 08:00 119 H 17 126/71 94 Room Air 07/13/23 08:00 Room Air 07/13/23 08:00 37.0 C 07/13/23 07:00 127 H 20 113/82 97 Room Air 07/13/23 06:00 116 H 17 95 07/13/23 06:00 115/72 07/13/23 05:00 127 H 22 97 07/13/23 04:00 119/78 07/13/23 04:00 119 H 20 97 07/13/23 03:00 136/72 07/13/23 03:00 118 H 23 98 07/13/23 02:00 131 H 20 96 07/13/23 02:00 125/68 07/13/23 01:01 119 H 22 97 07/13/23 01:01 110/76 07/13/23 01:00 120 H 24 100
--- NOTE | 2023-07-13 13:12 | Hospitalist Progress Note ---
Date of Service July 13, 2023 Assessment & Plan (1) Encephalopathy: Plan: 68 yo M w/ PMH of T2DM, HLD, nonischemic CM, chronic systolic CHF/April 2023 echo with EF of 25%, HTN, PVCs, first-degree block, intraventricular conduction defect, thrombocytopenia, alcoholism was brought in because of confusion and found to have PETER and hyperkalemia at ED. 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 Patient was noted to having some tremors. On the day of presentation, patient was noted to be very weak and not even able to walk, EMS was called on him [by his brother] and he was brought to the hospital. At presentation patient noted oriented x 1, denied headache or chest pain. But not able to answer any other questions per H&P note. Per H&P note, appears last drink was before Easter. Per patient's brother, he drinks wine and vodka and sometimes beer. Blood was noted in the stool at ED. Patient was noted to be shaky. He is being managed for the following: Acute metabolic encephalopathy Delirium tremens secondary to alcohol withdrawal Complicated by uremia Patient was brought in due to increasing confusion noted at home, tremors and poor po intake ISO alcohol abuse history. Patient noted to be uremic, in PETER, hyperkalemia, possible alcohol withdrawal at presentation with significant dehydration Continue with BELKIS S protocol, folic acid, thiamine, multivitamins as able. Condition got worse and she was transferred to ICU Condition has not improved much and he remains acutely confused with occasional agitation Appreciate auto garage attendant input and recommendation Has been on intravenous Ativan to control withdrawal symptoms Remains significant and cephalopathic-semiconscious and noncommunicative Not yet ready to get out of the ICU Acute kidney injury Hyperkalemia Uremia Severe PETER noted at presentation, creatinine 7.93. Baseline creatinine appears around 1.2. At presentation potassium of 5.9 and BUN of 175. Appreciate nephrology input and recommendation Not a candidate for dialysis to avoid any disequilibrium syndrome Uremia has been improving and so is creatinine Slightly better with BUN and creatinine today and the patient looks very dry Started with D5W at 50 cc an hour for high sodium and intravascular dehydration Hypotension Noted prior to transfer to ICU Has been requiring intravenous norepinephrine to maintain blood pressure Appreciate auto garage attendant input and recommendation Patient started on clindamycin and aztreonam for possible infection at admission, UA/CXR/CTAP not suggestive of infection. Subsequent cultures came back to be negative and antibiotics were stopped He is off pressors and the blood pressure remains on the lower side at 91/68 Concern for seizure: At presentation, patient noted to have shaking and eyes rolling up, was given a dose of Ativan. Could be alcohol withdrawal versus seizure. EEG suggestive of nonspecific encephalopathy. Neurology evaluated, recommends MRI brain (no acute finding) and seizure precaution. Recommend no driving, DMV form signed. Seizure precaution. CXR and CTAP with no evidence of fluid overload. Echo this admission with EF of 25 to 30%. Nephrology on board, appreciate recs. Hold metformin, NSS, Jardiance, YANNA/ARB and other nephrotoxic's. Possible GI bleed: Some blood noted around his mouth at presentation, also blood noted in the stool at ED. Hemoglobin at presentation 9.8, hemoglobin 8.3 today, closely monitor H&H. Baseline hemoglobin around 11. GI evaluated-no evidence of GI bleeding., continue with Protonix drip for now. Aspirin on hold. Phone blood consent obtained from his brother at admission. Hemoglobin maintains at 9.2 Chronic systolic CHF: EF 25%, echo results -see above. Seems not on any diuretics. Getting fluids. Monitor for volume overload. Will not give any intravenous fluid to avoid any fluid overload Likely demand ischemia: Likely secondary to acute issues, troponin flat trended in high 30s. Echo with severe global hypokinesis of left ventricle, EF 25 to 30%. Continue telemetry monitoring. Other chronic medical conditions: Continue with/resume home meds as and when able. Hypertension: Hold his losartan and metoprolol succinate. As needed IV Lopressor for BP management. Patient n.p.o./confused/obtunded/with PETER. T2DM: A1c of 8.8 on 07/09/23. 8.4 on 09/27/22. Hold metformin and Jardiance. Sliding scale insulin while in hospital. hospital educator when more awake. Gout: Restart allopurinol when able. Hyperlipidemia: Restart Crestor when able. CPK at presentation 86. Thrombocytopenia: Continue to monitor. DVT prophylaxis: SCDs Full code Given phone call to Pt's brother Tish Sarkar [[phone]] on 07/09- updated pt's brother tish, discussed about all of the above points and management undergoing. Answered all his questions. Admission and Anticipated Discharge Date Admission Date: July 08, 2023 Subjective 07/12/2023 The patient was seen and examined in ICU He remains unconscious with frequent nonspecific movements of the extremities and head Remains hemodynamically stable with tachycardia 07/13/2023 Patient was seen and examined in ICU He remains semiconscious with frequent nonspecific movement of the extremities and head Not following any commands Pressors are off and blood pressure remains around 91/68 Review of Systems Review of Systems: Unobtainable due to cognitive status Physical Exam Physical Exam: Lying in bed with acute distress. Nonspecific movements of the extremities and head with eyes closed Constitutional: well developed, well nourished, + ill appearing and + obese Eyes: Eyes are closed Neck: trachea midline, no thyromegaly Respiratory: no respiratory distress Auscultation: + diminished lung sounds; no crackles Cardiovascular: Rate/Rhythm: regular rate, regular rhythm and + tachycardic Heart Sounds: normal S1 and normal S2; no murmur Extremities: no edema Gastrointestinal (Abdomen): Inspection/Auscultation: normal bowel sounds; abdomen not distended Percussion/Palpation: abdomen soft; abdomen nontender Musculoskeletal: No acute arthritis involving any of the joint Neurologic: Alert and awake. Abnormal movements involving the extremities and head. Noncommunicative. Lymphatic: no cervical or axillary lymphadenopathy Results & Data Results & Data Vital Signs (Past 12 Hours) Vital Signs Temp Pulse Resp BP Pulse Ox O2 Del Method 07/13/23 12:12 113 H 17 91/68 L 96 Room Air 07/13/23 12:02 115 H 17 85/43 L 98 Room Air 07/13/23 11:00 116 H 21 125/72 96 Room Air 07/13/23 10:00 119 H 19 123/74 97 Room Air 07/13/23 09:00 117 H 22 121/63 95 07/13/23 08:00 119 H 17 126/71 94 Room Air 07/13/23 08:00 Room Air 07/13/23 08:00 37.0 C 07/13/23 07:00 127 H 20 113/82 97 Room Air 07/13/23 06:00 116 H 17 95 07/13/23 06:00 115/72 07/13/23 05:00 127 H 22 97 07/13/23 04:00 119/78 07/13/23 04:00 119 H 20 97 07/13/23 03:00 136/72 07/13/23 03:00 118 H 23 98 07/13/23 02:00 131 H 20 96 07/13/23 02:00 125/68 Laboratory Results Short CBC 07/13/23 Range/Units 03:21 WBC 4.38 L (4.8-10.8) K/ul Hgb 9.2 L (14.0-18.0) g/dl Hct 27.3 L (42.0-52.0) % Plt Count 87 L (130-400) K/uL BMP 07/13/23 03:21 Sodium 148 H Potassium 3.9 Chloride 110 H Carbon Dioxide 24 BUN 112 H Creatinine 4.14 H D Glucose 148 H Calcium 9.6 Liver Function 07/13/23 Range/Units 03:21 Total Bilirubin 0.7 (0.2-1.0) mg/dl AST 39 (13-39) U/L ALT 20 (7-52) U/L Alkaline Phosphatase 78 (34-104) U/L Albumin 3.3 L (3.4-5.0) gm/dl Medications Administered Current Inpatient Medications Dextrose (Dextrose 50% 50 Ml Syringe) 25 - 50 ml IV UD PRN; Protocol PRN Reason: Hypoglycemia Protocol Stop: 08/07/23 22:40 Glucagon (Glucagon For Inj 1 Mg Vial) 1 mg SQ UD PRN; Protocol PRN Reason: Hypoglycemia Protocol Stop: 08/07/23 22:40 Glucose (Glucose 10 Tab/Tube) 4 - 8 tab PO UD PRN; Protocol PRN Reason: Hypoglycemia Treatment Stop: 08/07/23 22:40 Glucose (Glucose 40% Gel 15 Gm Tube) 15 - 30 gm PO UD PRN; Protocol PRN Reason: Hypoglycemia Protocol Stop: 08/07/23 22:40 Folic Acid 1 mg/ Syringe 10 mls @ 5 mls/min IV QAM JUSTUS Stop: 08/08/23 08:59 Last Admin: 07/13/23 08:18 Dose: 5 mls/min Norepinephrine Bitartrate (Levophed/D5w) 4 mg in 250 mls @ 0 mls/hr IV .Q0M JUSTUS; Protocol Stop: 08/09/23 19:14 Last Titration: 07/12/23 10:37 Dose: Infused Pantoprazole Sodium 40 mg/ (Syringe) 10 mls @ 5 mls/min IV Q12H [facility] Stop: 08/10/23 20:59 Last Admin: 07/13/23 08:18 Dose: 5 mls/min Thiamine HCl 200 mg/ Sodium (Chloride) 52 mls @ 210 mls/hr IV BID JUSTUS Stop: 08/11/23 08:59 Last Infusion: 07/13/23 08:39 Dose: Infused Lorazepam 0.5 mg/ Syringe 0.5 mls @ 2 mls/min IV Q4H PRN PRN Reason: Agitation Stop: 08/11/23 09:38 Last Admin: 07/13/23 00:58 Dose: 2 mls/min Dextrose (D5w) 1,000 mls @ 50 mls/hr IV .Q20H [facility] Stop: 07/14/23 07:44 Last Admin: 07/13/23 12:01 Dose: 50 mls/hr Insulin Aspart (Insulin Aspart Per Unit Charge) 0 units SC Q4 [facility] Stop: 08/07/23 22:59 Last Admin: 07/13/23 11:59 Dose: Not Given Miconazole Nitrate (Miconazole Nitrate Powder 85 Gm) 1 appln EXT PRN PRN PRN Reason: Affected Skin Folds Stop: 08/08/23 22:55 Last Admin: 07/09/23 23:19 Dose: 1 appln Miscellaneous (Carbohydrates For Hypoglycemia ) 15 - 30 gm PO UD PRN PRN Reason: Hypoglycemia Protocol Stop: 08/07/23 22:40 Neomycin/Polymyxin/Hydrocortisone (Neomycin/Polymyxin/Hydrocort Oph Susp 7.5 Ml Btl) 1 drops OP Q8H [facility] Stop: 08/11/23 13:59 Last Admin: 07/13/23 05:31 Dose: 1 drops Nitroglycerin (Nitroglycerin Sl 0.4 Mg/Tab Tab) 0.4 mg SL Q5M PRN PRN Reason: Chest Pain Stop: 08/07/23 22:40
--- NOTE | 2023-07-13 19:33 | Neurology Progress Note ---
Date of Service July 13, 2023 Assessment & Plan (1) Encephalopathy: Plan 68 y/o male with history of DM, HLD, HTN, alcohol use, and heart failure that presented with two day history of encephalopathy, found to have acute renal failure, anemia, and thrombocytopenia. Pt tremulous at presentation and possible alcohol withdrawal has been suspected. Episode in ED of shaking with eyes rolled back, for which ativan was given due to concern for seizure. No additional events reported. EEG suggestive of encephalopathy. MRI brain on 07/09 with motion artifact but no evidence of acute intracranial findings. Uremic encephalopathy likely contributing to mentation. Creatinine and BUN slowly downtrending. Would consider whether pt is a candidate for IMMIGRATION PARALEGAL. Nephrology is concerned that he would be at high risk for dysequilibrium syndrome with dialysis. Additionally, while on yesterday he was following simple commands on exam, he is now no longer following commands. Would recommend transfer for LTM. 1. Repeat CTH 2. Transfer for LTM 3. If any concern for infection, low threshold for LP 4. Seizure precautions 5. On thiamine 200 mg bid 6. Re-engage neurology and obtain CTH for any decline in neurological exam or additional events 7. Neurology will continue to follow Subjective Telehealth Information I performed this visit using a real-time telehealth connection between my location and the patients location ([facility]). After connecting through interactive tele-video, patient was identified by name and date of and/or wristband check.Patient (or authorized healthcare telephone claims representative) was informed that this was a telemedicine visit and it was being conducted confidentially over secure lines. My office door was closed and no one else was present in the room with me.Patient (or authorized healthcare telephone claims representative) provided consent to proceed with the visit, expressed an understanding of privacy and security of the telemedicine visit, and gave permission to have a hospital telephone claims representative in the room in order to assist with the visit and to conduct portions of the visit, as needed. I informed the patient (or authorized healthcare telephone claims representative) that I reviewed their record and presented the opportunity for them to ask any questions regarding the visit today. The patient agreed to participate. Pt lying in bed, does not contribute to history. Physical Exam Opens eyes briefly spontaneously No gaze deviation Oriented to self, able to respond that his name is Baldo Does not follow commands No facial asymmetry Moves bilateral upper extremities antigravity spontaneously, moves bilateral lower extremities spontaneously within plane of bed Mild high frequency low amplitude tremor intermittently Results & Data Vital Signs (Past 12 Hours) Vital Signs Temp Pulse Resp BP Pulse Ox O2 Del Method 07/13/23 16:01 118 H 17 126/75 97 Room Air 07/13/23 16:01 37.2 C 07/13/23 15:00 113 H 19 110/79 95 Room Air 07/13/23 14:00 112 H 25 H 105/80 96 Room Air 07/13/23 13:45 23 123/83 96 Room Air 07/13/23 13:30 115 H 19 111/77 96 Room Air 07/13/23 13:15 113 H 21 96/71 L 96 Room Air 07/13/23 13:13 36.8 C 07/13/23 13:00 114 H 19 125/76 96 Room Air 07/13/23 12:46 113 H 22 104/75 90 Room Air 07/13/23 12:23 114 H 19 134/83 94 Room Air 07/13/23 12:12 113 H 17 91/68 L 96 Room Air 07/13/23 12:02 115 H 17 85/43 L 98 Room Air 07/13/23 11:00 116 H 21 125/72 96 Room Air 07/13/23 10:00 119 H 19 123/74 97 Room Air 07/13/23 09:00 117 H 22 121/63 95 07/13/23 08:00 119 H 17 126/71 94 Room Air 07/13/23 08:00 Room Air 07/13/23 08:00 37.0 C Laboratory Results WBC 4.38, HGB 9.2, HCT 27.3, Plts 87. NA 148, Potassium 3.9, Chloride 110, Carbon Dioxide 24, BUN 112, Creatinine 4.14, Glucose 148, Calcium 9.6, Phosphorous 9.6, Magnesium 2.1, AST 38, ALT 20, alkaline phosphatase 78, albumin 3.3
--- NOTE | 2023-07-13 21:40 | Communication Note ---
Date of Service: July 13, 2023 I called [facility] to transfer patient for LTM to rule out seizures as per Neurology recommendations. Transfer declined by [facility] [place] neurolog[place] on-call, Dr. Ware. Patient's encephalopathy secondary to uremia and not seizures as per [facility] neurologist.
[2023-07-13 22:29] LABS: BUN Creatinine Ratio 26.2 (10-20); Calcium 9.7 mg/dl (8.6-10.3); Est GFR (African American) 18.3 ml/min; Est GFR (Non-African American) 15.8 ml/min; Potassium 3.7 mmol/L (3.5-5.1)
[2023-07-14] MEDS: DEXTROSE 5% 1,000 ML IV ONE (01:04)
[2023-07-14 04:11] LABS: Basophils # (auto) 0.02 K/uL (0.00-0.20); Basophils % (auto) 0.5 %; Eosinophils # (auto) 0.17 K/uL (0.00-0.50); Eosinophils % (auto) 3.8 %; Hematocrit (blood only) 29.3 % (42.0-52.0); Hemoglobin 9.6 g/dl (14.0-18.0); Immature Granulocytes # (auto) 0.11 K/uL (0.01-0.20); Immature Granulocytes % (auto) 2.5 %; Lymphocytes # (auto) 0.51 K/uL (1.20-3.40); Lymphocytes % (auto) 11.5 %; Mean Corpuscular Hgb Conc 32.8 g/dL (32.0-36.0); Mean Corpuscular Volume 94.5 fL (80.0-100.0); Mean Platelet Volume 12.2 fL (9.4-12.4); Monocytes % (auto) 20.3 %; Neutrophils # (auto) 2.73 K/uL (1.40-6.50); Neutrophils % (auto) 61.4 %; Platelet Count 88 K/uL (130-400); RDW Coefficient of Variation 14.7 % (11.5-14.5); RDW Standard Deviation 50.8 fL (36.4-46.3); White Blood Count 4.44 K/ul (4.8-10.8)
[2023-07-14 04:29] LABS: Albumin Level 3.2 gm/dl (3.4-5.0); BUN Creatinine Ratio 26.3 (10-20); Bilirubin,Total 0.7 mg/dl (0.2-1.0); Calcium 9.7 mg/dl (8.6-10.3); Creatinine Clr Calc Pharmacy 24.1 ml/min; Est GFR (African American) 19.3 ml/min; Est GFR (Non-African American) 16.7 ml/min; Globulin 3.3 gm/dl (2.5-4.0); Magnesium 1.9 mg/dl (1.7-2.4); Phosphorus 2.8 mg/dl (2.5-4.9); Potassium 3.7 mmol/L (3.5-5.1); Total Protein 6.5 gm/dl (6.0-8.3)
--- NOTE | 2023-07-14 08:59 | Nephrology Progress Note ---
Date of Service July 14, 2023 Assessment & Plan (1) Acute renal failure (ARF): Plan: further improving nonoliguric stage 3 PETER (baseline [facility] creat 09/2022 1.4) --- etiology likely severe pre renal but definitely some Component of ATN. Given his poor baseline health PETER won't resolve quick. On CXR, exam and CT -- no e/o fluid overload at all but have to be mindful of his LVEF 25%. -He was on Jardiance and if he really was not eating drinking much he can get severely dehydrated with ongoing Osmotic diuresis. -Hold metformin, NSAIDS, Jardiance, YANNA/ARB. -continue D5W > increased rate further to 125 ml/hr -No nutrition now for the past week > agree w/ plan for NGT, free water flushes as tolerated -Monitor I and O. strict CMP twice daily. Check mag and Phos also Medical complexity high. Care coordinated w/ Dr Pratt regarding IV fluids, DIRECTOR OF ONLINE MERCHANDISING discussion and encephalopathy management; we are in agreement. (2) Encephalopathy: Plan: neither I nor my nephrology colleague believe this relates to uremia > his chemistries have all consistently improved as have other elements of renal function but MS has not; not how uremia presents/tracks typically. -risks of DIRECTOR OF ONLINE MERCHANDISING outweigh potential benefit at this time though may need to consider empiric DIRECTOR OF ONLINE MERCHANDISING trial if no improvement simply to address/hopefully to remove uremia as encephalopathy DDX and move on to other elements of DDX (3) Hypernatremia: Plan: currently on D5W and rate increased overnight and further by me this am hypernatremia worsening agree w/ plan for NGT, for FW flushes (4) Hyperkalemia: Plan: K controlled medically since 4/3 cannot swallow so no Lokelma never received bicarb gtt /7 Also give dextrose and Insulin prn. Admission and Anticipated Discharge Date Admission Date: July 08, 2023 Subjective remains encephalopathic > per RN intermittently opens eyes, looks /tracks, intermittently past 48 hrs follows commands. neuro saw pt yesterday > recommended continuous EEG but tertiary facility felt this would make no difference in his care, encephalopathy attributed primarily to uremia by neurology [facility] [place]/telehealth. some NSVT on monitor. no longer ICU status. Review of Systems 2 Review of Systems: Unobtainable due to reduced consciousness Physical Exam 2 Constitutional: well developed, well nourished and + altered mental status; no acute distress ENMT: Ears: no external ear abnormality Nose: no external nose abnormality Mouth: + dry oral mucous membranes Neck: no nuchal rigidity Respiratory: normal respiratory effort Auscultation: + diminished lung sounds Cardiovascular: Rate/Rhythm: + tachycardic Extremities: no edema Gastrointestinal (Abdomen): Inspection/Auscultation: normal bowel sounds P ercussion/Palpation: abdomen soft; abdomen nontender Musculoskeletal: Extremities: strength 5/5 throughout Skin: no rashes, warm and dry Neurologic: ferguson, ? tremor v fasciculations BLE intermittently Results & Data Vital Signs (Past 12 Hours) Vital Signs Temp Pulse Pulse Resp BP BP Pulse Ox 07/14/23 08:00 115 H 07/14/23 08:00 115 H 18 129/72 99 07/14/23 07:59 116 H 16 123/77 96 07/14/23 07:15 07/14/23 07:01 114 H 20 105/64 97 07/14/23 07:00 37.0 C 112 H 18 105/64 94 07/14/23 06:26 36.4 C L 07/14/23 06:00 113 H 22 97 07/14/23 06:00 106/68 07/14/23 05:00 113 H 15 96 07/14/23 05:00 110/77 07/14/23 04:00 115/71 07/14/23 04:00 111 H 14 95 07/14/23 03:01 147/84 H 07/14/23 03:01 119 H 22 97 07/14/23 03:00 117 H 18 97 07/14/23 02:00 114 H 21 97 07/14/23 02:00 94/75 L 07/14/23 01:00 92/69 L 07/14/23 01:00 111 H 15 97 07/14/23 00:46 36.4 C L 07/14/23 00:01 110/74 07/14/23 00:01 113 H 24 96 07/14/23 00:00 111 H 07/14/23 00:00 112 H 16 96 07/13/23 23:00 112/74 07/13/23 23:00 112 H 20 94 07/13/23 22:00 116 H 26 H 95 07/13/23 22:00 103/77 07/13/23 21:00 113/85 07/13/23 21:00 118 H 14 95 07/13/23 21:00 36.5 C O2 Del Method 07/14/23 08:00 07/14/23 08:00 Room Air 07/14/23 07:59 Room Air 07/14/23 07:15 Room Air 07/14/23 07:01 Room Air 07/14/23 07:00 Room Air 07/14/23 06:26 07/14/23 06:00 07/14/23 06:00 07/14/23 05:00 07/14/23 05:00 07/14/23 04:00 07/14/23 04:00 07/14/23 03:01 07/14/23 03:01 07/14/23 03:00 07/14/23 02:00 07/14/23 02:00 07/14/23 01:00 07/14/23 01:00 07/14/23 00:46 07/14/23 00:01 07/14/23 00:01 07/14/23 00:00 07/14/23 00:00 07/13/23 23:00 07/13/23 23:00 07/13/23 22:00 07/13/23 22:00 07/13/23 21:00 07/13/23 21:00 07/13/23 21:00 Laboratory Results 07/14/23 03:30 07/14/23 03:30
--- NOTE | 2023-07-14 10:44 | XRay Report ---
KUB HISTORY: Status post placement of a feeding tube Insertion of Coresafe COMPARISON: CT 07/08/2023 FINDINGS: Status post placement of feeding tube, distal tip projected superiorly within the region of the gastric fundus. Air-filled loops of large and small bowel without evidence of high-grade obstruc tion. No renal calculi. No ureteral calculi. No pneumoperitoneum or pneumatosis. No fracture. IMPRESSION: Status post placement of a feeding tube with distal tip projected superiorly in the region of the gas tric fundus. ACT 112: Negative or not required by law. The above report was generated using voice recognition software. It may contain grammatical, syntax o r spelling errors. Electronically signed by: Ivan Modi M.D. 07/14/2023 10:43 AM
--- NOTE | 2023-07-14 12:19 | CT Scan Report ---
HEAD CT NONCONTRAST CT DOSE: 2030.72 mGy.cm HISTORY: Altered mental status. r/o stroke/bleed TECHNIQUE: Multiaxial CT images of the head were performed without the use of intravenous contrast. A utomated exposure control was utilized for this study. A dose lowering technique was utilized adheri ng to the principles of ALARA. Comparison: Head CT 07/08/2023. Findings: Near nondiagnostic evaluation due to the significant motion artifact. Partially visualized left nasogastric tube. The paranasal sinuses and mastoid air cells appear clear. No definite calvaria l fractures. No definite mass, hematoma, midline shift, acute infarct. Mild atrophy and microvascular ischemic changes are again noted. Impression: Significant motion artifact resulting in near nondiagnostic evaluation of the brain. Otherwise, no de finite acute intracranial abnormality. ACT 112: Negative or not required by law. Electronically signed by: Daquan Kim M.D. 07/14/2023 12:17 PM
[2023-07-14] MEDS: TUBE FEEDING WATER FLUSH NG SCH (14:25)
[2023-07-14] MEDS: NOVASOURCE RENAL 2.0 CAL 1000ML BAG NG SCH (14:25)
[2023-07-14] MEDS ORDERED: STAT IV Infusion **Titration per Protocol STA (15:33)
[2023-07-14] MEDS: LACTATED RINGER'S 1,000 ML IV ONE (15:37)
[2023-07-14] MEDS ORDERED: NOREPINEPHRINE/D5W 4 MG/250 ML PLCT IV SCH (15:45)
--- NOTE | 2023-07-14 16:08 | Hospitalist Progress Note ---
Date of Service July 14, 2023 Assessment & Plan (1) Encephalopathy: Plan: 68 yo M w/ PMH of T2DM, HLD, nonischemic CM, chronic systolic CHF/April 2023 echo with EF of 25%, HTN, PVCs, first-degree block, intraventricular conduction defect, thrombocytopenia, alcoholism was brought in because of confusion and found to have PETER and hyperkalemia at ED. Patient noted to be confused at home for 2 days ago CLOUD SECURITY ARCHITECT, patient refused coming to the hospital the day prior to presentation as well as on the day of presentation. Patient was noted to having some tremors. On the day of presentation, patient was noted to be very weak and not even able to walk, EMS was called on him [by his brother] and he was brought to the hospital. At presentation patient noted oriented x 1, denied headache or chest pain. But not able to answer any other questions per H&P note. Per H&P note, appears last drink was before Easter. Per patient's brother, he drinks wine and vodka and sometimes beer. Blood was noted in the stool at ED. Patient was noted to be shaky. He is being managed for the following: Acute metabolic encephalopathy Delirium tremens secondary to alcohol withdrawal Complicated by uremia Patient was brought in due to increasing confusion noted at home, tremors and poor po intake ISO alcohol abuse history. Patient noted to be uremic, in PETER, hyperkalemia, possible alcohol withdrawal at presentation with significant dehydration Continue with BELKIS S protocol, folic acid, thiamine, multivitamins as able. Condition got worse and she was transferred to ICU Condition has not improved much and he remains acutely confused with occasional agitation Appreciate product transfer pumper input and recommendation Has been on intravenous Ativan to control withdrawal symptoms Remains significant and cephalopathic-semiconscious and noncommunicative Not yet ready to get out of the ICU Remains semiconscious with occasional abnormal movements of the extremities and head. Opens eyes with command only Acute kidney injury Hyperkalemia Uremia Severe PETER noted at presentation, creatinine 7.93. Baseline creatinine appears around 1.2. At presentation potassium of 5.9 and BUN of 175. Appreciate nephrology input and recommendation Not a candidate for dialysis to avoid any disequilibrium syndrome Uremia has been improving and so is creatinine Slightly better with BUN and creatinine today and the patient looks very dry Started with D5W at 50 cc an hour for high sodium and intravascular dehydration Kidney function has been improving gradually Hypotension Noted prior to transfer to ICU Has been requiring intravenous norepinephrine to maintain blood pressure Appreciate product transfer pumper input and recommendation Patient started on clindamycin and aztreonam for possible infection at admission, UA/CXR/CTAP not suggestive of infection. Subsequent cultures came back to be negative and antibiotics were stopped He is off pressors and the blood pressure remains on the lower side at 91/68 Blood pressure has been dropping down since this morning and going down to systolic less than 80 persistently for some time with MAP of 55 Discussed with the product transfer pumper and he was given 1 L of LR and also started on norepinephrine drip Concern for seizure: At presentation, patient noted to have shaking and eyes rolling up, was given a dose of Ativan. Could be alcohol withdrawal versus seizure. EEG suggestive of nonspecific encephalopathy. Neurology evaluated, recommends MRI brain (no acute finding) and seizure precaution. Recommend no driving, DMV form signed. Seizure precaution. Was advised by the neurologist to transfer to tertiary care center for continuous monitoring of EEG but the patient was refused and the neurologist thought that that was not necessary Has been getting seizure medications CXR and CTAP with no evidence of fluid overload. Echo this admission with EF of 25 to 30%. Nephrology on board, appreciate recs. Hold metformin, NSS, Jardiance, YANNA/ARB and other nephrotoxic's. Possible GI bleed: Some blood noted around his mouth at presentation, also blood noted in the stool at ED. Hemoglobin at presentation 9.8, hemoglobin 8.3 today, closely monitor H&H. Baseline hemoglobin around 11. GI evaluated-no evidence of GI bleeding., continue with Protonix drip for now. Aspirin on hold. Phone blood consent obtained from his brother at admission. Hemoglobin maintains at 9.2 Chronic systolic CHF: EF 25%, echo results -see above. Seems not on any diuretics. Getting fluids. Monitor for volume overload. Will not give any intravenous fluid to avoid any fluid overload Likely demand ischemia: Likely secondary to acute issues, troponin flat trended in high 30s. Echo with severe global hypokinesis of left ventricle, EF 25 to 30%. Continue telemetry monitoring. Nutrition Started on enteral feeding through coresafe Other chronic medical conditions: Continue with/resume home meds as and when able. Hypertension: Hold his losartan and metoprolol succinate. As needed IV Lopressor for BP management. Patient n.p.o./confused/obtunded/with PETER. T2DM: A1c of 8.8 on 07/09/23. 8.4 on 09/27/22. Hold metformin and Jardiance. Sliding scale insulin while in hospital. peer educator when more awake. Gout: Restart allopurinol when able. Hyperlipidemia: Restart Crestor when able. CPK at presentation 86. Thrombocytopenia: Continue to monitor. DVT prophylaxis: SCDs Full code Given phone call to Pt's brother Tish Sarkar [[phone]] on 07/09- updated pt's brother tish, discussed about all of the above points and management undergoing. Answered all his questions. Admission and Anticipated Discharge Date Admission Date: July 08, 2023 Subjective 07/12/2023 The patient was seen and examined in ICU He remains unconscious with frequent nonspecific movements of the extremities and head Remains hemodynamically stable with tachycardia 07/13/2023 Patient was seen and examined in ICU He remains semiconscious with frequent nonspecific movement of the extremities and head Not following any commands Pressors are off and blood pressure remains around 91/68 07/14/2023 The patient was seen and examined in ICU He remains semiconscious Agitated at times with random movements of the extremities Has been having tachycardia and low blood pressure Review of Systems 2 Review of Systems: Unobtainable due to cognitive status Physical Exam Physical Exam: Lying in bed with acute distress. Nonspecific movements of the extremities and head with eyes closed Constitutional: well developed, well nourished, + ill appearing and + obese Neck: trachea midline, no thyromegaly Respiratory: no respiratory distress Auscultation: + diminished lung sounds; no crackles Cardiovascular: Rate/Rhythm: regular rate, regular rhythm and + tachycardic Heart Sounds: normal S1 and normal S2; no murmur Extremities: no edema Gastrointestinal (Abdomen): Inspection/Auscultation: normal bowel sounds; abdomen not distended Percussion/Palpation: abdomen soft; abdomen nontender Musculoskeletal: No acute arthritis involving any of the joint Neurologic: Remains semiresponsive. Opens only eyes with commands. Moving limbs occasionally and randomly Lymphatic: no cervical or axillary lymphadenopathy Results & Data Results & Data Vital Signs (Past 12 Hours) Vital Signs Temp Pulse Pulse Resp BP BP Pulse Ox 07/14/23 15:47 37.8 C H 114 H 22 107/72 94 07/14/23 15:26 112 H 21 76/54 L 93 07/14/23 15:23 37.0 C 07/14/23 15:19 113 H 18 79/53 L 94 07/14/23 15:01 114 H 19 77/53 L 94 07/14/23 14:01 112 H 22 95/62 L 96 07/14/23 13:46 120 H 17 112/55 L 96 07/14/23 13:15 112 H 21 107/64 96 07/14/23 13:00 115 H 23 104/66 95 07/14/23 12:45 111 H 23 108/71 96 07/14/23 12:28 111 H 18 90/59 L 94 07/14/23 12:21 36.5 C 111 H 19 82/58 L 95 07/14/23 12:16 113 H 19 77/46 L 95 07/14/23 12:12 112 H 23 77/49 L 93 07/14/23 12:07 115 H 27 H 119/99 94 07/14/23 12:01 110 H 23 81/61 L 95 07/14/23 11:01 111 H 18 101/60 95 07/14/23 10:00 115 H 19 122/76 94 07/14/23 09:00 110 H 22 110/76 96 07/14/23 08:00 115 H 07/14/23 08:00 115 H 18 129/72 99 07/14/23 07:59 116 H 16 123/77 96 07/14/23 07:15 07/14/23 07:01 114 H 20 105/64 97 07/14/23 07:00 37.0 C 112 H 18 105/64 94 07/14/23 06:26 36.4 C L 07/14/23 06:00 113 H 22 97 07/14/23 06:00 106/68 07/14/23 05:00 113 H 15 96 07/14/23 05:00 110/77 O2 Del Method 07/14/23 15:47 Room Air 07/14/23 15:26 Room Air 07/14/23 15:23 07/14/23 15:19 Room Air 07/14/23 15:01 Room Air 07/14/23 14:01 Room Air 07/14/23 13:46 Room Air 07/14/23 13:15 Room Air 07/14/23 13:00 Room Air 07/14/23 12:45 Room Air 07/14/23 12:28 Room Air 07/14/23 12:21 Room Air 07/14/23 12:16 Room Air 07/14/23 12:12 Room Air 07/14/23 12:07 Room Air 07/14/23 12:01 Room Air 07/14/23 11:01 Room Air 07/14/23 10:00 Room Air 07/14/23 09:00 Room Air 07/14/23 08:00 07/14/23 08:00 Room Air 07/14/23 07:59 Room Air 07/14/23 07:15 Room Air 07/14/23 07:01 Room Air 07/14/23 07:00 Room Air 07/14/23 06:26 07/14/23 06:00 07/14/23 06:00 07/14/23 05:00 07/14/23 05:00 Laboratory Results Short CBC 07/14/23 Range/Units 03:30 WBC 4.44 L (4.8-10.8) K/ul Hgb 9.6 L (14.0-18.0) g/dl Hct 29.3 L (42.0-52.0) % Plt Count 88 L (130-400) K/uL BMP 07/13/23 07/14/23 21:50 03:30 Sodium 151 H 150 H Potassium 3.7 3.7 Chloride 113 H 114 H Carbon Dioxide 27 26 BUN 96 H 92 H Creatinine 3.66 H D 3.50 H Glucose 177 H 186 H Calcium 9.7 9.7 Liver Function 07/14/23 Range/Units 03:30 Total Bilirubin 0.7 (0.2-1.0) mg/dl AST 47 H (13-39) U/L ALT 21 (7-52) U/L Alkaline Phosphatase 74 (34-104) U/L Albumin 3.2 L (3.4-5.0) gm/dl Medications Administered Current Inpatient Medications Dextrose (Dextrose 50% 50 Ml Syringe) 25 - 50 ml IV UD PRN; Protocol PRN Reason: Hypoglycemia Protocol Stop: 08/07/23 22:40 Enteral Nutritional Formula (Novasource Renal 2.0 Ramon 1000ml Bag) 1,000 ml NG UD JUSTUS; Protocol Stop: 08/13/23 13:59 Last Admin: 07/14/23 14:25 Dose: 1,000 ml Glucagon (Glucagon For Inj 1 Mg Vial) 1 mg SQ UD PRN; Protocol PRN Reason: Hypoglycemia Protocol Stop: 08/07/23 22:40 Glucose (Glucose 10 Tab/Tube) 4 - 8 tab PO UD PRN; Protocol PRN Reason: Hypoglycemia Treatment Stop: 08/07/23 22:40 Glucose (Glucose 40% Gel 15 Gm Tube) 15 - 30 gm PO UD PRN; Protocol PRN Reason: Hypoglycemia Protocol Stop: 08/07/23 22:40 Folic Acid 1 mg/ Syringe 10 mls @ 5 mls/min IV QAM [facility] Stop: 08/08/23 08:59 Last Admin: 07/14/23 08:24 Dose: 5 mls/min Pantoprazole Sodium 40 mg/ (Syringe) 10 mls @ 5 mls/min IV Q12H [facility] Stop: 08/10/23 20:59 Last Admin: 07/14/23 08:25 Dose: 5 mls/min Thiamine HCl 200 mg/ Sodium (Chloride) 52 mls @ 210 mls/hr IV BID [facility] Stop: 08/11/23 08:59 Last Infusion: 07/14/23 08:49 Dose: Infused Lorazepam 0.5 mg/ Syringe 0.5 mls @ 2 mls/min IV Q4H PRN PRN Reason: Agitation Stop: 08/11/23 09:38 Last Admin: 07/14/23 11:05 Dose: 2 mls/min Lactated Ringer's (Lr) 1,000 mls @ 999 mls/hr IV .Q1H1M ONE Stop: 07/14/23 16:33 Last Admin: 07/14/23 15:37 Dose: 999 mls/hr Norepinephrine Bitartrate (Levophed/D5w) 4 mg in 250 mls @ 18.806 mls/hr IV .[id number] [facility]; Protocol Stop: 08/13/23 15:44 Acetaminophen (Ofirmev) 1,000 mg in 100 mls @ 400 mls/hr IV Q8H PRN PRN Reason: Pain or Fever Stop: 07/17/23 15:53 Insulin Aspart (Insulin Aspart Per Unit Charge) 0 units SC Q4 [facility] Stop: 08/07/23 22:59 Last Admin: 07/14/23 12:27 Dose: Not Given Miconazole Nitrate (Miconazole Nitrate Powder 85 Gm) 1 appln EXT PRN PRN PRN Reason: Affected Skin Folds Stop: 08/08/23 22:55 Last Admin: 07/09/23 23:19 Dose: 1 appln Miscellaneous (Carbohydrates For Hypoglycemia ) 15 - 30 gm PO UD PRN PRN Reason: Hypoglycemia Protocol Stop: 08/07/23 22:40 Neomycin/Polymyxin/Hydrocortisone (Neomycin/Polymyxin/Hydrocort Oph Susp 7.5 Ml Btl) 1 drops OP Q8H JUSTUS Stop: 08/11/23 13:59 Last Admin: 07/14/23 14:13 Dose: 1 drops Nitroglycerin (Nitroglycerin Sl 0.4 Mg/Tab Tab) 0.4 mg SL Q5M PRN PRN Reason: Chest Pain Stop: 08/07/23 22:40 Sterile Water (Tube Feeding Water Flush) 150 ml NG Q4H JUSTUS Stop: 08/13/23 14:14 Last Admin: 07/14/23 14:25 Dose: 150 ml
[2023-07-14] MEDS: ACETAMINOPHEN 1,000 MG/100 ML VIAL IV PRN (16:12)
[2023-07-14 16:36] LABS: BUN Creatinine Ratio 23.6 (10-20); Calcium 9.2 mg/dl (8.6-10.3); Creatinine Clr Calc Pharmacy 24.3 ml/min; Est GFR (African American) 19.6 ml/min; Est GFR (Non-African American) 16.9 ml/min; Magnesium 1.9 mg/dl (1.7-2.4); Phosphorus 2.7 mg/dl (2.5-4.9); Potassium 3.8 mmol/L (3.5-5.1)
[2023-07-14 22:45] LABS: Basophils # (auto) 0.01 K/uL (0.00-0.20); Basophils % (auto) 0.2 %; Eosinophils # (auto) 0.14 K/uL (0.00-0.50); Eosinophils % (auto) 3.4 %; Hematocrit (blood only) 28.7 % (42.0-52.0); Hemoglobin 9.3 g/dl (14.0-18.0); Immature Granulocytes # (auto) 0.13 K/uL (0.01-0.20); Immature Granulocytes % (auto) 3.1 %; Lymphocytes % (auto) 16.8 %; Mean Corpuscular Hemoglobin 30.9 pg (25.0-34.0); Mean Corpuscular Hgb Conc 32.4 g/dL (32.0-36.0); Mean Corpuscular Volume 95.3 fL (80.0-100.0); Mean Platelet Volume 11.6 fL (9.4-12.4); Monocytes # (auto) 0.74 K/uL (0.11-0.59); Monocytes % (auto) 17.7 %; Neutrophils # (auto) 2.45 K/uL (1.40-6.50); Neutrophils % (auto) 58.8 %; Nucleated RBC # (auto) 0.02 K/uL (0.00-0.12); Nucleated RBC % (auto) 0.5 %; Platelet Count 85 K/uL (130-400); RDW Standard Deviation 51.8 fL (36.4-46.3); Red Blood Count 3.01 M/uL (4.70-6.10); White Blood Count 4.17 K/ul (4.8-10.8)
[2023-07-14 22:53] LABS: Alanine Aminotransferase 24 U/L (7-52); Albumin Level 3.2 gm/dl (3.4-5.0); Alkaline Phosphatase 70 U/L (34-104); Anion Gap 11 (3-11); BUN Creatinine Ratio 23.7 (10-20); Bilirubin,Total 0.7 mg/dl (0.2-1.0); Blood Urea Nitrogen 78 mg/dl (6-23); Calcium 9.1 mg/dl (8.6-10.3); Carbon Dioxide 24 mmol/L (21-32); Chloride 113 mmol/L (98-107); Creatinine Clr Calc Pharmacy 25.6 ml/min; Est GFR (African American) 20.9 ml/min; Globulin 3.3 gm/dl (2.5-4.0); Glucose 160 mg/dl (70-99(Fasting)); Lipase 131 U/L (11-82); Sodium 148 mmol/L (136-145); Total Protein 6.5 gm/dl (6.0-8.3)
[2023-07-14 22:57] LABS: Appearance Urine Cloudy (Clear); Bacteria Urine Automated None Seen (None Seen); Bilirubin Urine Negative (Negative); Blood Urine 3+ (Negative); Color Urine Yellow; Glucose Urine UA 2+ (Negative); Ketones Urine Negative (Negative); Leukocyte Esterase Urine Trace (Negative); Nitrite Urine Negative (Negative); Protein Urine 2+ (Negative); Specific Gravity Urine 1.017 (1.000-1.030); Urobilinogen Urine Negative (Negative); WBC Urine Automated 0-5 /hpf (0-5); pH Urine 5.5 (4.5-7.5)
[2023-07-14 23:27] LABS: Potassium 3.7 mmol/L (3.5-5.1)
[2023-07-15 00:10] LABS: Cast Urine Automated 0-2 /lpf (0-2); Uric Acid Crystals Urine Present (None Prsent)
[2023-07-15 04:53] LABS: Basophils # (auto) 0.02 K/uL (0.00-0.20); Basophils % (auto) 0.5 %; Eosinophils # (auto) 0.11 K/uL (0.00-0.50); Eosinophils % (auto) 2.7 %; Hematocrit (blood only) 28.7 % (42.0-52.0); Hemoglobin 9.2 g/dl (14.0-18.0); Immature Granulocytes # (auto) 0.11 K/uL (0.01-0.20); Immature Granulocytes % (auto) 2.7 %; Lymphocytes # (auto) 0.58 K/uL (1.20-3.40); Lymphocytes % (auto) 14.3 %; Mean Corpuscular Hgb Conc 32.1 g/dL (32.0-36.0); Mean Corpuscular Volume 96.6 fL (80.0-100.0); Mean Platelet Volume 12.2 fL (9.4-12.4); Monocytes # (auto) 0.72 K/uL (0.11-0.59); Monocytes % (auto) 17.8 %; Neutrophils # (auto) 2.51 K/uL (1.40-6.50); Platelet Count 81 K/uL (130-400); Red Blood Count 2.97 M/uL (4.70-6.10); White Blood Count 4.05 K/ul (4.8-10.8)
[2023-07-15 04:57] LABS: Calcium 9.1 mg/dl (8.6-10.3); Creatinine Clr Calc Pharmacy 25.2 ml/min; Est GFR (African American) 20.5 ml/min; Est GFR (Non-African American) 17.7 ml/min; Magnesium 1.8 mg/dl (1.7-2.4); Phosphorus 2.4 mg/dl (2.5-4.9); Potassium 3.6 mmol/L (3.5-5.1)
--- NOTE | 2023-07-15 08:31 | XRay Report ---
XR chest 1V portable HISTORY: Possible aspiration of Tube feeds COMPARISON: Chest 07/08/2023. FINDINGS: There are low lung volumes. Feeding tube terminates in the stomach. No new focal lung conso lidations to suggest a pneumonia. No evidence for pulmonary edema. The heart is top normal in size. D egenerative changes again noted within the shoulders. IMPRESSION: 1. No focal lung consolidations to suggest a pneumonia. 2. Feeding tube terminates in the stomach. ACT 112: Negative or not required by law. Electronically signed by: Daquan Kim M.D. 07/15/2023 8:30 AM
--- NOTE | 2023-07-15 08:51 | XRay Report ---
KUB HISTORY: Status post placement of a feeding tube Coresafe placement COMPARISON: 07/14/2023 FINDINGS: Distal tip of feeding tube is not imaged. Partially imaged feeding tube projects over the a bdominal left upper quadrant. Air-filled loops of large and small bowel. No renal calculi. No ureter al calculi. No pneumoperitoneum or pneumatosis. Spondylotic spurring of the spine. No fracture. IMPRESSION: The partially imaged feeding tube projects over the abdominal left upper quadrant. ACT 112: Negative or not required by law. The above report was generated using voice recognition software. It may contain grammatical, syntax o r spelling errors. Electronically signed by: Ivan Modi M.D. 07/15/2023 8:50 AM
--- NOTE | 2023-07-15 08:56 | Nephrology Progress Note ---
Date of Service July 15, 2023 Assessment & Plan (1) Acute renal failure (ARF): Plan: plateau'd nonoliguric stage 3 PETER (baseline [facility] creat 09/2022 1.4) --- etiology likely severe pre renal but definitely some Component of ATN. Given his poor baseline health PETER won't resolve quick. On CXR, exam and CT -- no e/o fluid overload at all but have to be mindful of his LVEF 25%. despite low EF vol status ok -He was on Jardiance and if he really was not eating drinking much he can get severely dehydrated with ongoing Osmotic diuresis. -Hold metformin, NSAIDS, Jardiance, YANNA/ARB. -started on TF and FWFlushes 07/13 > has 150 mL FWF q4h and tolerating so far, urged team to uptitrate -D5W stopped and will observe for now -Monitor I and O. strict CMP twice daily. Check mag and Phos also (2) Encephalopathy: Plan: neither I nor my nephrology colleague believe this relates to uremia > his chemistries have all consistently improved as have other elements of renal function but MS has not, or per my colleague has worsened; this is not how uremia presents/tracks typically. -risks of SSIS ARCHITECT continue to outweigh potential benefit at this time (3) Hypernatremia: Plan: on FW flushes 150 mL q4h > increase/maximize as tolerated; may need D5W as well if improvement stalls; slowly improving currently (4) Hyperkalemia: Plan: K controlled medically since 07/08; now resolved and even on low side Admission and Anticipated Discharge Date Admission Date: July 08, 2023 Subjective no change in MS; did have 37.8 C rectal temp yesterday PM > cultures drawn. levophed contemplated for him but he did not need it Review of Systems 2 Review of Systems: Unobtainable due to reduced consciousness Physical Exam 2 Constitutional: well developed, well nourished and + altered mental status; no acute distress ENMT: Ears: no external ear abnormality Nose: no external nose abnormality Mouth: + dry oral mucous membranes Neck: no nuchal rigidity Respiratory: normal respiratory effort Auscultation: + diminished lung sounds Cardiovascular: Rate/Rhythm: + tachycardic Extremities: no edema Gastrointestinal (Abdomen): Inspection/Auscultation: normal bowel sounds P ercussion/Palpation: abdomen soft; abdomen nontender Musculoskeletal: Extremities: strength 5/5 throughout Skin: no rashes, warm and dry Results & Data Vital Signs (Past 12 Hours) Vital Signs Temp Pulse Pulse Resp BP BP Pulse Ox 07/15/23 08:00 37.0 C 108 H 22 100/85 95 07/15/23 07:00 103 H 20 104/69 96 07/15/23 06:00 103/86 07/15/23 06:00 109 H 18 94 07/15/23 05:00 100/75 07/15/23 05:00 37 C 105 H 17 94 07/15/23 04:00 37.2 C 110 H 28 H 98 07/15/23 04:00 112/75 07/15/23 03:00 124/72 07/15/23 03:00 37.2 C 108 H 24 95 07/15/23 02:01 107 H 23 95 07/15/23 02:01 125/59 L 07/15/23 02:00 105 H 19 95 07/15/23 01:00 36.4 C L 114 H 25 H 94 07/15/23 00:05 104/67 07/15/23 00:05 102 H 20 94 07/15/23 00:00 110 H 07/14/23 23:01 119/75 07/14/23 23:01 110 H 20 98 07/14/23 22:00 107 H 22 95 07/14/23 21:00 103 H 23 94 O2 Del Method 07/15/23 08:00 Room Air 07/15/23 07:00 Room Air 07/15/23 06:00 07/15/23 06:00 07/15/23 05:00 07/15/23 05:00 07/15/23 04:00 07/15/23 04:00 07/15/23 03:00 07/15/23 03:00 07/15/23 02:01 07/15/23 02:01 07/15/23 02:00 07/15/23 01:00 07/15/23 00:05 07/15/23 00:05 07/15/23 00:00 07/14/23 23:01 07/14/23 23:01 07/14/23 22:00 07/14/23 21:00 Laboratory Results 07/15/23 04:23 07/15/23 04:23
--- NOTE | 2023-07-15 09:20 | Critical Care Progress Note ---
Date of Service July 15, 2023 Assessment & Plan (1) Delirium tremens: (2) Acute renal failure (ARF): (3) Nonischemic cardiomyopathy: (4) Type 2 diabetes mellitus with obesity: (5) Hyperkalemia: Plan Impression: 68-year-old male with a history of nonischemic cardiomyopathy, hypertension and diabetes mellitus who presents to the hospital due to severe delirium tremens and renal failure. Recommendation Neurologic: Acute encephalopathy: -Reviewed neurology (vascular neurology [facility]) recommendations on 07/12 -Recommended transfer for long-term management: Hospitalist team contacted [facility] neurologist who declined transfer -Reviewed nephrology recommendations regarding encephalopathy and possible etiologies -Suspect likely multifactorial -Consider re-engagement with neurology Pulmonary: Patient without any significant pulmonary issues at this time. Cardiovascular: Patient with severe nonischemic cardiomyopathy with EF 25% likely due to alcohol abuse (reviewed echocardiogram) -Episode of hypotension resolved after 1 L bolus infusion of lactated Ringer's Tachycardia -Patient has been relatively tachycardic to the duration of his admission -Very very included in the differential given alcoholism and nervous system findings; however, patient has been receiving supplementation -B1 level obtained on July 11, 2023: This is a reference lab Gastrointestinal: Continue Protonix 40 mg twice daily due to concerns of GI bleed on admission. Hemoglobin stable. No active signs of bleeding at this time. GI consultation noted. -Receiving enteral nutrition Renal: Acute kidney injury -Reviewed nephrology notes Hyperchloremic hypernatremia: Slowly improving with free water flush Infectious disease: Urine and blood cultures negative to date. Off antibiotics. Patient afebrile. Hematologic: Pancytopenia: Suspect secondary to alcoholism -Deferring to primary additional anemia evaluation Endocrine: Maintain euglycemia. Hold home diabetic medications. Lines and tubes: Peripheral IVs and Bernal catheter in place. VTE prophylaxis: SCDs CODE STATUS: Full Family at bedside: None available at bedside Disposition: Patient does not have a critical care issue at this point in time. Hypotension appears to be secondary to possible volume depletion. Critical care services will sign off. Feel free to contact us if additional critical care issues arise. Admission and Anticipated Discharge Date Admission Date: July 08, 2023 Subjective Contacted by hospitalist team that patient had hypotension. Patient was administered 1 L LR and responded. No evidence of hypoperfusion or hypotension after that episode. No vasoactive medications were ever initiated. Results & Data Results & Data Vital Signs (Past 12 Hours) Vital Signs Temp Pulse Pulse Resp BP BP Pulse Ox 07/15/23 08:00 37.0 C 108 H 22 100/85 95 07/15/23 07:00 103 H 20 104/69 96 07/15/23 06:00 103/86 07/15/23 06:00 109 H 18 94 07/15/23 05:00 100/75 07/15/23 05:00 37 C 105 H 17 94 07/15/23 04:00 37.2 C 110 H 28 H 98 07/15/23 04:00 112/75 07/15/23 03:00 124/72 07/15/23 03:00 37.2 C 108 H 24 95 07/15/23 02:01 107 H 23 95 07/15/23 02:01 125/59 L 07/15/23 02:00 105 H 19 95 07/15/23 01:00 36.4 C L 114 H 25 H 94 07/15/23 00:05 104/67 07/15/23 00:05 102 H 20 94 07/15/23 00:00 110 H 07/14/23 23:01 119/75 07/14/23 23:01 110 H 20 98 07/14/23 22:00 107 H 22 95 O2 Del Method 07/15/23 08:00 Room Air 07/15/23 07:00 Room Air 07/15/23 06:00 07/15/23 06:00 07/15/23 05:00 07/15/23 05:00 07/15/23 04:00 07/15/23 04:00 07/15/23 03:00 07/15/23 03:00 07/15/23 02:01 07/15/23 02:01 07/15/23 02:00 07/15/23 01:00 07/15/23 00:05 07/15/23 00:05 07/15/23 00:00 07/14/23 23:01 07/14/23 23:01 07/14/23 22:00 Critical Care Results & Data Vital Signs (Past 12 Hours) Vital Signs Temp Pulse Pulse Resp BP BP Pulse Ox 07/15/23 13:00 111 H 20 107/63 94 07/15/23 12:01 113 H 21 96/61 L 96 07/15/23 11:47 37.0 C 07/15/23 11:01 106 H 21 107/59 L 98 07/15/23 10:00 109 H 24 120/76 94 07/15/23 09:00 110 H 16 105/79 97 07/15/23 08:01 109 H 21 100/85 95 07/15/23 08:00 07/15/23 08:00 37.0 C 108 H 22 100/85 95 07/15/23 07:00 103 H 20 104/69 96 07/15/23 06:00 103/86 07/15/23 06:00 109 H 18 94 07/15/23 05:00 100/75 07/15/23 05:00 37 C 105 H 17 94 07/15/23 04:00 37.2 C 110 H 28 H 98 07/15/23 04:00 112/75 07/15/23 03:00 124/72 07/15/23 03:00 37.2 C 108 H 24 95 O2 Del Method 07/15/23 13:00 Room Air 07/15/23 12:01 Room Air 07/15/23 11:47 07/15/23 11:01 Room Air 07/15/23 10:00 Room Air 07/15/23 09:00 Room Air 07/15/23 08:01 Room Air 07/15/23 08:00 Room Air 07/15/23 08:00 Room Air 07/15/23 07:00 Room Air 07/15/23 06:00 07/15/23 06:00 07/15/23 05:00 07/15/23 05:00 07/15/23 04:00 07/15/23 04:00 07/15/23 03:00 07/15/23 03:00 Lab & Micro Results (Past 24 Hours) RBC 2.97 M/uL (4.70-6.10) L 07/15/23 WBC 4.05 K/ul (4.8-10.8) L 07/15/23 Hgb 9.2 g/dl (14.0-18.0) L 07/15/23 Hct 28.7 % (42.0-52.0) L 07/15/23 MCV 96.6 fL (80.0-100.0) 07/15/23 MCH 31.0 pg (25.0-34.0) 07/15/23 MCHC 32.1 g/dL (32.0-36.0) 07/15/23 RDW Standard Deviation 52.0 fL (36.4-46.3) H 07/15/23 RDW Coefficient of Variation 15.0 % (11.5-14.5) H 07/15/23 Plt Count 81 K/uL (130-400) L 07/15/23 MPV 12.2 fL (9.4-12.4) 07/15/23 Nucleated Red Blood Cells % (auto) 0.5 % 07/13 Nucleated RBC Absolute Count (auto) 0.02 K/uL (0.00-0.12) 0 07/14/23 Neutrophils (%) (Auto) 62.0 % 07/15/23 Lymphocytes (%) (Auto) 14.3 % 07/15/23 Monocytes # (Auto) 0.72 K/uL (0.11-0.59) H 07/15/23 Eosinophils # (Auto) 0.11 K/uL (0.00-0.50) 07/15/23 Immature Granulocyte % (Auto) 2.7 % 07/15/23 Neutrophils # (Auto) 2.51 K/uL (1.40-6.50) 07/15/23 Lymphocytes # (Auto) 0.58 K/uL (1.20-3.40) L 07/15/23 Monocytes # (Auto) 0.72 K/uL (0.11-0.59) H 07/15/23 Eosinophils # (Auto) 0.11 K/uL (0.00-0.50) 07/15/23 Basophils # (Auto) 0.02 K/uL (0.00-0.20) 07/15/23 Immature Granulocyte # (Auto) 0.11 K/uL (0.01-0.20) 4 Na 149 mmol/L (136-145) H 07/15/23 K 3.6 mmol/L (3.5-5.1) 07/15/23 Cl 114 mmol/L (98-107) H 07/15/23 CO2 27 mmol/L (21-32) 07/15/23 Anion Gap 8 (3-11) 07/15/23 BUN 80 mg/dl (6-23) H 07/15/23 Creatinine 3.34 mg/dl (0.6-1.4) H 07/15/23 Estimated GFR ( Amer) 20.5 ml/min 07/15/23 Estimated GFR (Non-Af Amer) 17.7 ml/min 07/15/23 BUN/Creatinine Ratio 24.0 (10-20) H 07/15/23 Glu 173 mg/dl (70-99(Fasting)) H 07/15/23 Ca 9.1 mg/dl (8.6-10.3) 07/15/23 Phosphorus Level 2.4 mg/dl (2.5-4.9) L 07/15/23 Total Bilirubin 0.7 mg/dl (0.2-1.0) 07/14/23 AST 57 U/L (13-39) H 07/14/23 ALT 24 U/L (7-52) 07/14/23 Alkaline Phosphatase 70 U/L (34-104) 07/14/23 TP 6.5 gm/dl (6.0-8.3) 07/14/23 Albumin 3.2 gm/dl (3.4-5.0) L 07/14/23 Globulin 3.3 gm/dl (2.5-4.0) 07/14/23 Albumin/Globulin Ratio 1.0 (0.9-2) 07/14/23 Mg 1.8 mg/dl (1.7-2.4) 07/15/23 04:23 Calcium Level 9.1 mg/dl (8.6-10.3) 07/15/23 04:23 Diagnostic Findings (Past 24 Hours) KUB X-Ray 07/15/23 07:30 KUB HISTORY: Status post placement of a feeding tube Coresafe placement COMPARISON: 07/14/2023 FINDINGS: Distal tip of feeding tube is not imaged. Partially imaged feeding tub e projects over the abdominal left upper quadrant. Air-filled loops of large and small bowel. No renal calculi. No ureteral calculi. No pneumoperitoneum or pneumatosis. Spondylotic spurring of the spine. No fracture. IMPRESSION: The partially imaged feeding tube projects over the abdominal left upper quadrant. ACT 112: Negative or not required by law. The above report was generated using voice recognition software. It may contain grammatical, syntax or spelling errors. Electronically signed by: Ivan Modi M.D. 07/15/2023 8:50 AM Chest X-Ray 07/15/23 07:40 XR chest 1V portable HISTORY: Possible aspiration of Tube feeds COMPARISON: Chest 07/08/2023. FINDINGS: There are low lung volumes. Feeding tube terminates in the stomach. No new focal lung consolidations to suggest a pneumonia. No evidence for pulmonary edema. The heart is top normal in size. Degenerative changes again noted within the shoulders. IMPRESSION: 1. No focal lung consolidations to suggest a pneumonia. 2. Feeding tube terminates in the stomach. ACT 112: Negative or not required by law. Electronically signed by: Daquan Kim M.D. 07/15/2023 8:30 AM I & O Totals 24 Hours 07/14/23 07/15/23 07/16/23 06:59 06:59 06:59 Intake Total 756.5 / 756.5 2943 / 2943 52 / 52 Output Total 1565 / 1565 900 / 900 425 / 425 Balance -808.5 / -808.5 2043 / 2043 -373 / -373 Cumulative 07/08/23 14:43 thru 07/15/23 13:17 Intake Total 48824.490 Output Total 9160 Balance 3543.490 RT Ventilator Mngmt (Last Documented) Ventilator Ordered Settings Respiratory Rate 20 07/15/23 13:00 Ventilator - PT Measurements Respiratory Rate 20 Coding Level of Care Code 93746 SUB INP/OBS CARE 2/35MIN Diagnoses Delirium tremens F10.931 Acute renal failure (ARF) N17.9 Nonischemic cardiomyopathy I42.8 Type 2 diabetes mellitus with obesity E11.69; E66.9 Hyperkalemia E87.5
--- NOTE | 2023-07-15 14:26 | Hospitalist Progress Note ---
Date of Service July 15, 2023 Assessment & Plan (1) Encephalopathy: Plan: 68 yo M w/ PMH of T2DM, HLD, nonischemic CM, chronic systolic CHF/April 2023 echo with EF of 25%, HTN, PVCs, first-degree block, intraventricular conduction defect, thrombocytopenia, alcoholism was brought in because of confusion and found to have PETER and hyperkalemia at ED. 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 Patient was noted to having some tremors. On the day of presentation, patient was noted to be very weak and not even able to walk, EMS was called on him [by his brother] and he was brought to the hospital. At presentation patient noted oriented x 1, denied headache or chest pain. But not able to answer any other questions per H&P note. Per H&P note, appears last drink was before Easter. Per patient's brother, he drinks wine and vodka and sometimes beer. Blood was noted in the stool at ED. Patient was noted to be shaky. He is being managed for the following: Acute metabolic encephalopathy Delirium tremens secondary to alcohol withdrawal Complicated by uremia Patient was brought in due to increasing confusion noted at home, tremors and poor po intake ISO alcohol abuse history. Patient noted to be uremic, in PETER, hyperkalemia, possible alcohol withdrawal at presentation with significant dehydration Continue with BELKIS S protocol, folic acid, thiamine, multivitamins as able. Condition got worse and she was transferred to ICU Condition has not improved much and he remains acutely confused with occasional agitation Appreciate rd lab technician input and recommendation Has been on intravenous Ativan to control withdrawal symptoms Remains significant and cephalopathic-semiconscious and noncommunicative Not yet ready to get out of the ICU Remains semiconscious with occasional abnormal movements of the extremities and head. Opens eyes with command only Condition has not changed but remains hemodynamically stable with tachycardia at 111 Still has the abnormal movements involving the extremities and head EEG has been reordered and there was requested by neurologist as well Acute kidney injury Hyperkalemia Uremia Severe PETER noted at presentation, creatinine 7.93. Baseline creatinine appears around 1.2. At presentation potassium of 5.9 and BUN of 175. Appreciate nephrology input and recommendation Not a candidate for dialysis to avoid any disequilibrium syndrome Uremia has been improving and so is creatinine Slightly better with BUN and creatinine today and the patient looks very dry Started with D5W at 50 cc an hour for high sodium and intravascular dehydration Kidney function has been improving gradually Sodium remains elevated at 149 and kidney function stable Hypotension Noted prior to transfer to ICU Has been requiring intravenous norepinephrine to maintain blood pressure Appreciate rd lab technician input and recommendation Patient started on clindamycin and aztreonam for possible infection at admission, UA/CXR/CTAP not suggestive of infection. Subsequent cultures came back to be negative and antibiotics were stopped He is off pressors and the blood pressure remains on the lower side at 91/68 Blood pressure has been dropping down since this morning and going down to systolic less than 80 persistently for some time with MAP of [address] the [address] lab technician and he was given 1 L of LR and also started on norepinephrine drip Blood pressure has been maintaining without the requirements of norepinephrine drip Appreciate rd lab technician input and recommendation Concern for seizure: At presentation, patient noted to have shaking and eyes rolling up, was given a dose of Ativan. Could be alcohol withdrawal versus seizure. EEG suggestive of nonspecific encephalopathy. Neurology evaluated, recommends MRI brain (no acute finding) and seizure precaution. Recommend no driving, DMV form signed. Seizure precaution. Was advised by the neurologist to transfer to tertiary care center for continuous monitoring of EEG but the patient was refused and the neurologist thought that that was not necessary Has been getting seizure medications EEG has been reordered CXR and CTAP with no evidence of fluid overload. Echo this admission with EF of 25 to 30%. Nephrology on board, appreciate recs. Hold metformin, NSS, Jardiance, YANNA/ARB and other nephrotoxic's. Possible GI bleed: Some blood noted around his mouth at presentation, also blood noted in the stool at ED. Hemoglobin at presentation 9.8, hemoglobin 8.3 today, closely monitor H&H. Baseline hemoglobin around 11. GI evaluated-no evidence of GI bleeding., continue with Protonix drip for now. Aspirin on hold. Phone blood consent obtained from his brother at admission. Hemoglobin maintains at 9.2 Chronic systolic CHF: EF 25%, echo results -see above. Seems not on any diuretics. Getting fluids. Monitor for volume overload. Will not give any intravenous fluid to avoid any fluid overload Likely demand ischemia: Likely secondary to acute issues, troponin flat trended in high 30s. Echo with severe global hypokinesis of left ventricle, EF 25 to 30%. Continue telemetry monitoring. Nutrition Started on enteral feeding through coresafe Other chronic medical conditions: Continue with/resume home meds as and when able. Hypertension: Hold his losartan and metoprolol succinate. As needed IV Lopressor for BP management. Patient n.p.o./confused/obtunded/with PETER. T2DM: A1c of 8.8 on 07/09/23. 8.4 on 09/27/22. Hold metformin and Jardiance. Sliding scale insulin while in hospital. 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 Gout: Restart allopurinol when able. Hyperlipidemia: Restart Crestor when able. CPK at presentation 86. Thrombocytopenia: Continue to monitor. DVT prophylaxis: SCDs Full code Given phone call to Pt's brother Tish Sarkar [[phone]] on 07/09- updated pt's brother tish, discussed about all of the above points and management undergoing. Answered all his questions. Discussed with the brother in detail and answered all of his questions on 07/14/2023 Admission and Anticipated Discharge Date Admission Date: July 08, 2023 Subjective 07/12/2023 The patient was seen and examined in ICU He remains unconscious with frequent nonspecific movements of the extremities and head Remains hemodynamically stable with tachycardia 07/13/2023 Patient was seen and examined in ICU He remains semiconscious with frequent nonspecific movement of the extremities and head Not following any commands Pressors are off and blood pressure remains around 91/68 07/14/2023 The patient was seen and examined in ICU He remains semiconscious Agitated at times with random movements of the extremities Has been having tachycardia and low blood pressure 07/15/2023 The patient was seen and examined in ICU He remains semiconscious and has been having abnormal movements involving the head and extremities Opening only eyes with commands Blood pressure is maintaining at lower level at 107/63 Review of Systems Review of Systems: Unobtainable due to cognitive status Physical Exam Physical Exam: Lying in bed with acute distress. Nonspecific movements of the extremities and head with eyes closed Constitutional: well developed, well nourished, + ill appearing and + obese Eyes: Closed ENMT: external ear and nose normal, oropharynx normal Neck: trachea midline, no thyromegaly Respiratory: no respiratory distress Auscultation: + diminished lung sounds; no crackles Cardiovascular: Rate/Rhythm: regular rate, regular rhythm and + tachycardic Heart Sounds: normal S1 and normal S2; no murmur Extremities: no edema Gastrointestinal (Abdomen): Inspection/Auscultation: normal bowel sounds; abdomen not distended Percussion/Palpation: abdomen soft; abdomen nontender Musculoskeletal: No acute arthritis involving any of the joint Neurologic: Alert and awake. Opening only eyes with commands. Having abnormal movements involving the extremities and head Lymphatic: no cervical or axillary lymphadenopathy Results & Data Results & Data Vital Signs (Past 12 Hours) Vital Signs Temp Pulse Pulse Resp BP BP Pulse Ox 07/15/23 13:00 111 H 20 107/63 94 07/15/23 12:01 113 H 21 96/61 L 96 07/15/23 11:47 37.0 C 07/15/23 11:01 106 H 21 107/59 L 98 07/15/23 10:00 109 H 24 120/76 94 07/15/23 09:00 110 H 16 105/79 97 07/15/23 08:01 109 H 21 100/85 95 07/15/23 08:00 07/15/23 08:00 37.0 C 108 H 22 100/85 95 07/15/23 07:00 103 H 20 104/69 96 07/15/23 06:00 103/86 07/15/23 06:00 109 H 18 94 07/15/23 05:00 100/75 07/15/23 05:00 37 C 105 H 17 94 07/15/23 04:00 37.2 C 110 H 28 H 98 07/15/23 04:00 112/75 07/15/23 03:00 124/72 07/15/23 03:00 37.2 C 108 H 24 95 O2 Del Method 07/15/23 13:00 Room Air 07/15/23 12:01 Room Air 07/15/23 11:47 07/15/23 11:01 Room Air 07/15/23 10:00 Room Air 07/15/23 09:00 Room Air 07/15/23 08:01 Room Air 07/15/23 08:00 Room Air 07/15/23 08:00 Room Air 07/15/23 07:00 Room Air 07/15/23 06:00 07/15/23 06:00 07/15/23 05:00 07/15/23 05:00 07/15/23 04:00 07/15/23 04:00 07/15/23 03:00 07/15/23 03:00 Laboratory Results Short CBC 07/14/23 07/14/23 07/15/23 Range/Units 21:32 22:25 04:23 WBC Cancelled 4.17 L 4.05 L Hgb Cancelled 9.3 L 9.2 L Hct Cancelled 28.7 L 28.7 L Plt Count Cancelled 85 L 81 L BMP 07/14/23 07/14/23 07/14/23 15:58 21:32 22:59 Sodium 150 H 148 H Potassium 3.8 TNP 3.7 Chloride 114 H 113 H Carbon Dioxide 26 24 BUN 82 H 78 H Creatinine 3.47 H 3.29 H Glucose 167 H 160 H Calcium 9.2 9.1 07/15/23 04:23 Sodium 149 H Potassium 3.6 Chloride 114 H Carbon Dioxide 27 BUN 80 H Creatinine 3.34 H Glucose 173 H Calcium 9.1 Liver Function 07/14/23 07/14/23 Range/Units 21:32 22:59 Total Bilirubin 0.7 (0.2-1.0) mg/dl AST TNP 57 H ALT 24 (7-52) U/L Alkaline Phosphatase 70 (34-104) U/L Albumin 3.2 L (3.4-5.0) gm/dl Urine 07/14/23 Range/Units 22:30 Urine Color Yellow Urine Appearance Cloudy A (Clear) Urine pH 5.5 (4.5-7.5) Ur Specific [place] 1.017 (1.000-1.030) Urine Protein 2+ H (Negative) Urine Glucose (UA) 2+ H (Negative) Medications Administered Current Inpatient Medications Dextrose (Dextrose 50% 50 Ml Syringe) 25 - 50 ml IV UD PRN; Protocol PRN Reason: Hypoglycemia Protocol Stop: 08/07/23 22:40 Enteral Nutritional Formula (Novasource Renal 2.0 Ramon 1000ml Bag) 1,000 ml NG UD JUSTUS; Protocol Stop: 08/13/23 13:59 Last Admin: 07/15/23 13:13 Dose: 1,000 ml Glucagon (Glucagon For Inj 1 Mg Vial) 1 mg SQ UD PRN; Protocol PRN Reason: Hypoglycemia Protocol Stop: 08/07/23 22:40 Glucose (Glucose 10 Tab/Tube) 4 - 8 tab PO UD PRN; Protocol PRN Reason: Hypoglycemia Treatment Stop: 08/07/23 22:40 Glucose (Glucose 40% Gel 15 Gm Tube) 15 - 30 gm PO UD PRN; Protocol PRN Reason: Hypoglycemia Protocol Stop: 08/07/23 22:40 Folic Acid 1 mg/ Syringe 10 mls @ 5 mls/min IV QAM [facility] Stop: 08/08/23 08:59 Last Admin: 07/15/23 08:21 Dose: 5 mls/min Pantoprazole Sodium 40 mg/ (Syringe) 10 mls @ 5 mls/min IV Q12H JUSTUS Stop: 08/10/23 20:59 Last Admin: 07/15/23 08:22 Dose: 5 mls/min Thiamine HCl 200 mg/ Sodium (Chloride) 52 mls @ 210 mls/hr IV BID JUSTUS Stop: 08/11/23 08:59 Last Infusion: 07/15/23 08:48 Dose: Infused Lorazepam 0.5 mg/ Syringe 0.5 mls @ 2 mls/min IV Q4H PRN PRN Reason: Agitation Stop: 08/11/23 09:38 Last Admin: 07/15/23 04:47 Dose: 2 mls/min Acetaminophen (Ofirmev) 1,000 mg in 100 mls @ 400 mls/hr IV Q8H PRN PRN Reason: Pain or Fever Stop: 07/17/23 15:53 Last Infusion: 07/14/23 16:27 Dose: Infused Insulin Aspart (Insulin Aspart Per Unit Charge) 0 units SC Q4 JUSTUS Stop: 08/07/23 22:59 Last Admin: 07/15/23 11:38 Dose: 2 units Miconazole Nitrate (Miconazole Nitrate Powder 85 Gm) 1 appln EXT PRN PRN PRN Reason: Affected Skin Folds Stop: 08/08/23 22:55 Last Admin: 07/09/23 23:19 Dose: 1 appln Miscellaneous (Carbohydrates For Hypoglycemia ) 15 - 30 gm PO UD PRN PRN Reason: Hypoglycemia Protocol Stop: 08/07/23 22:40 Neomycin/Polymyxin/Hydrocortisone (Neomycin/Polymyxin/Hydrocort Oph Susp 7.5 Ml Btl) 1 drops OP Q8H [facility] Stop: 08/11/23 13:59 Last Admin: 07/15/23 13:13 Dose: 1 drops Nitroglycerin (Nitroglycerin Sl 0.4 Mg/Tab Tab) 0.4 mg SL Q5M PRN PRN Reason: Chest Pain Stop: 08/07/23 22:40 Sterile Water (Tube Feeding Water Flush) 150 ml NG Q4H [facility] Stop: 08/13/23 14:14 Last Admin: 07/15/23 10:10 Dose: 150 ml
--- NOTE | 2023-07-15 23:53 | Electroencephalogram ---
EEG Procedure Note Date of Service July 15, 2023 Start / End Times Start Time: 11:58 End Time: 12:18 Referring Physician Christal Pratt History A 68 year old male with possible seizure. EEG performed for evaluation of epileptiform activity. Home Medication List Medication Instructions Recorded Confirmed Type metoprolol succinate 50 mg 50 mg PO BID #30 tabs 11/24/18 07/08/23 History tablet,extended release 24 hr aspirin 81 mg tablet,delayed 81 mg PO QPM 05/10/20 07/08/23 History release melatonin 10 mg capsule 10 mg PO HS PRN Sleep 05/10/20 07/08/23 History allopurinol 100 mg tablet 100 mg PO QAM 05/17/20 07/08/23 History olmesartan 20 mg tablet 20 mg PO QAM 05/17/20 07/08/23 History empagliflozin 10 mg tablet 10 mg PO QAM 07/08/23 07/08/23 History (Jardiance) fexofenadine 180 mg tablet 180 mg PO QAM 07/08/23 07/08/23 History hydroxyzine HCl 25 mg tablet 25 mg PO DAILY PRN Itching 07/08/23 07/08/23 History metformin 500 mg tablet 500 mg PO BIDM 07/08/23 07/08/23 History rosuvastatin 10 mg tablet 10 mg PO QAM 07/08/23 07/08/23 History Inpatient Medication List Enteral Nutritional Formula (Novasource Renal 2.0 Ramon 1000ml Bag) 1,000 ml NG [facility]; Protocol Stop: 08/13/23 13:59 Last Admin: 07/15/23 13:13 Dose: 1,000 ml Documented By: Admin: 07/14/23 14:25 Dose: 1,000 ml Documented By: LULA Folic Acid 1 mg/ Syringe 10 mls @ 5 mls/min IV QAM [facility] Stop: 08/08/23 08:59 Last Admin: 07/15/23 08:21 Dose: 5 mls/min Documented By: Admin: 07/14/23 08:24 Dose: 5 mls/min Documented By: Admin: 07/13/23 08:18 Dose: 5 mls/min Documented By: Admin: 07/12/23 09:06 Dose: 5 mls/min Documented By: Admin: 07/11/23 09:23 Dose: 5 mls/min Documented By: Admin: 07/10/23 08:29 Dose: 5 mls/min Documented By: Admin: 07/09/23 08:32 Dose: 5 mls/min Documented By: ISELA Pantoprazole Sodium 40 mg/ (Syringe) 10 mls @ 5 mls/min IV Q12H JUSTUS Stop: 08/10/23 20:59 Last Admin: 07/15/23 20:48 Dose: 5 mls/min Documented By: Admin: 07/15/23 08:22 Dose: 5 mls/min Documented By: Admin: 07/14/23 20:26 Dose: 5 mls/min Documented By: Admin: 07/14/23 08:25 Dose: 5 mls/min Documented By: Admin: 07/13/23 20:59 Dose: 5 mls/min Documented By: Admin: 07/13/23 08:18 Dose: 5 mls/min Documented By: Admin: 07/12/23 20:17 Dose: 5 mls/min Documented By: Admin: 07/12/23 09:06 Dose: 5 mls/min Documented By: Admin: 07/11/23 20:27 Dose: 5 mls/min Documented By: CLC Thiamine HCl 200 mg/ Sodium (Chloride) 52 mls @ 210 mls/hr IV BID JUSTUS Stop: 08/11/23 08:59 Last Infusion: 07/15/23 21:05 Dose: Infused Documented By: Admin: 07/15/23 20:50 Dose: 210 mls/hr Documented By: Infusion: 07/15/23 08:48 Dose: Infused Documented By: Admin: 07/15/23 08:22 Dose: 210 mls/hr Documented By: Infusion: 07/14/23 21:30 Dose: Infused Documented By: Admin: 07/14/23 20:26 Dose: 210 mls/hr Documented By: Infusion: 07/14/23 08:49 Dose: Infused Documented By: Admin: 07/14/23 08:25 Dose: 210 mls/hr Documented By: Infusion: 07/13/23 21:19 Dose: Infused Documented By: Admin: 07/13/23 21:00 Dose: 210 mls/hr Documented By: Infusion: 07/13/23 08:39 Dose: Infused Documented By: Admin: 07/13/23 08:18 Dose: 210 mls/hr Documented By: Infusion: 07/12/23 21:10 Dose: Infused Documented By: Admin: 07/12/23 20:17 Dose: 210 mls/hr Documented By: Infusion: 07/12/23 10:37 Dose: Infused Documented By: Admin: 07/12/23 09:45 Dose: 210 mls/hr Documented By: MALENA Lorazepam 0.5 mg/ Syringe 0.5 mls @ 2 mls/min IV Q4H PRN PRN Reason: Agitation Stop: 08/11/23 09:38 Last Admin: 07/15/23 04:47 Dose: 2 mls/min Documented By: Admin: 07/15/23 00:24 Dose: 2 mls/min Documented By: Admin: 07/14/23 11:05 Dose: 2 mls/min Documented By: Admin: 07/13/23 00:58 Dose: 2 mls/min Documented By: Admin: 07/12/23 17:31 Dose: 2 mls/min Documented By: Admin: 07/12/23 14:13 Dose: 2 mls/min Documented By: LULA Acetaminophen (Ofirmev) 1,000 mg in 100 mls @ 400 mls/hr IV Q8H PRN PRN Reason: Pain or Fever Stop: 07/17/23 15:53 Last Infusion: 07/14/23 16:27 Dose: Infused Documented By: Admin: 07/14/23 16:12 Dose: 400 mls/hr Documented By: LULA Insulin Aspart (Insulin Aspart Per Unit Charge) 0 units SC Q4 JUSTUS Stop: 08/07/23 22:59 Last Admin: 07/15/23 20:56 Dose: 4 units Documented By: TP Co-signed By: FREDY Admin: 07/15/23 16:26 Dose: 5 units Documented By: LULA Co-signed By: EDNA Admin: 07/15/23 11:38 Dose: 2 units Documented By: LULA Co-signed By: DTT Admin: 07/15/23 07:59 Dose: 1 units Documented By: WRS Co-signed By: CB Admin: 07/15/23 04:01 Dose: Not Given Documented By: ESG Co-signed By: TP Admin: 07/15/23 00:06 Dose: 2 units Documented By: ESG Co-signed By: TP Admin: 07/14/23 20:01 Dose: Not Given Documented By: ESG Co-signed By: TP Admin: 07/14/23 16:14 Dose: Not Given Documented By: Admin: 07/14/23 12:27 Dose: Not Given Documented By: Admin: 07/14/23 08:22 Dose: 2 units Documented By: WRS Co-signed By: DMB Admin: 07/14/23 04:03 Dose: 1 units Documented By: CLC Co-signed By: CLIFFORD Admin: 07/13/23 23:57 Dose: Not Given Documented By: Admin: 07/13/23 20:01 Dose: Not Given Documented By: Admin: 07/13/23 16:18 Dose: Not Given Documented By: Admin: 07/13/23 11:59 Dose: Not Given Documented By: Admin: 07/13/23 07:52 Dose: Not Given Documented By: Admin: 07/13/23 04:13 Dose: Not Given Documented By: Admin: 07/13/23 00:18 Dose: Not Given Documented By: Admin: 07/12/23 19:59 Dose: Not Given Documented By: Admin: 07/12/23 16:43 Dose: Not Given Documented By: Admin: 07/12/23 11:18 Dose: Not Given Documented By: Admin: 07/12/23 09:04 Dose: Not Given Documented By: Admin: 07/12/23 04:33 Dose: 1 units Documented By: CLC Co-signed By: LLP Admin: 07/12/23 00:07 Dose: Not Given Documented By: Admin: 07/11/23 19:43 Dose: Not Given Documented By: Admin: 07/11/23 16:07 Dose: Not Given Documented By: Admin: 07/11/23 11:50 Dose: Not Given Documented By: Admin: 07/11/23 08:39 Dose: 1 units Documented By: WRS Co-signed By: ASHLIE Admin: 07/11/23 04:45 Dose: Not Given Documented By: Admin: 07/11/23 00:20 Dose: Not Given Documented By: Admin: 07/10/23 20:59 Dose: 2 units Documented By: FREDY Co-signed By: CLIFFORD Admin: 07/10/23 16:09 Dose: Not Given Documented By: Admin: 07/10/23 12:27 Dose: 1 units Documented By: LOLY Co-signed By: ELLEN Admin: 07/10/23 08:32 Dose: 1 units Documented By: LOLY Co-signed By: MALENA Admin: 07/10/23 03:54 Dose: Not Given Documented By: DAVE(2) Admin: 07/09/23 23:51 Dose: 2 units Documented By: DRE Co-signed By: DAVE(2) Admin: 07/09/23 20:37 Dose: 2 units Documented By: DRE Co-signed By: DAVE(2) Admin: 07/09/23 18:32 Dose: Not Given Documented By: Admin: 07/09/23 11:57 Dose: Not Given Documented By: Admin: 07/09/23 09:34 Dose: Not Given Documented By: Admin: 07/09/23 04:30 Dose: Not Given Documented By: Admin: 07/08/23 23:26 Dose: Not Given Documented By: JACINTA Miconazole Nitrate (Miconazole Nitrate Powder 85 Gm) 1 appln EXT PRN PRN PRN Reason: Affected Skin Folds Stop: 08/08/23 22:55 Last Admin: 07/09/23 23:19 Dose: 1 appln Documented By: DAVE(2) Neomycin/Polymyxin/Hydrocortisone (Neomycin/Polymyxin/Hydrocort Oph Susp 7.5 Ml Btl) 1 drops OP Q8H JUSTUS Stop: 08/11/23 13:59 Last Admin: 07/15/23 20:51 Dose: 1 drops Documented By: Admin: 07/15/23 13:13 Dose: 1 drops Documented By: Admin: 07/15/23 05:37 Dose: 1 drops Documented By: Admin: 07/14/23 20:26 Dose: 1 drops Documented By: Admin: 07/14/23 14:13 Dose: 1 drops Documented By: Admin: 07/14/23 05:17 Dose: 1 drops Documented By: Admin: 07/13/23 21:00 Dose: 1 drops Documented By: Admin: 07/13/23 14:19 Dose: 1 drops Documented By: Admin: 07/13/23 05:31 Dose: 1 drops Documented By: Admin: 07/12/23 23:23 Dose: 1 drops Documented By: Admin: 07/12/23 14:07 Dose: 1 drops Documented By: LULA Sterile Water (Tube Feeding Water Flush) 150 ml NG Q4H JUSTUS Stop: 08/13/23 14:14 Last Admin: 07/15/23 23:17 Dose: 150 ml Documented By: Admin: 07/15/23 18:26 Dose: 150 ml Documented By: Admin: 07/15/23 15:22 Dose: 150 ml Documented By: Admin: 07/15/23 10:10 Dose: 150 ml Documented By: Admin: 07/15/23 06:11 Dose: 150 ml Documented By: Admin: 07/15/23 02:25 Dose: 150 ml Documented By: Admin: 07/14/23 22:15 Dose: 150 ml Documented By: Admin: 07/14/23 18:20 Dose: 150 ml Documented By: Admin: 07/14/23 14:25 Dose: 150 ml Documented By: LULA Discontinued Medications Dextrose (Dextrose 50% 50 Ml Syringe) 50 ml IV NOW STA Stop: 07/08/23 18:37 Last Admin: 07/08/23 18:53 Dose: 50 ml Documented By: JACINTA Dextrose (Dextrose 50% 50 Ml Syringe) 50 ml IV NOW ONE Stop: 07/09/23 10:56 Last Admin: 07/09/23 11:18 Dose: 50 ml Documented By: ISELA Diclofenac Sodium (Diclofenac Sod 1% Gel 100 Gm Tube) 2 gm EXT Q6H JUSTUS; Protocol Stop: 07/14/23 14:44 Last Admin: 07/11/23 08:40 Dose: 2 gm Documented By: Admin: 07/11/23 03:40 Dose: 2 gm Documented By: Admin: 07/10/23 20:59 Dose: 2 gm Documented By: Admin: 07/10/23 16:32 Dose: 2 gm Documented By: LOLY Furosemide (Furosemide 40 Mg/4 Ml Vial) 40 mg IV ONE ONE Stop: 07/09/23 10:56 Last Admin: 07/09/23 11:18 Dose: 40 mg Documented By: ISELA Pantoprazole Sodium 80 mg/ (Dextrose) 120 mls @ 480 mls/hr IV ONE STA Stop: 07/08/23 17:46 Last Infusion: 07/08/23 20:00 Dose: Infused Documented By: Admin: 07/08/23 19:02 Dose: 480 mls/hr Documented By: JACINTA Insulin Human Regular 10 units (/ Syringe) 9.9 mls @ 3 mls/sec IV ONE STA Stop: 07/08/23 18:37 Last Admin: 07/08/23 18:53 Dose: 3 mls/sec Documented By: JACINTA Co-signed By: SELENE Sodium Chloride (Nss) 1,000 mls @ 999 mls/hr IV .Q1H1M ONE Stop: 07/08/23 19:36 Last Infusion: 07/08/23 20:29 Dose: Infused Documented By: Admin: 07/08/23 19:02 Dose: 999 mls/hr Documented By: JACINTA Calcium Gluconate () 1,000 mg in 60 mls @ 240 mls/hr IV NOW STA Stop: 07/08/23 18:50 Last Infusion: 07/08/23 19:24 Dose: Infused Documented By: Admin: 07/08/23 18:53 Dose: 240 mls/hr Documented By: JACINTA Sodium Bicarbonate 75 meq/ (Sodium Chloride) 1,075 mls @ 75 mls/hr IV .[id number] JUSTUS Stop: 08/07/23 18:59 Last Admin: 07/09/23 11:10 Dose: Not Given Documented By: Infusion: 07/09/23 11:10 Dose: Infused Documented By: Admin: 07/08/23 20:41 Dose: 75 mls/hr Documented By: JACINTA Thiamine HCl 200 mg/ Sodium (Chloride) 52 mls @ 210 mls/hr IV NOW STA Stop: 07/08/23 21:18 Last Infusion: 07/09/23 01:44 Dose: Infused Documented By: Admin: 07/08/23 22:43 Dose: 210 mls/hr Documented By: JACINTA Folic Acid 1 mg/ Syringe 10 mls @ 5 mls/min IV NOW STA Stop: 07/08/23 21:06 Last Admin: 07/08/23 22:43 Dose: 5 mls/min Documented By: JACINTA Thiamine HCl 100 mg/ Syringe 10 mls @ 2 mls/min IV QAM JUSTUS Stop: 08/08/23 08:59 Last Admin: 07/09/23 08:15 Dose: 2 mls/min Documented By: ISELA Lorazepam 1 mg/ Syringe 1 mls @ 2 mls/min IV UD PRN; Protocol PRN Reason: EtOH Withdrawal AWSS Score 6,7 Stop: 08/07/23 22:40 Last Admin: 07/09/23 05:22 Dose: 2 mls/min Documented By: DANETTE Lorazepam 2 mg/ Syringe 2 mls @ 2 mls/min IV UD PRN; Protocol PRN Reason: EtOH Withdrawal AWSS Score 8,9 Stop: 08/07/23 22:40 Last Admin: 07/10/23 06:39 Dose: 2 mls/min Documented By: Admin: 07/10/23 03:24 Dose: 2 mls/min Documented By: Admin: 07/09/23 23:02 Dose: 2 mls/min Documented By: DAVE(2) Admin: 07/09/23 15:59 Dose: 2 mls/min Documented By: Admin: 07/09/23 11:06 Dose: 2 mls/min Documented By: Admin: 07/09/23 03:31 Dose: 2 mls/min Documented By: DANETTE Lorazepam 3 mg/ Syringe 3 mls @ 2 mls/min IV ONCE PRN; Protocol PRN Reason: EtOH Withdrawal AWSS Score 10+ Last Admin: 07/10/23 09:28 Dose: 2 mls/min Documented By: LOLY Pantoprazole Sodium 80 mg/ (Dextrose) 120 mls @ 480 mls/hr IV NOW ONE Stop: 07/08/23 22:55 Last Infusion: 07/09/23 01:44 Dose: Infused Documented By: Admin: 07/09/23 01:26 Dose: 480 mls/hr Documented By: DANETTE Pantoprazole Sodium 40 mg/ (Dextrose) 100 mls @ 20 mls/hr IV Q5H [facility] Stop: 07/11/23 19:59 Last Infusion: 07/11/23 20:11 Dose: Infused Documented By: Admin: 07/11/23 17:44 Dose: 8 mg/hr, 20 mls/hr Documented By: Infusion: 07/11/23 17:39 Dose: Infused Documented By: Admin: 07/11/23 12:39 Dose: 8 mg/hr, 20 mls/hr Documented By: Infusion: 07/11/23 12:39 Dose: Infused Documented By: Admin: 07/11/23 08:35 Dose: 8 mg/hr, 20 mls/hr Documented By: Infusion: 07/11/23 08:35 Dose: Infused Documented By: Admin: 07/11/23 03:35 Dose: 8 mg/hr, 20 mls/hr Documented By: Infusion: 07/11/23 02:31 Dose: Infused Documented By: Admin: 07/10/23 21:31 Dose: 8 mg/hr, 20 mls/hr Documented By: Infusion: 07/10/23 21:30 Dose: Infused Documented By: Admin: 07/10/23 16:30 Dose: 8 mg/hr, 20 mls/hr Documented By: Infusion: 07/10/23 15:48 Dose: Infused Documented By: Admin: 07/10/23 10:48 Dose: 8 mg/hr, 20 mls/hr Documented By: Infusion: 07/10/23 10:48 Dose: Infused Documented By: Admin: 07/10/23 06:36 Dose: 8 mg/hr, 20 mls/hr Documented By: DMB(2) Infusion: 07/10/23 06:36 Dose: Infused Documented By: DMB(2) Admin: 07/10/23 01:39 Dose: 8 mg/hr, 20 mls/hr Documented By: DMB(2) Infusion: 07/10/23 01:39 Dose: Infused Documented By: DMB(2) Admin: 07/09/23 20:43 Dose: 8 mg/hr, 20 mls/hr Documented By: DMB(2) Infusion: 07/09/23 20:43 Dose: Infused Documented By: DMB(2) Admin: 07/09/23 16:14 Dose: 8 mg/hr, 20 mls/hr Documented By: Infusion: 07/09/23 14:52 Dose: Infused Documented By: Admin: 07/09/23 09:52 Dose: 8 mg/hr, 20 mls/hr Documented By: Infusion: 07/09/23 09:15 Dose: Infused Documented By: Admin: 07/09/23 04:15 Dose: 8 mg/hr, 20 mls/hr Documented By: DANETTE Clindamycin Phosphate (Cleocin/D5w) 600 mg in 50 mls @ 100 mls/hr IV Q8H JUSTUS Stop: 07/11/23 01:59 Last Infusion: 07/10/23 10:15 Dose: Infused Documented By: Admin: 07/10/23 09:41 Dose: 100 mls/hr Documented By: Infusion: 07/10/23 02:56 Dose: Infused Documented By: DAVE(2) Admin: 07/10/23 02:29 Dose: 100 mls/hr Documented By: DAVE(2) Infusion: 07/09/23 21:10 Dose: Infused Documented By: DAVE(2) Admin: 07/09/23 20:40 Dose: 100 mls/hr Documented By: DAVE(2) Infusion: 07/09/23 11:56 Dose: Infused Documented By: Admin: 07/09/23 10:46 Dose: 100 mls/hr Documented By: Infusion: 07/09/23 04:16 Dose: Infused Documented By: Admin: 07/09/23 03:21 Dose: 100 mls/hr Documented By: DANETTE Aztreonam 2,000 mg/ Dextrose 100 mls @ 100 mls/hr IV Q12H JUSTUS Stop: 07/11/23 03:59 Last Infusion: 07/10/23 17:40 Dose: Infused Documented By: Admin: 07/10/23 16:03 Dose: 100 mls/hr Documented By: Infusion: 07/10/23 04:36 Dose: Infused Documented By: Admin: 07/10/23 03:29 Dose: 100 mls/hr Documented By: DAVE(2) Infusion: 07/09/23 20:40 Dose: Infused Documented By: DAVE(2) Admin: 07/09/23 19:17 Dose: 100 mls/hr Documented By: Infusion: 07/09/23 06:15 Dose: Infused Documented By: Admin: 07/09/23 04:51 Dose: 100 mls/hr Documented By: DANETTE Sodium Bicarbonate 150 meq/ (Dextrose) 1,150 mls @ 100 mls/hr IV .[id number] JUSTUS Stop: 08/08/23 11:14 Last Infusion: 07/10/23 10:44 Dose: Infused Documented By: Admin: 07/09/23 23:21 Dose: 100 mls/hr Documented By: DAVE(2) Infusion: 07/09/23 23:20 Dose: Infused Documented By: DAVE(2) Admin: 07/09/23 11:50 Dose: 100 mls/hr Documented By: ISELA Insulin Human Regular 10 units (/ Syringe) 10 mls @ 60 mls/min IV ONE STA Stop: 07/09/23 11:10 Last Admin: 07/09/23 11:24 Dose: 60 mls/min Documented By: ISELA Co-signed By: BASHIR Thiamine HCl 100 mg/ Syringe 10 mls @ 2 mls/min IV BID JUSTUS Stop: 08/08/23 20:59 Last Admin: 07/11/23 09:23 Dose: 2 mls/min Documented By: Admin: 07/10/23 21:00 Dose: 2 mls/min Documented By: Admin: 07/10/23 08:28 Dose: 2 mls/min Documented By: Admin: 07/09/23 21:01 Dose: 2 mls/min Documented By: DAVE(2) Magnesium Sulfate/Dextrose (Magnesium Sulfate / D5w) 1 gm in 100 mls @ 50 mls/hr IV Q2H JUSTUS Stop: 07/10/23 13:59 Last Infusion: 07/10/23 16:33 Dose: Infused Documented By: Admin: 07/10/23 12:23 Dose: 50 mls/hr Documented By: Infusion: 07/10/23 12:23 Dose: Infused Documented By: Admin: 07/10/23 10:25 Dose: 50 mls/hr Documented By: LOLY Sodium Bicarbonate 75 meq/ (Sodium Chloride) 1,075 mls @ 80 mls/hr IV .[id number] JUSTUS Stop: 08/09/23 10:14 Last Infusion: 07/11/23 09:00 Dose: Infused Documented By: Admin: 07/11/23 00:47 Dose: 80 mls/hr Documented By: Infusion: 07/11/23 00:10 Dose: Infused Documented By: Admin: 07/10/23 10:43 Dose: 80 mls/hr Documented By: LOLY Lorazepam 3 mg/ Syringe 3 mls @ 2 mls/min IV Q12H PRN; Protocol PRN Reason: EtOH Withdrawal AWSS Score 10+ Stop: 08/09/23 12:36 Last Admin: 07/10/23 13:37 Dose: 2 mls/min Documented By: LOLY Magnesium Sulfate/Dextrose (Magnesium Sulfate / D5w) 1 gm in 100 mls @ 50 mls/hr IV ONE ONE Stop: 07/10/23 18:48 Last Infusion: 07/10/23 22:09 Dose: Infused Documented By: Admin: 07/10/23 18:01 Dose: 50 mls/hr Documented By: GARRISON Dexmedetomidine/Sodium Chloride (Precedex) 200 mcg in 50 mls @ 0 mls/hr IV .Q0M JUSTUS; Protocol Stop: 07/14/23 17:59 Last Titration: 07/10/23 19:50 Dose: Infused Documented By: Titration: 07/10/23 19:10 Dose: 0 mcg/kg/hr, 0 mls/hr Documented By: Admin: 07/10/23 18:29 Dose: 0.4 mcg/kg/hr, 10.2 mls/hr Documented By: GARRISON Co-signed By: LAILA Norepinephrine Bitartrate (Levophed/D5w) 4 mg in 250 mls @ 0 mls/hr IV .Q0M JUSTUS; Protocol Stop: 08/09/23 19:14 Last Titration: 07/12/23 10:37 Dose: Infused Documented By: Titration: 07/11/23 00:06 Dose: 0 mcg/kg/min, 0 mls/hr Documented By: Titration: 07/10/23 21:15 Dose: 0.02 mcg/kg/min, 7.6 mls/hr Documented By: Titration: 07/10/23 19:49 Dose: 0.04 mcg/kg/min, 15.3 mls/hr Documented By: Admin: 07/10/23 19:11 Dose: 0.05 mcg/kg/min, 19.1 mls/hr Documented By: CLC Co-signed By: ELS Lorazepam 1 mg/ Syringe 1 mls @ 2 mls/min IV UD PRN; Protocol PRN Reason: EtOH Withdrawal AWSS Score 6,7 Stop: 08/09/23 23:12 Last Admin: 07/11/23 04:51 Dose: 2 mls/min Documented By: CLC Lorazepam 2 mg/ Syringe 2 mls @ 2 mls/min IV UD PRN; Protocol PRN Reason: EtOH Withdrawal AWSS Score 8+ Stop: 08/09/23 23:12 Last Admin: 07/12/23 02:54 Dose: 2 mls/min Documented By: Admin: 07/11/23 21:02 Dose: 2 mls/min Documented By: Admin: 07/11/23 19:33 Dose: 2 mls/min Documented By: Admin: 07/11/23 19:01 Dose: 2 mls/min Documented By: Admin: 07/11/23 03:15 Dose: 2 mls/min Documented By: Admin: 07/11/23 01:31 Dose: 2 mls/min Documented By: CLC Lorazepam 3 mg/ Syringe 3 mls @ 2 mls/min IV ONCE PRN; Protocol PRN Reason: EtOH Withdrawal AWSS Score 10+ Last Admin: 07/11/23 00:26 Dose: 2 mls/min Documented By: CLC Lorazepam 3 mg/ Syringe 3 mls @ 2 mls/min IV NOW STA Stop: 07/10/23 23:16 Last Admin: 07/10/23 23:22 Dose: 2 mls/min Documented By: CLC Lorazepam 3 mg/ Syringe 3 mls @ 2 mls/min IV NOW STA Stop: 07/10/23 23:46 Last Admin: 07/11/23 00:00 Dose: 2 mls/min Documented By: CLC Thiamine HCl 500 mg/ Sodium (Chloride) 55 mls @ 110 mls/hr IV Q8H JUSTUS Stop: 07/13/23 04:29 Last Infusion: 07/12/23 07:03 Dose: Infused Documented By: Admin: 07/12/23 04:34 Dose: 110 mls/hr Documented By: Infusion: 07/11/23 21:16 Dose: Infused Documented By: Admin: 07/11/23 20:27 Dose: 110 mls/hr Documented By: Infusion: 07/11/23 13:05 Dose: Infused Documented By: Admin: 07/11/23 12:37 Dose: 110 mls/hr Documented By: LULA Dextrose (D5w) 1,000 mls @ 80 mls/hr IV .[id number] JUSTUS Stop: 08/12/23 10:59 Last Admin: 07/13/23 11:22 Dose: Not Given Documented By: LULA Sodium Chloride (1/2 Nss) 1,000 mls @ 80 mls/hr IV .[id number] JUSTUS Stop: 08/12/23 11:29 Last Admin: 07/13/23 11:43 Dose: Not Given Documented By: LULA Dextrose (D5w) 1,000 mls @ 50 mls/hr IV .Q20H JUSTUS Stop: 07/14/23 07:44 Last Infusion: 07/14/23 01:04 Dose: Infused Documented By: Admin: 07/13/23 12:01 Dose: 50 mls/hr Documented By: LULA Dextrose (D5w) 1,000 mls @ 125 mls/hr IV .Q8H ONE Stop: 07/14/23 08:45 Last Infusion: 07/14/23 10:49 Dose: Infused Documented By: Infusion: 07/14/23 10:37 Dose: 125 mls/hr Documented By: Admin: 07/14/23 01:04 Dose: 80 mls/hr Documented By: FREDY Lactated Ringer's (Lr) 1,000 mls @ 999 mls/hr IV .Q1H1M ONE Stop: 07/14/23 16:33 Last Infusion: 07/14/23 16:40 Dose: Infused Documented By: Admin: 07/14/23 15:37 Dose: 999 mls/hr Documented By: LULA Lorazepam (Lorazepam 1 Mg/1 Ml Syr Ed Inj Use) 0.5 mg IV ONE STA Stop: 07/09/23 05:32 Last Admin: 07/09/23 05:41 Dose: 0.5 mg Documented By: DANETTE Miscellaneous (Stat Iv/Im) 1 each N/A NOW STA Stop: 07/08/23 18:47 Last Admin: 07/09/23 01:38 Dose: Not Given Documented By: DAENTTE Esqueda (Stop Order: Dc Protonix Drip) 1 each N/A TODAY@1999 ONE Stop: 07/11/23 20:01 Last Admin: 07/11/23 19:45 Dose: 1 each Documented By: FREDY Norepinephrine Bitartrate (Norepinephrine/D5w 4 Mg/250 Ml) Confirm Administered Dose 4 mg IV .STK-MED ONE Stop: 07/10/23 19:09 Last Admin: 07/10/23 19:26 Dose: Not Given Documented By: FREDY Phenobarbital Sodium (Phenobarbital Sodium 130 Mg/Ml Vial) 130 mg IM NOW STA Stop: 07/10/23 17:45 Last Admin: 07/10/23 18:02 Dose: 130 mg Documented By: CB Phenobarbital Sodium (Phenobarbital Sodium 65 Mg/Ml Vial) 65 mg IM Q12 JUSTUS Stop: 07/11/23 09:01 Last Admin: 07/11/23 08:59 Dose: Not Given Documented By: Admin: 07/10/23 20:58 Dose: 65 mg Documented By: CLC Sodium Bicarbonate (Sodium Bicarb 8.4% Inj 50 Meq/50 Ml Syr) 50 meq IV NOW STA Stop: 07/08/23 18:37 Last Admin: 07/08/23 18:53 Dose: 50 meq Documented By: CEK Sodium Bicarbonate (Sodium Bicarb 8.4% Inj 50 Meq/50 Ml Syr) 50 meq IV NOW STA Stop: 07/09/23 10:56 Last Admin: 07/09/23 11:18 Dose: 50 meq Documented By: MHN Sodium Bicarbonate (Sodium Bicarb 8.4% Inj 50 Meq/50 Ml Syr) Confirm Administered Dose 50 meq IV .STK-MED ONE Stop: 07/10/23 19:14 Last Admin: 07/10/23 20:35 Dose: Not Given Documented By: CLC Sodium Zirconium Cyclosilicate (Sodium Zirconium Cyclosilicate 10 Gm Packet) 10 gm PO TID [facility] Stop: 07/11/23 09:01 Last Admin: 07/11/23 09:00 Dose: Not Given Documented By: Admin: 07/10/23 20:59 Dose: Not Given Documented By: Admin: 07/10/23 13:37 Dose: Not Given Documented By: Admin: 07/10/23 08:29 Dose: 10 gm Documented By: Admin: 07/09/23 20:44 Dose: Not Given Documented By: [email or web address](2) Admin: 07/09/23 14:22 Dose: Not Given Documented By: MHN Description This is a 21 electrode EEG with a single channel dedicated to limited EKG. The electrodes were placed in accordance with the International 10-20 system. REPORT: At the onet of the EEG the patient is awake. The background consist of 6-7 theta activity with intermixed delta activity. There is frequent myogenic or movement artifact. Interpretation IMPRESSION: This is an abnormal awake EEG due to generalized background slowing suggestive of non specific encephalopathy. This appears improved since previous study performed last week. No epileptiform activity is seen.
[2023-07-16 05:47] LABS: Albumin Level 3.1 gm/dl (3.4-5.0); BUN Creatinine Ratio 27.7 (10-20); Bilirubin,Total 0.7 mg/dl (0.2-1.0); Calcium 9.1 mg/dl (8.6-10.3); Creatinine Clr Calc Pharmacy 27.5 ml/min; Est GFR (African American) 22.7 ml/min; Est GFR (Non-African American) 19.6 ml/min; Globulin 3.2 gm/dl (2.5-4.0); Magnesium 1.6 mg/dl (1.7-2.4); Phosphorus 1.4 mg/dl (2.5-4.9); Potassium 3.6 mmol/L (3.5-5.1); Total Protein 6.3 gm/dl (6.0-8.3)
[2023-07-16] MEDS ORDERED: POTASSIUM PHOS 3 MMOL/1 ML INFUSION IV STA ×2 (08:04→17:19)
[2023-07-16] MEDS: POTASSIUM PHOSPHATE 15 MMOL in SODIUM CHLORIDE 0.9% 250 ML IV ONE (08:53)
[2023-07-16] MEDS: POTASSIUM CHLORIDE 10 MEQ in DEXTROSE 5% 1,000 ML IV SCH (08:53)
--- NOTE | 2023-07-16 09:12 | Nephrology Progress Note ---
Date of Service July 16, 2023 Assessment & Plan (1) Refeeding syndrome: Plan: at risk for this as he starts TF persistent hypernatremia, low mag, low phos -started on TF and FWFlushes 07/13 > agree with 200 mL free water flushes every 4 hours as tolerated but if respiratory status worsens, may need to reconsider free water flushes >getting potassium and mag repleted currently >> will recheck BMP , mag phos urgent at 2230 and have furnace maintenance f/u >monitor bmp, phos, mag at least bid if not tid > f/u labs as below > replete chemistries frequently >keep on cardiac care unit nurse >>given hypotension, low threshold to for IVF > favor plasma-lyte w/ 40 mEq/L K if indicated (2) Acute renal failure (ARF): Plan: improving nonoliguric stage 3 PETER (baseline [facility] creat 09/2022 1.4) --- etiology likely severe pre renal but definitely some Component of ATN. with poor health at baseline and EF 25%; now spiking low grade F since 07/14 w/o clear source of infection. On CXR, exam and CT -- no e/o fluid overload at all; chest x-ray this evening unchanged. despite low EF vol status ok -He was on Jardiance and if he really was not eating drinking much he can get severely dehydrated with ongoing Osmotic diuresis. -Hold metformin, NSAIDS, Jardiance, YANNA/ARB. -Monitor I and O. strict (3) Hypernatremia: Plan: on FW flushes 150 mL q4h > increase/maximize as tolerated; worse today slightly; lessen/minimize D5W as it can worsen phos (4) Encephalopathy: Plan: neither I nor my nephrology colleague believe this relates to uremia > his chemistries have all consistently improved as have other elements of renal function but MS has not, or per my colleague has worsened compared to admission; this is not how uremia presents/tracks typically. hypernatremia does not help his MS but hypernatremia is nowhere near severe enough to explain his persistent altered mental state -risks of OCCUP[employer] HE[employer] SAF[employer] ADVISER continue to outweigh potential benefit at this time Admission and Anticipated Discharge Date Admission Date: July 08, 2023 Subjective Seen on late afternoon rounds. Minimal change to mental status. Tolerating free water flushes which were upped today to 200 mL every 4 hours. Tube feeds changed to Nutren. Tmax 38.4 Review of Systems 2 Review of Systems: Unobtainable due to reduced consciousness Physical Exam 2 Constitutional: well developed, well nourished, + acute distress (More restless and fidgety than I have seen him on previous encounters) and + altered mental status ENMT: Ears: no external ear abnormality Nose: no external nose abnormality Mouth: + dry oral mucous membranes Flexing jaw frequently/jaw tremor; some upper airway sounds Neck: no nuchal rigidity Respiratory: normal respiratory effort and + tachypneic Auscultation: + diminished lung sounds and + bronchial breath sounds Cardiovascular: Rate/Rhythm: + tachycardic Extremities: no edema Gastrointestinal (Abdomen): Inspection/Auscultation: normal bowel sounds P ercussion/Palpation: abdomen soft; abdomen nontender Musculoskeletal: Extremities: strength 5/5 throughout Skin: no rashes, warm and dry Neurologic: Moves all extremities Results & Data Vital Signs (Past 12 Hours) Vital Signs Temp Pulse Pulse Resp BP BP Pulse Ox 07/16/23 08:06 07/16/23 08:00 37.3 C 07/16/23 07:00 96/62 L 07/16/23 07:00 122 H 93 07/16/23 06:45 107 H 96 07/16/23 03:29 37.8 C H 122 H 24 104/61 97 07/15/23 23:12 37.5 C 126 H 18 123/75 92 O2 Del Method 07/16/23 08:06 Room Air 07/16/23 08:00 07/16/23 07:00 07/16/23 07:00 07/16/23 06:45 07/16/23 03:29 Room Air 07/15/23 23:12 Room Air Laboratory Results 07/15/23 04:23 07/16/23 04:53 4/8 cxs ngtd
--- NOTE | 2023-07-16 12:44 | Hospitalist Progress Note ---
Date of Service July 16, 2023 Assessment & Plan (1) Encephalopathy: Plan: 68 yo M w/ PMH of T2DM, HLD, nonischemic CM, chronic systolic CHF/April 2023 echo with EF of 25%, HTN, PVCs, first-degree block, intraventricular conduction defect, thrombocytopenia, alcoholism was brought in because of confusion and found to have PETER and hyperkalemia at ED. Patient noted to be confused at home for 2 days ago [employer]ULL GR[employer]ER, patient refused coming to the hospital the day prior to presentation as well as on the day of presentation. Patient was noted to having some tremors. On the day of presentation, patient was noted to be very weak and not even able to walk, EMS was called on him [by his brother] and he was brought to the hospital. At presentation patient noted oriented x 1, denied headache or chest pain. But not able to answer any other questions per H&P note. Per H&P note, appears last drink was before Easter. Per patient's brother, he drinks wine and vodka and sometimes beer. Blood was noted in the stool at ED. Patient was noted to be shaky. He is being managed for the following: Acute metabolic encephalopathy Delirium tremens secondary to alcohol withdrawal Complicated by uremia Patient was brought in due to increasing confusion noted at home, tremors and poor po intake ISO alcohol abuse history. Patient noted to be uremic, in PETER, hyperkalemia, possible alcohol withdrawal at presentation with significant dehydration Continue with BELKIS S protocol, folic acid, thiamine, multivitamins as able. Condition got worse and she was transferred to ICU Condition has not improved much and he remains acutely confused with occasional agitation Appreciate ophthalmology surgical technician input and recommendation Has been on intravenous Ativan to control withdrawal symptoms Remains significant and cephalopathic-semiconscious and noncommunicative Not yet ready to get out of the ICU Remains semiconscious with occasional abnormal movements of the extremities and head. Opens eyes with command only Condition has not changed but remains hemodynamically stable with tachycardia at 111 Still has the abnormal movements involving the extremities and head EEG does not show any epileptiform activity but generalized background slowing of nonspecific encephalopathy has been improving Remains unstable and unsteady with ongoing abnormal movements of the extremities and head Will keep in ICU tonight for close observation Acute kidney injury Hyperkalemia Uremia Severe PETER noted at presentation, creatinine 7.93. Baseline creatinine appears around 1.2. At presentation potassium of 5.9 and BUN of 175. Appreciate nephrology input and recommendation Not a candidate for dialysis to avoid any disequilibrium syndrome Uremia has been improving and so is creatinine Slightly better with BUN and creatinine today and the patient looks very dry Started with D5W at 50 cc an hour for high sodium and intravascular dehydration Kidney function has been improving gradually Sodium remains elevated at 149 and kidney function stable Creatinine is minimally improved at 3.07 but sodium level remains high at 150 Continue free water supplement through the NGT Phosphate was low and that was supplemented IV Hypotension Noted prior to transfer to ICU Has been requiring intravenous norepinephrine to maintain blood pressure Appreciate ophthalmology surgical technician input and recommendation Patient started on clindamycin and aztreonam for possible infection at admission, UA/CXR/CTAP not suggestive of infection. Subsequent cultures came back to be negative and antibiotics were stopped He is off pressors and the blood pressure remains on the lower side at 91/68 Blood pressure has been dropping down since this morning and going down to systolic less than 80 persistently for some time with MAP of 55 Discussed with the ophthalmology surgical technician and he was given 1 L of LR and also started on norepinephrine drip Blood pressure has been maintaining without the requirements of norepinephrine drip Appreciate ophthalmology surgical technician input and recommendation Blood pressure remains on the lower side at systolic 92-will observe Concern for seizure: At presentation, patient noted to have shaking and eyes rolling up, was given a dose of Ativan. Could be alcohol withdrawal versus seizure. EEG suggestive of nonspecific encephalopathy. Neurology evaluated, recommends MRI brain (no acute finding) and seizure precaution. Recommend no driving, DMV form signed. Seizure precaution. Was advised by the neurologist to transfer to tertiary care center for continuous monitoring of EEG but the patient was refused and the neurologist thought that that was not necessary Has been getting seizure medications EEG has been reordered-no epileptiform activity Abnormal movement could be secondary to alcohol withdrawal/alcohol induced CXR and CTAP with no evidence of fluid overload. Echo this admission with EF of 25 to 30%. Nephrology on board, appreciate recs. Hold metformin, NSS, Jardiance, YANNA/ARB and other nephrotoxic's. Possible GI bleed: Some blood noted around his mouth at presentation, also blood noted in the stool at ED. Hemoglobin at presentation 9.8, hemoglobin 8.3 today, closely monitor H&H. Baseline hemoglobin around 11. GI evaluated-no evidence of GI bleeding., continue with Protonix drip for now. Aspirin on hold. Phone blood consent obtained from his brother at admission. Hemoglobin maintains at 9.2 Chronic systolic CHF: EF 25%, echo results -see above. Seems not on any diuretics. Getting fluids. Monitor for volume overload. Will not give any intravenous fluid to avoid any fluid overload Likely demand ischemia: Likely secondary to acute issues, troponin flat trended in high 30s. Echo with severe global hypokinesis of left ventricle, EF 25 to 30%. Continue telemetry monitoring. Nutrition Started on enteral feeding through [facility] Other chronic medical conditions: Continue with/resume home meds as and when able. Hypertension: Hold his losartan and metoprolol succinate. As needed IV Lopressor for BP management. Patient n.p.o./confused/obtunded/with PETER. T2DM: A1c of 8.8 on 07/09/23. 8.4 on 09/27/22. Hold metformin and Jardiance. Sliding scale insulin while in hospital. nurse educator when more awake. Gout: Restart allopurinol when able. Hyperlipidemia: Restart Crestor when able. CPK at presentation 86. Thrombocytopenia: Continue to monitor. DVT prophylaxis: SCDs Full code Given phone call to Pt's brother Tish Sarkar [[phone]] on 07/09- updated pt's brother tish, discussed about all of the above points and management undergoing. Answered all his questions. Discussed with the brother in detail and answered all of his questions on 07/14/2023 Admission and Anticipated Discharge Date Admission Date: July 08, 2023 Subjective 07/12/2023 The patient was seen and examined in ICU He remains unconscious with frequent nonspecific movements of the extremities and head Remains hemodynamically stable with tachycardia 07/13/2023 Patient was seen and examined in ICU He remains semiconscious with frequent nonspecific movement of the extremities and head Not following any commands Pressors are off and blood pressure remains around 91/68 07/14/2023 The patient was seen and examined in ICU He remains semiconscious Agitated at times with random movements of the extremities Has been having tachycardia and low blood pressure 07/15/2023 The patient was seen and examined in ICU He remains semiconscious and has been having abnormal movements involving the head and extremities Opening only eyes with commands Blood pressure is maintaining at lower level at 107/63 07/16/2023 The patient was seen and examined in ICU He remains semiconscious and is still having abnormal movements involving the extremities and the head Blood pressure remains on the lower side at systolic 92 and remains tachycardic Condition remains unstable Review of Systems Review of Systems: Unobtainable due to cognitive status Physical Exam Physical Exam: Lying in bed with acute distress. Nonspecific movements of the extremities and head with eyes closed Constitutional: well developed, well nourished, + ill appearing and + obese ENMT: external ear and nose normal, oropharynx normal Neck: trachea midline, no thyromegaly Respiratory: no respiratory distress Auscultation: + diminished lung sounds; no crackles Cardiovascular: Rate/Rhythm: regular rate, regular rhythm and + tachycardic Heart Sounds: normal S1 and normal S2; no murmur Extremities: no edema Gastrointestinal (Abdomen): Inspection/Auscultation: normal bowel sounds; abdomen not distended Percussion/Palpation: abdomen soft; abdomen nontender Musculoskeletal: No acute arthritis involving any of the joint Neurologic: Alert and awake. Not following any commands. Moving limbs non-purposefully Lymphatic: no cervical or axillary lymphadenopathy Results & Data Results & Data Vital Signs (Past 12 Hours) Vital Signs Temp Pulse Pulse Resp BP BP BP 07/16/23 12:04 37 C 112 H 20 92/73 L 07/16/23 12:00 110 H 23 07/16/23 11:00 110 H 24 07/16/23 10:00 117 H 07/16/23 09:00 160 H 07/16/23 08:06 07/16/23 08:02 07/16/23 08:02 128/85 07/16/23 08:00 119 H 07/16/23 08:00 37.3 C 07/16/23 07:00 96/62 L 07/16/23 07:00 122 H 07/16/23 06:45 107 H 07/16/23 03:29 37.8 C H 122 H 24 104/61 Pulse Ox O2 Del Method 07/16/23 12:04 94 Room Air 07/16/23 12:00 95 07/16/23 11:00 96 07/16/23 10:00 94 07/16/23 09:00 92 07/16/23 08:06 Room Air 07/16/23 08:02 94 07/16/23 08:02 07/16/23 08:00 93 07/16/23 08:00 07/16/23 07:00 07/16/23 07:00 93 07/16/23 06:45 96 07/16/23 03:29 97 Room Air Laboratory Results [facility] 07/16/23 04:53 Sodium 150 H Potassium 3.6 Chloride 115 H Carbon Dioxide 26 BUN 85 H Creatinine 3.07 H Glucose 212 H Calcium 9.1 Liver Function 07/16/23 Range/Units 04:53 Total Bilirubin 0.7 (0.2-1.0) mg/dl AST 54 H (13-39) U/L ALT 27 (7-52) U/L Alkaline Phosphatase 69 (34-104) U/L Albumin 3.1 L (3.4-5.0) gm/dl Medications Administered Current Inpatient Medications Dextrose (Dextrose 50% 50 Ml Syringe) 25 - 50 ml IV UD PRN; Protocol PRN Reason: Hypoglycemia Protocol Stop: 08/07/23 22:40 Enteral Nutritional Formula (Novasource Renal 2.0 Ramon 1000ml Bag) 1,000 ml NG UD JUSTUS; Protocol Stop: 08/13/23 13:59 Last Admin: 07/15/23 13:13 Dose: 1,000 ml Glucagon (Glucagon For Inj 1 Mg Vial) 1 mg SQ UD PRN; Protocol PRN Reason: Hypoglycemia Protocol Stop: 08/07/23 22:40 Glucose (Glucose 10 Tab/Tube) 4 - 8 tab PO UD PRN; Protocol PRN Reason: Hypoglycemia Treatment Stop: 08/07/23 22:40 Glucose (Glucose 40% Gel 15 Gm Tube) 15 - 30 gm PO UD PRN; Protocol PRN Reason: Hypoglycemia Protocol Stop: 08/07/23 22:40 Folic Acid 1 mg/ Syringe 10 mls @ 5 mls/min IV QAM JUSTUS Stop: 08/08/23 08:59 Last Admin: 07/16/23 07:55 Dose: 5 mls/min Pantoprazole Sodium 40 mg/ (Syringe) 10 mls @ 5 mls/min IV Q12H JUSTUS Stop: 08/10/23 20:59 Last Admin: 07/16/23 07:55 Dose: 5 mls/min Thiamine HCl 200 mg/ Sodium (Chloride) 52 mls @ 210 mls/hr IV BID JUSTUS Stop: 08/11/23 08:59 Last Infusion: 07/16/23 08:17 Dose: Infused Lorazepam 0.5 mg/ Syringe 0.5 mls @ 2 mls/min IV Q4H PRN PRN Reason: Agitation Stop: 08/11/23 09:38 Last Admin: 07/15/23 04:47 Dose: 2 mls/min Acetaminophen (Ofirmev) 1,000 mg in 100 mls @ 400 mls/hr IV Q8H PRN PRN Reason: Pain or Fever Stop: 07/17/23 15:53 Last Infusion: 07/14/23 16:27 Dose: Infused Potassium Chloride 10 meq/ (Dextrose) 1,005 mls @ 150 mls/hr IV .[id number] [facility] Stop: 08/15/23 08:44 Last Admin: 07/16/23 08:53 Dose: 150 mls/hr Insulin Aspart (Insulin Aspart Per Unit Charge) 0 units SC Q4 JUSTUS Stop: 08/07/23 22:59 Last Admin: 07/16/23 11:58 Dose: 6 units Miconazole Nitrate (Miconazole Nitrate Powder 85 Gm) 1 appln EXT PRN PRN PRN Reason: Affected Skin Folds Stop: 08/08/23 22:55 Last Admin: 07/09/23 23:19 Dose: 1 appln Miscellaneous (Carbohydrates For Hypoglycemia ) 15 - 30 gm PO UD PRN PRN Reason: Hypoglycemia Protocol Stop: 08/07/23 22:40 Neomycin/Polymyxin/Hydrocortisone (Neomycin/Polymyxin/Hydrocort Oph Susp 7.5 Ml Btl) 1 drops OP Q8H [facility] Stop: 08/11/23 13:59 Last Admin: 07/16/23 06:27 Dose: 1 drops Nitroglycerin (Nitroglycerin Sl 0.4 Mg/Tab Tab) 0.4 mg SL Q5M PRN PRN Reason: Chest Pain Stop: 08/07/23 22:40 Sterile Water (Tube Feeding Water Flush) 150 ml NG Q4H [facility] Stop: 08/13/23 14:14 Last Admin: 07/16/23 11:33 Dose: 150 ml
[2023-07-16] MEDS: NUTREN LIQD 2.0 1,000 ML BAG NG SCH (14:42)
[2023-07-16] MEDS: TUBE FEEDING WATER FLUSH NG SCH (14:42)
[2023-07-16 17:11] LABS: BUN Creatinine Ratio 28.2 (10-20); Calcium 8.7 mg/dl (8.6-10.3); Creatinine Clr Calc Pharmacy 28.7 ml/min; Est GFR (African American) 23.9 ml/min; Est GFR (Non-African American) 20.6 ml/min; Magnesium 1.5 mg/dl (1.7-2.4); Phosphorus 1.9 mg/dl (2.5-4.9); Potassium 3.8 mmol/L (3.5-5.1)
[2023-07-16] MEDS: MAGNESIUM SULFATE / D5W 1 GM/100 ML BAG IV SCH (17:45)
[2023-07-16] MEDS: POTASSIUM PHOSPHATE IV ONE (17:52)
[2023-07-16] MEDS: SODIUM CHLORIDE 0.9% IV ONE (17:52)
--- NOTE | 2023-07-16 19:29 | XRay Report ---
XR chest 1V portable HISTORY: adventitious breath sounds COMPARISON: Chest 07/15/2023. FINDINGS: There are low lung volumes. No pneumothorax. No pleural fusions. No focal lung consolidatio ns to suggest a pneumonia. No evidence for pulmonary edema. The heart remains enlarged. A feeding tub e is seen within the distal stomach near the pylorus. IMPRESSION: No acute process. ACT 112: Negative or not required by law. Electronically signed by: Daquan Kim M.D. 07/16/2023 7:28 PM
[2023-07-17 01:11] LABS: BUN Creatinine Ratio 28.8 (10-20); Calcium 8.5 mg/dl (8.6-10.3); Creatinine Clr Calc Pharmacy 27.9 ml/min; Est GFR (African American) 23.1 ml/min; Phosphorus 2.6 mg/dl (2.5-4.9); Potassium 3.7 mmol/L (3.5-5.1)
[2023-07-17 04:02] LABS: BUN Creatinine Ratio 29.1 (10-20); Calcium 8.5 mg/dl (8.6-10.3); Creatinine Clr Calc Pharmacy 27.9 ml/min; Est GFR (African American) 23.1 ml/min; Phosphorus 2.4 mg/dl (2.5-4.9); Potassium 3.7 mmol/L (3.5-5.1)
--- NOTE | 2023-07-17 13:13 | Hospitalist Progress Note ---
Date of Service July 17, 2023 Assessment & Plan (1) Encephalopathy: Plan: 68 yo M w/ PMH of T2DM, HLD, nonischemic CM, chronic systolic CHF/April 2023 echo with EF of 25%, HTN, PVCs, first-degree block, intraventricular conduction defect, thrombocytopenia, alcoholism was brought in because of confusion and found to have PETER and hyperkalemia at ED. 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 Patient was noted to having some tremors. On the day of presentation, patient was noted to be very weak and not even able to walk, EMS was called on him [by his brother] and he was brought to the hospital. At presentation patient noted oriented x 1, denied headache or chest pain. But not able to answer any other questions per H&P note. Per H&P note, appears last drink was before Easter. Per patient's brother, he drinks wine and vodka and sometimes beer. Blood was noted in the stool at ED. Patient was noted to be shaky. He is being managed for the following: Acute metabolic encephalopathy-----signs of improvement with more alert and awake on 07/17/2023 Delirium tremens secondary to alcohol withdrawal Complicated by uremia Patient was brought in due to increasing confusion noted at home, tremors and poor po intake ISO alcohol abuse history. Patient noted to be uremic, in PETER, hyperkalemia, possible alcohol withdrawal at presentation with significant dehydration Continue with BELKIS S protocol, folic acid, thiamine, multivitamins as able. Condition got worse and she was transferred to ICU Condition has not improved much and he remains acutely confused with occasional agitation Appreciate brim blocker input and recommendation Has been on intravenous Ativan to control withdrawal symptoms Remains significant and cephalopathic-semiconscious and noncommunicative Not yet ready to get out of the ICU Remains semiconscious with occasional abnormal movements of the extremities and head. Opens eyes with command only Condition has not changed but remains hemodynamically stable with tachycardia at 111 Still has the abnormal movements involving the extremities and head EEG does not show any epileptiform activity but generalized background slowing of nonspecific encephalopathy has been improving Remains unstable and unsteady with ongoing abnormal movements of the extremities and head Clinically better today with more alertness Likely has withdrawal symptoms and will try small dose of intravenous Ativan as needed Acute kidney injury Hyperkalemia Uremia Severe PETER noted at presentation, creatinine 7.93. Baseline creatinine appears around 1.2. At presentation potassium of 5.9 and BUN of 175. Appreciate nephrology input and recommendation Not a candidate for dialysis to avoid any disequilibrium syndrome Uremia has been improving and so is creatinine Slightly better with BUN and creatinine today and the patient looks very dry Started with D5W at 50 cc an hour for high sodium and intravascular dehydration Kidney function has been improving gradually Sodium remains elevated at 149 and kidney function stable Creatinine is minimally improved at 3.07 but sodium level remains high at 150 Continue free water supplement through the NGT Phosphate was low and that was supplemented IV Kidney function seems to be stabilized at 88/3.02 Hypotension Noted prior to transfer to ICU Has been requiring intravenous norepinephrine to maintain blood pressure Appreciate brim blocker input and recommendation Patient started on clindamycin and aztreonam for possible infection at admission, UA/CXR/CTAP not suggestive of infection. Subsequent cultures came back to be negative and antibiotics were stopped He is off pressors and the blood pressure remains on the lower side at 91/68 Blood pressure has been dropping down since this morning and going down to systolic less than 80 persistently for some time with MAP of 55 Discussed with the brim blocker and he was given 1 L of LR and also started on norepinephrine drip Blood pressure has been maintaining without the requirements of norepinephrine drip Appreciate brim blocker input and recommendation Blood pressure remains on the lower side at systolic 92-will observe Blood pressure remains on the lower side at 101/98 but no more tachycardic Concern for seizure: At presentation, patient noted to have shaking and eyes rolling up, was given a dose of Ativan. Could be alcohol withdrawal versus seizure. EEG suggestive of nonspecific encephalopathy. Neurology evaluated, recommends MRI brain (no acute finding) and seizure precaution. Recommend no driving, DMV form signed. Seizure precaution. Was advised by the neurologist to transfer to tertiary care center for continuous monitoring of EEG but the patient was refused and the neurologist thought that that was not necessary Has been getting seizure medications EEG has been reordered-no epileptiform activity Abnormal movement could be secondary to alcohol withdrawal/alcohol induced CXR and CTAP with no evidence of fluid overload. Echo this admission with EF of 25 to 30%. Nephrology on board, appreciate recs. Hold metformin, NSS, Jardiance, YANNA/ARB and other nephrotoxic's. Possible GI bleed: Some blood noted around his mouth at presentation, also blood noted in the stool at ED. Hemoglobin at presentation 9.8, hemoglobin 8.3 today, closely monitor H&H. Baseline hemoglobin around 11. GI evaluated-no evidence of GI bleeding., continue with Protonix drip for now. Aspirin on hold. Phone blood consent obtained from his brother at admission. Hemoglobin maintains at 9.2 Chronic systolic CHF: EF 25%, echo results -see above. Seems not on any diuretics. Getting fluids. Monitor for volume overload. Will not give any intravenous fluid to avoid any fluid overload Likely demand ischemia: Likely secondary to acute issues, troponin flat trended in high 30s. Echo with severe global hypokinesis of left ventricle, EF 25 to 30%. Continue telemetry monitoring. Nutrition Started on enteral feeding through [facility] Other chronic medical conditions: Continue with/resume home meds as and when able. Hypertension: Hold his losartan and metoprolol succinate. As needed IV Lopressor for BP management. Patient n.p.o./confused/obtunded/with PETER. T2DM: A1c of 8.8 on 07/09/23. 8.4 on 09/27/22. Hold metformin and Jardiance. Sliding scale insulin while in hospital. 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 Gout: Restart allopurinol when able. Hyperlipidemia: Restart Crestor when able. CPK at presentation 86. Thrombocytopenia: Continue to monitor. DVT prophylaxis: SCDs Full code Given phone call to Pt's brother Tish Sarkar [[phone]] on 07/09- updated pt's brother tish, discussed about all of the above points and management undergoing. Answered all his questions. Discussed with the brother in detail and answered all of his questions on 07/14/2023 Will discuss with his brother Admission and Anticipated Discharge Date Admission Date: July 08, 2023 Subjective 07/12/2023 The patient was seen and examined in ICU He remains unconscious with frequent nonspecific movements of the extremities and head Remains hemodynamically stable with tachycardia 07/13/2023 Patient was seen and examined in ICU He remains semiconscious with frequent nonspecific movement of the extremities and head Not following any commands Pressors are off and blood pressure remains around 91/68 07/14/2023 The patient was seen and examined in ICU He remains semiconscious Agitated at times with random movements of the extremities Has been having tachycardia and low blood pressure 07/15/2023 The patient was seen and examined in ICU He remains semiconscious and has been having abnormal movements involving the head and extremities Opening only eyes with commands Blood pressure is maintaining at lower level at 107/63 07/16/2023 The patient was seen and examined in ICU He remains semiconscious and is still having abnormal movements involving the extremities and the head Blood pressure remains on the lower side at systolic 92 and remains tachycardic Condition remains unstable 07/17/2023 Patient was seen and examined in ICU He is much improved since this morning Trying to communicate but remains pleasantly confused Has been able to tell his name but does not know where he is now Still has abnormal movements involving the extremities Review of Systems Review of Systems: Unobtainable due to cognitive status Physical Exam Physical Exam: Lying in bed with acute distress, pleasantly confused with abnormal movements i nvolving the extremities Constitutional: well developed, well nourished, + ill appearing and + obese ENMT: external ear and nose normal, oropharynx normal Neck: trachea midline, no thyromegaly Respiratory: no respiratory distress Auscultation: + diminished lung sounds; no crackles Cardiovascular: Rate/Rhythm: regular rate, regular rhythm and + tachycardic Heart Sounds: normal S1 and normal S2; no murmur Extremities: no edema Gastrointestinal (Abdomen): Inspection/Auscultation: normal bowel sounds; abdomen not distended Percussion/Palpation: abdomen soft; abdomen nontender Musculoskeletal: No acute arthritis Neurologic: Alert and awake. Disoriented. Minimal response to commands. Cannot tell his name but does not know where he is right now. Still having abnormal movements involving the extremities Lymphatic: no cervical or axillary lymphadenopathy Results & Data Results & Data Vital Signs (Past 12 Hours) Vital Signs Pulse Resp BP Pulse Ox O2 Del Method 07/17/23 07:55 Room Air 07/17/23 05:00 101/58 L 07/17/23 05:00 93 H 22 89 L 07/17/23 04:01 87 21 92 07/17/23 04:01 93/48 L 07/17/23 04:00 90 19 95 07/17/23 03:00 92 H 18 94 07/17/23 03:00 127/58 L 07/17/23 02:00 102/67 07/17/23 02:00 87 17 91 Laboratory Results BMP 07/16/23 07/16/23 07/17/23 16:18 22:41 03:13 Sodium 147 H 146 H 146 H Potassium 3.8 3.7 3.7 Chloride 114 H 112 H 112 H Carbon Dioxide 25 25 25 BUN 83 H 87 H 88 H Creatinine 2.94 H 3.02 H 3.02 H Glucose 270 H 216 H 208 H Calcium 8.7 8.5 L 8.5 L Medications Administered Current Inpatient Medications Dextrose (Dextrose 50% 50 Ml Syringe) 25 - 50 ml IV UD PRN; Protocol PRN Reason: Hypoglycemia Protocol Stop: 08/07/23 22:40 Glucagon (Glucagon For Inj 1 Mg Vial) 1 mg SQ UD PRN; Protocol PRN Reason: Hypoglycemia Protocol Stop: 08/07/23 22:40 Glucose (Glucose 10 Tab/Tube) 4 - 8 tab PO UD PRN; Protocol PRN Reason: Hypoglycemia Treatment Stop: 08/07/23 22:40 Glucose (Glucose 40% Gel 15 Gm Tube) 15 - 30 gm PO UD PRN; Protocol PRN Reason: Hypoglycemia Protocol Stop: 08/07/23 22:40 Folic Acid 1 mg/ Syringe 10 mls @ 5 mls/min IV QAM [facility] Stop: 08/08/23 08:59 Last Admin: 07/17/23 08:31 Dose: 5 mls/min Pantoprazole Sodium 40 mg/ (Syringe) 10 mls @ 5 mls/min IV Q12H [facility] Stop: 08/10/23 20:59 Last Admin: 07/17/23 08:32 Dose: 5 mls/min Thiamine HCl 200 mg/ Sodium (Chloride) 52 mls @ 210 mls/hr IV BID [facility] Stop: 08/11/23 08:59 Last Infusion: 07/17/23 12:22 Dose: Infused Lorazepam 0.5 mg/ Syringe 0.5 mls @ 2 mls/min IV Q4H PRN PRN Reason: Agitation Stop: 08/11/23 09:38 Last Admin: 07/15/23 04:47 Dose: 2 mls/min Acetaminophen (Ofirmev) 1,000 mg in 100 mls @ 400 mls/hr IV Q8H PRN PRN Reason: Pain or Fever Stop: 07/17/23 15:53 Last Infusion: 07/14/23 16:27 Dose: Infused Insulin Aspart (Insulin Aspart Per Unit Charge) 0 units SC Q4 [facility] Stop: 08/07/23 22:59 Last Admin: 07/17/23 12:05 Dose: 4 units Miconazole Nitrate (Miconazole Nitrate Powder 85 Gm) 1 appln EXT PRN PRN PRN Reason: Affected Skin Folds Stop: 08/08/23 22:55 Last Admin: 07/09/23 23:19 Dose: 1 appln Miscellaneous (Carbohydrates For Hypoglycemia ) 15 - 30 gm PO UD PRN PRN Reason: Hypoglycemia Protocol Stop: 08/07/23 22:40 Neomycin/Polymyxin/Hydrocortisone (Neomycin/Polymyxin/Hydrocort Oph Susp 7.5 Ml Btl) 1 drops OP Q8H [facility] Stop: 08/11/23 13:59 Last Admin: 07/17/23 04:26 Dose: 1 drops Nitroglycerin (Nitroglycerin Sl 0.4 Mg/Tab Tab) 0.4 mg SL Q5M PRN PRN Reason: Chest Pain Stop: 08/07/23 22:40 Nutritional Formula (Nutren Liqd 2.0 1,000 Ml Bag) 1,000 ml NG .See Protocol JUSTUS; Protocol Stop: 08/15/23 14:29 Last Admin: 07/16/23 14:42 Dose: 1,000 ml Sterile Water (Tube Feeding Water Flush) 200 ml NG Q4H [facility] Stop: 08/15/23 14:29 Last Admin: 07/17/23 12:03 Dose: 200 ml
--- NOTE | 2023-07-17 13:17 | Nephrology Progress Note ---
Date of Service July 17, 2023 Assessment & Plan Admission and Anticipated Discharge Date Admission Date: July 08, 2023 Subjective Assessment & Plan (1) Refeeding syndrome: Plan: Will give 14 millimole of K-Phos. continue tube feed. check BMP phosphorus and magnesium every day (2) Acute renal failure (ARF): Plan: improving nonoliguric stage 3 PETER (baseline [facility] creat 09/2022 1.4) --- etiology likely severe pre renal but definitely some Component of ATN. with poor health at baseline and EF 25%. now spiking low grade F since 07/14 w/o clear source of infection. On CXR, exam and CT -- no e/o fluid overload at all; chest x-ray this evening unchanged. despite low EF vol status ok renal failure has improved from admission creatinine of around 8 to the current level of around 3. However the renal recovery has somewhat plateaued. No need of dialysis. (3) Hypernatremia: Plan: on FW flushes 200 mL q4h. sodium is trending down and is now 146. Continue same (4) Encephalopathy: Plan: neither I nor my nephrology colleague believe this relates to uremia > his chemistries have all consistently improved as have other elements of renal function but MS has not, or per my colleague has worsened compared to admission; this is not how uremia presents/tracks typically. hypernatremia does not help his MS but hypernatremia is nowhere near severe enough to explain his persistent altered mental state he appears to be more alert than yesterday so hopefully things will start to improve. Subjective patient seems much more alert. In fact I talked with him and he could tell his name. however he is still quite confused and restless. spoke with RN-- he also agreed he is more interactive. tolerating tube feed. Vital signs also better Review of Systems Review of Systems: Unobtainable due to reduced consciousness Physical Exam Constitutional: well developed, well nourished, + acute distress (More restless and fidgety than I have seen him on previous encounters) and + altered mental status ENMT: Ears: no external ear abnormality Nose: no external nose abnormality Mouth: + dry oral mucous membranes Flexing jaw frequently/jaw tremor; some upper airway sounds Neck: no nuchal rigidity Respiratory: normal respiratory effort and + tachypneic Auscultation: + diminished lung sounds and + bronchial breath sounds Cardiovascular: Rate/Rhythm: + tachycardic Extremities: no edema Gastrointestinal (Abdomen): Inspection/Auscultation: normal bowel sounds Percussion/Palpation: abdomen soft; abdomen nontender Musculoskeletal: Extremities: strength 5/5 throughout Skin: no rashes, warm and dry Neurologic: Moves all extremities Results & Data Vital Signs (Past 12 Hours) Vital Signs Pulse Resp BP Pulse Ox O2 Del Method 07/17/23 07:55 Room Air 07/17/23 05:00 101/58 L 07/17/23 05:00 93 H 22 89 L 07/17/23 04:01 87 21 92 07/17/23 04:01 93/48 L 07/17/23 04:00 90 19 95 07/17/23 03:00 92 H 18 94 07/17/23 03:00 127/58 L 07/17/23 02:00 102/67 07/17/23 02:00 87 17 91
[2023-07-17] MEDS ORDERED: POTASSIUM PHOS 3 MMOL/1 ML INFUSION IV STA (13:20)
[2023-07-17] MEDS: POTASSIUM PHOSPHATE 15 MMOL in SODIUM CHLORIDE 0.9% 250 ML IV ONE (14:36)
--- NOTE | 2023-07-18 09:14 | Nephrology Progress Note ---
Date of Service July 18, 2023 Assessment & Plan Admission and Anticipated Discharge Date Admission Date: July 08, 2023 Subjective Subjective Assessment & Plan (2) Acute renal failure (ARF): Plan: improving nonoliguric stage 3 PETER (baseline [facility] creat 09/2022 1.4) --- etiology likely severe pre renal but definitely some Component of ATN. with poor health at baseline and EF 25%. now spiking low grade F since 07/14 w/o clear source of infection. On CXR, exam and CT -- no e/o fluid overload at all; chest x-ray this evening unchanged. despite low EF vol status ok renal failure has improved from admission creatinine of around 8 to the current level of around 3. However the renal recovery has somewhat plateaued. No need of dialysis. NO labs today so will order renal panel mag and cBC daily x 3 (3) Hypernatremia: Plan: on FW flushes 200 mL q4h. sodium is trending down . No labs today. for now Continue same (4) Encephalopathy: Plan: neither I nor my nephrology colleague believe this relates to uremia > his chemistries have all consistently improved as have other elements of renal function but MS has not, or per my colleague has worsened compared to admission; this is not how uremia presents/tracks typically. hypernatremia does not help his MS but hypernatremia is nowhere near severe enough to explain his persistent altered mental state he appears to be more alert than yesterday so hopefully things will start to improve. Subjective patient seems ?? more alert. Now moved out of ICU. he is still quite confused and restless. tolerating tube feed. Vital signs also better Review of Systems Review of Systems: Unobtainable due to reduced consciousness Physical Exam Constitutional: well developed, well nourished, + acute distress (More restless and fidgety than I have seen him on previous encounters) and + altered mental status ENMT: Ears: no external ear abnormality Nose: no external nose abnormality Mouth: + dry oral mucous membranes Flexing jaw frequently/jaw tremor; some upper airway sounds Neck: no nuchal rigidity Respiratory: normal respiratory effort and + tachypneic Auscultation: + diminished lung sounds and + bronchial breath sounds Cardiovascular: Rate/Rhythm: + tachycardic Extremities: no edema Gastrointestinal (Abdomen): Inspection/Auscultation: normal bowel sounds Percussion/Palpation: abdomen soft; abdomen nontender Musculoskeletal: Extremities: strength 5/5 throughout Skin: no rashes, warm and dry Neurologic: Moves all extremities Results & Data Vital Signs (Past 12 Hours) Vital Signs Temp Pulse Pulse Resp BP BP Pulse Ox 07/18/23 08:00 36.8 C 84 15 99/63 L 91 07/18/23 02:51 36.7 C 87 18 123/73 94 07/17/23 22:55 36.6 C 92 H 20 117/62 96 07/17/23 22:00 07/17/23 21:30 88 O2 Del Method 07/18/23 08:00 Room Air 07/18/23 02:51 Room Air 07/17/23 22:55 Room Air 07/17/23 22:00 Room Air 07/17/23 21:30
[2023-07-18 10:43] LABS: Hematocrit (blood only) 24.2 % (42.0-52.0); Hemoglobin 7.5 g/dl (14.0-18.0); Mean Corpuscular Hemoglobin 30.9 pg (25.0-34.0); Mean Corpuscular Volume 99.6 fL (80.0-100.0); Mean Platelet Volume 12.4 fL (9.4-12.4); Platelet Count 58 K/uL (130-400); RDW Coefficient of Variation 15.5 % (11.5-14.5); RDW Standard Deviation 55.9 fL (36.4-46.3); Red Blood Count 2.43 M/uL (4.70-6.10); White Blood Count 3.41 K/ul (4.8-10.8)
[2023-07-18 10:50] LABS: Basophils # (auto) 0.01 K/uL (0.00-0.20); Basophils % (auto) 0.3 %; Eosinophils # (auto) 0.13 K/uL (0.00-0.50); Eosinophils % (auto) 3.8 %; Immature Granulocytes # (auto) 0.06 K/uL (0.01-0.20); Immature Granulocytes % (auto) 1.8 %; Lymphocytes % (auto) 17.6 %; Monocytes # (auto) 0.32 K/uL (0.11-0.59); Monocytes % (auto) 9.4 %; Neutrophils # (auto) 2.29 K/uL (1.40-6.50); Neutrophils % (auto) 67.1 %; Ovalocytes 1+; Polychromasia 1+; Tear Drop Cells 1+
[2023-07-18 11:14] LABS: Albumin Level 2.9 gm/dl (3.4-5.0); Calcium 8.2 mg/dl (8.6-10.3); Magnesium 1.9 mg/dl (1.7-2.4); Potassium 4.1 mmol/L (3.5-5.1)
[2023-07-18 11:20] LABS: BUN Creatinine Ratio 29.9 (10-20); Creatinine Clr Calc Pharmacy 33.7 ml/min; Est GFR (African American) 28.5 ml/min; Est GFR (Non-African American) 24.6 ml/min; Phosphorus 2.2 mg/dl (2.5-4.9)
[2023-07-18] MEDS: DEXTROSE 5% 1,000 ML IV SCH (13:40)
--- NOTE | 2023-07-18 16:10 | Hospitalist Progress Note ---
Date of Service July 18, 2023 Assessment & Plan (1) Encephalopathy: Plan: 68 yo M w/ PMH of T2DM, HLD, nonischemic CM, chronic systolic CHF/April 2023 echo with EF of 25%, HTN, PVCs, first-degree block, intraventricular conduction defect, thrombocytopenia, alcoholism was brought in because of confusion and found to have PETER and hyperkalemia at ED. 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 Patient was noted to having some tremors. On the day of presentation, patient was noted to be very weak and not even able to walk, EMS was called on him [by his brother] and he was brought to the hospital. At presentation patient noted oriented x 1, denied headache or chest pain. But not able to answer any other questions per H&P note. Per H&P note, appears last drink was before Easter. Per patient's brother, he drinks wine and vodka and sometimes beer. Blood was noted in the stool at ED. Patient was noted to be shaky. He is being managed for the following: Acute metabolic encephalopathy-----signs of improvement with more alert and awake on 07/17/2023 Delirium tremens secondary to alcohol withdrawal Complicated by uremia Patient was brought in due to increasing confusion noted at home, tremors and poor po intake ISO alcohol abuse history. Patient noted to be uremic, in PETER, hyperkalemia, possible alcohol withdrawal at presentation with significant dehydration Continue with BELKIS S protocol, folic acid, thiamine, multivitamins as able. Condition got worse and she was transferred to ICU Condition has not improved much and he remains acutely confused with occasional agitation Appreciate starch crab input and recommendation Has been on intravenous Ativan to control withdrawal symptoms Remains significant and cephalopathic-semiconscious and noncommunicative Not yet ready to get out of the ICU Remains semiconscious with occasional abnormal movements of the extremities and head. Opens eyes with command only Condition has not changed but remains hemodynamically stable with tachycardia at 111 Still has the abnormal movements involving the extremities and head EEG does not show any epileptiform activity but generalized background slowing of nonspecific encephalopathy has been improving Remains unstable and unsteady with ongoing abnormal movements of the extremities and head Clinically better today with more alertness Likely has withdrawal symptoms and will try small dose of intravenous Ativan as needed Clinically much better and remains pleasantly confused Acute kidney injury Hyperkalemia Uremia Severe PETER noted at presentation, creatinine 7.93. Baseline creatinine appears around 1.2. At presentation potassium of 5.9 and BUN of 175. Appreciate nephrology input and recommendation Not a candidate for dialysis to avoid any disequilibrium syndrome Uremia has been improving and so is creatinine Slightly better with BUN and creatinine today and the patient looks very dry Started with D5W at 50 cc an hour for high sodium and intravascular dehydration Kidney function has been improving gradually Sodium remains elevated at 149 and kidney function stable Creatinine is minimally improved at 3.07 but sodium level remains high at 150 Continue free water supplement through the NGT Phosphate was low and that was supplemented IV Kidney function seems to be stabilized at 88/3.02 Kidney function is even better and expected to improve further Hypotension Noted prior to transfer to ICU Has been requiring intravenous norepinephrine to maintain blood pressure Appreciate starch crab input and recommendation Patient started on clindamycin and aztreonam for possible infection at admission, UA/CXR/CTAP not suggestive of infection. Subsequent cultures came back to be negative and antibiotics were stopped He is off pressors and the blood pressure remains on the lower side at 91/68 Blood pressure has been dropping down since this morning and going down to systolic less than 80 persistently for some time with MAP of 55 Discussed with the starch crab and he was given 1 L of LR and also started on norepinephrine drip Blood pressure has been maintaining without the requirements of norepinephrine drip Appreciate starch crab input and recommendation Blood pressure remains on the lower side at systolic 92-will observe Blood pressure remains on the lower side at 101/98 but no more tachycardic Blood pressure on the lower side but maintaining Concern for seizure: At presentation, patient noted to have shaking and eyes rolling up, was given a dose of Ativan. Could be alcohol withdrawal versus seizure. EEG suggestive of nonspecific encephalopathy. Neurology evaluated, recommends MRI brain (no acute finding) and seizure precaution. Recommend no driving, DMV form signed. Seizure precaution. Was advised by the neurologist to transfer to tertiary care center for continuous monitoring of EEG but the patient was refused and the neurologist thought that that was not necessary Has been getting seizure medications EEG has been reordered-no epileptiform activity Abnormal movement could be secondary to alcohol withdrawal/alcohol induced Abnormal movements have been improving CXR and CTAP with no evidence of fluid overload. Echo this admission with EF of 25 to 30%. Nephrology on board, appreciate recs. Hold metformin, NSS, Jardiance, YANNA/ARB and other nephrotoxic's. Possible GI bleed: Some blood noted around his mouth at presentation, also blood noted in the stool at ED. Hemoglobin at presentation 9.8, hemoglobin 8.3 today, closely monitor H&H. Baseline hemoglobin around 11. GI evaluated-no evidence of GI bleeding., continue with Protonix drip for now. Aspirin on hold. Phone blood consent obtained from his brother at admission. Hemoglobin maintains at 9.2 Chronic systolic CHF: EF 25%, echo results -see above. Seems not on any diuretics. Getting fluids. Monitor for volume overload. Will not give any intravenous fluid to avoid any fluid overload Likely demand ischemia: Likely secondary to acute issues, troponin flat trended in high 30s. Echo with severe global hypokinesis of left ventricle, EF 25 to 30%. Continue telemetry monitoring. Nutrition Started on enteral feeding through coresafe Other chronic medical conditions: Continue with/resume home meds as and when able. Hypertension: Hold his losartan and metoprolol succinate. As needed IV Lopressor for BP management. Patient n.p.o./confused/obtunded/with PETER. T2DM: A1c of 8.8 on 07/09/23. 8.4 on 09/27/22. Hold metformin and Jardiance. Sliding scale insulin while in hospital. 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 Gout: Restart allopurinol when able. Hyperlipidemia: Restart Crestor when able. CPK at presentation 86. Thrombocytopenia: Continue to monitor. DVT prophylaxis: SCDs Full code Given phone call to Pt's brother Tish Sarkar [[phone]] on 07/09- updated pt's brother tish, discussed about all of the above points and management undergoing. Answered all his questions. Discussed with the brother in detail and answered all of his questions on 07/14/2023 Will discuss with his brother Admission and Anticipated Discharge Date Admission Date: July 08, 2023 Subjective 07/18/2023 The patient was seen and examined in telemetry unit He has been much better today and has been communicating reasonably Remains pleasantly confused Still has abnormal movements of the extremities but has decreased alert Review of Systems Review of Systems: Unobtainable due to cognitive status Physical Exam Physical Exam: Lying in bed with acute distress, pleasantly confused with abnormal movements involving the extremities Constitutional: well developed, well nourished, + ill appearing and + obese ENMT: external ear and nose normal, oropharynx normal Neck: trachea midline, no thyromegaly Respiratory: no respiratory distress Auscultation: + diminished lung sounds; no crackles Cardiovascular: Rate/Rhythm: regular rate, regular rhythm and + tachycardic Heart Sounds: normal S1 and normal S2; no murmur Extremities: no edema Gastrointestinal (Abdomen): Inspection/Auscultation: normal bowel sounds; abdomen not distended Percussion/Palpation: abdomen soft; abdomen nontender Musculoskeletal: No acute arthritis involving of the joint Neurologic: Alert and awake. Minimally communicative, pleasantly confused Lymphatic: no cervical or axillary lymphadenopathy Results & Data Results & Data Vital Signs (Past 12 Hours) Vital Signs Temp Pulse Pulse Resp BP Pulse Ox O2 Del Method 07/18/23 15:52 36.7 C 89 20 119/68 91 Room Air 07/18/23 15:25 93 H 07/18/23 11:25 91 H 20 122/82 92 Room Air 07/18/23 09:46 86 07/18/23 09:37 Room Air 07/18/23 08:00 36.8 C 84 15 99/63 L 91 Room Air Laboratory Results Short CBC 07/18/23 Range/Units 10:06 WBC 3.41 L (4.8-10.8) K/ul Hgb 7.5 L (14.0-18.0) g/dl Hct 24.2 L (42.0-52.0) % Plt Count 58 L (130-400) K/uL BMP 07/18/23 10:06 Sodium 148 H Potassium 4.1 Chloride 116 H Carbon Dioxide 25 BUN 76 H Creatinine 2.54 H D Glucose 244 H Calcium 8.2 L Liver Function 07/18/23 Range/Units 10:06 Albumin 2.9 L (3.4-5.0) gm/dl Medications Administered Current Inpatient Medications Dextrose (Dextrose 50% 50 Ml Syringe) 25 - 50 ml IV UD PRN; Protocol PRN Reason: Hypoglycemia Protocol Stop: 08/07/23 22:40 Glucagon (Glucagon For Inj 1 Mg Vial) 1 mg SQ UD PRN; Protocol PRN Reason: Hypoglycemia Protocol Stop: 08/07/23 22:40 Glucose (Glucose 10 Tab/Tube) 4 - 8 tab PO UD PRN; Protocol PRN Reason: Hypoglycemia Treatment Stop: 08/07/23 22:40 Glucose (Glucose 40% Gel 15 Gm Tube) 15 - 30 gm PO UD PRN; Protocol PRN Reason: Hypoglycemia Protocol Stop: 08/07/23 22:40 Folic Acid 1 mg/ Syringe 10 mls @ 5 mls/min IV QAM JUSTUS Stop: 08/08/23 08:59 Last Admin: 07/18/23 09:14 Dose: 5 mls/min Pantoprazole Sodium 40 mg/ (Syringe) 10 mls @ 5 mls/min IV Q12H JUSTUS Stop: 08/10/23 20:59 Last Admin: 07/18/23 10:23 Dose: 5 mls/min Thiamine HCl 200 mg/ Sodium (Chloride) 52 mls @ 210 mls/hr IV BID JUSTUS Stop: 08/11/23 08:59 Last Infusion: 07/18/23 09:29 Dose: Infused Lorazepam 0.5 mg/ Syringe 0.5 mls @ 2 mls/min IV Q4H PRN PRN Reason: Agitation Stop: 08/11/23 09:38 Last Admin: 07/17/23 13:37 Dose: 2 mls/min Dextrose (D5w) 1,000 mls @ 80 mls/hr IV .[id number] JUSTUS Stop: 08/17/23 13:29 Last Admin: 07/18/23 13:40 Dose: 80 mls/hr Insulin Aspart (Insulin Aspart Per Unit Charge) 0 units SC Q4 JUSTUS Stop: 08/07/23 22:59 Last Admin: 07/18/23 12:34 Dose: 4 units Miconazole Nitrate (Miconazole Nitrate Powder 85 Gm) 1 appln EXT PRN PRN PRN Reason: Affected Skin Folds Stop: 08/08/23 22:55 Last Admin: 07/09/23 23:19 Dose: 1 appln Miscellaneous (Carbohydrates For Hypoglycemia ) 15 - 30 gm PO UD PRN PRN Reason: Hypoglycemia Protocol Stop: 08/07/23 22:40 Neomycin/Polymyxin/Hydrocortisone (Neomycin/Polymyxin/Hydrocort Oph Susp 7.5 Ml Btl) 1 drops OP Q8H JUSTUS Stop: 08/11/23 13:59 Last Admin: 07/18/23 13:40 Dose: 1 drops Nitroglycerin (Nitroglycerin Sl 0.4 Mg/Tab Tab) 0.4 mg SL Q5M PRN PRN Reason: Chest Pain Stop: 08/07/23 22:40 Nutritional Formula (Nutren Liqd 2.0 1,000 Ml Bag) 1,000 ml NG .See Protocol JUSTUS; Protocol Stop: 08/15/23 14:29 Last Admin: 07/16/23 14:42 Dose: 1,000 ml Sterile Water (Tube Feeding Water Flush) 200 ml NG Q4H [facility] Stop: 08/15/23 14:29 Last Admin: 07/18/23 13:41 Dose: 200 ml
--- NOTE | 2023-07-19 07:00 | XRay Report ---
KUB HISTORY: Feeding tube placement coresafe placement COMPARISON: 10:09 PM FINDINGS: Air-filled loops of large and small bowel are similar to prior. Tip of feeding tube is agai n noted projected over the expected location of the gastric fundus. No renal calculi. No ureteral ca lculi. No pneumoperitoneum or pneumatosis. No fracture. IMPRESSION: Distal tip of feeding tube projects over the gastric fundus. ACT 112: Negative or not required by law. The above report was generated using voice recognition software. It may contain grammatical, syntax o r spelling errors. Electronically signed by: Ivan Modi M.D. 07/19/2023 6:58 AM
--- NOTE | 2023-07-19 07:51 | XRay Report ---
XR chest 1V portable HISTORY: 68 years-old Male sob . Acute shortness of breath COMPARISON: 07/18/2023 TECHNIQUE: AP view of the chest FINDINGS: A feeding tube is in place with distal tip projected superiorly within the gastric fundus. Cardiac si lhouette is enlarged. Lungs are hypoinflated. No pneumothorax, pleural effusion or airspace consolida tion. Bones appear grossly intact. IMPRESSION: 1. Cardiomegaly without acute process. 2. Hypoinflation. 3. Distal tip of feeding tube projects over the gastric fundus. ACT 112: Negative or not required by law. The above report was generated using voice recognition software. It may contain grammatical, syntax o r spelling errors. Electronically signed by: Ivan Modi M.D. 07/19/2023 7:49 AM
--- NOTE | 2023-07-19 07:51 | XRay Report ---
KUB HISTORY: Status post placement of a feeding tube Coresafe placement COMPARISON: 07/15/2023 FINDINGS: Air-filled loops of large and small bowel are again noted. Repositioned feeding tube is not ed with distal tip positioned transversely within the expected location of the-or fundus. No renal c alculi. No ureteral calculi. No pneumoperitoneum or pneumatosis. No fracture. IMPRESSION: Distal tip of feeding tube projects over the gastric fundus. ACT 112: Negative or not required by law. The above report was generated using voice recognition software. It may contain grammatical, syntax o r spelling errors. Electronically signed by: Ivan Modi M.D. 07/19/2023 7:50 AM
--- NOTE | 2023-07-19 07:59 | XRay Report ---
XR chest 1V portable HISTORY: 68 years-old Male coresafe placement status post placement of a feeding tube COMPARISON: Chest radiograph of same day TECHNIQUE: AP view of the chest FINDINGS: A feeding tube is in place with distal tip projected superiorly within the gastric body. Cardiac silh ouette is enlarged. Lungs are hypoinflated. No pneumothorax, pleural effusion or airspace consolidati on. Bones appear grossly intact. IMPRESSION: 1. Cardiomegaly without acute process. 2. Hypoinflation. 3. Distal tip of feeding tube projects over the gastric body. ACT 112: Negative or not required by law. The above report was generated using voice recognition software. It may contain grammatical, syntax o r spelling errors. Electronically signed by: Ivan Modi M.D. 07/19/2023 7:57 AM
[2023-07-19 08:43] LABS: Eosinophils # (auto) 0.14 K/uL (0.00-0.50); Eosinophils % (auto) 3.5 %; Hematocrit (blood only) 26.5 % (42.0-52.0); Hemoglobin 8.5 g/dl (14.0-18.0); Immature Granulocytes # (auto) 0.05 K/uL (0.01-0.20); Immature Granulocytes % (auto) 1.2 %; Lymphocytes # (auto) 0.55 K/uL (1.20-3.40); Lymphocytes % (auto) 13.7 %; Mean Corpuscular Hemoglobin 30.9 pg (25.0-34.0); Mean Corpuscular Hgb Conc 32.1 g/dL (32.0-36.0); Mean Corpuscular Volume 96.4 fL (80.0-100.0); Mean Platelet Volume 12.3 fL (9.4-12.4); Monocytes # (auto) 0.38 K/uL (0.11-0.59); Monocytes % (auto) 9.5 %; Neutrophils # (auto) 2.89 K/uL (1.40-6.50); Neutrophils % (auto) 72.1 %; Platelet Count 68 K/uL (130-400); RDW Coefficient of Variation 15.5 % (11.5-14.5); RDW Standard Deviation 54.2 fL (36.4-46.3); Red Blood Count 2.75 M/uL (4.70-6.10); White Blood Count 4.01 K/ul (4.8-10.8)
[2023-07-19 08:54] LABS: Albumin Level 2.9 gm/dl (3.4-5.0); BUN Creatinine Ratio 29.6 (10-20); Calcium 8.5 mg/dl (8.6-10.3); Creatinine Clr Calc Pharmacy 42.1 ml/min; Est GFR (African American) 37.4 ml/min; Est GFR (Non-African American) 32.3 ml/min; Magnesium 1.6 mg/dl (1.7-2.4); Phosphorus 1.8 mg/dl (2.5-4.9); Potassium 4.1 mmol/L (3.5-5.1)
--- NOTE | 2023-07-19 13:13 | Hospitalist Progress Note ---
Date of Service July 19, 2023 Assessment & Plan (1) Encephalopathy: Plan: 68 yo M w/ PMH of T2DM, HLD, nonischemic CM, chronic systolic CHF/April 2023 echo with EF of 25%, HTN, PVCs, first-degree block, intraventricular conduction defect, thrombocytopenia, alcoholism was brought in because of confusion and found to have PETER and hyperkalemia at ED. 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 Patient was noted to having some tremors. On the day of presentation, patient was noted to be very weak and not even able to walk, EMS was called on him [by his brother] and he was brought to the hospital. At presentation patient noted oriented x 1, denied headache or chest pain. But not able to answer any other questions per H&P note. Per H&P note, appears last drink was before Easter. Per patient's brother, he drinks wine and vodka and sometimes beer. Blood was noted in the stool at ED. Patient was noted to be shaky. He is being managed for the following: Acute metabolic encephalopathy-----signs of improvement with more alert and awake on 07/17/2023 Delirium tremens secondary to alcohol withdrawal Complicated by uremia Patient was brought in due to increasing confusion noted at home, tremors and poor po intake ISO alcohol abuse history. Patient noted to be uremic, in PETER, hyperkalemia, possible alcohol withdrawal at presentation with significant dehydration Continue with BELKIS S protocol, folic acid, thiamine, multivitamins as able. Condition got worse and she was transferred to ICU Condition has not improved much and he remains acutely confused with occasional agitation Appreciate distance learning coordinator input and recommendation Has been on intravenous Ativan to control withdrawal symptoms Remains significant and cephalopathic-semiconscious and noncommunicative Not yet ready to get out of the ICU Remains semiconscious with occasional abnormal movements of the extremities and head. Opens eyes with command only Condition has not changed but remains hemodynamically stable with tachycardia at 111 Still has the abnormal movements involving the extremities and head EEG does not show any epileptiform activity but generalized background slowing of nonspecific encephalopathy has been improving Remains unstable and unsteady with ongoing abnormal movements of the extremities and head Clinically better today with more alertness Likely has withdrawal symptoms and will try small dose of intravenous Ativan as needed Clinically much better and remains pleasantly confused Will get speech evaluation and start oral feeding if possible Clinically improved but remains pleasantly confused Acute kidney injury Hyperkalemia Uremia Severe PETER noted at presentation, creatinine 7.93. Baseline creatinine appears around 1.2. At presentation potassium of 5.9 and BUN of 175. Appreciate nephrology input and recommendation Not a candidate for dialysis to avoid any disequilibrium syndrome Uremia has been improving and so is creatinine Slightly better with BUN and creatinine today and the patient looks very dry Started with D5W at 50 cc an hour for high sodium and intravascular dehydration Kidney function has been improving gradually Sodium remains elevated at 149 and kidney function stable Creatinine is minimally improved at 3.07 but sodium level remains high at 150 Continue free water supplement through the NGT Phosphate was low and that was supplemented IV Kidney function seems to be stabilized at 88/3.02 Kidney function is even better and expected to improve further-creatinine shows further improvement at 2.03 Hypotension Noted prior to transfer to ICU Has been requiring intravenous norepinephrine to maintain blood pressure Appreciate distance learning coordinator input and recommendation Patient started on clindamycin and aztreonam for possible infection at admission, UA/CXR/CTAP not suggestive of infection. Subsequent cultures came back to be negative and antibiotics were stopped He is off pressors and the blood pressure remains on the lower side at 91/68 Blood pressure has been dropping down since this morning and going down to systolic less than 80 persistently for some time with MAP of 55 Discussed with the distance learning coordinator and he was given 1 L of LR and also started on norepinephrine drip Blood pressure has been maintaining without the requirements of norepinephrine drip Appreciate distance learning coordinator input and recommendation Blood pressure remains on the lower side at systolic 92-will observe Blood pressure remains on the lower side at 101/98 but no more tachycardic Blood pressure on the lower side but maintaining Concern for seizure: At presentation, patient noted to have shaking and eyes rolling up, was given a dose of Ativan. Could be alcohol withdrawal versus seizure. EEG suggestive of nonspecific encephalopathy. Neurology evaluated, recommends MRI brain (no acute finding) and seizure precaution. Recommend no driving, DMV form signed. Seizure precaution. Was advised by the neurologist to transfer to tertiary care center for continuous monitoring of EEG but the patient was refused and the neurologist thought that that was not necessary Has been getting seizure medications EEG has been reordered-no epileptiform activity Abnormal movement could be secondary to alcohol withdrawal/alcohol induced Abnormal movements have been improving CXR and CTAP with no evidence of fluid overload. Echo this admission with EF of 25 to 30%. Nephrology on board, appreciate recs. Hold metformin, NSS, Jardiance, YANNA/ARB and other nephrotoxic's. Possible GI bleed: Some blood noted around his mouth at presentation, also blood noted in the stool at ED. Hemoglobin at presentation 9.8, hemoglobin 8.3 today, closely monitor H&H. Baseline hemoglobin around 11. GI evaluated-no evidence of GI bleeding., continue with Protonix drip for now. Aspirin on hold. Phone blood consent obtained from his brother at admission. Hemoglobin maintains at 9.2 Chronic systolic CHF: EF 25%, echo results -see above. Seems not on any diuretics. Getting fluids. Monitor for volume overload. Will not give any intravenous fluid to avoid any fluid overload Chest x-ray did not show any congestive changes Will hold off any intravenous fluid for now Likely demand ischemia: Likely secondary to acute issues, troponin flat trended in high 30s. Echo with severe global hypokinesis of left ventricle, EF 25 to 30%. Continue telemetry monitoring. Nutrition Started on enteral feeding through [facility] Other chronic medical conditions: Continue with/resume home meds as and when able. Hypertension: Hold his losartan and metoprolol succinate. As needed IV Lopressor for BP management. Patient n.p.o./confused/obtunded/with PETER. T2DM: A1c of 8.8 on 07/09/23. 8.4 on 09/27/22. Hold metformin and Jardiance. Sliding scale insulin while in hospital. peer educator when more awake. Gout: Restart allopurinol when able. Hyperlipidemia: Restart Crestor when able. CPK at presentation 86. Thrombocytopenia: Continue to monitor. DVT prophylaxis: SCDs Full code Given phone call to Pt's brother Tish Sarkar [[phone]] on 07/09- updated pt's brother tish, discussed about all of the above points and management undergoing. Answered all his questions. Discussed with the brother in detail and answered all of his questions on 07/14/2023 Will discuss with his brother Admission and Anticipated Discharge Date Admission Date: July 08, 2023 Subjective 07/18/2023 The patient was seen and examined in telemetry unit He has been much better today and has been communicating reasonably Remains pleasantly confused Still has abnormal movements of the extremities but has decreased alert 07/19/2023 The patient was seen and examined in telemetry unit He has been more alert and awake. Remains disoriented Trying to take out the IV lines and NG tube No fever and or chills and remains hemodynamically stable Review of Systems Review of Systems: Unobtainable due to cognitive status Physical Exam Physical Exam: Lying in bed with acute distress, pleasantly confused with abnormal movements involving the extremities Constitutional: well developed, well nourished, + ill appearing and + obese ENMT: external ear and nose normal, oropharynx normal Neck: trachea midline, no thyromegaly Respiratory: no respiratory distress Auscultation: + diminished lung sounds; no crackles Cardiovascular: Rate/Rhythm: regular rate, regular rhythm and + tachycardic Heart Sounds: normal S1 and normal S2; no murmur Extremities: no edema Gastrointestinal (Abdomen): Inspection/Auscultation: normal bowel sounds; abdomen not distended Percussion/Palpation: abdomen soft; abdomen nontender Musculoskeletal: No acute arthritis involving any of the joint Neurologic: Alert and awake. Minimally communicative. Remains pleasantly confused Lymphatic: no cervical or axillary lymphadenopathy Results & Data Results & Data Vital Signs (Past 12 Hours) Vital Signs Temp Pulse Pulse Resp BP Pulse Ox O2 Del Method 07/19/23 11:29 36.8 C 103 H 24 118/71 96 Room Air 07/19/23 10:12 Room Air 07/19/23 10:09 96 Room Air 07/19/23 09:26 92 H 07/19/23 07:59 36.8 C 92 H 24 125/80 95 Nasal Cannula 07/19/23 03:49 36.7 C 96 H 22 123/75 94 Room Air O2 Flow Rate 07/19/23 11:29 07/19/23 10:12 07/19/23 10:09 07/19/23 09:26 07/19/23 07:59 0.5 07/19/23 03:49 Laboratory Results Short CBC 07/19/23 Range/Units 08:08 WBC 4.01 L (4.8-10.8) K/ul Hgb 8.5 L (14.0-18.0) g/dl Hct 26.5 L (42.0-52.0) % Plt Count 68 L (130-400) K/uL BMP 07/19/23 08:08 Sodium 147 H Potassium 4.1 Chloride 112 H Carbon Dioxide 28 BUN 60 H Creatinine 2.03 H D Glucose 244 H Calcium 8.5 L Liver Function 07/19/23 Range/Units 08:08 Albumin 2.9 L (3.4-5.0) gm/dl Medications Administered Current Inpatient Medications Dextrose (Dextrose 50% 50 Ml Syringe) 25 - 50 ml IV UD PRN; Protocol PRN Reason: Hypoglycemia Protocol Stop: 08/07/23 22:40 Glucagon (Glucagon For Inj 1 Mg Vial) 1 mg SQ UD PRN; Protocol PRN Reason: Hypoglycemia Protocol Stop: 08/07/23 22:40 Glucose (Glucose 10 Tab/Tube) 4 - 8 tab PO UD PRN; Protocol PRN Reason: Hypoglycemia Treatment Stop: 08/07/23 22:40 Glucose (Glucose 40% Gel 15 Gm Tube) 15 - 30 gm PO UD PRN; Protocol PRN Reason: Hypoglycemia Protocol Stop: 08/07/23 22:40 Folic Acid 1 mg/ Syringe 10 mls @ 5 mls/min IV QAM JUSTUS Stop: 08/08/23 08:59 Last Admin: 07/19/23 08:23 Dose: 5 mls/min Pantoprazole Sodium 40 mg/ (Syringe) 10 mls @ 5 mls/min IV Q12H JUSTUS Stop: 08/10/23 20:59 Last Admin: 07/19/23 08:23 Dose: 5 mls/min Thiamine HCl 200 mg/ Sodium (Chloride) 52 mls @ 210 mls/hr IV BID JUSTUS Stop: 08/11/23 08:59 Last Infusion: 07/19/23 09:16 Dose: Infused Lorazepam 0.5 mg/ Syringe 0.5 mls @ 2 mls/min IV Q4H PRN PRN Reason: Agitation Stop: 08/11/23 09:38 Last Admin: 07/19/23 11:45 Dose: 2 mls/min Insulin Aspart (Insulin Aspart Per Unit Charge) 0 units SC Q4 JUSTUS Stop: 08/07/23 22:59 Last Admin: 07/19/23 12:11 Dose: 8 units Miconazole Nitrate (Miconazole Nitrate Powder 85 Gm) 1 appln EXT PRN PRN PRN Reason: Affected Skin Folds Stop: 08/08/23 22:55 Last Admin: 07/09/23 23:19 Dose: 1 appln Miscellaneous (Carbohydrates For Hypoglycemia ) 15 - 30 gm PO UD PRN PRN Reason: Hypoglycemia Protocol Stop: 08/07/23 22:40 Neomycin/Polymyxin/Hydrocortisone (Neomycin/Polymyxin/Hydrocort Oph Susp 7.5 Ml Btl) 1 drops OP Q8H JUSTUS Stop: 08/11/23 13:59 Last Admin: 07/19/23 06:15 Dose: 1 drops Nitroglycerin (Nitroglycerin Sl 0.4 Mg/Tab Tab) 0.4 mg SL Q5M PRN PRN Reason: Chest Pain Stop: 08/07/23 22:40 Nutritional Formula (Nutren Liqd 2.0 1,000 Ml Bag) 1,000 ml NG .See Protocol JUSTUS; Protocol Stop: 08/15/23 14:29 Last Admin: 07/19/23 06:34 Dose: 1,000 ml Sterile Water (Tube Feeding Water Flush) 200 ml NG Q4H JUSTUS Stop: 08/15/23 14:29 Last Admin: 07/19/23 11:45 Dose: 200 ml
[2023-07-20 06:45] LABS: Basophils # (auto) 0.01 K/uL (0.00-0.20); Basophils % (auto) 0.2 %; Eosinophils # (auto) 0.12 K/uL (0.00-0.50); Eosinophils % (auto) 2.8 %; Hematocrit (blood only) 27.8 % (42.0-52.0); Hemoglobin 8.6 g/dl (14.0-18.0); Immature Granulocytes # (auto) 0.05 K/uL (0.01-0.20); Immature Granulocytes % (auto) 1.2 %; Lymphocytes # (auto) 0.63 K/uL (1.20-3.40); Lymphocytes % (auto) 14.9 %; Mean Corpuscular Hemoglobin 30.5 pg (25.0-34.0); Mean Corpuscular Hgb Conc 30.9 g/dL (32.0-36.0); Mean Corpuscular Volume 98.6 fL (80.0-100.0); Mean Platelet Volume 13.6 fL (9.4-12.4); Monocytes # (auto) 0.41 K/uL (0.11-0.59); Monocytes % (auto) 9.7 %; Neutrophils # (auto) 3.01 K/uL (1.40-6.50); Neutrophils % (auto) 71.2 %; Platelet Count 74 K/uL (130-400); RDW Coefficient of Variation 15.3 % (11.5-14.5); RDW Standard Deviation 54.8 fL (36.4-46.3); Red Blood Count 2.82 M/uL (4.70-6.10); White Blood Count 4.23 K/ul (4.8-10.8)
[2023-07-20 07:01] LABS: Albumin Level 3.1 gm/dl (3.4-5.0); Calcium 8.7 mg/dl (8.6-10.3); Creatinine Clr Calc Pharmacy 50.5 ml/min; Est GFR (African American) 46.7 ml/min; Est GFR (Non-African American) 40.3 ml/min; Magnesium 1.6 mg/dl (1.7-2.4); Phosphorus 1.8 mg/dl (2.5-4.9); Potassium 3.8 mmol/L (3.5-5.1)
[2023-07-20] MEDS ORDERED: POTASSIUM PHOS 3 MMOL/1 ML INFUSION IV STA (07:55)
[2023-07-20] MEDS: POTASSIUM PHOSPHATE 24 MMOL in SODIUM CHLORIDE 0.9% 500 ML IV ONE (08:36)
--- NOTE | 2023-07-20 11:09 | Nephrology Progress Note ---
Date of Service July 20, 2023 Assessment & Plan (1) Acute renal failure (ARF): Plan: improving nonoliguric stage 3 PETER (baseline [facility] creat 09/2022 1.4) --- etiology likely severe pre renal but definitely some Component of ATN. with poor health at baseline and EF 25%; now spiking low grade F since 07/14 w/o clear source of infection. On CXR, exam and CT -- no e/o fluid overload at all; chest x-ray this evening unchanged. despite low EF vol status ok Creatinine downtrending to 1.7 today from 2 yesterday -Monitor I and O. strict (2) Hypernatremia: Plan: Sodium of 150 today. Will increase the water flushes to 400 mL every 4 hourly Admission and Anticipated Discharge Date Admission Date: July 08, 2023 Subjective Seen for electrolyte imbalance. Patient remains confused. He is on tube feeds. Sodium uptrending. Review of Systems 2 Review of Systems: Unable to obtain due to altered mental status Physical Exam 2 Physical Exam: General exam: Appears comfortable, no acute distress HEENT: Pupils are equal and reactive to light Neck: No JVD, neck is supple trachea is midline Respiratory system: Clear breath sounds bilaterally. Gastrointestinal: Abdomen is soft, non distended, non tender, bowel sounds are present CVS: Regular rate and rhythm. No murmurs, rubs or gallops Musculoskeletal: No joint or muscle tenderness Extremities: Non tender, no edema, peripheral pulses are present Neuro: Disoriented, no tremors, no focal neurological deficits Skin: No rashes Results & Data Vital Signs (Past 12 Hours) Vital Signs Temp Pulse Pulse Resp BP Pulse Ox O2 Del Method 07/20/23 08:19 Room Air 07/20/23 08:12 37.3 C 114 H 30 H 116/73 96 Room Air 07/20/23 07:15 99 H 07/20/23 05:58 36.7 C 98 H 30 H 134/78 94 Room Air 07/19/23 23:47 36.7 C 92 H 18 125/77 95 Room Air Laboratory Results 07/20/23 06:12 07/20/23 06:12 WBC 4.23 L RBC 2.82 L MCV 98.6 MCH 30.5 MCHC 30.9 L RDW Std Deviation 54.8 H RDW Coeff of Vu 15.3 H Plt Count 74 L MPV 13.6 H Phosphorus 1.8 L Albumin 3.1 L
[2023-07-20] MEDS: MAGNESIUM SULFATE / D5W 1 GM/100 ML BAG IV SCH (11:25)
--- NOTE | 2023-07-20 12:56 | Hospitalist Progress Note ---
Date of Service July 20, 2023 Assessment & Plan (1) Encephalopathy: Plan: 68 yo M w/ PMH of T2DM, HLD, nonischemic CM, chronic systolic CHF/April 2023 echo with EF of 25%, HTN, PVCs, first-degree block, intraventricular conduction defect, thrombocytopenia, alcoholism was brought in because of confusion and found to have PETER and hyperkalemia at ED. 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 Patient was noted to having some tremors. On the day of presentation, patient was noted to be very weak and not even able to walk, EMS was called on him [by his brother] and he was brought to the hospital. At presentation patient noted oriented x 1, denied headache or chest pain. But not able to answer any other questions per H&P note. Per H&P note, appears last drink was before Easter. Per patient's brother, he drinks wine and vodka and sometimes beer. Blood was noted in the stool at ED. Patient was noted to be shaky. He is being managed for the following: Acute metabolic encephalopathy-----signs of improvement with more alert and awake on 07/17/2023 Delirium tremens secondary to alcohol withdrawal Complicated by uremia Patient was brought in due to increasing confusion noted at home, tremors and poor po intake ISO alcohol abuse history. Patient noted to be uremic, in PETER, hyperkalemia, possible alcohol withdrawal at presentation with significant dehydration Continue with BELKIS S protocol, folic acid, thiamine, multivitamins as able. Condition got worse and she was transferred to ICU Condition has not improved much and he remains acutely confused with occasional agitation Appreciate press washer input and recommendation Has been on intravenous Ativan to control withdrawal symptoms Remains significant and cephalopathic-semiconscious and noncommunicative Not yet ready to get out of the ICU Remains semiconscious with occasional abnormal movements of the extremities and head. Opens eyes with command only Condition has not changed but remains hemodynamically stable with tachycardia at 111 Still has the abnormal movements involving the extremities and head EEG does not show any epileptiform activity but generalized background slowing of nonspecific encephalopathy has been improving Remains unstable and unsteady with ongoing abnormal movements of the extremities and head Clinically better today with more alertness Likely has withdrawal symptoms and will try small dose of intravenous Ativan as needed Clinically much better and remains pleasantly confused Will get speech evaluation and start oral feeding if possible Remains confused otherwise hemodynamically stable with blood pressure on the lower side Acute kidney injury Hyperkalemia Uremia Severe PETER noted at presentation, creatinine 7.93. Baseline creatinine appears around 1.2. At presentation potassium of 5.9 and BUN of 175. Appreciate nephrology input and recommendation Not a candidate for dialysis to avoid any disequilibrium syndrome Uremia has been improving and so is creatinine Slightly better with BUN and creatinine today and the patient looks very dry Started with D5W at 50 cc an hour for high sodium and intravascular dehydration Kidney function has been improving gradually Sodium remains elevated at 149 and kidney function stable Creatinine is minimally improved at 3.07 but sodium level remains high at 150 Continue free water supplement through the NGT Phosphate was low and that was supplemented IV Kidney function seems to be stabilized at 88/3.02 Kidney function is even better and expected to improve further-creatinine shows further improvement at 2.03 No function has improved a lot with BUN and creatinine improved to 54/1.69 Hypernatremia Remains elevated at 150 Has been getting more free fluid through the NG tube which will be increased to 400 mg q. 4 hourly Will monitor PRP Hypotension Noted prior to transfer to ICU Has been requiring intravenous norepinephrine to maintain blood pressure Appreciate press washer input and recommendation Patient started on clindamycin and aztreonam for possible infection at admission, UA/CXR/CTAP not suggestive of infection. Subsequent cultures came back to be negative and antibiotics were stopped He is off pressors and the blood pressure remains on the lower side at 91/68 Blood pressure has been dropping down since this morning and going down to systolic less than 80 persistently for some time with MAP of 55 Discussed with the press washer and he was given 1 L of LR and also started on norepinephrine drip Blood pressure has been maintaining without the requirements of norepinephrine drip Appreciate press washer input and recommendation Blood pressure remains on the lower side at systolic 92-will observe Blood pressure remains on the lower side at 101/98 but no more tachycardic Blood pressure on the lower side but maintaining Concern for seizure: At presentation, patient noted to have shaking and eyes rolling up, was given a dose of Ativan. Could be alcohol withdrawal versus seizure. EEG suggestive of nonspecific encephalopathy. Neurology evaluated, recommends MRI brain (no acute finding) and seizure precaution. Recommend no driving, DMV form signed. Seizure precaution. Was advised by the neurologist to transfer to tertiary care center for continuous monitoring of EEG but the patient was refused and the neurologist thought that that was not necessary Has been getting seizure medications EEG has been reordered-no epileptiform activity Abnormal movement could be secondary to alcohol withdrawal/alcohol induced Abnormal movements have been improving CXR and CTAP with no evidence of fluid overload. Echo this admission with EF of 25 to 30%. Nephrology on board, appreciate recs. Hold metformin, NSS, Jardiance, YANNA/ARB and other nephrotoxic's. Possible GI bleed: Some blood noted around his mouth at presentation, also blood noted in the stool at ED. Hemoglobin at presentation 9.8, hemoglobin 8.3 today, closely monitor H&H. Baseline hemoglobin around 11. GI evaluated-no evidence of GI bleeding., continue with Protonix drip for now. Aspirin on hold. Phone blood consent obtained from his brother at admission. Hemoglobin maintains at 9.2 Chronic systolic CHF: EF 25%, echo results -see above. Seems not on any diuretics. Getting fluids. Monitor for volume overload. Will not give any intravenous fluid to avoid any fluid overload Chest x-ray did not show any congestive changes Will hold off any intravenous fluid for now Has been getting free fluid through the NG tube Likely demand ischemia: Likely secondary to acute issues, troponin flat trended in high 30s. Echo with severe global hypokinesis of left ventricle, EF 25 to 30%. Continue telemetry monitoring. Nutrition Started on enteral feeding through [facility] Will get speech therapy evaluation for possible oral food Other chronic medical conditions: Continue with/resume home meds as and when able. Hypertension: Hold his losartan and metoprolol succinate. As needed IV Lopressor for BP management. Patient n.p.o./confused/obtunded/with PETER. T2DM: A1c of 8.8 on 07/09/23. 8.4 on 09/27/22. Hold metformin and Jardiance. Sliding scale insulin while in hospital. 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 Gout: Restart allopurinol when able. Hyperlipidemia: Restart Crestor when able. CPK at presentation 86. Thrombocytopenia: Continue to monitor. DVT prophylaxis: SCDs Full code Given phone call to Pt's brother Tish Sarkar [[phone]] on 07/09- updated pt's brother tish, discussed about all of the above points and management undergoing. Answered all his questions. Discussed with the brother in detail and answered all of his questions on 07/14/2023 Will discuss with his brother Admission and Anticipated Discharge Date Admission Date: July 08, 2023 Subjective 07/18/2023 The patient was seen and examined in telemetry unit He has been much better today and has been communicating reasonably Remains pleasantly confused Still has abnormal movements of the extremities but has decreased alert 07/19/2023 The patient was seen and examined in telemetry unit He has been more alert and awake. Remains disoriented Trying to take out the IV lines and NG tube No fever and or chills and remains hemodynamically stable 07/20/2023 The patient was seen and examined in telemetry unit He remains confused and trying to check out the IV line send NG tube Still has the soft wrist restraints Does not seems to be in acute distress Review of Systems Review of Systems: Unobtainable due to cognitive status Physical Exam Physical Exam: Lying in bed with acute distress, pleasantly confused with abnormal movements involving the extremities Constitutional: well developed, well nourished, + ill appearing and + obese ENMT: external ear and nose normal, oropharynx normal Neck: trachea midline, no thyromegaly Respiratory: no respiratory distress Auscultation: + diminished lung sounds; no crackles Cardiovascular: Rate/Rhythm: regular rate, regular rhythm and + tachycardic Heart Sounds: normal S1 and normal S2; no murmur Extremities: no edema Gastrointestinal (Abdomen): Inspection/Auscultation: normal bowel sounds; abdomen not distended Percussion/Palpation: abdomen soft; abdomen nontender Musculoskeletal: No acute arthritis involving any of the joints Neurologic: Alert and awake. Minimally communicative. Remains confused Lymphatic: no cervical or axillary lymphadenopathy Results & Data Results & Data Vital Signs (Past 12 Hours) Vital Signs Temp Pulse Pulse Resp BP Pulse Ox O2 Del Method 07/20/23 11:40 36.9 C 96 H 25 H 99/78 L 94 Room Air 07/20/23 08:19 Room Air 07/20/23 08:12 37.3 C 114 H 30 H 116/73 96 Room Air 07/20/23 07:15 99 H 07/20/23 05:58 36.7 C 98 H 30 H 134/78 94 Room Air Laboratory Results Short CBC 07/20/23 Range/Units 06:12 WBC 4.23 L (4.8-10.8) K/ul Hgb 8.6 L (14.0-18.0) g/dl Hct 27.8 L (42.0-52.0) % Plt Count 74 L (130-400) K/uL BMP 07/20/23 06:12 Sodium 150 H Potassium 3.8 Chloride 114 H Carbon Dioxide 30 BUN 54 H Creatinine 1.69 H D Glucose 189 H Calcium 8.7 Liver Function 07/20/23 Range/Units 06:12 Albumin 3.1 L (3.4-5.0) gm/dl Medications Administered Current Inpatient Medications Dextrose (Dextrose 50% 50 Ml Syringe) 25 - 50 ml IV UD PRN; Protocol PRN Reason: Hypoglycemia Protocol Stop: 08/07/23 22:40 Glucagon (Glucagon For Inj 1 Mg Vial) 1 mg SQ UD PRN; Protocol PRN Reason: Hypoglycemia Protocol Stop: 08/07/23 22:40 Glucose (Glucose 10 Tab/Tube) 4 - 8 tab PO UD PRN; Protocol PRN Reason: Hypoglycemia Treatment Stop: 08/07/23 22:40 Glucose (Glucose 40% Gel 15 Gm Tube) 15 - 30 gm PO UD PRN; Protocol PRN Reason: Hypoglycemia Protocol Stop: 08/07/23 22:40 Folic Acid 1 mg/ Syringe 10 mls @ 5 mls/min IV QAM JUSTUS Stop: 08/08/23 08:59 Last Admin: 07/20/23 07:32 Dose: 5 mls/min Pantoprazole Sodium 40 mg/ (Syringe) 10 mls @ 5 mls/min IV Q12H JUSTUS Stop: 08/10/23 20:59 Last Admin: 07/20/23 07:32 Dose: 5 mls/min Thiamine HCl 200 mg/ Sodium (Chloride) 52 mls @ 210 mls/hr IV BID JUSTUS Stop: 08/11/23 08:59 Last Infusion: 07/20/23 08:03 Dose: Infused Lorazepam 0.5 mg/ Syringe 0.5 mls @ 2 mls/min IV Q4H PRN PRN Reason: Agitation Stop: 08/11/23 09:38 Last Admin: 07/20/23 05:11 Dose: 2 mls/min Insulin Aspart (Insulin Aspart Per Unit Charge) 0 units SC Q4 JUSTUS Stop: 08/07/23 22:59 Last Admin: 07/20/23 11:54 Dose: 6 units Miconazole Nitrate (Miconazole Nitrate Powder 85 Gm) 1 appln EXT PRN PRN PRN Reason: Affected Skin Folds Stop: 08/08/23 22:55 Last Admin: 07/09/23 23:19 Dose: 1 appln Miscellaneous (Carbohydrates For Hypoglycemia ) 15 - 30 gm PO UD PRN PRN Reason: Hypoglycemia Protocol Stop: 08/07/23 22:40 Neomycin/Polymyxin/Hydrocortisone (Neomycin/Polymyxin/Hydrocort Oph Susp 7.5 Ml Btl) 1 drops OP Q8H [facility] Stop: 08/11/23 13:59 Last Admin: 07/20/23 06:00 Dose: 1 drops Nitroglycerin (Nitroglycerin Sl 0.4 Mg/Tab Tab) 0.4 mg SL Q5M PRN PRN Reason: Chest Pain Stop: 08/07/23 22:40 Nutritional Formula (Nutren Liqd 2.0 1,000 Ml Bag) 1,000 ml NG .See Protocol JUSTUS; Protocol Stop: 08/15/23 14:29 Last Admin: 07/19/23 06:34 Dose: 1,000 ml Sterile Water (Tube Feeding Water Flush) 400 ml NG Q4H [facility] Stop: 08/19/23 14:29
[2023-07-20] MEDS: TUBE FEEDING WATER FLUSH NG SCH (13:06)
[2023-07-20] MEDS: LORazepam 0.25 MG in SYRINGE 0.125 ML IV STA (23:58)
--- NOTE | 2023-07-21 07:22 | XRay Report ---
XR chest 1V portable HISTORY: hypoxia COMPARISON: Chest 07/19/2023. FINDINGS: Feeding tube terminates at the gastric fundus. This remains unchanged. There are low lung v olumes. No pneumothorax. No pleural effusions. There is perihilar vascular/interstitial prominence. T his is likely due to the low lung volumes. No new focal lung consolidations to suggest a pneumonia. N o evidence for pulmonary edema. The heart remains mildly enlarged. IMPRESSION: No significant change compared to the prior study. No acute process. ACT 112: Negative or not required by law. Electronically signed by: Daquan Kim M.D. 07/21/2023 7:21 AM
[2023-07-21 08:29] LABS: Basophils # (auto) 0.01 K/uL (0.00-0.20); Basophils % (auto) 0.2 %; Eosinophils # (auto) 0.11 K/uL (0.00-0.50); Eosinophils % (auto) 2.6 %; Hematocrit (blood only) 28.8 % (42.0-52.0); Hemoglobin 8.8 g/dl (14.0-18.0); Immature Granulocytes # (auto) 0.05 K/uL (0.01-0.20); Immature Granulocytes % (auto) 1.2 %; Lymphocytes # (auto) 0.47 K/uL (1.20-3.40); Mean Corpuscular Hemoglobin 30.8 pg (25.0-34.0); Mean Corpuscular Hgb Conc 30.6 g/dL (32.0-36.0); Mean Corpuscular Volume 100.7 fL (80.0-100.0); Mean Platelet Volume 12.6 fL (9.4-12.4); Monocytes % (auto) 11.7 %; Neutrophils # (auto) 3.14 K/uL (1.40-6.50); Neutrophils % (auto) 73.3 %; Platelet Count 90 K/uL (130-400); RDW Coefficient of Variation 15.4 % (11.5-14.5); RDW Standard Deviation 56.1 fL (36.4-46.3); Red Blood Count 2.86 M/uL (4.70-6.10); White Blood Count 4.28 K/ul (4.8-10.8)
--- NOTE | 2023-07-21 08:38 | XRay Report ---
KUB HISTORY: ng tube placement COMPARISON: KUB 07/18/2023. FINDINGS: The bowel gas pattern is unremarkable. There are no dilated loops of small bowel to suggest an obstruction. No renal calculi. No ureteral calculi. No pneumoperitoneum or pneumatosis. The feed ing tube is curled within the stomach with the tip terminating near the fundus of the stomach. This i s similar to the prior study. IMPRESSION: The feeding tube is curled within the stomach with the tip terminating near the fundus of the stomach . This is similar to the prior study. ACT 112: Negative or not required by law. Electronically signed by: Daquan Kim M.D. 07/21/2023 8:37 AM
[2023-07-21 08:43] LABS: Albumin Level 3.1 gm/dl (3.4-5.0); BUN Creatinine Ratio 31.7 (10-20); Calcium 8.7 mg/dl (8.6-10.3); Est GFR (African American) 56.1 ml/min; Est GFR (Non-African American) 48.4 ml/min; Phosphorus 2.3 mg/dl (2.5-4.9)
--- NOTE | 2023-07-21 08:53 | Electrocardiogram Report ---
Test Reason : Blood Pressure : / mmHG Vent. Rate : 097 BPM Atrial Rate : 097 BPM P-R Int : 192 ms QRS Dur : 112 ms QT Int : 412 ms P-R-T Axes : 105 -30 090 degrees QTc Int : 523 ms Normal sinus rhythm Left axis deviation T wave abnormality, consider anterolateral ischemia Prolonged QT Abnormal ECG Confirmed by Avila Porter [id number]) on 07/21/2023 8:53:41 AM Referred By: REFERRED SELF Confirmed By:Modesto Porter
--- NOTE | 2023-07-21 11:14 | Nephrology Progress Note ---
Date of Service July 21, 2023 Assessment & Plan Admission and Anticipated Discharge Date Admission Date: July 08, 2023 Subjective Assessment & Plan (1) Acute renal failure (ARF): Plan: improving nonoliguric stage 3 PETER (baseline [facility] creat 09/2022 1.4) --- etiology likely severe pre renal but definitely some Component of ATN. with poor health at baseline and EF 25%; now spiking low grade F since 07/14 w/o clear source of infection. On CXR, exam and CT -- no e/o fluid overload at all; chest x-ray this evening unchanged. despite low EF vol status ok Creatinine downtrending to 1.45 and BUN is 46. However patient's mental status is no different than before. Encephalopathy is not from renal failure/uremia and alternate etiology needs to be figured out. (2) Hypernatremia: Plan: Sodium of 150 today. Will continue the water flushes to 400 mL every 4 hourly. hard to raise more than that. so will also add d5w at 80 ml/hr and give 1 liter Subjective Seen for electrolyte imbalance. Patient remains confused. He is on tube feeds. Review of Systems Review of Systems: Unable to obtain due to altered mental status Physical Exam Physical Exam: General exam: Appears comfortable, no acute distress HEENT: Pupils are equal and reactive to light Neck: No JVD, neck is supple trachea is midline Respiratory system: Clear breath sounds bilaterally. Gastrointestinal: Abdomen is soft, non distended, non tender, bowel sounds are present CVS: Regular rate and rhythm. No murmurs, rubs or gallops Musculoskeletal: No joint or muscle tenderness Extremities: Non tender, no edema, peripheral pulses are present Neuro: Disoriented, no tremors, no focal neurological deficits Skin: No rashes Results & Data Vital Signs (Past 12 Hours) Vital Signs Temp Pulse Pulse Resp BP Pulse Ox O2 Del Method 07/21/23 10:39 37.1 C 99 H 19 137/86 100 Oxymask 07/21/23 08:00 Oxymask 07/21/23 08:00 79 07/21/23 07:55 36.4 C L 96 H 26 H 115/74 100 Oxymask 07/21/23 03:30 36.5 C 93 H 21 137/83 100 Oxymask 07/21/23 00:00 89 07/20/23 23:40 36.5 C 82 22 132/73 92 Room Air O2 Flow Rate 07/21/23 10:39 07/21/23 08:00 3 07/21/23 08:00 07/21/23 07:55 3 07/21/23 03:30 5 07/21/23 00:00 07/20/23 23:40
[2023-07-21] MEDS: DEXTROSE 5% 1,000 ML IV SCH (11:40)
--- NOTE | 2023-07-21 15:54 | Hospitalist Progress Note ---
Date of Service July 21, 2023 Assessment & Plan (1) Encephalopathy: Plan: 68 yo M w/ PMH of T2DM, HLD, nonischemic CM, chronic systolic CHF/April 2023 echo with EF of 25%, HTN, PVCs, first-degree block, intraventricular conduction defect, thrombocytopenia, alcoholism was brought in because of confusion and found to have PETER and hyperkalemia at ED. 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 Patient was noted to having some tremors. On the day of presentation, patient was noted to be very weak and not even able to walk, EMS was called on him [by his brother] and he was brought to the hospital. At presentation patient noted oriented x 1, denied headache or chest pain. But not able to answer any other questions per H&P note. Per H&P note, appears last drink was before Easter. Per patient's brother, he drinks wine and vodka and sometimes beer. Blood was noted in the stool at ED. Patient was noted to be shaky. He is being managed for the following: Acute metabolic encephalopathy-----signs of improvement with more alert and awake on 07/17/2023 Delirium tremens secondary to alcohol withdrawal Complicated by uremia Patient was brought in due to increasing confusion noted at home, tremors and poor po intake ISO alcohol abuse history. Patient noted to be uremic, in PETER, hyperkalemia, possible alcohol withdrawal at presentation with significant dehydration Continue with BELKIS S protocol, folic acid, thiamine, multivitamins as able. Condition got worse and she was transferred to ICU Condition has not improved much and he remains acutely confused with occasional agitation Appreciate pyrometallurgical engineer input and recommendation Has been on intravenous Ativan to control withdrawal symptoms Remains significant and cephalopathic-semiconscious and noncommunicative Not yet ready to get out of the ICU Remains semiconscious with occasional abnormal movements of the extremities and head. Opens eyes with command only Condition has not changed but remains hemodynamically stable with tachycardia at 111 Still has the abnormal movements involving the extremities and head EEG does not show any epileptiform activity but generalized background slowing of nonspecific encephalopathy has been improving Remains unstable and unsteady with ongoing abnormal movements of the extremities and head Clinically better today with more alertness Likely has withdrawal symptoms and will try small dose of intravenous Ativan as needed Remains in cephalopathic with abnormal movements involving the extremities No significant improvement for the last day or 2 Acute kidney injury Hyperkalemia Uremia Severe PETER noted at presentation, creatinine 7.93. Baseline creatinine appears around 1.2. At presentation potassium of 5.9 and BUN of 175. Appreciate nephrology input and recommendation Not a candidate for dialysis to avoid any disequilibrium syndrome Uremia has been improving and so is creatinine Slightly better with BUN and creatinine today and the patient looks very dry Started with D5W at 50 cc an hour for high sodium and intravascular dehydration Kidney function has been improving gradually Sodium remains elevated at 149 and kidney function stable Creatinine is minimally improved at 3.07 but sodium level remains high at 150 Continue free water supplement through the NGT Phosphate was low and that was supplemented IV Kidney function seems to be stabilized at 88/3.02 Kidney function is even better and expected to improve further-creatinine shows further improvement at 2.03 No function has improved a lot with BUN and creatinine improved to 54/1.69 Renal function has improved a lot with BUN and creatinine be 46/1.45 Hypernatremia Remains elevated at 150 Has been getting more free fluid through the NG tube which will be increased to 400 mg q. 4 hourly Sodium level remains elevated at 150-has been getting D5 1 L We will monitor PRP Hypotension Noted prior to transfer to ICU Has been requiring intravenous norepinephrine to maintain blood pressure Appreciate pyrometallurgical engineer input and recommendation Patient started on clindamycin and aztreonam for possible infection at admission, UA/CXR/CTAP not suggestive of infection. Subsequent cultures came back to be negative and antibiotics were stopped He is off pressors and the blood pressure remains on the lower side at 91/68 Blood pressure has been dropping down since this morning and going down to systolic less than 80 persistently for some time with MAP of 55 Discussed with the pyrometallurgical engineer and he was given 1 L of LR and also started on norepinephrine drip Blood pressure has been maintaining without the requirements of norepinephrine drip Appreciate pyrometallurgical engineer input and recommendation Blood pressure remains on the lower side at systolic 92-will observe Blood pressure remains on the lower side at 101/98 but no more tachycardic Blood pressure on the lower side but maintaining Concern for seizure: At presentation, patient noted to have shaking and eyes rolling up, was given a dose of Ativan. Could be alcohol withdrawal versus seizure. EEG suggestive of nonspecific encephalopathy. Neurology evaluated, recommends MRI brain (no acute finding) and seizure precaution. Recommend no driving, DMV form signed. Seizure precaution. Was advised by the neurologist to transfer to tertiary care center for continuous monitoring of EEG but the patient was refused and the neurologist thought that that was not necessary Has been getting seizure medications EEG has been reordered-no epileptiform activity Abnormal movement could be secondary to alcohol withdrawal/alcohol induced Abnormal movements have been improving CXR and CTAP with no evidence of fluid overload. Echo this admission with EF of 25 to 30%. Nephrology on board, appreciate recs. Hold metformin, NSS, Jardiance, YANNA/ARB and other nephrotoxic's. Possible GI bleed: Some blood noted around his mouth at presentation, also blood noted in the stool at ED. Hemoglobin at presentation 9.8, hemoglobin 8.3 today, closely monitor H&H. Baseline hemoglobin around 11. GI evaluated-no evidence of GI bleeding., continue with Protonix drip for now. Aspirin on hold. Phone blood consent obtained from his brother at admission. Hemoglobin maintains at 9.2 Chronic systolic CHF: EF 25%, echo results -see above. Seems not on any diuretics. Getting fluids. Monitor for volume overload. Will not give any intravenous fluid to avoid any fluid overload Chest x-ray did not show any congestive changes Will hold off any intravenous fluid for now Has been getting free fluid through the NG tube Likely demand ischemia: Likely secondary to acute issues, troponin flat trended in high 30s. Echo with severe global hypokinesis of left ventricle, EF 25 to 30%. Continue telemetry monitoring. Nutrition Started on enteral feeding through [facility] Will get speech therapy evaluation for possible oral food Other chronic medical conditions: Continue with/resume home meds as and when able. Hypertension: Hold his losartan and metoprolol succinate. As needed IV Lopressor for BP management. Patient n.p.o./confused/obtunded/with PETER. T2DM: A1c of 8.8 on 07/09/23. 8.4 on 09/27/22. Hold metformin and Jardiance. Sliding scale insulin while in hospital. subacute nurse when more awake. Gout: Restart allopurinol when able. Hyperlipidemia: Restart Crestor when able. CPK at presentation 86. Thrombocytopenia: Continue to monitor. DVT prophylaxis: SCDs Full code Given phone call to Pt's brother Tish Sarkar [[phone]] on 07/09- updated pt's brother tish, discussed about all of the above points and management undergoing. Answered all his questions. Discussed with the brother in detail and answered all of his questions on 07/14/2023 Will discuss with his brother Admission and Anticipated Discharge Date Admission Date: July 08, 2023 Subjective 07/18/2023 The patient was seen and examined in telemetry unit He has been much better today and has been communicating reasonably Remains pleasantly confused Still has abnormal movements of the extremities but has decreased alert 07/19/2023 The patient was seen and examined in telemetry unit He has been more alert and awake. Remains disoriented Trying to take out the IV lines and NG tube No fever and or chills and remains hemodynamically stable 07/20/2023 The patient was seen and examined in telemetry unit He remains confused and trying to check out the IV line send NG tube Still has the soft wrist restraints Does not seems to be in acute distress 07/21/2023 The patient was seen and examined in telemetry He has been semiresponsive and remains confused Remains hemodynamically stable Has been trying to call remove the lines and NG tube Review of Systems Review of Systems: Unobtainable due to cognitive status Physical Exam Physical Exam: Lying in bed with acute distress, very confused with abnormal movements involving the extremities Constitutional: well developed, well nourished, + ill appearing and + obese Eyes: Closed ENMT: external ear and nose normal, oropharynx normal Neck: trachea midline, no thyromegaly Respiratory: no respiratory distress Auscultation: + diminished lung sounds; no crackles Cardiovascular: Rate/Rhythm: regular rate, regular rhythm and + tachycardic Heart Sounds: normal S1 and normal S2; no murmur Extremities: no edema Gastrointestinal (Abdomen): Inspection/Auscultation: normal bowel sounds; abdomen not distended Percussion/Palpation: abdomen soft; abdomen nontender Musculoskeletal: No acute arthritis involving any of the joints Neurologic: Alert and awake. Totally confused. Has been moving extremities nonpurposefully Lymphatic: no cervical or axillary lymphadenopathy Results & Data Results & Data Vital Signs (Past 12 Hours) Vital Signs Temp Pulse Pulse Resp BP Pulse Ox O2 Del Method 07/21/23 15:45 37.2 C 100 H 22 137/86 95 Room Air 07/21/23 15:15 97 H 04/15/24 10:39 37.1 C 99 H 19 137/86 100 Oxymask 07/21/23 08:00 Oxymask 07/21/23 08:00 79 07/21/23 07:55 36.4 C L 96 H 26 H 115/74 100 Oxymask O2 Flow Rate 07/21/23 15:45 07/21/23 15:15 07/21/23 10:39 07/21/23 08:00 3 07/21/23 08:00 07/21/23 07:55 3 Laboratory Results Short CBC 07/21/23 Range/Units 08:03 WBC 4.28 L (4.8-10.8) K/ul Hgb 8.8 L (14.0-18.0) g/dl Hct 28.8 L (42.0-52.0) % Plt Count 90 L (130-400) K/uL BMP 07/21/23 08:03 Sodium 150 H Potassium 4.0 Chloride 114 H Carbon Dioxide 30 BUN 46 H Creatinine 1.45 H Glucose 161 H Calcium 8.7 Liver Function 07/21/23 Range/Units 08:03 Albumin 3.1 L (3.4-5.0) gm/dl Medications Administered Current Inpatient Medications Dextrose (Dextrose 50% 50 Ml Syringe) 25 - 50 ml IV UD PRN; Protocol PRN Reason: Hypoglycemia Protocol Stop: 08/07/23 22:40 Glucagon (Glucagon For Inj 1 Mg Vial) 1 mg SQ UD PRN; Protocol PRN Reason: Hypoglycemia Protocol Stop: 08/07/23 22:40 Glucose (Glucose 10 Tab/Tube) 4 - 8 tab PO UD PRN; Protocol PRN Reason: Hypoglycemia Treatment Stop: 08/07/23 22:40 Glucose (Glucose 40% Gel 15 Gm Tube) 15 - 30 gm PO UD PRN; Protocol PRN Reason: Hypoglycemia Protocol Stop: 08/07/23 22:40 Folic Acid 1 mg/ Syringe 10 mls @ 5 mls/min IV QAM [facility] Stop: 08/08/23 08:59 Last Admin: 07/21/23 07:34 Dose: 5 mls/min Pantoprazole Sodium 40 mg/ (Syringe) 10 mls @ 5 mls/min IV Q12H [facility] Stop: 08/10/23 20:59 Last Admin: 07/21/23 07:34 Dose: 5 mls/min Thiamine HCl 200 mg/ Sodium (Chloride) 52 mls @ 210 mls/hr IV BID [facility] Stop: 08/11/23 08:59 Last Infusion: 07/21/23 07:52 Dose: Infused Lorazepam 0.5 mg/ Syringe 0.5 mls @ 2 mls/min IV Q4H PRN PRN Reason: Agitation Stop: 08/11/23 09:38 Last Admin: 07/21/23 01:02 Dose: 2 mls/min Dextrose (D5w) 1,000 mls @ 80 mls/hr IV .[id number] [facility] Stop: 08/20/23 11:29 Last Admin: 07/21/23 11:40 Dose: 80 mls/hr Insulin Aspart (Insulin Aspart Per Unit Charge) 0 units SC Q4 [facility] Stop: 08/07/23 22:59 Last Admin: 07/21/23 12:30 Dose: Not Given Miconazole Nitrate (Miconazole Nitrate Powder 85 Gm) 1 appln EXT PRN PRN PRN Reason: Affected Skin Folds Stop: 08/08/23 22:55 Last Admin: 07/09/23 23:19 Dose: 1 appln Miscellaneous (Carbohydrates For Hypoglycemia ) 15 - 30 gm PO UD PRN PRN Reason: Hypoglycemia Protocol Stop: 08/07/23 22:40 Neomycin/Polymyxin/Hydrocortisone (Neomycin/Polymyxin/Hydrocort Oph Susp 7.5 Ml Btl) 1 drops OP Q8H [facility] Stop: 08/11/23 13:59 Last Admin: 07/21/23 13:50 Dose: 1 drops Nitroglycerin (Nitroglycerin Sl 0.4 Mg/Tab Tab) 0.4 mg SL Q5M PRN PRN Reason: Chest Pain Stop: 08/07/23 22:40 Nutritional Formula (Nutren Liqd 2.0 1,000 Ml Bag) 1,000 ml NG .See Protocol JUSTUS; Protocol Stop: 08/15/23 14:29 Last Admin: 07/19/23 06:34 Dose: 1,000 ml Sterile Water (Tube Feeding Water Flush) 400 ml NG Q4H [facility] Stop: 08/19/23 14:29 Last Admin: 07/21/23 12:44 Dose: Not Given
[2023-07-21] MEDS: OLANZapine 10 MG/2.1 ML SDV IM STA (16:52)
[2023-07-22 08:40] LABS: Calcium 8.7 mg/dl (8.6-10.3); Magnesium 1.8 mg/dl (1.7-2.4); Potassium 4.1 mmol/L (3.5-5.1)
[2023-07-22 08:46] LABS: BUN Creatinine Ratio 27.4 (10-20); Creatinine Clr Calc Pharmacy 63.2 ml/min; Est GFR (African American) 61.2 ml/min; Est GFR (Non-African American) 52.8 ml/min; Phosphorus 2.5 mg/dl (2.5-4.9)
--- NOTE | 2023-07-22 08:46 | CT Scan Report ---
CT OF THE HEAD WITHOUT CONTRAST CLINICAL HISTORY: Confusion. Evaluate for stroke. COMPARISON STUDY: MRI of the brain July 10, 2023. Head CT July 14, 2023. CT DOSE: 1375.09 mGy.cm TECHNIQUE: Helical axial images of the head were obtained without IV contrast. Automated exposure con trol was utilized for the study. A dose lowering technique was utilized adhering to the principles o f ALARA. FINDINGS: This exam is moderately compromised by motion artifact. No acute intracranial hemorrhage, m idline shift or mass effect is present. Ventricular system is unremarkable. Basal cisterns are patent . There are no extra-axial collections. White matter hypodensities are unchanged and favor small vess el disease. There are no findings to suggest acute dural sinus thrombosis or acute territorial infarc t. There are no significant calvarial abnormalities. IMPRESSION: Exam is moderately compromised by motion artifact. No acute intracranial findings. ACT 112: Negative or not required by law. Electronically signed by: Gunnar Young M.D. 07/22/2023 8:44 AM
[2023-07-22] MEDS: THIAMINE HCL 100 MG in SYRINGE 9 ML IV SCH (09:35)
--- NOTE | 2023-07-22 09:36 | Nephrology Progress Note ---
Date of Service July 22, 2023 Assessment & Plan Admission and Anticipated Discharge Date Admission Date: July 08, 2023 Subjective Assessment & Plan (1) Acute renal failure (ARF): Plan: improving nonoliguric stage 3 PETER (baseline [facility] creat 09/2022 1.4) --- etiology likely severe pre renal but definitely some Component of ATN. with poor health at baseline and EF 25%; now spiking low grade F since 07/14 w/o clear source of infection. On CXR, exam and CT -- no e/o fluid overload at all; chest x-ray yesterday without acute issues. despite low EF he is not fluid overloaded. Creatinine downtrending to 1.35 and BUN is 37. this is pretty much normal. However patient's mental status is no different than before. Encephalopathy is not from renal failure/uremia and alternate etiology needs to be figured out. (2) Hypernatremia: Plan: Sodium of 147 today. he is NPO status and hard to keep iv lines or the NG tube. So will do d5w 100 ml/hr and stop after 1.5 liters today. Subjective Seen for electrolyte imbalance. Patient remains confused and severely encephalopathic. He is on tube feeds. Review of Systems Review of Systems: Unable to obtain due to altered mental status Physical Exam Physical Exam: General exam: Appears comfortable, no acute distress HEENT: Pupils are equal and reactive to light Neck: No JVD, neck is supple trachea is midline Respiratory system: Clear breath sounds bilaterally. Gastrointestinal: Abdomen is soft, non distended, non tender, bowel sounds are present CVS: Regular rate and rhythm. No murmurs, rubs or gallops Musculoskeletal: No joint or muscle tenderness Extremities: Non tender, no edema, peripheral pulses are present Neuro: Disoriented, no tremors, no focal neurological deficits Skin: No rashes Results & Data Vital Signs (Past 12 Hours) Vital Signs Temp Pulse Pulse Resp BP Pulse Ox O2 Del Method 07/22/23 07:50 36.5 C 93 H 18 131/81 99 Nasal Cannula 07/22/23 03:06 36.9 C 104 H 25 H 116/80 92 Room Air 07/21/23 23:01 36.2 C L 100 H 25 H 120/89 93 Room Air 07/21/23 22:08 103 H O2 Flow Rate 07/22/23 07:50 1 07/22/23 03:06 07/21/23 23:01 07/21/23 22:08
--- NOTE | 2023-07-22 12:58 | Psychiatric Consultation ---
Date of Consultation July 22, 2023 Impression / Recommendations Impression 68 yo man with history of cardiac disease, CHF, and alcohol use disorder admitted for complicated withdrawal and encephalopathy now with increasing agitation as he becomes more alert. Diagnostically if the majority of his symptoms are driven by complicated alcohol withdrawal then lorazepam is the best option for acute agitation. However, if metabolic or uremic encephalopathy is felt to more prominent at this time then benzodiapines can sometimes worsen and prolong delirium and so cautious use of an antipsychotic medication could be considered. Typically given his age and cardiac history we would avoid haldol and consider secondary generation antipsychotics such as olanzapine or ziprasidone which both come in intramuscular formulation. However given use of lorazepam for alcohol withdrawal symptoms and ongoing need for IV use, would avoid olanzapine as it can lead to fatal respiratory suppression when used concurrently with IM or IV lorazepam. Overall, I spent a total of 45 minutes with this case including review of chart records, review of labwork, review of EKG QTc, direct evaluation of the patient at bedside, counseling the patient, discussion of the patient with the hospitalist provider, discussion with the psychiatric liason during clinical rounds and documentation in the electronic health record. (1) Delirium tremens: (2) Encephalopathy: Plan -Continue to use lorazepam IV as first choice for agitation given likelihood that many symptoms are due to complicated alcohol withdrawal -If Ativan IV is ineffective or further management of agitation is required then would recommend use of: * ziprasidone 10mg IM q2h prn (max 40mg in 24 hours). Monitor QTc if repeated doses of IM medication are required and discontinue if QTc is >500ms. -If ziprasidone is ineffective would consider use of haldol 2.5mg IM Psych History Identifying Data 68 yo man with history of alcohol use, type 2 diabetes, hyperlipidemia, nonischemic cardiomyopathy, chronic systolic CHF, hypertension, thrombocytopenia admitted medically for altered mental status and PETER. Psychiatry consulted for recommendations for agitated confusion. Chief Complaint "I know you from high school wrestling". History of Present Illness Nimesh was brought to the hospital on 07/08/2023 for altered mental status in setting of chronic alcohol use and decreased po intake after being found with confusion and tremors by his brother. He's being treated for encephaloapthy thought be due to complicated alcohol withdrawal and possible metabolic and uremic encephalopathy. Infectious workup has been unrevealing to date. He required ICU admission and IV lorazepam to manage his complicated alcohol withdrawal with subsequent delirium tremens. Over the last few days he's been more agitated and trying to pull out lines and tubes. Has required use of soft restraints. Still getting IV ativan. Yesterday evening required olanzapine 5mg IM x1 at about 4 pm for acute agitation and hallucinations. On meeting with him he is disoriented, thinks psychiatric liason RN is a friend he knew from [employer]. Talks about needing a ride home from school to his home. Tells me about playing basketball at [employer]. Doesn't seem to understand orientation questions such as meaning of what year is it and cannot answer even when given multiple choice options. Allergies Allergy/AdvReac Type Severity Reaction Status Date / Time Penicillins Allergy Severe AIRWAY Verified 07/08/23 15:41 EDEMA pollen extracts Allergy Intermediate ITCHY Verified 07/08/23 15:41 EYES, SNEEZING, CONGESTION Home Medications Medication Instructions Recorded Confirmed Type metoprolol succinate 50 mg 50 mg PO BID #30 tabs 11/24/18 07/08/23 History tablet,extended release 24 hr aspirin 81 mg tablet,delayed 81 mg PO QPM 05/10/20 07/08/23 History release melatonin 10 mg capsule 10 mg PO HS PRN Sleep 05/10/20 07/08/23 History allopurinol 100 mg tablet 100 mg PO QAM 05/17/20 07/08/23 History olmesartan 20 mg tablet 20 mg PO QAM 05/17/20 07/08/23 History empagliflozin 10 mg tablet 10 mg PO QAM 07/08/23 07/08/23 History (Jardiance) fexofenadine 180 mg tablet 180 mg PO QAM 07/08/23 07/08/23 History hydroxyzine HCl 25 mg tablet 25 mg PO DAILY PRN Itching 07/08/23 07/08/23 History metformin 500 mg tablet 500 mg PO BIDM 07/08/23 07/08/23 History rosuvastatin 10 mg tablet 10 mg PO QAM 07/08/23 07/08/23 History Patient History Medical History Delirium tremens Nonischemic cardiomyopathy Elevated PSA GERD without esophagitis Gout Hypertension Rosacea Systolic congestive heart failure Surgical History No significant past surgical history Family History Mother Diabetes Myocardial infarction Brother Pacemaker Sister Pacemaker Denies family history of Ovarian cancer Prostate cancer Alzheimer disease Breast cancer Lung cancer Colorectal cancer Lung disease Colonic polyp Social History Smoking Status: Unknown if ever smoked Age Started Using Tobacco: 8; Age Quit Using Tobacco: 45; packs per day: 1; Cigarettes Per Day: pt. 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 Safe at Home: Yes Childhood Exposure to Second-Hand Smoke: No Diet: regular caffeine: Yes Dental Care, Regularly: Yes Physical Activity Frequency: 3-4 Times per Week Seatbelt Use: always Sunscreen Use: Yes Assistive Devices: None Physical Exam Psychiatric: Orientation: alert and oriented to person; + not oriented to place and + not oriented to time Apperance: + disheveled Eye Contact: + fair eye contact Motor Behavior: + psychomotor agitation Speech: normal rate/rhythm/volume of speech Affect: + labile affect Thought Process: + tangential thought process and + looseness of associations Thought Content: + preoccupation Insight: + severely impaired insight Judgment: + severely impaired judgement Vital Signs (Past 24 Hours): Last Vital Signs Temp 36.6 C 07/22/23 11:32 Pulse 102 H 07/22/23 11:32 Resp 20 07/22/23 11:32 BP 107/81 07/22/23 11:32 Pulse Ox 90 07/22/23 11:32 O2 Del Method Room Air 07/22/23 11:32 O2 Flow Rate 1 07/22/23 07:50 Results & Data (PSY) Medications Administered Folic Acid 1 mg/ Syringe 10 mls @ 5 mls/min IV QAM JUSTUS Stop: 08/08/23 08:59 Last Admin: 07/22/23 09:34 Dose: 5 mls/min Documented By: Admin: 07/21/23 07:34 Dose: 5 mls/min Documented By: Admin: 07/20/23 07:32 Dose: 5 mls/min Documented By: Admin: 07/19/23 08:23 Dose: 5 mls/min Documented By: Admin: 07/18/23 09:14 Dose: 5 mls/min Documented By: Admin: 07/17/23 08:31 Dose: 5 mls/min Documented By: Admin: 07/16/23 07:55 Dose: 5 mls/min Documented By: Admin: 07/15/23 08:21 Dose: 5 mls/min Documented By: Admin: 07/14/23 08:24 Dose: 5 mls/min Documented By: Admin: 07/13/23 08:18 Dose: 5 mls/min Documented By: Admin: 07/12/23 09:06 Dose: 5 mls/min Documented By: Admin: 07/11/23 09:23 Dose: 5 mls/min Documented By: Admin: 07/10/23 08:29 Dose: 5 mls/min Documented By: Admin: 07/09/23 08:32 Dose: 5 mls/min Documented By: ISELA Pantoprazole Sodium 40 mg/ (Syringe) 10 mls @ 5 mls/min IV Q12H JUSTUS Stop: 08/10/23 20:59 Last Admin: 07/22/23 09:35 Dose: 5 mls/min Documented By: Admin: 07/21/23 21:44 Dose: 5 mls/min Documented By: Admin: 07/21/23 07:34 Dose: 5 mls/min Documented By: Admin: 07/20/23 20:17 Dose: 5 mls/min Documented By: Admin: 07/20/23 07:32 Dose: 5 mls/min Documented By: Admin: 07/19/23 20:13 Dose: 5 mls/min Documented By: Admin: 07/19/23 08:23 Dose: 5 mls/min Documented By: Admin: 07/18/23 20:19 Dose: 5 mls/min Documented By: Admin: 07/18/23 10:23 Dose: 5 mls/min Documented By: Admin: 07/17/23 22:00 Dose: 5 mls/min Documented By: Admin: 07/17/23 08:32 Dose: 5 mls/min Documented By: Admin: 07/16/23 21:58 Dose: 5 mls/min Documented By: Admin: 07/16/23 07:55 Dose: 5 mls/min Documented By: Admin: 07/15/23 20:48 Dose: 5 mls/min Documented By: Admin: 07/15/23 08:22 Dose: 5 mls/min Documented By: Admin: 07/14/23 20:26 Dose: 5 mls/min Documented By: Admin: 07/14/23 08:25 Dose: 5 mls/min Documented By: Admin: 07/13/23 20:59 Dose: 5 mls/min Documented By: Admin: 07/13/23 08:18 Dose: 5 mls/min Documented By: Admin: 07/12/23 20:17 Dose: 5 mls/min Documented By: Admin: 07/12/23 09:06 Dose: 5 mls/min Documented By: Admin: 07/11/23 20:27 Dose: 5 mls/min Documented By: CLC Lorazepam 0.5 mg/ Syringe 0.5 mls @ 2 mls/min IV Q4H PRN PRN Reason: Agitation Stop: 08/11/23 09:38 Last Admin: 07/22/23 05:55 Dose: 2 mls/min Documented By: Admin: 07/22/23 01:34 Dose: 2 mls/min Documented By: Admin: 07/21/23 16:07 Dose: 2 mls/min Documented By: Admin: 07/21/23 01:02 Dose: 2 mls/min Documented By: Admin: 07/20/23 19:46 Dose: 2 mls/min Documented By: Admin: 07/20/23 05:11 Dose: 2 mls/min Documented By: Admin: 07/20/23 00:19 Dose: 2 mls/min Documented By: Admin: 07/19/23 20:13 Dose: 2 mls/min Documented By: Admin: 07/19/23 16:10 Dose: 2 mls/min Documented By: Admin: 07/19/23 11:45 Dose: 2 mls/min Documented By: Admin: 07/18/23 23:31 Dose: 2 mls/min Documented By: Admin: 07/17/23 13:37 Dose: 2 mls/min Documented By: Admin: 07/15/23 04:47 Dose: 2 mls/min Documented By: ESBenson Admin: 07/15/23 00:24 Dose: 2 mls/min Documented By: Admin: 07/14/23 11:05 Dose: 2 mls/min Documented By: Admin: 07/13/23 00:58 Dose: 2 mls/min Documented By: Admin: 07/12/23 17:31 Dose: 2 mls/min Documented By: Admin: 07/12/23 14:13 Dose: 2 mls/min Documented By: LULA Dextrose (D5w) 1,000 mls @ 100 mls/hr IV .Q10H JUSTUS Stop: 08/20/23 11:29 Last Admin: 07/22/23 11:56 Dose: Not Given Documented By: Infusion: 07/22/23 11:55 Dose: 100 mls/hr Documented By: Admin: 07/22/23 01:14 Dose: 80 mls/hr Documented By: Infusion: 07/22/23 00:10 Dose: Infused Documented By: Admin: 07/21/23 11:40 Dose: 80 mls/hr Documented By: GIOVANY Thiamine HCl 100 mg/ Syringe 10 mls @ 2 mls/min IV QAM JUSTUS Stop: 08/21/23 08:59 Last Admin: 07/22/23 09:35 Dose: 2 mls/min Documented By: MALAK Insulin Aspart (Insulin Aspart Per Unit Charge) 0 units SC Q4 JUSTUS Stop: 08/07/23 22:59 Last Admin: 07/22/23 09:27 Dose: Not Given Documented By: Admin: 07/22/23 05:08 Dose: 2 units Documented By: ERIN Co-signed By: DEANA Admin: 07/22/23 01:13 Dose: 2 units Documented By: ERIN Co-signed By: DEANA Admin: 07/21/23 20:07 Dose: Not Given Documented By: Admin: 07/21/23 16:10 Dose: 1 units Documented By: GIOVANY Co-signed By: ERNESTO Admin: 07/21/23 12:30 Dose: Not Given Documented By: Admin: 07/21/23 08:19 Dose: Not Given Documented By: Admin: 07/21/23 03:15 Dose: 9 units Documented By: DEANA Co-signed By: JORDY Admin: 07/20/23 23:43 Dose: 7 units Documented By: DEANA Co-signed By: OG Admin: 07/20/23 20:15 Dose: 7 units Documented By: DEANA Co-signed By: TITI Admin: 07/20/23 17:02 Dose: 2 units Documented By: ANISA Co-signed By: FILIPE Admin: 07/20/23 11:54 Dose: 6 units Documented By: ANISA Co-signed By: LUZMARIA(2) Admin: 07/20/23 07:49 Dose: 4 units Documented By: ANISA Co-signed By: FILIPE Admin: 07/20/23 04:35 Dose: 9 units Documented By: LUZMARIA Co-signed By: BESSIE Admin: 07/20/23 00:13 Dose: 8 units Documented By: LUZMARIA Co-signed By: BESSIE Admin: 07/19/23 20:15 Dose: 8 units Documented By: LUZMARIA Co-signed By: JORDY Admin: 07/19/23 16:45 Dose: 4 units Documented By: ANISA Co-signed By: KATYA Admin: 07/19/23 12:11 Dose: 8 units Documented By: ANISA Co-signed By: FILIPE Admin: 07/19/23 08:24 Dose: 7 units Documented By: ANISA Co-signed By: FILIPE Admin: 07/19/23 04:05 Dose: 6 units Documented By: LUZMARIA Co-signed By: BESSIE Admin: 07/19/23 00:43 Dose: 1 units Documented By: LUZMARIA Co-signed By: BESSIE Admin: 07/18/23 20:18 Dose: 9 units Documented By: LUZMARIA Co-signed By: BESSIE Admin: 07/18/23 16:45 Dose: 7 units Documented By: ANISA Co-signed By: TIMOTHY Admin: 07/18/23 12:34 Dose: 4 units Documented By: ANISA Co-signed By: EP Admin: 07/18/23 08:31 Dose: 8 units Documented By: ANISA Co-signed By: ASHLIE Admin: 07/18/23 04:24 Dose: 7 units Documented By: BIBIANA Co-signed By: EDWIN Admin: 07/17/23 23:44 Dose: 6 units Documented By: GENAG Co-signed By: EDWIN Admin: 07/17/23 20:24 Dose: 7 units Documented By: NEO Co-signed By: KT Admin: 07/17/23 17:30 Dose: 6 units Documented By: TRAN Co-signed By: RAUL Admin: 07/17/23 12:05 Dose: 4 units Documented By: TRAN Co-signed By: GERALDINE Admin: 07/17/23 08:36 Dose: 3 units Documented By: TRAN Co-signed By: RENÉ Admin: 07/17/23 04:24 Dose: 5 units Documented By: NEO Co-signed By: FREDY Admin: 07/17/23 00:09 Dose: 4 units Documented By: CP Co-signed By: LLP Admin: 07/16/23 21:48 Dose: 4 units Documented By: CP Co-signed By: TLM Admin: 07/16/23 16:22 Dose: 5 units Documented By: DAVE Co-signed By: DTT Admin: 07/16/23 11:58 Dose: 6 units Documented By: DMB Co-signed By: LAF Admin: 07/16/23 07:53 Dose: 7 units Documented By: DMB Co-signed By: LAF Admin: 07/16/23 04:02 Dose: 4 units Documented By: TP Co-signed By: LLP Admin: 07/16/23 00:56 Dose: 5 units Documented By: TP Co-signed By: CLC Admin: 07/15/23 20:56 Dose: 4 units Documented By: TP Co-signed By: CLC Admin: 07/15/23 16:26 Dose: 5 units Documented By: LULA Co-signed By: EDNA Admin: 07/15/23 11:38 Dose: 2 units Documented By: LULA Co-signed By: DTT Admin: 07/15/23 07:59 Dose: 1 units Documented By: LULA Co-signed By: CB Admin: 07/15/23 04:01 Dose: Not Given Documented By: ESG Co-signed By: TP Admin: 07/15/23 00:06 Dose: 2 units Documented By: ESG Co-signed By: TP Admin: 07/14/23 20:01 Dose: Not Given Documented By: ESG Co-signed By: TP Admin: 07/14/23 16:14 Dose: Not Given Documented By: Admin: 07/14/23 12:27 Dose: Not Given Documented By: Admin: 07/14/23 08:22 Dose: 2 units Documented By: WRS Co-signed By: DMB Admin: 07/14/23 04:03 Dose: 1 units Documented By: CLC Co-signed By: TP Admin: 07/13/23 23:57 Dose: Not Given Documented By: Admin: 07/13/23 20:01 Dose: Not Given Documented By: Admin: 07/13/23 16:18 Dose: Not Given Documented By: Admin: 07/13/23 11:59 Dose: Not Given Documented By: Admin: 07/13/23 07:52 Dose: Not Given Documented By: Admin: 07/13/23 04:13 Dose: Not Given Documented By: Admin: 07/13/23 00:18 Dose: Not Given Documented By: Admin: 07/12/23 19:59 Dose: Not Given Documented By: Admin: 07/12/23 16:43 Dose: Not Given Documented By: Admin: 07/12/23 11:18 Dose: Not Given Documented By: Admin: 07/12/23 09:04 Dose: Not Given Documented By: Admin: 07/12/23 04:33 Dose: 1 units Documented By: CLC Co-signed By: LLP Admin: 07/12/23 00:07 Dose: Not Given Documented By: Admin: 07/11/23 19:43 Dose: Not Given Documented By: Admin: 07/11/23 16:07 Dose: Not Given Documented By: Admin: 07/11/23 11:50 Dose: Not Given Documented By: Admin: 07/11/23 08:39 Dose: 1 units Documented By: WRS Co-signed By: KJS Admin: 07/11/23 04:45 Dose: Not Given Documented By: Admin: 07/11/23 00:20 Dose: Not Given Documented By: Admin: 07/10/23 20:59 Dose: 2 units Documented By: FREDY Co-signed By: CLIFFORD Admin: 07/10/23 16:09 Dose: Not Given Documented By: Admin: 07/10/23 12:27 Dose: 1 units Documented By: LOLY Co-signed By: ELLEN Admin: 07/10/23 08:32 Dose: 1 units Documented By: LOLY Co-signed By: MALENA Admin: 07/10/23 03:54 Dose: Not Given Documented By: DAVE(2) Admin: 07/09/23 23:51 Dose: 2 units Documented By: DRE Co-signed By: DAVE(2) Admin: 07/09/23 20:37 Dose: 2 units Documented By: DRE Co-signed By: DAVE(2) Admin: 07/09/23 18:32 Dose: Not Given Documented By: Admin: 07/09/23 11:57 Dose: Not Given Documented By: Admin: 07/09/23 09:34 Dose: Not Given Documented By: Admin: 07/09/23 04:30 Dose: Not Given Documented By: Admin: 07/08/23 23:26 Dose: Not Given Documented By: JACINTA Miconazole Nitrate (Miconazole Nitrate Powder 85 Gm) 1 appln EXT PRN PRN PRN Reason: Affected Skin Folds Stop: 08/08/23 22:55 Last Admin: 07/22/23 01:40 Dose: 1 appln Documented By: Admin: 07/09/23 23:19 Dose: 1 appln Documented By: DAVE(2) Neomycin/Polymyxin/Hydrocortisone (Neomycin/Polymyxin/Hydrocort Oph Susp 7.5 Ml Btl) 1 drops OP Q8H JUSTUS Stop: 08/11/23 13:59 Last Admin: 07/22/23 05:09 Dose: 1 drops Documented By: Admin: 07/21/23 22:17 Dose: 1 drops Documented By: Admin: 07/21/23 13:50 Dose: 1 drops Documented By: Admin: 07/21/23 06:12 Dose: 1 drops Documented By: Admin: 07/20/23 22:15 Dose: 1 drops Documented By: Admin: 07/20/23 13:05 Dose: 1 drops Documented By: Admin: 07/20/23 06:00 Dose: 1 drops Documented By: Admin: 07/19/23 22:21 Dose: 1 drops Documented By: Admin: 07/19/23 14:31 Dose: 1 drops Documented By: Admin: 07/19/23 06:15 Dose: 1 drops Documented By: Admin: 07/18/23 22:41 Dose: 1 drops Documented By: Admin: 07/18/23 13:40 Dose: 1 drops Documented By: Admin: 07/18/23 05:43 Dose: 1 drops Documented By: Admin: 07/17/23 22:03 Dose: 1 drops Documented By: Admin: 07/17/23 15:46 Dose: 1 drops Documented By: Admin: 07/17/23 04:26 Dose: 1 drops Documented By: Admin: 07/16/23 22:01 Dose: 1 drops Documented By: Admin: 07/16/23 14:37 Dose: 1 drops Documented By: Admin: 07/16/23 06:27 Dose: 1 drops Documented By: Admin: 07/15/23 20:51 Dose: 1 drops Documented By: Admin: 07/15/23 13:13 Dose: 1 drops Documented By: Admin: 07/15/23 05:37 Dose: 1 drops Documented By: Admin: 07/14/23 20:26 Dose: 1 drops Documented By: Admin: 07/14/23 14:13 Dose: 1 drops Documented By: Admin: 07/14/23 05:17 Dose: 1 drops Documented By: Admin: 07/13/23 21:00 Dose: 1 drops Documented By: Admin: 07/13/23 14:19 Dose: 1 drops Documented By: Admin: 07/13/23 05:31 Dose: 1 drops Documented By: Admin: 07/12/23 23:23 Dose: 1 drops Documented By: Admin: 07/12/23 14:07 Dose: 1 drops Documented By: WRS Nutritional Formula (Nutren Liqd 2.0 1,000 Ml Bag) 1,000 ml NG .See Protocol JUSTUS; Protocol Stop: 08/15/23 14:29 Last Admin: 07/19/23 06:34 Dose: 1,000 ml Documented By: Admin: 07/16/23 14:42 Dose: 1,000 ml Documented By: DMB Coding Level of Care Code 34173 IN/OBS CONSULT LVL 3,45M Diagnoses Delirium tremens F10.931 Encephalopathy G93.40
--- NOTE | 2023-07-22 15:32 | Hospitalist Progress Note ---
Date of Service July 22, 2023 Assessment & Plan (1) Encephalopathy: Plan: 68 yo M w/ PMH of T2DM, HLD, nonischemic CM, chronic systolic CHF/April 2023 echo with EF of 25%, HTN, PVCs, first-degree block, intraventricular conduction defect, thrombocytopenia, alcoholism was brought in because of confusion and found to have PETER and hyperkalemia at ED. 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 Patient was noted to having some tremors. On the day of presentation, patient was noted to be very weak and not even able to walk, EMS was called on him [by his brother] and he was brought to the hospital. At presentation patient noted oriented x 1, denied headache or chest pain. But not able to answer any other questions per H&P note. Per H&P note, appears last drink was before Easter. Per patient's brother, he drinks wine and vodka and sometimes beer. Blood was noted in the stool at ED. Patient was noted to be shaky. He is being managed for the following: Acute metabolic encephalopathy-----signs of improvement with more alert and awake on 07/17/2023 Delirium tremens secondary to alcohol withdrawal Complicated by uremia Patient was brought in due to increasing confusion noted at home, tremors and poor po intake ISO alcohol abuse history. Patient noted to be uremic, in PETER, hyperkalemia, possible alcohol withdrawal at presentation with significant dehydration Continue with BELKIS S protocol, folic acid, thiamine, multivitamins as able. Condition got worse and she was transferred to ICU Condition has not improved much and he remains acutely confused with occasional agitation Appreciate mobile solutions architect input and recommendation Has been on intravenous Ativan to control withdrawal symptoms Remains significant and cephalopathic-semiconscious and noncommunicative Not yet ready to get out of the ICU Remains semiconscious with occasional abnormal movements of the extremities and head. Opens eyes with command only Condition has not changed but remains hemodynamically stable with tachycardia at 111 Still has the abnormal movements involving the extremities and head EEG does not show any epileptiform activity but generalized background slowing of nonspecific encephalopathy has been improving Remains unstable and unsteady with ongoing abnormal movements of the extremities and head Clinically better today with more alertness Likely has withdrawal symptoms and will try small dose of intravenous Ativan as needed Remains in cephalopathic with abnormal movements involving the extremities Remains confused and the repeat CT of the head did not show any acute events Appreciate psychiatric input and recommendation Acute kidney injury Hyperkalemia Uremia Severe PETER noted at presentation, creatinine 7.93. Baseline creatinine appears around 1.2. At presentation potassium of 5.9 and BUN of 175. Appreciate nephrology input and recommendation Not a candidate for dialysis to avoid any disequilibrium syndrome Uremia has been improving and so is creatinine Slightly better with BUN and creatinine today and the patient looks very dry Started with D5W at 50 cc an hour for high sodium and intravascular dehydration Kidney function has been improving gradually Sodium remains elevated at 149 and kidney function stable Creatinine is minimally improved at 3.07 but sodium level remains high at 150 Continue free water supplement through the NGT Phosphate was low and that was supplemented IV Kidney function seems to be stabilized at 88/3.02 Kidney function is even better and expected to improve further-creatinine shows further improvement at 2.03 No function has improved a lot with BUN and creatinine improved to 54/1.69 Renal function has improved a lot with BUN and creatinine be 46/1.45 Renal function has been normalized Hypernatremia Remains elevated at 150 Has been getting more free fluid through the NG tube which will be increased to 400 mg q. 4 hourly Sodium level remains elevated at 150-has been getting D5 1 L We will monitor PRP-sodium remains a little high at 147 Hypotension Noted prior to transfer to ICU Has been requiring intravenous norepinephrine to maintain blood pressure Appreciate mobile solutions architect input and recommendation Patient started on clindamycin and aztreonam for possible infection at admission, UA/CXR/CTAP not suggestive of infection. Subsequent cultures came back to be negative and antibiotics were stopped He is off pressors and the blood pressure remains on the lower side at 91/68 Blood pressure has been dropping down since this morning and going down to systolic less than 80 persistently for some time with MAP of 55 Discussed with the mobile solutions architect and he was given 1 L of LR and also started on norepinephrine drip Blood pressure has been maintaining without the requirements of norepinephrine drip Appreciate mobile solutions architect input and recommendation Blood pressure remains on the lower side at systolic 92-will observe Blood pressure remains on the lower side at 101/98 but no more tachycardic Blood pressure on the lower side but maintaining Concern for seizure: At presentation, patient noted to have shaking and eyes rolling up, was given a dose of Ativan. Could be alcohol withdrawal versus seizure. EEG suggestive of nonspecific encephalopathy. Neurology evaluated, recommends MRI brain (no acute finding) and seizure precaution. Recommend no driving, DMV form signed. Seizure precaution. Was advised by the neurologist to transfer to tertiary care center for continuous monitoring of EEG but the patient was refused and the neurologist thought that that was not necessary Has been getting seizure medications EEG has been reordered-no epileptiform activity Abnormal movement could be secondary to alcohol withdrawal/alcohol induced Abnormal movements have been improving CXR and CTAP with no evidence of fluid overload. Echo this admission with EF of 25 to 30%. Nephrology on board, appreciate recs. Hold metformin, NSS, Jardiance, YANNA/ARB and other nephrotoxic's. Possible GI bleed: Some blood noted around his mouth at presentation, also blood noted in the stool at ED. Hemoglobin at presentation 9.8, hemoglobin 8.3 today, closely monitor H&H. Baseline hemoglobin around 11. GI evaluated-no evidence of GI bleeding., continue with Protonix drip for now. Aspirin on hold. Phone blood consent obtained from his brother at admission. Hemoglobin maintains at 9.2 Chronic systolic CHF: EF 25%, echo results -see above. Seems not on any diuretics. Getting fluids. Monitor for volume overload. Will not give any intravenous fluid to avoid any fluid overload Chest x-ray did not show any congestive changes Will hold off any intravenous fluid for now Has been getting free fluid through the NG tube Likely demand ischemia: Likely secondary to acute issues, troponin flat trended in high 30s. Echo with severe global hypokinesis of left ventricle, EF 25 to 30%. Continue telemetry monitoring. Nutrition Started on enteral feeding through [employer] Will get speech therapy evaluation for possible oral food Other chronic medical conditions: Continue with/resume home meds as and when able. Hypertension: Hold his losartan and metoprolol succinate. As needed IV Lopressor for BP management. Patient n.p.o./confused/obtunded/with PETER. T2DM: A1c of 8.8 on 07/09/23. 8.4 on 09/27/22. Hold metformin and Jardiance. Sliding scale insulin while in hospital. luggage attendant when more awake. Gout: Restart allopurinol when able. Hyperlipidemia: Restart Crestor when able. CPK at presentation 86. Thrombocytopenia: Continue to monitor. DVT prophylaxis: SCDs Full code Given phone call to Pt's brother Tish Sarkar [[phone]] on 07/09- updated pt's brother tish, discussed about all of the above points and management undergoing. Answered all his questions. Discussed with the brother in detail and answered all of his questions on 07/14/2023 Will discuss with his brother Admission and Anticipated Discharge Date Admission Date: July 08, 2023 Subjective 07/18/2023 The patient was seen and examined in telemetry unit He has been much better today and has been communicating reasonably Remains pleasantly confused Still has abnormal movements of the extremities but has decreased alert 07/19/2023 The patient was seen and examined in telemetry unit He has been more alert and awake. Remains disoriented Trying to take out the IV lines and NG tube No fever and or chills and remains hemodynamically stable 07/20/2023 The patient was seen and examined in telemetry unit He remains confused and trying to check out the IV line send NG tube Still has the soft wrist restraints Does not seems to be in acute distress 07/21/2023 The patient was seen and examined in telemetry He has been semiresponsive and remains confused Remains hemodynamically stable Has been trying to call remove the lines and NG tube 07/22/2023 The patient was seen and examined in telemetry unit He has been confused and day took out the course the tube Passed the swallowing test today Appreciate psychiatrist input and recommended Review of Systems Review of Systems: Unobtainable due to cognitive status Physical Exam Physical Exam: Lying in bed with acute distress, very confused with abnormal movements involving the extremities Constitutional: well developed, well nourished, + ill appearing and + obese ENMT: external ear and nose normal, oropharynx normal Neck: trachea midline, no thyromegaly Respiratory: no respiratory distress Auscultation: + diminished lung sounds; no crackles Cardiovascular: Rate/Rhythm: regular rate, regular rhythm and + tachycardic Heart Sounds: normal S1 and normal S2; no murmur Extremities: no edema Gastrointestinal (Abdomen): Inspection/Auscultation: normal bowel sounds; abdomen not distended Percussion/Palpation: abdomen soft; abdomen nontender Musculoskeletal: No acute arthritis involving any of the joint Neurologic: Alert and awake. Acutely confused. Known his name and date of . Lymphatic: no cervical or axillary lymphadenopathy Results & Data Results & Data Vital Signs (Past 12 Hours) Vital Signs Temp Pulse Pulse Resp BP Pulse Ox O2 Del Method 07/22/23 11:32 36.6 C 102 H 20 107/81 90 Room Air 07/22/23 08:00 Room Air 07/22/23 08:00 102 H 07/22/23 07:50 36.5 C 93 H 18 131/81 99 Nasal Cannula O2 Flow Rate 07/22/23 11:32 07/22/23 08:00 07/22/23 08:00 07/22/23 07:50 1 Laboratory Results BMP 07/22/23 08:06 Sodium 147 H Potassium 4.1 Chloride 114 H Carbon Dioxide 25 BUN 37 H Creatinine 1.35 Glucose 186 H Calcium 8.7 Medications Administered Current Inpatient Medications Dextrose (Dextrose 50% 50 Ml Syringe) 25 - 50 ml IV UD PRN; Protocol PRN Reason: Hypoglycemia Protocol Stop: 08/07/23 22:40 Glucagon (Glucagon For Inj 1 Mg Vial) 1 mg SQ UD PRN; Protocol PRN Reason: Hypoglycemia Protocol Stop: 08/07/23 22:40 Glucose (Glucose 10 Tab/Tube) 4 - 8 tab PO UD PRN; Protocol PRN Reason: Hypoglycemia Treatment Stop: 08/07/23 22:40 Glucose (Glucose 40% Gel 15 Gm Tube) 15 - 30 gm PO UD PRN; Protocol PRN Reason: Hypoglycemia Protocol Stop: 08/07/23 22:40 Folic Acid 1 mg/ Syringe 10 mls @ 5 mls/min IV QAM [facility] Stop: 08/08/23 08:59 Last Admin: 07/22/23 09:34 Dose: 5 mls/min Pantoprazole Sodium 40 mg/ (Syringe) 10 mls @ 5 mls/min IV Q12H [facility] Stop: 08/10/23 20:59 Last Admin: 07/22/23 09:35 Dose: 5 mls/min Lorazepam 0.5 mg/ Syringe 0.5 mls @ 2 mls/min IV Q4H PRN PRN Reason: Agitation Stop: 08/11/23 09:38 Last Admin: 07/22/23 05:55 Dose: 2 mls/min Dextrose (D5w) 1,000 mls @ 100 mls/hr IV .Q10H [facility] Stop: 08/20/23 11:29 Last Admin: 07/22/23 11:56 Dose: Not Given Thiamine HCl 100 mg/ Syringe 10 mls @ 2 mls/min IV QAM [facility] Stop: 08/21/23 08:59 Last Admin: 07/22/23 09:35 Dose: 2 mls/min Insulin Aspart (Insulin Aspart Per Unit Charge) 0 units SC Q4 [facility] Stop: 08/07/23 22:59 Last Admin: 07/22/23 13:23 Dose: Not Given Miconazole Nitrate (Miconazole Nitrate Powder 85 Gm) 1 appln EXT PRN PRN PRN Reason: Affected Skin Folds Stop: 08/08/23 22:55 Last Admin: 07/22/23 01:40 Dose: 1 appln Miscellaneous (Carbohydrates For Hypoglycemia ) 15 - 30 gm PO UD PRN PRN Reason: Hypoglycemia Protocol Stop: 08/07/23 22:40 Neomycin/Polymyxin/Hydrocortisone (Neomycin/Polymyxin/Hydrocort Oph Susp 7.5 Ml Btl) 1 drops OP Q8H [facility] Stop: 08/11/23 13:59 Last Admin: 07/22/23 14:33 Dose: 1 drops Nitroglycerin (Nitroglycerin Sl 0.4 Mg/Tab Tab) 0.4 mg SL Q5M PRN PRN Reason: Chest Pain Stop: 08/07/23 22:40 Nutritional Formula (Nutren Liqd 2.0 1,000 Ml Bag) 1,000 ml NG .See Protocol [facility]; Protocol Stop: 08/15/23 14:29 Last Admin: 07/19/23 06:34 Dose: 1,000 ml
[2023-07-23 09:08] LABS: Calcium 8.6 mg/dl (8.6-10.3); Creatinine Clr Calc Pharmacy 69.3 ml/min; Est GFR (African American) 69.2 ml/min; Est GFR (Non-African American) 59.7 ml/min; Potassium 3.5 mmol/L (3.5-5.1)
--- NOTE | 2023-07-23 09:50 | Nephrology Progress Note ---
Date of Service July 23, 2023 Assessment & Plan Admission and Anticipated Discharge Date Admission Date: July 08, 2023 Subjective Subjective Assessment & Plan (1) Acute renal failure (ARF): Plan: improving nonoliguric stage 3 PETER (baseline [facility] creat 09/2022 1.4) --- etiology likely severe pre renal but definitely some Component of ATN. with poor health at baseline and EF 25%; now spiking low grade F since 07/14 w/o clear source of infection. On CXR, exam and CT -- no e/o fluid overload at all; chest x-ray yesterday without acute issues. despite low EF he is not fluid overloaded. Creatinine downtrending to 1.2 and BUN is <30 now. this is pretty much normal. However patient's mental status is still bad. Encephalopathy is not from renal failure/uremia and alternate etiology needs to be figured out. Will sign off and call if new issues. (2) Hypernatremia: Plan: Sodium of 143 so normal now. Can change iv fluid to d51/2 ns at 75 ml/hr. Once reliable PO intake then stop., Subjective Seen for electrolyte imbalance and PETER. Patient remains confused and severely encephalopathic. Review of Systems Review of Systems: Unable to obtain due to altered mental status Physical Exam Physical Exam: General exam: Appears comfortable, no acute distress HEENT: Pupils are equal and reactive to light Neck: No JVD, neck is supple trachea is midline Respiratory system: Clear breath sounds bilaterally. Gastrointestinal: Abdomen is soft, non distended, non tender, bowel sounds are present CVS: Regular rate and rhythm. No murmurs, rubs or gallops Musculoskeletal: No joint or muscle tenderness Extremities: Non tender, no edema, peripheral pulses are present Neuro: Disoriented, no tremors, no focal neurological deficits Skin: No rashes Results & Data Vital Signs (Past 12 Hours) Vital Signs Temp Pulse Pulse Resp BP Pulse Ox O2 Del Method 07/23/23 07:50 36.8 C 100 H 18 127/81 98 Room Air 07/23/23 03:45 37.3 C 103 H 23 154/86 H 98 Room Air 07/22/23 22:57 105 H 07/22/23 22:35 36.6 C 93 H 18 111/77 95 Room Air 07/22/23 21:58 Room Air
[2023-07-23] MEDS: D5W AND 1/2NSS 1,000 ML IV SCH (10:13)
[2023-07-23 10:48] LABS: Phosphorus 2.8 mg/dl (2.5-4.9)
--- NOTE | 2023-07-23 17:37 | Hospitalist Progress Note ---
Date of Service July 23, 2023 Assessment & Plan (1) Delirium tremens: (2) Encephalopathy: (3) Systolic congestive heart failure: (4) Type 2 diabetes mellitus with obesity: Plan 68 yo M w/ PMH of T2DM, HLD, nonischemic CM, chronic systolic CHF/April 2023 echo with EF of 25%, HTN, PVCs, first-degree block, intraventricular conduction defect, thrombocytopenia, alcoholism was brought in because of confusion and found to have PETER and hyperkalemia at ED. 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 Patient was noted to having some tremors. On the day of presentation, patient was noted to be very weak and not even able to walk, EMS was called on him [by his brother] and he was brought to the hospital. At presentation patient noted oriented x 1, denied headache or chest pain. But not able to answer any other questions per H&P note. Per H&P note, appears last drink was before . Per patient's brother, he drinks wine and vodka and sometimes beer. Blood was noted in the stool at ED. Patient was noted to be shaky. He is being managed for the following: Acute encephalopathy ? Wernicke's vs Delirium tremens secondary to alcohol withdrawal- B12 711, B1 >1200, TSH 1.3, no leucocytosis or fever, ABG without hypercarbia, ammonia 21, clx negative Patient was brought in due to increasing confusion noted at home, tremors and poor po intake ISO alcohol abuse history. Patient noted to be uremic, in PETER, hyperkalemia, possible alcohol withdrawal at presentation with significant dehydration Continue with BELKIS S protocol, folic acid, thiamine, multivitamins as able. Condition got worse and he was transferred to ICU EEG does not show any epileptiform activity but generalized background slowing of nonspecific encephalopathy has been improving He improved and was transferred out of ICU Remains confused and encephalopathic but repeat CT of the head did not show any acute events Remains on thiamine, folate Seen by psychiatry- recommendations noted- iv ativan for agitation, if ineffective, ziprasidone 10 mg im q12 hr Acute kidney injury with uremia and hyperkalemia- resolved. Cr peaked at 7.9 on admission and now down to1.2. Nephrology signed off. Hypernatremia- resolved ?seizure vs from alcohol withdrawal: At presentation, patient noted to have shaking and eyes rolling up, was given a dose of Ativan. EEG suggestive of nonspecific encephalopathy. MRI brain with no acute finding Neuro advised by the neurologist to transfer to tertiary care center for continuous monitoring of EEG but the patient was refused and the neurologist thought that that was not necessary Will consider neuro reeval if does not improve Chronic systolic CHF: EF 25-30% with severe global hypokinesia and grade 1 diastolic dysfunction, echo reviewed. Getting IVF per nephrology. Will monitor volume status closely. IV Lasix if signs or symptoms of volume overload Hypertension: Hypotension resolved and now BP stable, off of home losartan and metoprolol succinate. Will monitor and resume as indicated. T2DM: A1c of 8.8 on 07/09/23. 8.4 on 09/27/22. Hold metformin and Jardiance. Continue SSI. Gout: Allopurinol on hold given his mentation Thrombocytopenia- improving on labs. Will recheck in am. DVT prophylaxis: Subcu heparin Disposition-pending medical stability Time spent: 55 mins Admission and Anticipated Discharge Date Admission Date: July 08, 2023 Subjective Patient was seen and examined at bedside. He is somnolent and confused. Not answering questions appropriately. Remains in restraints. Vital stable. No fever, vomiting, shortness of breath Review of Systems Review of Systems: Unobtainable due to reduced consciousness Physical Exam Physical Exam: General: Lying in bed, not in acute distress, on room air Chest: Fair breath sounds anteriorly CVS: Regular, normal heart sounds, no murmur Abdomen: Soft, non tender, not distended, normal bowel sounds Neuro: Somnolent, confused Extremities: No edema Psych: Confused on restraints Results & Data Results & Data Vital Signs (Past 12 Hours) Vital Signs Temp Pulse Pulse Resp BP BP Pulse Ox 07/23/23 15:35 37.0 C 83 19 110/66 97 07/23/23 11:45 36.9 C 100 H 18 99/65 L 96 07/23/23 11:19 107 H 07/23/23 08:00 07/23/23 07:50 36.8 C 100 H 18 127/81 98 O2 Del Method 07/23/23 15:35 Room Air 07/23/23 11:45 Room Air 07/23/23 11:19 07/23/23 08:00 Room Air 07/23/23 07:50 Room Air Laboratory Results [facility] 07/23/23 08:15 Sodium 141 Potassium 3.5 Chloride 107 Carbon Dioxide 27 BUN 28 H Creatinine 1.22 Glucose 200 H Calcium 8.6
[2023-07-23] MEDS: HEPARIN SOD 5,000 UNIT/0.5 ML VIAL SQ SCH (22:10)
[2023-07-24 07:10] LABS: Basophils # (auto) 0.01 K/uL (0.00-0.20); Basophils % (auto) 0.3 %; Eosinophils # (auto) 0.15 K/uL (0.00-0.50); Eosinophils % (auto) 4.3 %; Hematocrit (blood only) 25.5 % (42.0-52.0); Immature Granulocytes # (auto) 0.06 K/uL (0.01-0.20); Immature Granulocytes % (auto) 1.7 %; Lymphocytes # (auto) 0.56 K/uL (1.20-3.40); Lymphocytes % (auto) 16.2 %; Mean Corpuscular Hemoglobin 31.3 pg (25.0-34.0); Mean Corpuscular Hgb Conc 31.4 g/dL (32.0-36.0); Mean Corpuscular Volume 99.6 fL (80.0-100.0); Mean Platelet Volume 11.9 fL (9.4-12.4); Monocytes % (auto) 11.6 %; Neutrophils # (auto) 2.27 K/uL (1.40-6.50); Neutrophils % (auto) 65.9 %; Platelet Count 139 K/uL (130-400); RDW Coefficient of Variation 15.3 % (11.5-14.5); RDW Standard Deviation 55.7 fL (36.4-46.3); Red Blood Count 2.56 M/uL (4.70-6.10); White Blood Count 3.45 K/ul (4.8-10.8)
[2023-07-24 07:41] LABS: Albumin Globulin Ratio 0.9 (0.9-2); Albumin Level 2.8 gm/dl (3.4-5.0); BUN Creatinine Ratio 19.5 (10-20); Bilirubin,Total 0.8 mg/dl (0.2-1.0); C Reactive Protein 2.72 mg/dl (0-0.5); Calcium 8.4 mg/dl (8.6-10.3); Creatinine Clr Calc Pharmacy 71.7 ml/min; Est GFR (Non-African American) 62.2 ml/min; Globulin 3.2 gm/dl (2.5-4.0); Magnesium 1.5 mg/dl (1.7-2.4); Phosphorus 3.4 mg/dl (2.5-4.9); Potassium 3.9 mmol/L (3.5-5.1)
[2023-07-24] MEDS: MAGNESIUM SULFATE / D5W 1 GM/100 ML BAG IV ONE (10:43)
[2023-07-24] MEDS ORDERED: Nursing to Pharmacy Communication SCH (15:45)
--- NOTE | 2023-07-24 16:57 | Hospitalist Progress Note ---
Date of Service July 24, 2023 Assessment & Plan (1) Delirium tremens: (2) Encephalopathy: (3) Systolic congestive heart failure: (4) Type 2 diabetes mellitus with obesity: Plan 68 yo M w/ PMH of T2DM, HLD, nonischemic CM, chronic systolic CHF/April 2023 echo with EF of 25%, HTN, PVCs, first-degree block, intraventricular conduction defect, thrombocytopenia, alcoholism was brought in because of confusion and found to have PETER and hyperkalemia at ED. 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 Patient was noted to having some tremors. On the day of presentation, patient was noted to be very weak and not even able to walk, EMS was called on him [by his brother] and he was brought to the hospital. At presentation patient noted oriented x 1, denied headache or chest pain. But not able to answer any other questions per H&P note. Per H&P note, appears last drink was before . Per patient's brother, he drinks wine and vodka and sometimes beer. Blood was noted in the stool at ED. Patient was noted to be shaky. He is being managed for the following: Acute encephalopathy ? Wernicke's/Korsakoff's vs Delirium tremens secondary to alcohol withdrawal- B12 711, B1 >1200, TSH 1.3, no leucocytosis or fever, ABG without hypercarbia, ammonia 21, clx negative. Patient was brought in due to increasing confusion noted at home, tremors and poor po intake ISO alcohol abuse history. Patient noted to be uremic, in PETER, hyperkalemia, possible alcohol withdrawal at presentation with significant dehydration Continue with BELKIS S protocol, folic acid, thiamine, multivitamins as able. Condition got worse and he was transferred to ICU EEG does not show any epileptiform activity but generalized background slowing of nonspecific encephalopathy has been improving He improved and was transferred out of ICU He is much more awake alert and conversing today, however he remains confused- concern where he is confabulating and might have Korsakoff's given his alcohol history Remains on thiamine, folate Seen by psychiatry- recommendations noted- iv ativan for agitation, if ineffective, ziprasidone 10 mg im q12 hr Acute kidney injury with uremia and hyperkalemia- resolved. Cr peaked at 7.9 on admission and now down to1.2. Nephrology signed off. Hypernatremia- resolved ?seizure vs from alcohol withdrawal: At presentation, patient noted to have shaking and eyes rolling up, was given a dose of Ativan. EEG suggestive of nonspecific encephalopathy. MRI brain with no acute finding Neuro advised by the neurologist to transfer to tertiary care center for continuous monitoring of EEG but the patient was refused and the neurologist thought that that was not necessary Chronic systolic CHF: EF 25-30% with severe global hypokinesia and grade 1 diastolic dysfunction, echo reviewed. Getting IVF per nephrology. Will monitor volume status closely. IV Lasix if signs or symptoms of volume overload Hypertension: Hypotension resolved and now BP stable, off of home losartan and metoprolol succinate. Will start on low-dose Toprol as heart rate elevated T2DM: A1c of 8.8 on 07/09/23. 8.4 on 09/27/22. Hold metformin and Jardiance. Continue SSI. Gout: Allopurinol on hold given his mentation Thrombocytopenia-resolved Hypomagnesemia-repleted. DVT prophylaxis: Subcu Lovenox Disposition- TBD. pending medical stability Time spent: 50 mins Admission and Anticipated Discharge Date Admission Date: July 08, 2023 Subjective Patient was seen and examined at bedside. He is more awake alert oriented today however he remains confused. 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 He is oriented to himself only. No fever, chills, chest pain or shortness of breath nausea or vomiting. Review of Systems Review of Systems: All systems reviewed & are unremarkable except as noted in Subjective Physical Exam Physical Exam: General: Lying in bed, not in acute distress, on room air Chest: Fair breath sounds anteriorly CVS: Regular, normal heart sounds, no murmur Abdomen: Soft, non tender, not distended, normal bowel sounds Neuro: Awake, alert, oriented to self, conversing, no dysarthria Extremities: No edema Psych: Confused Results & Data Results & Data Vital Signs (Past 12 Hours) Vital Signs Temp Pulse Resp BP BP Pulse Ox O2 Del Method 07/24/23 16:00 36.9 C 102 H 18 118/64 98 Room Air 07/24/23 11:15 36.9 C 96 H 18 135/78 95 Room Air 07/24/23 07:49 36.8 C 105 H 21 128/80 99 Room Air
[2023-07-24] MEDS: INSULIN ASPART PER UNIT CHARGE SC SCH (17:15)
[2023-07-24] MEDS: ENOXAPARIN INJ 40 MG/0.4 ML SYR SQ SCH (22:13)
[2023-07-25] MEDS: METOPROLOL SUCC 25MG EXT REL TAB PO SCH (08:22)
--- NOTE | 2023-07-25 11:16 | XRay Report ---
LEFT ANKLE 3 VIEWS CLINICAL HISTORY: Left leg pain. FINDINGS: 3 views of the left ankle are obtained. No prior studies are available for comparison at th e time of dictation. The skeletal structures are osteopenic. No fracture is seen. The ankle mortise i s intact. There is no significant joint effusion. A large dorsal heel spur is observed. There is dege nerative spurring along the dorsal aspect of the tarsal bones. Mild soft tissue swelling is seen arou nd the ankle. There is atherosclerotic calcification of the regional arteries. IMPRESSION: Soft tissue swelling with no fracture identified. Electronically signed by: Isidro Wood M.D. 07/25/2023 11:14 AM
--- NOTE | 2023-07-25 14:29 | Hospitalist Progress Note ---
Date of Service July 25, 2023 Assessment & Plan (1) Delirium tremens: (2) Encephalopathy: (3) Systolic congestive heart failure: (4) Type 2 diabetes mellitus with obesity: Plan 68 yo M w/ PMH of T2DM, HLD, nonischemic CM, chronic systolic CHF/April 2023 echo with EF of 25%, HTN, PVCs, first-degree block, intraventricular conduction defect, thrombocytopenia, alcoholism was brought in because of confusion and found to have PETER and hyperkalemia at ED. 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 Patient was noted to having some tremors. On the day of presentation, patient was noted to be very weak and not even able to walk, EMS was called on him [by his brother] and he was brought to the hospital. At presentation patient noted oriented x 1, denied headache or chest pain. But not able to answer any other questions per H&P note. Per H&P note, appears last drink was before . Per patient's brother, he drinks wine and vodka and sometimes beer. Blood was noted in the stool at ED. Patient was noted to be shaky. He is being managed for the following: Encephalopathy ? Wernicke's/Korsakoff's psychosis vs Delirium tremens secondary to alcohol withdrawal- B12 711, B1 >1200, TSH 1.3, no leucocytosis or fever, ABG without hypercarbia, ammonia 21, clx negative. Patient was brought in due to increasing confusion noted at home, tremors and poor po intake ISO alcohol abuse history. Patient noted to be uremic, in PETER, hyperkalemia, possible alcohol withdrawal at presentation with significant dehydration Continue with BELKIS S protocol, folic acid, thiamine, multivitamins as able. 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 I spoke to his brother in detail over the phone. Remains on thiamine, folate Seen by psychiatry- recommendations noted- iv ativan for agitation, if ineffective, ziprasidone 10 mg im q12 hr Acute kidney injury with uremia and hyperkalemia- resolved. Cr peaked at 7.9 on admission and now down to1.2. Nephrology signed off. Hypernatremia- resolved ?seizure vs from alcohol withdrawal: At presentation, patient noted to have shaking and eyes rolling up, was given a dose of Ativan. EEG suggestive of nonspecific encephalopathy. MRI brain with no acute finding Neuro advised by the neurologist to transfer to tertiary care center for continuous monitoring of EEG but the patient was refused and the neurologist thought that that was not necessary Chronic systolic CHF: EF 25-30% with severe global hypokinesia and grade 1 diastolic dysfunction, echo reviewed. Volume status stable. IV Lasix if signs or symptoms of volume overload Hypertension: Hypotension resolved and now BP stable, off of home losartan and metoprolol succinate. Started on low-dose Toprol as heart rate elevated T2DM: A1c of 8.8 on 07/09/23. 8.4 on 09/27/22. Hold metformin and Jardiance. Continue SSI. Gout: Allopurinol on hold given his mentation Thrombocytopenia-resolved Hypomagnesemia- recheck in am DVT prophylaxis: Subcu Lovenox Disposition- TBD. pending medical stability Time spent: 50 mins Admission and Anticipated Discharge Date Admission Date: July 08, 2023 Subjective Patient was seen and examined at bedside. He is awake alert oriented to self but remains confused with memory impairment and confabulation. During exam, noted to have left ankle tenderness however xray ankle was negative. I did speak to his brother Pasquale over the phone and obtained collateral information for verification. States he is a heavy drinker, started with beers and now on liquor too. Drinks heavily daily. Not eating much. He lives in a trailer for past 5 years by himself. Brother went to clean his trailer and found refrigerator full of food. Apparently he was just drinking and not eating. He does not smoke. He worked in [employer] for 30 years and retired about 10 years ago. Patient kept saying he had injury to his left leg a week ago and was here in the hospital but it seems that was at least 1-2 years ago per brother. Patient was noted to have lapses in memory, forgetting recent life events and this was also acknowledged by the brother. He states that the patient called Pasquale today and stated he is being discharged today and asked him to come pick him up at 3 pm. Pasquale also states that the more he talked, the more he sounded confused. It seemed he has memory lapses and confabulating with made up stories. This seems consistent with Korsakoff psychosis given his significant alcohol intake history and hospital course. Review of Systems Review of Systems: All systems reviewed & are unremarkable except as noted in Subjective Physical Exam 2 Physical Exam: General: Lying in bed, not in acute distress, on room air Chest: Fair breath sounds anteriorly CVS: Regular, normal heart sounds, no murmur Abdomen: Soft, non tender, not distended, normal bowel sounds Neuro: Awake, alert, oriented to self, conversing, no dysarthria Extremities: No edema. Left ankle tenderness. LLE weak compared to right. Psych: Confused Results & Data Results & Data Vital Signs (Past 12 Hours) Vital Signs Temp Pulse Resp BP Pulse Ox O2 Del Method 07/25/23 07:35 Room Air 07/25/23 07:10 36.5 C 103 H 16 116/71 93 Room Air
[2023-07-26] MEDS: MELATONIN 3 MG TAB PO PRN (00:26)
[2023-07-26] MEDS ORDERED: MELATONIN 3 MG TAB PO PRN (02:56)
[2023-07-26] MEDS: MELATONIN 3 MG TAB PO STA (03:21)
[2023-07-26 06:56] LABS: Hematocrit (blood only) 22.2 % (42.0-52.0); Hemoglobin 7.2 g/dl (14.0-18.0); Mean Corpuscular Hgb Conc 32.4 g/dL (32.0-36.0); Mean Corpuscular Volume 95.7 fL (80.0-100.0); Mean Platelet Volume 11.9 fL (9.4-12.4); Platelet Count 149 K/uL (130-400); RDW Standard Deviation 51.7 fL (36.4-46.3); Red Blood Count 2.32 M/uL (4.70-6.10); White Blood Count 3.19 K/ul (4.8-10.8)
[2023-07-26 07:13] LABS: BUN Creatinine Ratio 15.1 (10-20); Calcium 8.6 mg/dl (8.6-10.3); Creatinine Clr Calc Pharmacy 67.2 ml/min; Est GFR (African American) 66.5 ml/min; Est GFR (Non-African American) 57.4 ml/min; Magnesium 1.6 mg/dl (1.7-2.4); Potassium 3.6 mmol/L (3.5-5.1)
[2023-07-26] MEDS: MAGNESIUM SULFATE / D5W 1 GM/100 ML BAG IV ONE (08:47)
[2023-07-26] MEDS: CYANOCOBALAMIN (B-12) 500 MCG TABLET PO SCH (08:47)
[2023-07-26] MEDS: FERROUS SULFATE 325 MG TAB PO SCH (08:47)
--- NOTE | 2023-07-26 13:07 | Hospitalist Progress Note ---
Date of Service July 26, 2023 Assessment & Plan (1) Delirium tremens: (2) Encephalopathy: (3) Systolic congestive heart failure: (4) Type 2 diabetes mellitus with obesity: Plan 68 yo M w/ PMH of T2DM, HLD, nonischemic CM, chronic systolic CHF/April 2023 echo with EF of 25%, HTN, PVCs, first-degree block, intraventricular conduction defect, thrombocytopenia, alcoholism was brought in because of confusion and found to have PETER and hyperkalemia at ED. 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 Patient was noted to having some tremors. On the day of presentation, patient was noted to be very weak and not even able to walk, EMS was called on him [by his brother] and he was brought to the hospital. At presentation patient noted oriented x 1, denied headache or chest pain. But not able to answer any other questions per H&P note. Per H&P note, appears last drink was before . Per patient's brother, he drinks wine and vodka and sometimes beer. Blood was noted in the stool at ED. Patient was noted to be shaky. He is being managed for the following: Suspected Wernicke's- Korsakoff's syndrome vs Delirium tremens secondary to alcohol withdrawal- B12 711, B1 >1200, TSH 1.3, no leucocytosis or fever, ABG without hypercarbia, ammonia 21, clx negative. Patient was brought in due to increasing confusion noted at home, tremors and poor po intake ISO alcohol abuse history. Patient noted to be uremic, in PETER, hyperkalemia, possible alcohol withdrawal at presentation with significant dehydration Required ICU management, stabilized and then transferred to floor Condition got worse and he was transferred to ICU Remains on thiamine, folate, MV, B12 Seen by neuro and psychiatry. Per psych recommendations- iv ativan for agitation, if ineffective, ziprasidone 10 mg im q12 hr Acute kidney injury with uremia and hyperkalemia- resolved. Cr peaked at 7.9 on admission and now down to1.2. Nephrology signed off. Hypernatremia- resolved ?alcohol withdrawal seizure on presentation- EEG suggestive of nonspecific encephalopathy. MRI brain with no acute finding. Evaluated by neurology. Chronic systolic CHF: EF 25-30% with severe global hypokinesia and grade 1 diastolic dysfunction, echo reviewed. Volume status stable. IV Lasix if signs or symptoms of volume overload. Will initiate GDMT with toprol, losartan Hypertension: Hypotension resolved and now BP stable, off of home losartan and metoprolol succinate. Now on low dose toprol. T2DM: A1c of 8.8 on 07/09/23. 8.4 on 09/27/22. Hold metformin and Jardiance. Continue SSI. Gout: resume allopurinol Hypomagnesemia- repleted, recheck in am Anemia- Labs reviewed. No acute bleeding. Hb 7.2. 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 DVT prophylaxis: Subcu Lovenox Disposition- PT recommended acute rehab. Stable to go to rehab Time spent: 35 mins Admission and Anticipated Discharge Date Admission Date: July 08, 2023 Subjective Patient was seen and examined at beside. Remains awake alert confused but forgetful and confused. No fever, chills, chest pain, SOB, N/V. Review of Systems Review of Systems: All systems reviewed & are unremarkable except as noted in Subjective Physical Exam Physical Exam: General: Lying in bed, not in acute distress, on room air Chest: Fair breath sounds anteriorly CVS: Regular, normal heart sounds, no murmur Abdomen: Soft, non tender, not distended, normal bowel sounds Neuro: Awake, alert, oriented to self, conversing, no dysarthria Extremities: No edema. Left ankle tenderness. LLE weak compared to right at baseline Psych: Confused Results & Data Results & Data Vital Signs (Past 12 Hours) Vital Signs Temp Pulse Resp BP Pulse Ox O2 Del Method 07/26/23 08:03 Room Air 07/26/23 07:15 37.1 C 78 18 117/66 95 Room Air 07/26/23 05:25 36.6 C Laboratory Results Short CBC 07/26/23 Range/Units 06:31 WBC 3.19 L (4.8-10.8) K/ul Hgb 7.2 L (14.0-18.0) g/dl Hct 22.2 L (42.0-52.0) % Plt Count 149 (130-400) K/uL BMP 07/26/23 06:31 Sodium 139 Potassium 3.6 Chloride 107 Carbon Dioxide 25 BUN 19 Creatinine 1.26 Glucose 108 H Calcium 8.6
[2023-07-26] MEDS: ASPIRIN 81 MG ECTAB PO SCH (20:54)
[2023-07-26] MEDS: LORATADINE 10 MG TAB PO ONE (20:54)
[2023-07-26] MEDS: MELATONIN 3 MG TAB PO SCH (20:55)
[2023-07-27] MEDS: guaiFENesin SUGAR FREE 200 MG/10 ML UDC PO PRN (00:49)
[2023-07-27 07:24] LABS: Hematocrit (blood only) 23.3 % (42.0-52.0); Hemoglobin 7.2 g/dl (14.0-18.0)
[2023-07-27] MEDS: PSYLLIUM or GUAR GUM FIBER 4GM PACKET PO SCH (08:18)
[2023-07-27] MEDS: ROSUVASTATIN CALCIUM 10 MG TAB PO SCH (08:18)
[2023-07-27] MEDS: allopurinoL 100 MG TAB PO SCH (08:18)
[2023-07-27] MEDS: LOSARTAN POTASSIUM 25 MG TAB PO SCH (08:18)
[2023-07-27] MEDS: EMPAGLIFLOZIN 10 MG TAB PO SCH (08:19)
--- NOTE | 2023-07-27 14:12 | Hospitalist Progress Note ---
Date of Service July 27, 2023 Assessment & Plan (1) Wernicke-Korsakoff syndrome (alcoholic): (2) Altered mental status: (3) Delirium tremens: (4) Systolic congestive heart failure: (5) Type 2 diabetes mellitus with obesity: Plan 68 yo M w/ PMH of T2DM, HLD, nonischemic CM, chronic systolic CHF/April 2023 echo with EF of 25%, HTN, PVCs, first-degree block, intraventricular conduction defect, thrombocytopenia, alcoholism was brought in because of confusion and found to have PETER and hyperkalemia at ED. 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 Patient was noted to having some tremors. On the day of presentation, patient was noted to be very weak and not even able to walk, EMS was called on him [by his brother] and he was brought to the hospital. At presentation patient noted oriented x 1, denied headache or chest pain. But not able to answer any other questions per H&P note. Per H&P note, appears last drink was before . Per patient's brother, he drinks wine and vodka and sometimes beer. Blood was noted in the stool at ED. Patient was noted to be shaky. He is being managed for the following: Suspected Wernicke's- Korsakoff's syndrome vs Delirium tremens secondary to alcohol withdrawal- B12 711, B1 >1200, TSH 1.3, no leucocytosis or fever, ABG without hypercarbia, ammonia 21, clx negative. Patient was brought in due to increasing confusion noted at home, tremors and poor po intake ISO alcohol abuse history. Patient noted to be uremic, in PETER, hyperkalemia, possible alcohol withdrawal at presentation with significant dehydration Required ICU management, stabilized and then transferred to floor Remains on thiamine, folate, MV, B12 Seen by neuro and psychiatry. Per psych recommendations- iv ativan for agitation, if ineffective, ziprasidone 10 mg im q12 hr Acute kidney injury with uremia and hyperkalemia- resolved. Cr peaked at 7.9 on admission and now down to1.2. Nephrology signed off. Hypernatremia- resolved ?alcohol withdrawal seizure on presentation- EEG suggestive of nonspecific encephalopathy. MRI brain with no acute finding. Evaluated by neurology. Chronic systolic CHF: EF 25-30% with severe global hypokinesia and grade 1 diastolic dysfunction, echo reviewed. Volume status stable. IV Lasix if signs or symptoms of volume overload. Continue GDMT with toprol, losartan, jardiance Hypertension: Hypotension resolved and now BP stable, off of home losartan and metoprolol succinate. Now on low dose toprol, losartan. T2DM: A1c of 8.8 on 07/09/23. 8.4 on 09/27/22. Hold metformin. Continue Jardiance. Continue SSI. Gout: continue allopurinol Hypomagnesemia- repleted Anemia- Labs reviewed. No acute bleeding. Hb stable 7.2. 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 DVT prophylaxis: Subcu Lovenox Disposition- PT recommended acute rehab. Time spent: 35 mins Admission and Anticipated Discharge Date Admission Date: July 08, 2023 Subjective Patient was seen and examined at bedside. He remains confused. No new issues. No fever, chills, chest pain, shortness of breath nausea or vomiting. Poor oral intake Review of Systems Review of Systems: All systems reviewed & are unremarkable except as noted in Subjective Physical Exam Physical Exam: General: Lying in bed, not in acute distress, on room air Chest: Fair breath sounds anteriorly CVS: Regular, normal heart sounds, no murmur Abdomen: Soft, non tender, not distended, normal bowel sounds Neuro: Awake, alert, oriented to self, conversing, no dysarthria Extremities: No edema. LLE weak compared to right at baseline Psych: Confused but cooperative Results & Data Results & Data Vital Signs (Past 12 Hours) Vital Signs Temp Pulse Resp BP Pulse Ox O2 Del Method 07/27/23 07:17 36.8 C 95 H 18 132/77 96 Room Air Laboratory Results Short CBC 07/27/23 Range/Units 07:02 Hgb 7.2 L (14.0-18.0) g/dl Hct 23.3 L (42.0-52.0) % (4) Systolic congestive heart failure Heart failure chronicity: chronic Qualified Code(s): I50.22 - Chronic systolic (congestive) heart failure
[2023-07-28 07:32] LABS: Hematocrit (blood only) 24.3 % (42.0-52.0)
[2023-07-28 07:56] LABS: BUN Creatinine Ratio 13.9 (10-20); Calcium 9.3 mg/dl (8.6-10.3); Est GFR (African American) 80.2 ml/min; Est GFR (Non-African American) 69.2 ml/min; Magnesium 1.6 mg/dl (1.7-2.4); Potassium 4.2 mmol/L (3.5-5.1)
--- NOTE | 2023-07-28 11:44 | Hospitalist Progress Note ---
Date of Service July 28, 2023 Assessment & Plan (1) Wernicke-Korsakoff syndrome (alcoholic): (2) Altered mental status: (3) Delirium tremens: (4) Systolic congestive heart failure: (5) Type 2 diabetes mellitus with obesity: Plan 68 yo M w/ PMH of T2DM, HLD, nonischemic CM, chronic systolic CHF/April 2023 echo with EF of 25%, HTN, PVCs, first-degree block, intraventricular conduction defect, thrombocytopenia, alcoholism was brought in because of confusion and found to have PETER and hyperkalemia at ED. 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 Patient was noted to having some tremors. On the day of presentation, patient was noted to be very weak and not even able to walk, EMS was called on him [by his brother] and he was brought to the hospital. At presentation patient noted oriented x 1, denied headache or chest pain. But not able to answer any other questions per H&P note. Per H&P note, appears last drink was before . Per patient's brother, he drinks wine and vodka and sometimes beer. Blood was noted in the stool at ED. Patient was noted to be shaky. He is being managed for the following: Suspected Wernicke's- Korsakoff's syndrome vs Delirium tremens secondary to alcohol withdrawal- B12 711, B1 >1200, TSH 1.3, no leucocytosis or fever, ABG without hypercarbia, ammonia 21, clx negative. Patient was brought in due to increasing confusion noted at home, tremors and poor po intake ISO alcohol abuse history. Patient noted to be uremic, in PETER, hyperkalemia, possible alcohol withdrawal at presentation with significant dehydration Required ICU management, stabilized and then transferred to floor Remains on thiamine, folate, MV, B12 Seen by neuro and psychiatry. Per psych recommendations- iv ativan for agitation, if ineffective, ziprasidone 10 mg im q12 hr Acute kidney injury with uremia and hyperkalemia- resolved. Cr peaked at 7.9 on admission and now down to1. Nephrology signed off. Hypernatremia- resolved ?alcohol withdrawal seizure on presentation- EEG suggestive of nonspecific encephalopathy. MRI brain with no acute finding. Evaluated by neurology. Chronic systolic CHF: EF 25-30% with severe global hypokinesia and grade 1 diastolic dysfunction, echo reviewed. Volume status stable. IV Lasix if signs or symptoms of volume overload. Continue GDMT with toprol, losartan, jardiance Hypertension: Hypotension resolved and now BP stable, off of home losartan and metoprolol succinate. Now on low dose toprol, losartan. T2DM: A1c of 8.8 on 07/09/23. 8.4 on 09/27/22. Hold metformin. Continue Jardiance. Continue SSI. Gout: continue allopurinol Hypomagnesemia- repleted. Seen in AM Anemia- Labs reviewed. No acute bleeding. Hb stable 7.2. 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 DVT prophylaxis: Subcu Lovenox Disposition- Patient stable to go to rehab Time spent: 35 mins Admission and Anticipated Discharge Date Admission Date: July 08, 2023 Subjective Patient was seen and examined at bedside. He is awake alert oriented to self and conversing but confused. No fever, chills, chest pain or shortness of breath no nausea or vomiting Review of Systems Review of Systems: All systems reviewed & are unremarkable except as noted in Subjective Physical Exam Physical Exam: General: Lying in bed, not in acute distress, on room air Chest: Fair breath sounds anteriorly CVS: Regular, normal heart sounds, no murmur Abdomen: Soft, non tender, not distended, normal bowel sounds Neuro: Awake, alert, oriented to self, conversing, no dysarthria Extremities: No edema. Psych: Confused but cooperative Results & Data Results & Data Vital Signs (Past 12 Hours) Vital Signs Temp Pulse Resp BP Pulse Ox O2 Del Method 07/28/23 11:14 106 H 94 Room Air 07/28/23 10:00 Room Air 07/28/23 07:56 36.5 C 110 H 16 122/81 95 Room Air Laboratory Results Short CBC 07/28/23 Range/Units 07:03 Hgb 8.0 L (14.0-18.0) g/dl Hct 24.3 L (42.0-52.0) % BMP 07/28/23 07:03 Sodium 139 Potassium 4.2 Chloride 106 Carbon Dioxide 26 BUN 15 Creatinine 1.08 Glucose 113 H Calcium 9.3 (4) Systolic congestive heart failure Heart failure chronicity: chronic Qualified Code(s): I50.22 - Chronic systolic (congestive) heart failure
[2023-07-29] MEDS: METOPROLOL SUCC 25MG EXT REL TAB PO SCH ×2 (09:02→20:49)
--- NOTE | 2023-07-29 12:44 | Hospitalist Progress Note ---
Date of Service July 29, 2023 Assessment & Plan (1) Wernicke-Korsakoff syndrome (alcoholic): (2) Altered mental status: (3) Delirium tremens: (4) Systolic congestive heart failure: (5) Type 2 diabetes mellitus with obesity: Plan 68 yo M w/ PMH of T2DM, HLD, nonischemic CM, chronic systolic CHF/April 2023 echo with EF of 25%, HTN, PVCs, first-degree block, intraventricular conduction defect, thrombocytopenia, alcoholism was brought in because of confusion and found to have PETER and hyperkalemia at ED. 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 Patient was noted to having some tremors. On the day of presentation, patient was noted to be very weak and not even able to walk, EMS was called on him [by his brother] and he was brought to the hospital. At presentation patient noted oriented x 1, denied headache or chest pain. But not able to answer any other questions per H&P note. Per H&P note, appears last drink was before . Per patient's brother, he drinks wine and vodka and sometimes beer. Blood was noted in the stool at ED. Patient was noted to be shaky. He is being managed for the following: Suspected Wernicke's- Korsakoff's syndrome vs Delirium secondary to alcohol withdrawal- B12 711, B1 >1200, TSH 1.3, no leucocytosis or fever, ABG without hypercarbia, ammonia 21, clx negative. Patient was brought in due to increasing confusion noted at home, tremors and poor po intake ISO alcohol abuse history. Patient noted to be uremic, in PETER, hyperkalemia, possible alcohol withdrawal at presentation with significant dehydration Required ICU management, stabilized and then transferred to floor Remains on thiamine, folate, MV, B12 Seen by neuro and psychiatry. Per psych recommendations- iv ativan for agitation, if ineffective, ziprasidone 10 mg im q12 hr Acute kidney injury with uremia and hyperkalemia- resolved. Cr peaked at 7.9 on admission and now down to1. Nephrology signed off. Hypernatremia- resolved ?alcohol withdrawal seizure on presentation- EEG suggestive of nonspecific encephalopathy. MRI brain with no acute finding. Evaluated by neurology. I filled the DMV paperwork brought by his brother Pasquale restricting him to drive as of now and gave it back to him who will submit it to DM. Chronic systolic CHF: EF 25-30% with severe global hypokinesia and grade 1 diastolic dysfunction, echo reviewed. Volume status stable. IV Lasix if signs or symptoms of volume overload. Continue GDMT with toprol, losartan, jardiance. Will uptitrate toprol to bid with elevated heart rate. Hypertension: Hypotension resolved now resumed on toprol, losartan. T2DM: A1c of 8.8 on 07/09/23. 8.4 on 09/27/22. Hold metformin. Continue Jardiance. Continue SSI. Gout: continue allopurinol Hypomagnesemia- Recheck in am Anemia- Labs reviewed. No acute bleeding. Hb stable 7.2. Started on oral B12 and oral iron supplementation- concern for some nutritional deficiency given his alcohol intake with poor oral intake [employer]. DVT prophylaxis: Subcu Lovenox Disposition- Patient stable to go to rehab. Awaiting insurance authorization. Time spent: 35 mins Admission and Anticipated Discharge Date Admission Date: July 08, 2023 Subjective Patient was seen and examined at bedside. He remains stable and delirious. No new issues. No fever, chills, chest pain, SOB, N/V. Review of Systems Review of Systems: All systems reviewed & are unremarkable except as noted in Subjective Physical Exam Physical Exam: General: Lying in bed, not in acute distress, on room air Chest: Fair breath sounds anteriorly CVS: Regular, normal heart sounds, no murmur Abdomen: Soft, non tender, not distended, normal bowel sounds Neuro: Awake, alert, oriented to self, conversing, no dysarthria Extremities: No edema. Psych: Confused but cooperative Results & Data Results & Data Vital Signs (Past 12 Hours) Vital Signs Temp Pulse Resp BP Pulse Ox O2 Del Method 07/29/23 07:38 36.6 C 105 H 16 114/70 93 Room Air 07/29/23 07:35 Room Air (4) Systolic congestive heart failure Heart failure chronicity: chronic Qualified Code(s): I50.22 - Chronic systolic (congestive) heart failure
[2023-07-30 08:31] LABS: BUN Creatinine Ratio 14.3 (10-20); Calcium 9.2 mg/dl (8.6-10.3); Creatinine Clr Calc Pharmacy 76.2 ml/min; Est GFR (African American) 76.7 ml/min; Est GFR (Non-African American) 66.2 ml/min; Magnesium 1.5 mg/dl (1.7-2.4); Potassium 3.9 mmol/L (3.5-5.1)
[2023-07-30] MEDS: FOLIC ACID 1 MG TAB PO SCH (08:41)
[2023-07-30] MEDS: THIAMINE HCL 100 MG TAB PO SCH (08:42)
[2023-07-30 08:51] LABS: Hematocrit (blood only) 26.6 % (42.0-52.0); Hemoglobin 8.4 g/dl (14.0-18.0); Mean Corpuscular Hemoglobin 30.9 pg (25.0-34.0); Mean Corpuscular Hgb Conc 31.6 g/dL (32.0-36.0); Mean Corpuscular Volume 97.8 fL (80.0-100.0); Mean Platelet Volume 11.9 fL (9.4-12.4); Platelet Count 167 K/uL (130-400); RDW Coefficient of Variation 14.8 % (11.5-14.5); Red Blood Count 2.72 M/uL (4.70-6.10); White Blood Count 3.47 K/ul (4.8-10.8)
--- NOTE | 2023-07-30 11:09 | Hospitalist Progress Note ---
Date of Service July 30, 2023 Assessment & Plan (1) Wernicke-Korsakoff syndrome (alcoholic): (2) Altered mental status: (3) Delirium tremens: (4) Systolic congestive heart failure: (5) Type 2 diabetes mellitus with obesity: Plan Mr. Sarkar is a 68 year old gentleman with PMH of T2DM, HLD, nonischemic CM, chronic HFrEF April 2023 echo with EF of 25%, HTN, PVCs, first-degree block, intraventricular conduction defect, thrombocytopenia, alcoholism was brought in because of confusion and found to have PETER and hyperkalemia at ED on 07/07. Patient noted to be confused at home for 2 days WE[employer] LOSS [employer] as well as with tremors. On the day of presentation (07/07), patient was noted to be very weak and not even able to walk, EMS was called by his brother. At presentation patient noted oriented x 1, denied headache or chest pain. But not able to answer any other questions per H&P note. Per H&P note, appears last drink was before 07/05. Per patient's brother, he drinks wine and vodka and sometimes beer. Patient was transfered to ICU on 07/09 due to concern for delirium tremens and transfered out of ICU after subtle improvement in encephalopathy. GI was consulted for concern of blood in stool, however, there was no invasive testing performed. Neurology evaluated patient: EEG was consistent with encephalopathy. MRI brain with motion artifact but no evidence of acute intracranial findings. Possible alcohol withdrawal and uremic encephalopathy likely largely contributing to mentation. Creatinine and BUN slowly downtrending. Nephrology was concerned that he would be at high risk for dysequilibrium syndrome with dialysis for uremia. Psychiatry evaluated patient for management of agitation--where it was recommended to continue to use lorazepam for agitation. Nephrology consulted for acute renal failure which has improved, and determined mentation not likely from uremia/ARF. He is being managed for the following: #Acute metabolic encephalopathy, c/f suspected Wernicke's- Korsakoff's syndrome vs Delirium secondary to alcohol withdrawal B12 711, B1 >1200, TSH 1.3, no leucocytosis or fever, ABG without hypercarbia, ammonia 21, clx negative. Long standing history of alcohol dependence Patient noted to be uremic, however minimal improvement with resolution of PETER Required ICU management, stabilized and then transferred to floor on 07/12 Remains on thiamine, folate, MV, B12 Seen by neuro and psychiatry. Per psych recommendations- iv ativan for agitation, if ineffective, ziprasidone 10 mg im q12 hr Neuro: No suspicion for infection therefore no LP recommended Continue supplementation #Acute kidney injury with uremia and hyperkalemia- resolved. Cr peaked at 7.9 on admission and now down to1. Nephrology signed off. #Hypernatremia- resolved #?alcohol withdrawal seizure on presentation- EEG suggestive of nonspecific encephalopathy. MRI brain with no acute finding. Evaluated by neurology. Documents by prior physician filed to restrict driving #Chronic systolic CHF: EF 25-30% with severe global hypokinesia and grade 1 diastolic dysfunction, echo reviewed. Volume status stable. IV Lasix if signs or symptoms of volume overload. Continue GDMT with toprol, losartan, jardiance. Will uptitrate toprol to bid with elevated heart rate. #Hypertension: Hypotension resolved now resumed on toprol, losartan. #T2DM: A1c of 8.8 on 07/09/23. 8.4 on 09/27/22. Hold metformin. Continue Jardiance. Continue SSI. #Gout: continue allopurinol #Hypomagnesemia- Recheck in am, start slow mag supplementation #Acute on chronic anemia- Labs reviewed,. No acute bleeding. Hb stable 7.2. Started on oral B12 and oral iron supplementation- concern for some nutritional deficiency given his alcohol intake with poor oral intake [employer]. Reported concern for GIB initially, will transition IV protonix to PO given high likelihood of gastritis iso alcohol misuse #Urinary retention UA without suspicion for infection, bishop placed. Start tamsulosin DVT prophylaxis: Subcu Lovenox Disposition- Patient stable to go to rehab. Maybe discharge tomorrow Time spent: 35 mins Admission and Anticipated Discharge Date Admission Date: July 08, 2023 Subjective No acute events overnight Patient evaluated at bedside. Patient conversational, but content of conversation not congruent to questions asked or to purpose of visit. Patient denies any symptoms, but difficult to redirect. Example includes telling patient he is at [facility] to which he replies "ah yes, there was a tall psychiatrist. Beautiful spot up there at that place you mentioned. Do you know him?" He will answer seemingly appropriately to yes/no questions, however content that follows is often filler and not on topic Nurse noted issue with urinary retention--bishop placed Nutrition noting poor PO intake Physical Exam Constitutional: WD/WN, vitals as above Respiratory: normal respiratory effort, lungs clear to auscultation Cardiovascular: RRR, no murmur, no edema Gastrointestinal (Abdomen): normal bowel sounds, soft, nontender, no hepatosplenomegaly Neurologic: no focal deficits, but delirium/confabulation present Results & Data Results & Data Vital Signs (Past 12 Hours) Vital Signs Temp Pulse Resp BP Pulse Ox O2 Del Method 07/30/23 10:51 98 07/30/23 07:38 Room Air 07/30/23 07:11 36.4 C L 95 H 16 118/75 97 Room Air Laboratory Results Short CBC 07/30/23 Range/Units 07:38 WBC 3.47 L (4.8-10.8) K/ul Hgb 8.4 L (14.0-18.0) g/dl Hct 26.6 L (42.0-52.0) % Plt Count 167 (130-400) K/uL BMP 07/30/23 07:38 Sodium 138 Potassium 3.9 Chloride 103 Carbon Dioxide 24 BUN 16 Creatinine 1.12 Glucose 109 H Calcium 9.2 Urine 07/30/23 Range/Units Unknown Urine Color Yellow Urine Appearance Cloudy A (Clear) Urine pH 5.5 (4.5-7.5) Ur Specific [place] 1.021 (1.000-1.030) Urine Protein 1+ H (Negative) Urine Glucose (UA) 3+ H (Negative) Medications Administered Home Medications Medication Instructions Recorded Confirmed Last Taken metoprolol succinate 50 mg 50 mg PO BID #30 tabs 11/24/18 07/08/23 Unknown tablet,extended release 24 hr aspirin 81 mg tablet,delayed 81 mg PO QPM 05/10/20 07/08/23 Unknown release melatonin 10 mg capsule 10 mg PO HS PRN Sleep 05/10/20 07/08/23 Unknown allopurinol 100 mg tablet 100 mg PO QAM 05/17/20 07/08/23 Unknown olmesartan 20 mg tablet 20 mg PO QAM 05/17/20 07/08/23 Unknown empagliflozin 10 mg tablet 10 mg PO QAM 07/08/23 07/08/23 Unknown (Jardiance) fexofenadine 180 mg tablet 180 mg PO QAM 07/08/23 07/08/23 Unknown hydroxyzine HCl 25 mg tablet 25 mg PO DAILY PRN Itching 07/08/23 07/08/23 Unknown metformin 500 mg tablet 500 mg PO BIDM 07/08/23 07/08/23 Unknown rosuvastatin 10 mg tablet 10 mg PO QAM 07/08/23 07/08/23 Unknown Active Medications Generic Name Dose Route Start Last Admin Trade Name Freq PRN Reason Stop Dose Admin Allopurinol 100 mg 07/27/23 09:00 07/30/23 08:41 Allopurinol 100 Mg Tab PO 08/26/23 08:59 100 mg QAM JUSTUS Administration Aspirin 81 mg 07/26/23 21:00 07/29/23 20:49 Aspirin 81 Mg Ectab PO 08/25/23 20:59 81 mg QPM JUSTUS Administration Cyanocobalamin 500 mcg 07/26/23 09:00 07/30/23 08:42 Cyanocobalamin (B-12) 500 Mcg Tablet PO 08/25/23 08:59 500 mcg QAM JUSTUS Administration Empagliflozin 10 mg 07/27/23 09:00 07/30/23 08:41 Empagliflozin 10 Mg Tab PO 08/26/23 08:59 10 mg QAM JUSTUS Administration Enoxaparin Sodium 40 mg 07/24/23 21:00 07/29/23 20:49 Enoxaparin Inj 40 Mg/0.4 Ml Syr SQ 08/23/23 20:59 40 mg HS JUSTUS Administration Ferrous Sulfate 325 mg 07/26/23 09:00 07/30/23 08:39 Ferrous Sulfate 325 Mg Tab PO 08/25/23 08:59 325 mg QAM JUSTUS Administration Folic Acid 1 mg 07/30/23 09:00 07/30/23 08:41 Folic Acid 1 Mg Tab PO 08/29/23 08:59 1 mg QAM JUSTUS Administration Guaifenesin 200 mg 07/26/23 19:58 07/30/23 12:18 Guaifenesin Sugar Free 200 Mg/10 Ml Udc PO 08/25/23 19:57 200 mg Q6H PRN Administration Cough Pantoprazole Sodium 40 mg/ 10 mls @ 5 mls/min 07/11/23 21:00 07/30/23 08:40 Syringe IV 08/10/23 20:59 5 mls/min Q12H JUSTUS Administration Lorazepam 0.5 mg/ Syringe 0.5 mls @ 2 mls/min 07/12/23 09:39 07/28/23 09:33 IV 08/11/23 09:38 2 mls/min Q4H PRN Administration Agitation Insulin Aspart 0 units 07/24/23 16:30 07/30/23 12:23 Insulin Aspart Per Unit Charge SC 08/07/23 22:59 1 units ACHS JUSTUS Administration Losartan Potassium 12.5 mg 07/27/23 09:00 07/30/23 08:38 Losartan Potassium 25 Mg Tab PO 08/26/23 08:59 12.5 mg QAM JUSTUS Administration Melatonin 9 mg 07/26/23 21:00 07/29/23 20:49 Melatonin 3 Mg Tab PO 08/25/23 20:59 9 mg HS JUSTUS Administration Metoprolol Succinate 25 mg 07/29/23 21:00 07/30/23 08:41 Metoprolol Succ 25mg Ext Rel Tab PO 08/28/23 20:59 25 mg BID JUSTUS Administration Miconazole Nitrate 1 appln 07/09/23 22:56 07/22/23 01:40 Miconazole Nitrate Powder 85 Gm EXT 08/08/23 22:55 1 appln PRN PRN Administration Affected Skin Folds Neomycin/Polymyxin/Hydrocortisone 1 drops 07/12/23 14:00 07/30/23 14:19 Neomycin/Polymyxin/Hydrocort Oph Susp 7.5 Ml Btl OP 08/11/23 13:59 1 drops Q8H JUSTUS Administration Psyllium Hydrophilic Mucilloid 4 gm 07/27/23 09:00 07/30/23 08:39 Psyllium Or Guar Gum Fiber 4gm Packet PO 08/26/23 08:59 4 gm QAM JUSTUS Administration Rosuvastatin Calcium 10 mg 07/27/23 09:00 07/30/23 08:42 Rosuvastatin Calcium 10 Mg Tab PO 08/26/23 08:59 10 mg QAM JUSTUS Administration Thiamine HCl 100 mg 07/30/23 09:00 07/30/23 08:42 Thiamine Hcl 100 Mg Tab PO 08/29/23 08:59 100 mg QAM JUSTUS Administration (4) Systolic congestive heart failure Heart failure chronicity: chronic Qualified Code(s): I50.22 - Chronic systolic (congestive) heart failure
[2023-07-30 12:11] LABS: Appearance Urine Cloudy (Clear); Bacteria Urine Automated None Seen (None Seen); Bilirubin Urine Negative (Negative); Blood Urine 3+ (Negative); Color Urine Yellow; Glucose Urine UA 3+ (Negative); Ketones Urine 1+ (Negative); Leukocyte Esterase Urine Negative (Negative); Nitrite Urine Negative (Negative); Protein Urine 1+ (Negative); RBC Urine Automated >20 /hpf (0-2); Specific Gravity Urine 1.021 (1.000-1.030); Urobilinogen Urine Negative (Negative); WBC Urine Automated 0-5 /hpf (0-5); pH Urine 5.5 (4.5-7.5)
[2023-07-30] MEDS: MAGNESIUM SULFATE / D5W 1 GM/100 ML BAG IV SCH (12:43)
[2023-07-30] MEDS: MAGNESIUM CHLORIDE W/CALCIUM 64MG DELAYED REL TAB PO SCH (18:20)
[2023-07-30] MEDS: TAMSULOSIN HCL 0.4 MG CAP PO SCH (21:33)
[2023-07-30] MEDS: PANTOprazole 40 MG TAB PO SCH (21:33)
[2023-07-31 07:26] LABS: Hematocrit (blood only) 25.7 % (42.0-52.0); Hemoglobin 8.1 g/dl (14.0-18.0); Mean Corpuscular Hemoglobin 30.7 pg (25.0-34.0); Mean Corpuscular Hgb Conc 31.5 g/dL (32.0-36.0); Mean Corpuscular Volume 97.3 fL (80.0-100.0); Mean Platelet Volume 11.9 fL (9.4-12.4); Platelet Count 173 K/uL (130-400); RDW Standard Deviation 53.9 fL (36.4-46.3); Red Blood Count 2.64 M/uL (4.70-6.10); White Blood Count 4.27 K/ul (4.8-10.8)
[2023-07-31 07:50] LABS: Calcium 9.2 mg/dl (8.6-10.3); Creatinine Clr Calc Pharmacy 65.2 ml/min; Est GFR (African American) 63.5 ml/min; Est GFR (Non-African American) 54.8 ml/min; Magnesium 1.8 mg/dl (1.7-2.4); Phosphorus 3.3 mg/dl (2.5-4.9); Potassium 3.9 mmol/L (3.5-5.1)
--- NOTE | 2023-07-31 13:27 | Discharge Summary ---
Date of Service July 31, 2023 Admission HPI Per Admitting Provider 68-year-old male with past med history significant for type 2 diabetes, hyperlipidemia, nonischemic cardiomyopathy, chronic systolic CHF recent echo in Apr 2023 EF of 25%, hypertension, PVCs, first-degree block, intraventricular conduction defect, history of thrombocytopenia, history of alcoholism, was brought in because of confusion and found to have PETER and hyperkalemia. Brother went to his house yesterday and patient was found confused and he tried to bring him to the hospital but seems he argued with his brother and did not want to come to the hospital. Today brother called the EMS and when he went to see him he was very weak and not even able to walk and was also refused to come to the hospital but were able to bring him to the hospital. Patient having some tremors and is confused. Oriented to name. Thinks he is in [facility]. Denies any headache. Denies chest pain. But could not able to answer any other questions. Sometimes seems confused and sometimes not able to understand him. Seems later he was more alert and he told nursing staff the last drink was before . As per day epic he drinks 3 beers daily.Per brother he drinks wine and vodka and sometimes beer . Per brother he did not seem to eat anything for last few days and he tried to give him some fries yesterday. He lives alone. In ER his CT head is okay. CT abdomen pelvis no acute findings. Chest x-ray no acute findings. His labs shows hemoglobin 9.8. Platelets 115. Potassium 5.9. BUN 175. Creatinine is 7.9. Troponin 38. Procalcitonin came back as 1. TSH 1.3 urinalysis is okay. Urine drug screen is okay. Ethyl alcohol level less than 10. Holding his blood pressure. Heart rates are okay. Saturating okay. Also small amount of blood seen on his chin. Also there seems to be some blood in the stool as per the ER. Patient is somewhat shaky. Past medical history. As mentioned above Past surgical history. Prostate biopsy Social history. No smoking. Drinks 3 beers a night as per epic. No drug use. Family history. Mother had a heart attack age of 62. Brother had heart failure at age of 72. Status of ICD. Admission Exam Per Admitting Provider General- confused. Head- atraumatic Eyes- PERRL. ENT- oropharynx clear Neck- supple, no JVD. Lungs- clear to auscultation no wheezing or crackles. Heart- regular rhythm; no murmur, no gallop. Abdomen- normal bowel sounds, soft, nontender, no distension Extremities- no pretibial edema, no erythema seen Neuro- alert, oriented x 1. Shaky; PERRL, no facial palsy; no dysarthria; moves extremities. Principal Diagnosis Metabolic encephalopathy due to Warnicke's versus delirium from alcohol withdrawal PETER, hyperkalemia Discharge Exam Constitutional WD/WN, vitals as above no acute distress Respiratory normal respiratory effort, lungs clear to auscultation Cardiovascular Rate/Rhythm: regular rate and regular rhythm Vessels: normal peripheral pulses Extremities: no edema Gastrointestinal (Abdomen) Percussion/Palpation: abdomen soft; abdomen nontender Skin no rashes, warm and dry Neurologic no focal motor deficits Psychiatric Orientation: alert Not oriented to time, place, situation -recent baseline per nurse Genitourinary Bishop in place draining clear yellow urine Discharge Data Allergies Allergy/AdvReac Type Severity Reaction Status Date / Time Penicillins Allergy Severe AIRWAY Verified 07/08/23 15:41 EDEMA pollen extracts Allergy Intermediate ITCHY Verified 07/08/23 15:41 EYES, SNEEZING, CONGESTION Consultations 07/09/23 08:00 Consult Gastroenterology Routine Consult Nephrology Routine 07/09/23 08:05 Consult Neurology Routine 07/10/23 16:48 Consult Investment Representative Routine Ordered Studies Laboratory Results WBC 4.27 K/ul (4.8-10.8) L 07/31/23 06:53 RBC 2.64 M/uL (4.70-6.10) L 07/31/23 06:53 Hgb 8.1 g/dl (14.0-18.0) L 07/31/23 06:53 POC Hgb 7.8 g/dl (14.0-18.0) L 07/10/23 18:25 Hct 25.7 % (42.0-52.0) L 07/31/23 06:53 POC Hct 23 % (42-52) L 07/10/23 18:25 MCV 97.3 fL (80.0-100.0) 07/31/23 06:53 MCH 30.7 pg (25.0-34.0) 07/31/23 06:53 MCHC 31.5 g/dL (32.0-36.0) L 07/31/23 06:53 RDW Std Deviation 53.9 fL (36.4-46.3) H 07/31/23 06:53 RDW Coeff of Vu 15.0 % (11.5-14.5) H 07/31/23 06:53 Plt Count 173 K/uL (130-400) 07/31/23 06:53 MPV 11.9 fL (9.4-12.4) 07/31/23 06:53 Immature Gran % (Auto) 1.7 % 07/24/23 06:52 Neut % (Auto) 65.9 % 07/24/23 06:52 Lymph % (Auto) 16.2 % 07/24/23 06:52 Swisher % (Auto) 11.6 % 07/24/23 06:52 Eos % (Auto) 4.3 % 07/24/23 06:52 Baso % (Auto) 0.3 % 07/24/23 06:52 Neut # (Auto) 2.27 K/uL (1.40-6.50) 07/24/23 06:52 Lymph # (Auto) 0.56 K/uL (1.20-3.40) L 07/24/23 06:52 Swisher # (Auto) 0.40 K/uL (0.11-0.59) 07/24/23 06:52 Eos # (Auto) 0.15 K/uL (0.00-0.50) 07/24/23 06:52 Baso # (Auto) 0.01 K/uL (0.00-0.20) 07/24/23 06:52 Immature Gran # (Auto) 0.06 K/uL (0.01-0.20) 07/24/23 06:52 Absolute Nucleated RBC 0.02 K/uL (0.00-0.12) 07/14/23 22:25 Nucleated RBC % (auto) 0.5 % 07/14/23 22:25 Neutrophils % (Manual) Cancelled 07/14/23 21:32 Band Neutrophils % Cancelled 07/14/23 21:32 Lymphocytes % (Manual) Cancelled 07/14/23 21:32 Prolymphocyte % Cancelled 07/14/23 21:32 Reactive Lymphs % (Man) Cancelled 07/14/23 21:32 Monocytes % (Manual) Cancelled 07/14/23 21:32 Eosinophils % (Manual) Cancelled 07/14/23 21:32 Basophils % (Manual) Cancelled 07/14/23 21:32 Metamyelocytes % (Man) Cancelled 07/14/23 21:32 Myelocytes % (Man) Cancelled 07/14/23 21:32 Promyelocytes % (Man) Cancelled 07/14/23 21:32 Blast Cells % (Manual) Cancelled 07/14/23 21:32 Plasma Cell % (Manual) Cancelled 07/14/23 21:32 Other Cells % Cancelled 07/14/23 21:32 Nucleated RBC % Cancelled 07/14/23 21:32 Neutrophils # (Manual) Cancelled 07/14/23 21:32 Band Neutrophils # Cancelled 07/14/23 21:32 Total Absolute Neuts Cancelled 07/14/23 21:32 Lymphocytes # (Manual) Cancelled 07/14/23 21:32 Prolymphocyte # Cancelled 07/14/23 21:32 Reactive Lymphs # Cancelled 07/14/23 21:32 Total Abs Lymphocytes Cancelled 07/14/23 21:32 Monocytes # (Manual) Cancelled 07/14/23 21:32 Eosinophils # (Manual) Cancelled 07/14/23 21:32 Basophils # (Manual) Cancelled 07/14/23 21:32 Metamyelocytes # (Man) Cancelled 07/14/23 21:32 Myelocytes # (Manual) Cancelled 07/14/23 21:32 Promyelocytes # (Man) Cancelled 07/14/23 21:32 Blast Cells # (Man) Cancelled 07/14/23 21:32 Plasma Cell # (Manual) Cancelled 07/14/23 21:32 Other Cells # Cancelled 07/14/23 21:32 Nucleated RBCs # (Man) Cancelled 07/14/23 21:32 Hypersegmented Neuts Cancelled 07/14/23 21:32 Hyposegmented Neuts Cancelled 07/14/23 21:32 Hypogranular Neuts Cancelled 07/14/23 21:32 Large Granular Lymphs Cancelled 07/14/23 21:32 # Lrg Granular Lymphs Cancelled 07/14/23 21:32 Hairy Cells Cancelled 07/14/23 21:32 Smudge Cells Cancelled 07/14/23 21:32 Toxic Granulation Cancelled 07/14/23 21:32 Toxic Vacuolation Cancelled 07/14/23 21:32 Dohle Bodies Cancelled 07/14/23 21:32 Vivien Rods Cancelled 07/14/23 21:32 Platelet Estimate Cancelled 07/14/23 21:32 Hypogranular Platelets Cancelled 07/14/23 21:32 Giant Platelets Cancelled 07/14/23 21:32 Platelet Satelliting Cancelled 07/14/23 21:32 RBC Morphology Cancelled 07/14/23 21:32 Polychromasia 1+ 07/18/23 10:06 Hypochromasia Cancelled 07/14/23 21:32 Poikilocytosis Cancelled 07/14/23 21:32 Basophilic Stippling Cancelled 07/14/23 21:32 Anisocytosis Cancelled 07/14/23 21:32 Microcytosis Cancelled 07/14/23 21:32 Macrocytosis Cancelled 07/14/23 21:32 Spherocytes Cancelled 07/14/23 21:32 Pappenheimer Bodies Cancelled 07/14/23 21:32 Sickle Cells Cancelled 07/14/23 21:32 Target Cells Cancelled 07/14/23 21:32 Tear Drop Cells 1+ 07/18/23 10:06 Ovalocytes 1+ 07/18/23 10:06 Stomatocytes Cancelled 07/14/23 21:32 [place] Bodies Cancelled 07/14/23 21:32 Echinocytes Cancelled 07/14/23 21:32 Acanthocytes (Spur) Cancelled 07/14/23 21:32 Rouleaux Cancelled 07/14/23 21:32 RBC Agglutinates Cancelled 07/14/23 21:32 Schistocytes Cancelled 07/14/23 21:32 Sezary Cell Cancelled 07/14/23 21:32 PT 12.2 Seconds (9.0-12.0) H 07/08/23 16:54 INR 1.1 (0.9-1.1) 07/08/23 16:54 APTT 31 Seconds (21-31) 07/09/23 01:14 PTT Ratio 1.1 07/09/23 01:14 Sample Site R Radial 07/10/23 18:25 POC pH 7.42 (7.35-7.45) 07/10/23 18:25 POC pCO2 34 mmHg (35-46) L 07/10/23 18:25 POC pO2 79 mmHg (80-95) L 07/10/23 18:25 POC HCO3 22 luli/L (19-24) 07/10/23 18: POC Total CO2 23 mmol/L (24-31) L 07/10/23 18: POC Base Excess -2.0 luli/L (-9-1.8) 07/10/23 18:25 ABG pH (Temp Correct) 7.429 (7.35-7.45) 07/10/23 18: ABG pCO2 (Temp Corrct 33 mmHg (35-46) L 07/10/23 18:25 POC ABG pO2 at Pt Temp 76 07/10/23 18: POC ABG O2 Sat 96.0 % (90-95) H 07/10/23 18:25 Kadeem Test Pass 07/10/23 18:25 VBG pH 7.19 (7.36-7.41) L 07/08/23 21:39 VBG pCO2 37 mmHg (38-50) L 07/08/23 21:39 VBG pO2 28 mmHg 07/08/23 21:39 VBG HCO3 14 mmol/L 07/08/23 21:39 VBG O2 Saturation < 60.0 % 07/08/23 21:39 VBG Base Excess -13.3 mEq/L 07/08/23 21:39 O2 Delivery Device Room Air 07/10/23 18:25 POC Sodium 139 mmol/L (135-144) 07/10/23 18: Sodium 135 mmol/L (136-145) L 07/31/23 06:53 POC Potassium 4.3 mmol/L (3.3-5.0) 07/10/23 18: Potassium 3.9 mmol/L (3.5-5.1) 07/31/23 06:53 Chloride 102 mmol/L (98-107) 07/31/23 06:53 Carbon Dioxide 23 mmol/L (21-32) 07/31/23 06:53 Anion Gap 10 (3-11) 07/31/23 06:53 BUN 21 mg/dl (6-23) 07/31/23 06:53 Creatinine 1.31 mg/dl (0.6-1.4) 07/31/23 06:53 Est Cr Clr Drug Dosing 65.2 ml/min 07/31/23 06:53 Est GFR ( Amer) 63.5 ml/min 07/31/23 06:53 Est GFR (Non-Af Amer) 54.8 ml/min 07/31/23 06:53 BUN/Creatinine Ratio 16.0 (10-20) 07/31/23 06:53 Glucose 114 mg/dl (70-99(Fasting)) H 07/31/23 06:53 POC Glucose 155 mg/dl (70-99) H 07/31/23 11:42 Estimat Average Glucose 206 mg/dl 07/09/23 01:14 Hemoglobin A1c 8.8 % (4.5-5.6) H 07/09/23 01:14 Lactate 0.8 mmol/L (0.4-2.0) 07/24/23 06:56 Uric Acid 6.7 mg/dl (2.6-7.2) 07/26/23 13:33 Calcium 9.2 mg/dl (8.6-10.3) 07/31/23 06:53 Phosphorus 3.3 mg/dl (2.5-4.9) 07/31/23 06:53 Magnesium 1.8 mg/dl (1.7-2.4) 07/31/23 06:53 Total Bilirubin 0.8 mg/dl (0.2-1.0) 07/24/23 06:52 Direct Bilirubin 0.2 mg/dl (0-0.2) 07/11/23 03:51 AST 30 U/L (13-39) 07/24/23 06:52 ALT 23 U/L (7-52) 07/24/23 06:52 Alkaline Phosphatase 63 U/L (34-104) 07/24/23 06:52 Ammonia 21.0 umol/L (18-72) 07/08/23 21:39 Total Creatine Kinase 249 U/L (30-223) H 07/10/23 18:28 Troponin I High Sens 41.4 pg/ml (0-20) H 07/09/23 16:42 C-Reactive Protein 2.72 mg/dl (0-0.5) H 07/24/23 06:52 Total Protein 6.0 gm/dl (6.0-8.3) 07/24/23 06:52 Albumin 2.8 gm/dl (3.4-5.0) L 07/24/23 06:52 Globulin 3.2 gm/dl (2.5-4.0) 07/24/23 06:52 Albumin/Globulin Ratio 0.9 (0.9-2) 07/24/23 06:52 Lipase 131 U/L (11-82) H 07/14/23 21:32 Vitamin B1 >1200 nmol/L (8-30) H 07/11/23 03:51 Vitamin B12 711 pg/ml (180-914) 07/09/23 01:14 Procalcitonin 0.31 ng/ml (0-0.5) 07/24/23 06:52 TSH 1.339 uIu/ml (0.300-4.500) 07/08/23 16:54 Random Cortisol 17.84 mcg/dl 07/14/23 21:32 Urine Color Yellow 07/30/23 Unknown Urine Appearance Cloudy (Clear) A 07/30/23 Unknown Urine pH 5.5 (4.5-7.5) 07/30/23 Unknown Ur Specific Stanley 1.021 (1.000-1.030) 07/30/23 Unknown Urine Protein 1+ (Negative) H 07/30/23 Unknown Urine Glucose (UA) 3+ (Negative) H 07/30/23 Unknown Urine Ketones 1+ (Negative) H 07/30/23 Unknown Urine Blood 3+ (Negative) H 07/30/23 Unknown Urine Nitrite Negative (Negative) 07/30/23 Unknown Urine Bilirubin Negative (Negative) 07/30/23 Unknown Urine Urobilinogen Negative (Negative) 07/30/23 Unknown Ur Leukocyte Esterase Negative (Negative) 07/30/23 Unknown Urine WBC (Auto) 0-5 /hpf (0-5) 07/30/23 Unknown Urine RBC (Auto) >20 /hpf (0-2) H 07/30/23 Unknown U Hyaline Cast (Auto) 3-5 /lpf (0-2) H 07/30/23 Unknown U Epithel Cells (Auto) 3-5 /hpf (0-2) H 07/30/23 Unknown Urine Bacteria (Auto) None Seen (None Seen) 07/30/23 Unknown Uric Acid Crystals Present (None Prsent) A 07/14/23 22:30 Urine Yeast Not Reportable 07/08/23 Unknown Urine Opiates Screen Neg (Neg) 07/08/23 Unknown Ur Methadone, Qual Neg (Neg) 07/08/23 Unknown Urine Barbiturates Neg (Neg) 07/08/23 Unknown Ur Phencyclidine (PCP) Neg (Neg) 07/08/23 Unknown U Amphetamin/Meth Scrn Neg (Neg) 07/08/23 Unknown MDMA (Ecstasy) Screen Neg (Neg) 07/08/23 Unknown U Benzodiazepines Scrn Neg (Neg) 07/08/23 Unknown Ur Cocaine Metabolite Neg (Neg) 07/08/23 Unknown U Marijuana (THC) Screen Neg (Neg) 07/08/23 Unknown Ethyl Alcohol mg/dL < 10.0 mg/dl (<10.0) 07/08/23 16:54 Blood Parasites ID Cancelled 07/14/23 21:32 Impressions Abdomen/Pelvis CT 07/08/23 18:34 Exam(s): CT ABDOMEN + PELVIS Without Contrast EXAM: CT Abdomen and Pelvis Without Intravenous Contrast CLINICAL HISTORY: Reason for exam: PETER Cr >7. TECHNIQUE: Axial computed tomography images of the abdomen and pelvis without intravenous contrast. CTDI is 28.1 mGy and DLP is 1575.28 mGy-cm. Automated exposure control was utilized for the study. A dose lowering technique was utilized adhering to the principles of ALARA. COMPARISON: No relevant prior studies available. FINDINGS: Lung bases: Unremarkable. No mass. No consolidation. ABDOMEN: Liver: Unremarkable. Gallbladder and bile ducts: Cholelithiasis. No ductal dilation. Pancreas: Unremarkable. No ductal dilation. Spleen: Unremarkable. No splenomegaly. Adrenals: Unremarkable. No mass. Kidneys and ureters: Unremarkable. No hydronephrosis or nephrolithiasis. Stomach and bowel: Diverticulosis, without acute diverticulitis. No small bowel obstruction. No free intraperitoneal air. PELVIS: Appendix: No findings to suggest acute appendicitis. Bladder: Bishop catheter terminates in the urinary bladder. No stones. Reproductive: Unremarkable as visualized. ABDOMEN and PELVIS: Intraperitoneal space: Unremarkable. No free air. No significant fluid collection. Bones/joints: Degenerative changes of the spine. No acute fracture. No dislocation. Soft tissues: Small fat-containing bilateral inguinal hernias. Fat- containing umbilical hernia measures 3.6 x 3.3 cm. Vasculature: Atherosclerotic changes of the aorta. No abdominal aortic aneurysm. Lymph nodes: Unremarkable. No enlarged lymph nodes. IMPRESSION: 1. Cholelithiasis. 2. Bishop catheter terminates in the urinary bladder. 3. Small fat-containing bilateral inguinal hernias. 4. Fat-containing umbilical hernia measures 3.6 x 3.3 cm. 5. Diverticulosis, without acute diverticulitis. No small bowel obstruction. No free intraperitoneal air. Electronically signed by: Branden Hay MD 07/08/23 23:25 PM Hip/Pelvis X-Ray 07/10/23 12:25 XR hip LT 2V w pelvis CLINICAL HISTORY: Left hip pain. COMPARISON: CT of the abdomen and pelvis July 08, 2023. FINDINGS: Bishop catheter within the bladder is incidentally noted. Sacroiliac joints and symphysis pubis are intact. No acute fracture within the pelvis or hips is identified. No suspicious osseous lesions are present. There is moderate joint space narrowing and osteophytosis of the left hip. There is mild to moderate right hip osteoarthritis. No evidence for avascular necrosis of the left femoral head. IMPRESSION: 1. No fractures within the pelvis or hips. 2. Moderate left hip osteoarthritis. ACT 112: Negative or not required by law. Electronically signed by: Gunnar Young M.D. 07/11/2023 9:37 AM Knee X-Ray 07/10/23 12:25 XR knee LT 1 or 2V routine CLINICAL HISTORY: Left knee pain. COMPARISON: None FINDINGS: Alignment of the left knee is anatomic. There is no acute fracture. There are no osseous lesions. Possible small left knee joint effusion. Joint spaces are preserved. There is mild left knee osteophytosis. IMPRESSION: 1. No fractures within the left knee. 2. Mild degenerative changes within the left knee. 3. Possible small left knee joint effusion. ACT 112: Negative or not required by law. Electronically signed by: Gunnar Young M.D. 07/11/2023 9:13 AM Brain MRI 07/10/23 12:26 Exam(s): MRI HEAD Without Contrast EXAM: MR Head Without Intravenous Contrast CLINICAL HISTORY: Reason for exam: encephalopathy, ro stroke other pathology. TECHNIQUE: Magnetic resonance images of the head/brain without intravenous contrast in multiple planes. COMPARISON: Comparison made to prior head CT from July 08, 2023. FINDINGS: This study is limited secondary to motion artifact. Brain: Mild nonspecific white matter changes. No mass. No hemorrhage. No acute infarct. Ventricles: Mild ventriculomegaly. Bones/joints: Unremarkable. No acute fracture. Sinuses: Unremarkable as visualized. No acute sinusitis. Mastoid air cells: Unremarkable as visualized. No mastoid effusion. Orbits: Unremarkable as visualized. IMPRESSION: No evidence of acute intracranial pathology in this limited study. Electronically signed by: Tatiana Martínez MD 07/11/23 02:05 AM Chest X-Ray 07/21/23 01:22 XR chest 1V portable HISTORY: hypoxia COMPARISON: Chest 07/19/2023. FINDINGS: Feeding tube terminates at the gastric fundus. This remains unchanged. There are low lung volumes. No pneumothorax. No pleural effusions. There is perihilar vascular/interstitial prominence. This is likely due to the low lung volumes. No new focal lung consolidations to suggest a pneumonia. No evidence for pulmonary edema. The heart remains mildly enlarged. IMPRESSION: No significant change compared to the prior study. No acute process. ACT 112: Negative or not required by law. Electronically signed by: Daquan Kim M.D. 07/21/2023 7:21 AM KUB X-Ray 07/21/23 07:13 KUB HISTORY: ng tube placement COMPARISON: KUB 07/18/2023. FINDINGS: The bowel gas pattern is unremarkable. There are no dilated loops of small bowel to suggest an obstruction. No renal calculi. No ureteral calculi. No pneumoperitoneum or pneumatosis. The feeding tube is curled within the stomach with the tip terminating near the fundus of the stomach. This is similar to the prior study. IMPRESSION: The feeding tube is curled within the stomach with the tip terminating near the fundus of the stomach. This is similar to the prior study. ACT 112: Negative or not required by law. Electronically signed by: Daquan Kim M.D. 07/21/2023 8:[address] 07/22/23 07:32 CT OF THE HEAD WITHOUT CONTRAST CLINICAL HISTORY: Confusion. Evaluate for stroke. COMPARISON STUDY: MRI of the brain July 10, 2023. Head CT July 14, 2023. CT DOSE: 1375.09 mGy.cm TECHNIQUE: Helical axial images of the head were obtained without IV contrast. Automated exposure control was utilized for the study. A dose lowering technique was utilized adhering to the principles of ALARA. FINDINGS: This exam is moderately compromised by motion artifact. No acute intracranial hemorrhage, midline shift or mass effect is present. Ventricular system is unremarkable. Basal cisterns are patent. There are no extra-axial collections. White matter hypodensities are unchanged and favor small vessel disease. There are no findings to suggest acute dural sinus thrombosis or acute territorial infarct. There are no significant calvarial abnormalities. IMPRESSION: Exam is moderately compromised by motion artifact. No acute intracranial findings. ACT 112: Negative or not required by law. Electronically signed by: Gunnar Young M.D. 07/22/2023 8:44 AM Ankle X-Ray 07/25/23 10:46 LEFT ANKLE 3 VIEWS CLINICAL HISTORY: Left leg pain. FINDINGS: 3 views of the left ankle are obtained. No prior studies are available for comparison at the time of dictation. The skeletal structures are osteopenic. No fracture is seen. The ankle mortise is intact. There is no significant joint effusion. A large dorsal heel spur is observed. There is degenerative spurring along the dorsal aspect of the tarsal bones. Mild soft tissue swelling is seen around the ankle. There is atherosclerotic calcification of the regional arteries. IMPRESSION: Soft tissue swelling with no fracture identified. Electronically signed by: Isidro Wood M.D. 07/25/2023 11:14 AM Hospital Course (1) Wernicke-Korsakoff syndrome (alcoholic): (2) Altered mental status: (3) Delirium tremens: (4) Systolic congestive heart failure: (5) Type 2 diabetes mellitus with obesity: Plan Mr. Sarkar is a 68 year old gentleman with PMH of T2DM, HLD, nonischemic CM, chronic HFrEF April 2023 echo with EF of 25%, HTN, PVCs, first-degree block, intraventricular conduction defect, thrombocytopenia, alcoholism was brought in because of confusion and found to have PETER and hyperkalemia at ED on 07/07. Patient noted to be confused at home for 2 days [employer] as well as with tremors. On the day of presentation (07/07), patient was noted to be very weak and not even able to walk, EMS was called by his brother. At presentation patient noted oriented x 1, but not able to answer any other questions per H&P note. Per H&P note, appears last drink was before 07/05. Per patient's brother, he drinks wine and vodka and sometimes beer. Acute metabolic encephalopathy, c/f suspected Wernicke's- Korsakoff's syndrome vs Delirium secondary to alcohol withdrawal B12 711, B1 >1200, TSH 1.3, no leucocytosis or fever, ABG without hypercarbia, ammonia 21, culture negative. Long standing history of alcohol dependence Patient noted to be uremic, however minimal improvement with resolution of PETER - Nephrology consulted for acute renal failure which has improved, and determined mentation not likely from uremia/ARF. Patient was transferred to ICU on 07/09 due to concern for delirium tremens and transferred out of ICU on 07/12 after subtle improvement in encephalopathy. Started on thiamine, folate, MV, B12 Neurology evaluated patient: EEG was consistent with encephalopathy. MRI brain with motion artifact but no evidence of acute intracranial findings. No suspicion for infection therefore LP was not recommended. Psychiatry evaluated patient for management of agitation--where it was recommended to continue to use lorazepam for agitation. ? alcohol withdrawal seizure on presentation EEG suggestive of nonspecific encephalopathy. MRI brain with no acute finding. Evaluated by neurology. Documents by prior provider filed to restrict driving Acute kidney injury with uremia and hyperkalemia, resolved Cr peaked at 7.9 on admission and now down to 1.0 K+ 5.9 on admission, has stabilized Acute on chronic anemia Unknown baseline, Hgb 11.3 09/2022 During admission patient's hemoglobin 7.2-9.8 No obvious signs of blood loss Started on oral B12 and oral iron supplementation- concern for some nutritional deficiency given his alcohol intake with poor oral intake [employer]. Initially placed on IV Protonix due to high likelihood of gastritis, subsequently transition to p.o. GI consulted, no procedures performed Urinary retention UA without suspicion for infection, bishop placed on 07/29 Start tamsulosin Hypernatremia, resolved Na+ peaked at 151, now stabilized Hypomagnesemia Started on oral magnesium replacement Chronic systolic CHF EF 25-30% with severe global hypokinesia and grade 1 diastolic dysfunction Volume status stable. Continue GDMT with toprol, losartan, jardiance. Home dose metoprolol succinate 50 mg twice daily initially held due to hypotension, subsequently resumed metoprolol succinate 25 mg daily and then increased to twice daily due to elevated heart rate, BP and HR now stable Hypertension Hypotension resolved now resumed on toprol, losartan. Home medication was olmesartan 25 mg daily, losartan 12.5 mg started in favor of T2DM A1c of 8.8 on 07/09/23. 8.4 on 09/27/22. Received SSI and Jardiance while hospitalized, resume home regimen of metoprolol and Jardiance at discharge Gout Continue allopurinol Total Time Total Time Spent Total Time Spent (In Minutes): 90 Discharge Plan Discharge Items Patient Disposition: [facility] Reason For Visit: Altered mental status Discharge Diagnosis: Metabolic encephalopathy, Warnicke's vs. delirium from alcohol withdrawal Alcoholism with possible withdrawal seizure PETER Hyperkalemia Activity: As commented below Activity Comment: As tolerated, as per PT/OT recommendations Non-emergency contact: Primary Care Provider Call non-emergency contact if: you have any medication questions, your symptoms worsen, your pain is not controlled and you have a fever Follow-up/Referrals: Tanner Johnson MD [Primary Care Provider] - Diet: Carb Consistent or DM2 and Heart Healthy Addtl Attending Provider Instructions: Patient presented with altered mental status in the setting of longstanding history of alcohol dependence AMS felt to be due to Warnicke's versus delirium secondary to alcohol withdrawal Patient also noted to have significant PETER and hyperkalemia on presentation, creatinine has since returned to baseline and stabilized Due to hypotension, home metoprolol succinate and olmesartan were initially held, losartan 12.5 mg daily and metoprolol succinate 25 mg twice daily were started Also noted to have acute on chronic anemia, started on iron replacement, recommend monitoring CBC Urinary retention, Bishop catheter placed 07/29 and started on tamsulosin- recommend voiding trial at facility Started on thiamine, folate, multivitamin, B12 for history of alcoholism Started on oral magnesium supplementation for hypomagnesemia Pending Studies at Discharge: No Stand-Alone Forms: My [facility] Skilled Items Patient informed of condition?: Yes DNR: No Discharge Level of Care: Skilled Communicable Disease: No Discharge Prognosis: Stable Lines: None Urinary Catheter: Yes Medications and DC Order Prescriptions: New tamsulosin 0.4 mg Capsule 0.4 mg PO HS Qty: 1 0RF ferrous sulfate 325 mg (65 mg iron) Tablet,Delayed Release (Dr/Ec) 325 mg PO QAM Qty: 1 0RF melatonin 3 mg Tablet 9 mg PO HS Qty: 1 0RF pantoprazole 40 mg Tablet,Delayed Release (Dr/Ec) 40 mg PO BID Qty: 1 0RF losartan 25 mg Tablet 12.5 mg PO QAM Qty: 1 0RF cyanocobalamin (vitamin B-12) 500 mcg Tablet 500 mcg PO QAM Qty: 1 0RF thiamine HCl (vitamin B1) 100 mg Tablet 100 mg PO QAM Qty: 1 0RF folic acid 1 mg Tablet 1 mg PO QAM Qty: 1 0RF metoprolol succinate 25 mg Tablet Extended Release 24 Hr 25 mg PO BID Qty: 1 0RF Mag 64 64 mg Tablet,Delayed Release (Dr/Ec) 64 mg PO QAM Qty: 1 0RF Continued aspirin 81 mg tablet,delayed release (DR/EC) 81 mg PO QPM allopurinol 100 mg tablet 100 mg PO QAM fexofenadine 180 mg Tablet 180 mg PO QAM Jardiance 10 mg tablet 10 mg PO QAM metformin 500 mg tablet 500 mg PO BIDM rosuvastatin 10 mg tablet 10 mg PO QAM Discontinued metoprolol succinate 50 mg tablet extended release 24 hr 50 mg PO BID Qty: 30 melatonin 10 mg capsule 10 mg PO HS PRN (Reason: Sleep) olmesartan 20 mg tablet 20 mg PO QAM hydroxyzine HCl 25 mg tablet 25 mg PO DAILY PRN (Reason: Itching) Discharge Orders: Discharge Order (Routine); Ordered 07/31/23 Ordered By: Amelie Langley/Other Patient Handouts: Social Drinking vs Problem Drinking, Coping with Heart Failure, Indwelling Urinary Catheter Dc, ED Confusion Admission Data Admit Date/Time: 07/08/23 21:09 Attending Provider: Maria Antonia Singletary Admit Provider: Jake Castaneda Primary Care Provider: Tanner Johnson Other Providers: Carlin Garrido; Leiv[place],[facility]; Derian Renteria [facility]; [facility],; Jake Castaneda; Shawanda Peoples; Dara Perez; Pasquale Pope; Dara Bobo; Gold Ware; Monty Jhaveri; Chad Velasquez; Eduardo Fung; Hedy Huff; Monico Cardoso; Erick Somers; Donya Whitaker; Landon Bush; Janet Hoffmann; Ros Mas; Eduardo Higgins; Omar Blank Other Interventions: Discharge Summary Assessment (RN) Last Done: 07/31/23 15:01 Supervising Physician Co-Signing Physician Notes I have seen and discussed the case with the collaborating advanced practitioner. I agree with the above DC Summary I have reviewed and confirmed the patients medical history, the findings on physical examination, and the patients diagnosis and treatment plan with Radha RENTERIA and agree with the information documented. In short, Mr. Sarkar is a 68 year old gentleman with PMH of T2DM, HLD, nonischemic CM, chronic HFrEF April 2023 echo with EF of 25%, HTN, PVCs, first-degree block, intraventricular conduction defect, thrombocytopenia, alcoholism was brought in because of confusion and found to have PETER and hyperkalemia at ED on 07/07. Patient noted to be confused at home for 2 days [employer] as well as with tremors. On the day of presentation (07/07), patient was noted to be very weak and not even able to walk, EMS was called by his brother. At presentation patient noted oriented x 1, denied headache or chest pain. But not able to answer any other questions per H&P note. Per H&P note, appears last drink was before 07/05. Patient was transferred to ICU on 07/09 due to concern for delirium tremens and transferred out of ICU after subtle improvement in encephalopathy. GI was consulted for concern of blood in stool, however, there was no invasive testing performed. Neurology evaluated patient: EEG was consistent with encephalopathy. MRI brain with motion artifact but no evidence of acute intracranial findings. Possible alcohol withdrawal and uremic encephalopathy likely largely contributing to mentation. Creatinine and BUN slowly downtrending. Nephrology was concerned that he would be at high risk for dysequilibrium syndrome with dialysis for uremia. Psychiatry evaluated patient for management of agitation--where it was recommended to continue to use lorazepam for agitation. Nephrology consulted for acute renal failure which has improved, and determined mentation not likely from uremia/ARF. Patient improved since admission, but still noted to confabulate and hold conversations not congruent with initial topic. Patient stable for discharge to rehab and further op follow up. Exam unremarkable for any focal neurologic deficits upon discharge. Rest of summary as above. I spent a total of 35 minutes coordinating, documenting, and providing care for this patient excluding time spent in the performance of separately billed serv ices. All of the aforementioned completed outside of collaborating with the assigned advanced practitioner for a full treatment plan. I have reviewed the advanced practitioner's documentation, and I agree with, and take responsibility for the plan of care
== END 2023-07-31 16:32 | DRG 896 ==
LOC: ED 15:03 → EDINP 21:09 → SUATTDRO 21:09 → 4W 22:42 → 1E 07-10 16:56 → 2E 07-17 21:36 → 3W 07-24 15:39